=== PATIENT | male | born 1945 | race Caucasian/White ===

== ENCOUNTER → 2017-08-25 06:04 | Outpatient (CLI) | payer MEDICARE, OTHER, SELFPAY ==
[2017-08-25 10:16] LABS: AST(SGOT) 26 U/L (15-37); Alanine Aminotransfer ALT/SGPT 26 U/L (16-61); Albumin, Serum 3.9 g/dL (3.2-5.0); Alkaline Phosphatase 35 U/L (45-117); Bilirubin, Direct 0.13 mg/dL (0.00-0.30); Cholesterol 150 mg/dL (200); Globulin 3.4 g/dL (2.2-4.2); High Density Lipoprotein 36 mg/dL; Protein, Total 7.3 g/dL (6.4-8.2); Triglycerides 129 mg/dL; Very Low Density Lipoprotein 26 mg/dL (5-40)
--- NOTE | 2017-08-25 10:19 | STRESSREP ---
Stress Test Report Pharmacologic myocardial perfusion stress test. 71-year-old man with a history of known coronary artery disease status post carotid bypass surgery. Stress protocol: Resting EKG demonstrates normal sinus rhythm with rate of 60 bpm normal intervals are noted. Resting blood pressure is 124/74 mmHg. 0.4 mg of regadenoson was infused per usual protocol. Continuous EKG monitoring was performed. The patient maintained sinus rhythm throughout the recording the maximum heart rate was 83 bpm which was 54% of the maximum predicted heart rate the maximum workload attained was 1 metabolic equivalent. At rest there were no ST or T-wave changes noted suggest ischemia at peak infusion no ST or T-wave changes were noted suggest ischemia. Myocardial perfusion protocol. 14.8 mCi of technetium 99m sestamibi was injected at rest. 0.4 mg of regadenoson was infused per usual protocol. At peak infusion 44.9 mCi of technetium 99m sestamibi was injected. Stress images were obtained stress and rest images were reconstructed and compared in the short axis vertical long and horizontal long axis. Gated images were also obtained. Perfusion SPECT analysis: Review of the stress images demonstrate an upper normal cardiac silhouette size. The septum appears to be well perfused the anterior wall and lateral huynh are well perfused. There is a medium-sized defect noted in the basal to mid inferior wall. The distal inferior wall and inferoapical huynh are well perfused. This is present on the stress and the resting images to a similar extent. 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 There appears to be mild improvement in the inferolateral segment suggesting mild inferolateral alec-infarct ischemia. Gated SPECT analysis: The gated ejection fraction is noted to be 65%. 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 Preserved ejection fraction.
== END ==
PROVIDERS: Family Provider Family Medicine; PCP Family Medicine; Visit Provider Physician Assistant Medical
DX: E78.00 Pure hypercholesterolemia, unspecified (principal); I25.10 Atherosclerotic heart disease of native coronary artery without angina pectoris; I10 Essential (primary) hypertension; R07.9 Chest pain, unspecified
CPT/HCPCS: 36415; 78452; 80061; 80076; 93017; A9500; A4216; J2785

== ENCOUNTER → 2017-08-26 11:45 | Outpatient (CLI) | payer MEDICARE, OTHER, SELFPAY ==
--- NOTE | 2017-08-26 11:50 | RAD_ITS ---
STUDY: X-RAY CHEST REASON FOR EXAM: Male, 71 years old. Preop for heart catheterization TECHNIQUE: Frontal and lateral views of the chest. COMPARISON: None. FINDINGS: The lungs are clear and expanded. There is no demonstrated pleural abnormality. Normal size heart. Normal mediastinum and iqra. Normal visualized pulmonary arteries. Normal visualized aortic arch and descending thoracic aorta. Normal visualized thoracic spine. Normal visualized ribs, clavicles, and shoulders. There is no demonstrated abnormality of the visualized soft tissue structures of the upper abdomen. RAD/Chest PA and Lateral IMPRESSION: No acute cardiopulmonary disease. Electronically Signed: Deon Machado DO at 22:42 EDT , Service support ,
== END ==
PROVIDERS: Family Provider Family Medicine; PCP Family Medicine; Visit Provider Internal Medicine Cardiovascular Disease
DX: I25.10 Atherosclerotic heart disease of native coronary artery without angina pectoris (principal); E78.5 Hyperlipidemia, unspecified; I10 Essential (primary) hypertension; R94.39 Abnormal result of other cardiovascular function study; I25.2 Old myocardial infarction; Z95.1 Presence of aortocoronary bypass graft
CPT/HCPCS: 71046

== ENCOUNTER → 2017-08-27 06:48 | Day surgery (SDC) | payer MEDICARE, OTHER, SELFPAY ==
[2017-08-26 11:47] VITALS: BMI 36.4
[2017-08-26 12:37] LABS: Absolute Lymphocyte Count 2.08 X10^3/ul (0.83-4.51); Absolute Neutrophil Count 4.6 X10^3/uL (2.0-7.7); Basophil# 0.03 X10^3/uL; Basophil% 0.4 % (0-1); Eosinophil# 0.16 X10^3/uL; Eosinophils% 2.1 % (0-5); Hemoglobin 15.4 g/dl (13.0-16.5); Lymphocyte # 2.08 X10^3/ul (4.0); Lymphocyte % 27.6 % (19-41); Mean Corp Hgb Conc 32.8 g/gl (32-36); Mean Corpuscular Hgb 30.2 pg (27.0-32.0); Mean Corpuscular Volume 92.2 fL (80-94); Mean Platelet Vol. 9.5 fl (6.2-12.0); Monocyte# 0.66 X10^3/uL; Monocyte% 8.8 % (0-10); Platelet Count 251 K/mm3 (150-450); RBC Distribution Width CV 13.9 % (11.6-14.6); RBC Distribution Width SD 45.7 fl (35.1-43.9); White Blood Count 7.5 K/mm3 (4.4-11.0)
[2017-08-26 12:41] LABS: POSITIVE COUNT NO; POSITIVE DIFFERENTIAL NO; POSITIVE MORPHOLOGY NO
[2017-08-26 12:56] LABS: Anion Gap 8 (5-15); BUN 20 mg/dL (7-18); BUN/Creat Ratio 17.4 RATIO (10-20); Calcium,Total 8.5 mg/dL (8.5-10.1); Chloride 106 mmol/L (98-107); Creatinine, Serum 1.15 mg/dL (0.70-1.30); EST Glomerular Filtration Rate 67 mL/min (>60); Est Glom Filt Rate - Afr Amer 81 mL/min (>60); Estimated Creatinine Clearance 66.54 ml/min; Glucose 108 mg/dL (74-106); International Normalized Ratio 1.1; Potassium 4.7 mmol/L (3.5-5.1); Prothrombin Time (Protime)PT. 13.8 SECONDS (11.7-14.9); Sodium Level 139 mmol/L (136-145)
--- NOTE | 2017-08-27 09:04 | CL.D_ITS ---
Patient Name: KEILY MARVIN Study Date: 08/27/2017 Performing: Adalberto Marc MD Ht: 72.04 inches 183 cm : 1945 Wt: 268.96 lbs 122 kg Age: 71 Gender: male BSA: 2.42 PROCEDURE(S) PERFORMED BU61-GRO/COR/CABG DC11-AO ROOT ANGIO WITH HEART CATH CLINICAL PROFILE AND INDICATIONS INDICATIONS: 71-year-old man with a history of abnormal stress test. Stress/Imaging Standard Exercise Stress Test: Yes Result: Positive Low Risk CAD Presentations: No Sxs, no angina. CONCLUSIONS Occluded saphenous vein graft to the circumflex artery, occluded radial graft to the right coronary a rtery. Patent left internal mammary artery to the left anterior descending artery with collaterals e xtending to the distal right coronary artery, left to left collaterals from the circumflex artery and left to right collaterals from the circumflex artery. Patent sequential saphenous vein graft to the diagonal vessel RECOMMENDATIONS Medical therapy DESCRIPTION OF PROCEDURE The patient arrived to the procedure lab. The risks and benefits of the procedure as well as a full d escription of our services here and current unavailability of surgical backup were fully explained to the patient and/or their significant other prior to the catheterization. The Timeout was completed, verifying the correct patient and procedure. The patient's procedural site was prepped and draped in the usual fashion. Local anesthetic was given subcutaneously to right groin region with Lidocaine 2%. Using a modified Seldinger technique, arterial access was obtained via the right femoral artery, a 5 Fr sheath was inserted. Left Coronary Artery selective angiography was performed in multiple views u sing a 5 Fr. JL 5 catheter. Right Coronary Artery selective angiography was then performed in multipl e views using a 5 Fr. 3DRC (Hany) catheter. Saphenous Vein graft to the unknown artery (occluded graft) selective angiography was performed in single view using a 5 Fr. 3DRC (Hany) catheter. Sap henous Vein graft to the DIAGs selective angiography was performed in multiple views using a 5 Fr. 3D RC (Hany) catheter. Left internal mammary artery graft to the LAD selective angiography was perfo rmed in multiple views using a 5 Fr. IM catheter. Saphenous Vein graft to the unknown artery (occlude d graft) selective angiography was performed in single view using a 5 Fr. AR MOD catheter. Ascending (root) aorta selective angiography was then performed in single view. Ascending (root) aorta selectiv e angiography was then performed in single view.The arterial sheath was pulled and manual compression applied until hemostasis is achieved. CORONARY ANGIOGRAPHY DOMINANCE: Right Dominant LEFT MAIN: Angiographically normal LEFT ANTERIOR DECENDING ARTERY: is occluded MID LAD: is occluded DIAGONAL 1: Proximal - Moderate luminal irregularities up to 50% CIRCUMFLEX ARTERY: MID CIRC: is occluded RIGHT CORONARY ARTERY: PROX RCA: is occluded GRAFTS: BATISTA graft to the Mid LAD is patent Saphenous Vein graft to the 1st Diagonal is patent Sequential graft to the diagonal is patent Radial graft to the RCA is totally occluded Sequential graft to the om is occluded COLLATERAL FLOW: Collateral flow from CIRC to RPL 1 Collateral flow from Left to Right AORTIC ROOT: Angiographically normal COMPLICATIONS No Complications PROCEDURE MEDICATIONS Versed 1 mg IV Oxygen: 2 L/min via nasal cannula SUMMARY OF HEMODYNAMIC DATA Time AIR REST ECG 07:51:59 AO 119/63 (85) SA 08:11:18 Signed By Adalberto Marc MD On 08/27/2017 09:03:15 Adalberto Marc MD
== END ==
PROVIDERS: Family Provider Family Medicine; PCP Family Medicine; Visit Provider Internal Medicine Cardiovascular Disease
DX: I25.810 Atherosclerosis of coronary artery bypass graft(s) without angina pectoris (principal); I25.82 Chronic total occlusion of coronary artery; E11.9 Type 2 diabetes mellitus without complications; I10 Essential (primary) hypertension; E78.5 Hyperlipidemia, unspecified; R94.39 Abnormal result of other cardiovascular function study; Z79.84 Long term (current) use of oral hypoglycemic drugs; Z79.82 Long term (current) use of aspirin; Z79.02 Long term (current) use of antithrombotics/antiplatelets; Z79.899 Other long term (current) drug therapy; I25.2 Old myocardial infarction; Z95.1 Presence of aortocoronary bypass graft; Z87.891 Personal history of nicotine dependence; R93.1 Abnormal findings on diagnostic imaging of heart and coronary circulation
CPT/HCPCS: 36415; 80048; 85025; 85610; 85730; 93455; 93567; 99152; 99153; J3010; J7040; Q9967; C1769

== ENCOUNTER 2017-11-17 14:07 | Inpatient (IN) | payer MEDICARE, OTHER, SELFPAY ==
[2017-11-17 14:08] VITALS: BP 126/79; PULSE 83; RESP 18; TEMP 37.7; O2SAT 95; BMI 32.2
--- NOTE | 2017-11-17 15:12 | CT_ITS ---
STUDY: CT PELVIS WITH CONTRAST REASON FOR EXAM: Male, 72 years old. Right groin firmness RADIATION DOSAGE (If Supplied By Facility): CTDIvol = ( 23.33 ) mGy, DLP = ( 1002.30 ) mGycm TECHNIQUE: Transaxial imaging of the pelvis was performed without oral contrast. 100ML ml of Isovue 300 contrast was administered intravenously. Individualized dose optimization techniques were used for this CT. COMPARISON: None. FINDINGS: Normal urinary bladder. Normal visualized small intestine. There are diverticular changes of the colon without evidence for acute diverticulitis.. There is no pelvic fluid. There is no pelvic lymphadenopathy or mass lesion. Normal visualized pelvic arteries. There are small bilateral fat-containing inguinal hernias. Lateral to the right inguinal canal there is diffuse stranding in the subcutaneous fat extending anteriorly into the inferior pubic fat and extending along the dorsal surface of the proximal penile shaft. Small umbilical hernia containing fat. Lumbar spine demonstrates spondylosis. CT/Pelvis WITH IV Contrast IMPRESSION: Diffuse subcutaneous edema or cellulitis lateral to the right lateral canal penile shaft. No focal abscess Electronically Signed: Bernardo Gordon MD at 17:00 EDT , Service support ,
--- NOTE | 2017-11-17 15:15 | ED.DCSUM_ITS ---
- ER Visit Summary Date of Service: 11/17/17 Chief Complaint: [Right groin pain and swelling] History of Present Illness: The patient is a 72 M [who presents the emergency department with right groin pain and swelling. It has been going on for the last 3 days. He has had low-grade fevers. He has been nauseated. Is been slightly constipated. It hurts to move. He went to urgent care and they referred him here. He has not had an appetite today. He has a history of CABG coronary artery disease [place] diabetes hypertension.] Physical Examination: [] Temperature 100?F WN WD NAD PERRL EOMI MMM NECK supple and nontender, no masses RRR no murmur rub or gallop, no peripheral edema, symmetric radial pulses CTAB no respiratory distress ABDOMEN is soft and nontender, normal bowel sounds, no distension, no rebound or guarding SKIN 2 cm x 4 cm area of firm induration there is no palpable fluctuance, he has a cellulitis that extends across the mons lower abdomen and right groin Alert and Oriented x3, CN II-XII in tact, no motor or sensory deficits, gait normal No lymphadenopathy Test Results: [] Emergency Department Course and Treatment: [Patient was given pain medication and clindamycin. CT was obtained. CT showed no evidence of abscess or hernia. I spoke with the hospitalist who requested phone urology consultation with Dr. Sibley. I did speak with Dr. Kingsley. Patient remained stable and will be admitted.] Treatment Plan: [] Disposition: [Admit] Impression: [Right groin cellulitis] This note was generated with [employer] dictation software. It may contain incorrect words, spelling, and punctuation that were not noted in review of the chart prior to signing ED Disposition - Plan for ED Patient: Disposition: Acute Care Hospital [facility] Chief Complaint: Edema
[2017-11-17] MEDS: Morphine 4 MG/ML Syringe IV (15:33)
[2017-11-17] MEDS: Clindamycin 900 MG/50 ML BAG 75 MG IV (15:33)
[2017-11-17] MEDS: Ondansetron 4 MG/2 ML Vial IV (15:33)
[2017-11-17 15:40] LABS: Absolute Lymphocyte Count 1.32 X10^3/ul (0.83-4.51); Absolute Neutrophil Count 12.6 X10^3/uL (2.0-7.7); Basophil# 0.02 X10^3/uL; Basophil% 0.1 % (0-1); Eosinophil# 0.03 X10^3/uL; Eosinophils% 0.2 % (0-5); Hematocrit 43.9 % (40-54); Hemoglobin 14.5 g/dl (13.0-16.5); Lymphocyte # 1.32 X10^3/ul (4.0); Lymphocyte % 8.6 % (19-41); Mean Corpuscular Hgb 29.7 pg (27.0-32.0); Mean Corpuscular Volume 89.8 fL (80-94); Mean Platelet Vol. 9.5 fl (6.2-12.0); Monocyte# 1.38 X10^3/uL; Neutrophil # 12.59 X10^3/uL (2.7-7.7); Platelet Count 183 K/mm3 (150-450); Red Blood Count 4.89 M/mm3 (4.6-6.2); White Blood Count 15.4 K/mm3 (4.4-11.0)
[2017-11-17 15:44] LABS: POSITIVE COUNT NO; POSITIVE DIFFERENTIAL NO; POSITIVE MORPHOLOGY NO
[2017-11-17 15:51] LABS: Anion Gap 7 (5-15); BUN 18 mg/dL (7-18); BUN/Creat Ratio 14.3 RATIO (10-20); Calcium,Total 8.8 mg/dL (8.5-10.1); Chloride 104 mmol/L (98-107); Creatinine, Serum 1.26 mg/dL (0.70-1.30); EST Glomerular Filtration Rate 60 mL/min (>60); Est Glom Filt Rate - Afr Amer 73 mL/min (>60); Glucose 126 mg/dL (74-106); Potassium 3.7 mmol/L (3.5-5.1); Sodium Level 135 mmol/L (136-145)
[2017-11-17 15:52] LABS: International Normalized Ratio 1.2; Prothrombin Time (Protime)PT. 15.2 SECONDS (11.7-14.9)
[2017-11-17 18:17] VITALS: BP 135/68; PULSE 69; RESP 16; O2SAT 95
[2017-11-17 18:22] VITALS: BMI 32.2
--- NOTE | 2017-11-17 18:30 | PCM.HP.STD ---
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 García (7) History of left heart catheterization Status: Chronic Comment: 09/10/2002 [facility] per Dr. Moore> CABG X5 (8) Hyperlipidemia Status: Chronic Qualifiers: (9) Hypertension Status: Chronic Qualifiers: (10) History of myocardial infarction of inferoposterior wall Status: Chronic (11) Atherosclerotic heart disease of [place] coronary artery without angina pectoris Status: Chronic Qualifiers: History of Present Illness Date of Admission: 11/17/17 Chief Complaint: Fever with right groin swelling for 3 days The patient is a 72 year old M with history of coronary artery disease status post CABG in August 2002, diabetes mellitus type 2 with good glycemic control came to ER with fever and right groin swelling since Friday. Patient noticed this spontaneously erythematous, hardness over right groin region the subcutaneous fat. No change in urinary stream. Denies purulent discharge per urethra, other lower urinary tract symptoms. Patient has chronic constipation for about 1 year moves bowel in 2-3 days. Has nausea but denies vomiting. Patient noticed to have fever 102 in the urgent care and was sent here. Did not had antibiotic care. In ED, temperature was 100 Fahrenheit, with no tachycardia, tachypnea or hypoxia. CT pelvis was done and reported as diffuse subcutaneous edema or cellulitis lateral to right inguinal canal is diffuse stranding in subcutaneous fat extending anteriorly into inferior pubic fat and extending along the dorsal surface of proximal penile shaft. ED physician discussed with Dr. Kingsley and an absence of abscess does not need any surgical maneuver/procedure at this point of time. [] Past Medical History Past Medical History (Chronic Problems): Chronic Problems (Last Updated 08/25/17 @ 17:50 by Katy England) Old myocardial infarction (Chronic) Overweight (Chronic) Impacted cerumen of both ears (Chronic) S/P CABG x 5 (Chronic) BATISTA to LAD, SVG to DX-DX sequential and OM arteries; and right radial artery graft to the RCA 09/13/[address] García History of left heart catheterization (Chronic) 09/10/[address] [facility] [address] Moore> CABG X5 Hyperlipidemia (Chronic) Hypertension (Chronic) History of myocardial infarction of inferoposterior wall (Chronic) Atherosclerotic heart disease of [place] coronary artery without angina pectoris (Chronic) Medical History: Medical History (Last Updated 08/25/17 @ 17:50 by Katy England) Abnormal cardiovascular stress test (Acute) R94.39 Old myocardial infarction (Chronic) I25.2 Hyperlipidemia (Chronic) E78.5 Hypertension (Chronic) I10 History of myocardial infarction of inferoposterior wall (Chronic) I25.2 Atherosclerotic heart disease of [place] coronary artery without angina pectoris (Chronic) I25.10 Diabetes E11.9 Allergies ALLIE Inhibitors Adverse Reaction (Intermediate, Verified 11/17/17 14:09) Cough Home Medications: Ambulatory Orders Medication Instructions Recorded canagliflozin 100 mg tablet 100 mg PO DAILY 90 Days #90 07/14/17 fenofibrate micronized 134 mg 1 tab PO DAILY 90 Days #90 07/14/17 capsule metformin ER 500 mg 1 tab PO DAILY 30 Days #120 07/14/17 tablet,extended release 24 hr metoprolol tartrate 50 mg tablet 25 mg PO BID 90 Days #90 07/14/17 simvastatin 20 mg tablet 1 tab PO DAILY 90 Days #90 07/14/17 vitamin B12 500 mcg-folic acid 400 1 tab PO QDAY 07/14/17 mcg tablet amoxicillin 500 mg tablet See Label Instructions PO .COMPLEX 07/23/17 PRN aspirin 81 mg tablet,delayed 81 mg PO QDAY tab 07/23/17 release coenzyme Q10 100 mg capsule 100 mg PO QDAY 07/23/17 cyanocobalamin (vit B-12) 1,000 1,000 mcg PO QDAY 07/23/17 mcg tablet amlodipine 2.5 mg tablet 2.5 mg PO QDAY #90 tab 07/29/17 losartan 100 mg tablet 100 mg PO QDAY #90 tab 07/29/17 nitroglycerin 0.4 mg sublingual 0.4 mg SUBLINGUAL Q5M PRN #25 tab 07/30/17 tablet Surgical History: Surgical History (Last Updated 07/29/17 @ 10:49 by Justine Angulo) S/P CABG x 5 (Chronic) Z95.1 BATISTA to LAD, SVG to DX-DX sequential and OM arteries; and right radial artery graft to the RCA 09/13/[address] García History of left heart catheterization (Chronic) Z98.890 09/10/2002 [facility] per Dr. Moore> CABG X5 Smoking Status: Former smoker Tobacco Use: Cigarettes - *Family History Paternal Family History: Family History (Last Updated 07/29/17 @ 10:47 by Justine Angulo) Father Myocardial infarction COPD (chronic obstructive pulmonary disease) Brother CAD (coronary artery disease) Myocardial infarction History Items: No pertinent history Review of Systems Constitutional: Reports: Chills, Fever. Denies: Weight Change HEENT: Denies: Head Aches, Sinus Congestion, Sinus Drainage Cardiovascular: Denies: Chest Pain, Palpitations Respiratory: Denies: Cough, Shortness of breath at rest, Sputum production Gastrointestinal: Reports: Abdominal Pain, Nausea. Denies: Vomiting Genitourinary: Denies: Dysuria Musculoskeletal: Denies: Joint Pain, Joint Tenderness Skin: Reports: Rash. Denies: Wounds Neurological: Denies: Numbness, Tingling, Focal weakness Psychiatric: Denies: Anxiety, Depression, Homicidal Ideations, Suicidal Ideations Hematologic/ Lymphatic: Denies: Easy Bruising, Easy Bleeding VTE Information - Inpt Only VTE Present on Admission: No VTE Mechan Device Prophylaxis: SCD's VTE Pharm Prophylaxis ordered?: Yes Patient Problems: Active and Suspected Problems (Last Updated 08/25/17 @ 17:50 by Kayt England) Right-sided pubic soft tissue cellulitis (Acute) - Physical Exam General: Alert, Oriented x3, Cooperative HEENT: Atraumatic, PERRLA, EOMI, Normocephalic Neck: Supple, No JVD, Negative Carotid Bruits Lungs: Clear to auscultation, Normal air movement, No rhonchi, No wheeze Cardiovascular: Regular rate, Regular Rhythm, Normal S1, Normal S2, No murmurs Abdomen: Bowel Sounds Present, Soft, Tender - Mild tenderness of subcutaneous fat along right inguinal region. No scrotal tenderness/penile tenderness. No discharge per urethra., No hernias noted - No impulse on coughing at deep ring. Small umbilical small fat hernia, - Extremities: No edema, Capillary Refill Less than 3 Seconds Skin: Rash Present - Erythematous rash present over right pelvic and inguinal region along with induration and hardness. Musculoskeletal: No Tenderness to Palpation of Joints or Extremities Neurological: Cranial nerves II-XII grossly intact Psych/Mental Status: Normal Affect, Appropriate Vital Signs Temp Pulse Resp BP Pulse Ox 100 F H 69 16 135/68 H 95 11/17/17 14:08 11/17/17 18:17 11/17/17 18:17 11/17/17 18:17 11/17/17 18:17 Oxygen Delivery Method Room Air Weight: 258 lb Body Mass Index (BMI) 32.2 Laboratory Tests Past 24 Hrs 11/17/17 11/17/17 11/17/17 15:00 15:00 15:00 WBC 15.4 H RBC 4.89 Hgb 14.5 Hct 43.9 MCV 89.8 MCH 29.7 MCHC 33.0 RDW 14.0 RDW Differential 46.0 H Plt Count 183 MPV 9.5 Immature Gran % (Auto) 0.100 Neut % (Auto) 82.0 H Lymph % (Auto) 8.6 L [place] % (Auto) 9.0 Eos % (Auto) 0.2 Baso % (Auto) 0.1 Absolute Neuts (auto) 12.6 H Absolute Lymphs (auto) 1.32 Total Counted Not Reportable PT 15.2 H INR 1.2 Sodium 135 L Potassium 3.7 Chloride 104 Carbon Dioxide 24.0 Anion Gap 7 BUN 18 Creatinine 1.26 Estim Creat Clear Calc 65.20 Est GFR (MDRD) Af Amer 73 Est GFR (MDRD) Non-Af 60 BUN/Creatinine Ratio 14.3 Glucose 126 H Calcium 8.8 Assessment/Plan All Active Problems (Last Updated 08/25/17 @ 17:50 by Katy England) Right-sided pubic soft tissue cellulitis (Acute) Abnormal cardiovascular stress test (Acute) The patient is a 72 year old M with history of coronary artery disease status post CABG in August 2002, diabetes mellitus type 2 with good glycemic control came to ER with fever and right groin swelling since Friday. Patient noticed this spontaneously erythematous, hardness over right groin region the subcutaneous fat. No change in urinary stream. Denies purulent discharge per urethra, other lower urinary tract symptoms. Patient has chronic constipation for about 1 year moves bowel in 2-3 days. Has nausea but denies vomiting. Patient noticed to have fever 102 in the urgent care and was sent here. Did not had antibiotic care. In ED, temperature was 100 Fahrenheit, with no tachycardia, tachypnea or hypoxia. CT pelvis was done and reported as diffuse subcutaneous edema or cellulitis lateral to right inguinal canal is diffuse stranding in subcutaneous fat extending anteriorly into inferior pubic fat and extending along the dorsal surface of proximal penile shaft. ED physician discussed with Dr. Kingsley and an absence of abscess does not need any surgical maneuver/procedure at this point of time. Initial blood work shows leukocytosis with left shift. INR and kidney function normal. 1. Right sided inguinal region and pelvic subcutaneous fat plane cellulitis: Patient is being admitted on the MedSurg floor. Started on IV Zosyn. Blood cultures ?2 ordered in ER. Lactic acid ordered. If if patient develops localized abscess during hospital course or condition further worsens, can consult Dr. Kingsley 2. Diabetes mellitus type 2 with good glycemic control: Patient said his blood sugar is between 90-110 mg/dl at home. Last A1c 6.2 about 3 months ago. Although our record shows 6.8 in August 2016. Hold metformin and canagliflozin as canagliflozin causes glucosuria and risk for aggravating infection along penile urethra. 3. Coronary artery disease status post four-vessel CABG in 2002, last cardiac cath in August [address] tran: On medical management. Resume home cardiac medications. 4 other comorbidities include hypertension, dyslipidemia: Home medication reconciliation done. This note was generated with [employer] dictation software. Every effort was made to ensure accuracy, however computerized cuff turner mistakes may persist. Laboratory Results 11/17/17 15:00: WBC 15.4 H, RBC 4.89, Hgb 14.5, Hct 43.9, MCV 89.8, MCH 29.7, MCHC 33.0, RDW 14.0, RDW Differential 46.0 H, Plt Count 183, MPV 9.5, Immature Gran % (Auto) 0.100, Neut % (Auto) 82.0 H, Lymph % (Auto) 8.6 L, [place] % (Auto) 9.0, Eos % (Auto) 0.2, Baso % (Auto) 0.1, Absolute Neuts (auto) 12.6 H, Absolute Lymphs (auto) 1.32, Total Counted Not Reportable 11/17/17 15:00: PT 15.2 H, INR 1.2 11/17/17 15:00: Sodium 135 L, Potassium 3.7, Chloride 104, Carbon Dioxide 24.0, Anion Gap 7, BUN 18, Creatinine 1.26, Estim Creat Clear Calc 65.20, Est GFR (MDRD) Af Amer 73, Est GFR (MDRD) Non-Af 60, BUN/Creatinine Ratio 14.3, Glucose 126 H, Calcium 8.8 Clinical Impression(s) from Imaging Studies Pelvis CT 11/17/17 15:12 IMPRESSION: Diffuse subcutaneous edema or cellulitis lateral to the right lateral canal penile shaft. No focal abscess Electronically Signed: Bernardo Gordon MD at 17:00 EDT , Service support , [] Code Visit Inpatient E&M: 88251 Init Hosp L3
--- NOTE | 2017-11-17 18:40 | HP.PCM_ITS ---
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 García (7) History of left heart catheterization Status: Chronic Comment: 09/10/2002 [facility] per Dr. Moore> CABG X5 (8) Hyperlipidemia Status: Chronic Qualifiers: (9) Hypertension Status: Chronic Qualifiers: (10) History of myocardial infarction of inferoposterior wall Status: Chronic (11) Atherosclerotic heart disease of [place] coronary artery without angina pectoris Status: Chronic Qualifiers: History of Present Illness Date of Admission: 11/17/17 Chief Complaint: Fever with right groin swelling for 3 days The patient is a 72 year old M with history of coronary artery disease status post CABG in August 2002, diabetes mellitus type 2 with good glycemic control came to ER with fever and right groin swelling since Friday. Patient noticed this spontaneously erythematous, hardness over right groin region the subcutaneous fat. No change in urinary stream. Denies purulent discharge per urethra, other lower urinary tract symptoms. Patient has chronic constipation for about 1 year moves bowel in 2-3 days. Has nausea but denies vomiting. Patient noticed to have fever 102 in the urgent care and was sent here. Did not had antibiotic care. In ED, temperature was 100 Fahrenheit, with no tachycardia, tachypnea or hypoxia. CT pelvis was done and reported as diffuse subcutaneous edema or cellulitis lateral to right inguinal canal is diffuse stranding in subcutaneous fat extending anteriorly into inferior pubic fat and extending along the dorsal surface of proximal penile shaft. ED physician discussed with Dr. Kingsley and an absence of abscess does not need any surgical maneuver/procedure at this point of time. [] Past Medical History Past Medical History (Chronic Problems): Chronic Problems (Last Updated 08/25/17 @ 17:50 by Katy England) Old myocardial infarction (Chronic) Overweight (Chronic) Impacted cerumen of both ears (Chronic) S/P CABG x 5 (Chronic) BATISTA to LAD, SVG to DX-DX sequential and OM arteries; and right radial artery graft to the RCA 09/13/[address] García History of left heart catheterization (Chronic) 09/10/2002 [facility] per Dr. Moore> CABG X5 Hyperlipidemia (Chronic) Hypertension (Chronic) History of myocardial infarction of inferoposterior wall (Chronic) Atherosclerotic heart disease of [place] coronary artery without angina pectoris (Chronic) Medical History: Medical History (Last Updated 08/25/17 @ 17:50 by Katy England) Abnormal cardiovascular stress test (Acute) R94.39 Old myocardial infarction (Chronic) I25.2 Hyperlipidemia (Chronic) E78.5 Hypertension (Chronic) I10 History of myocardial infarction of inferoposterior wall (Chronic) I25.2 Atherosclerotic heart disease of [place] coronary artery without angina pectoris (Chronic) I25.10 Diabetes E11.9 Allergies ALLIE Inhibitors Adverse Reaction (Intermediate, Verified 11/17/17 14:09) Cough Home Medications: Ambulatory Orders Medication Instructions Recorded canagliflozin 100 mg tablet 100 mg PO DAILY 90 Days #90 07/14/17 fenofibrate micronized 134 mg 1 tab PO DAILY 90 Days #90 07/14/17 capsule metformin ER 500 mg 1 tab PO DAILY 30 Days #120 07/14/17 tablet,extended release 24 hr metoprolol tartrate 50 mg tablet 25 mg PO BID 90 Days #90 07/14/17 simvastatin 20 mg tablet 1 tab PO DAILY 90 Days #90 07/14/17 vitamin B12 500 mcg-folic acid 400 1 tab PO QDAY 07/14/17 mcg tablet amoxicillin 500 mg tablet See Label Instructions PO .COMPLEX 07/23/17 PRN aspirin 81 mg tablet,delayed 81 mg PO QDAY tab 07/23/17 release coenzyme Q10 100 mg capsule 100 mg PO QDAY 07/23/17 cyanocobalamin (vit B-12) 1,000 1,000 mcg PO QDAY 07/23/17 mcg tablet amlodipine 2.5 mg tablet 2.5 mg PO QDAY #90 tab 07/29/17 losartan 100 mg tablet 100 mg PO QDAY #90 tab 07/29/17 nitroglycerin 0.4 mg sublingual 0.4 mg SUBLINGUAL Q5M PRN #25 tab 07/30/17 tablet Surgical History: Surgical History (Last Updated 07/29/17 @ 10:49 by Justine Angulo) S/P CABG x 5 (Chronic) Z95.1 BATISTA to LAD, SVG to DX-DX sequential and OM arteries; and right radial artery graft to the RCA 09/13/[address] García History of left heart catheterization (Chronic) Z98.890 09/10/2002 [facility] per Dr. Moore> CABG X5 Smoking Status: Former smoker Tobacco Use: Cigarettes - *Family History Paternal Family History: Family History (Last Updated 07/29/17 @ 10:47 by Justine Angulo) Father Myocardial infarction COPD (chronic obstructive pulmonary disease) Brother CAD (coronary artery disease) Myocardial infarction History Items: No pertinent history Review of Systems Constitutional: Reports: Chills, Fever. Denies: Weight Change HEENT: Denies: Head Aches, Sinus Congestion, Sinus Drainage Cardiovascular: Denies: Chest Pain, Palpitations Respiratory: Denies: Cough, Shortness of breath at rest, Sputum production Gastrointestinal: Reports: Abdominal Pain, Nausea. Denies: Vomiting Genitourinary: Denies: Dysuria Musculoskeletal: Denies: Joint Pain, Joint Tenderness Skin: Reports: Rash. Denies: Wounds Neurological: Denies: Numbness, Tingling, Focal weakness Psychiatric: Denies: Anxiety, Depression, Homicidal Ideations, Suicidal Ideations Hematologic/ Lymphatic: Denies: Easy Bruising, Easy Bleeding VTE Information - Inpt Only VTE Present on Admission: No VTE Mechan Device Prophylaxis: SCD's VTE Pharm Prophylaxis ordered?: Yes Patient Problems: Active and Suspected Problems (Last Updated 08/25/17 @ 17:50 by Katy England) Right-sided pubic soft tissue cellulitis (Acute) - Physical Exam General: Alert, Oriented x3, Cooperative HEENT: Atraumatic, PERRLA, EOMI, Normocephalic Neck: Supple, No JVD, Negative Carotid Bruits Lungs: Clear to auscultation, Normal air movement, No rhonchi, No wheeze Cardiovascular: Regular rate, Regular Rhythm, Normal S1, Normal S2, No murmurs Abdomen: Bowel Sounds Present, Soft, Tender - Mild tenderness of subcutaneous fat along right inguinal region. No scrotal tenderness/penile tenderness. No discharge per urethra., No hernias noted - No impulse on coughing at deep ring. Small umbilical small fat hernia, - Extremities: No edema, Capillary Refill Less than 3 Seconds Skin: Rash Present - Erythematous rash present over right pelvic and inguinal region along with induration and hardness. Musculoskeletal: No Tenderness to Palpation of Joints or Extremities Neurological: Cranial nerves II-XII grossly intact Psych/Mental Status: Normal Affect, Appropriate Vital Signs Temp Pulse Resp BP Pulse Ox 100 F H 69 16 135/68 H 95 11/17/17 14:08 11/17/17 18:17 11/17/17 18:17 11/17/17 18:17 11/17/17 18:17 Oxygen Delivery Method Room Air Weight: 258 lb Body Mass Index (BMI) 32.2 Laboratory Tests Past 24 Hrs 11/17/17 11/17/17 11/17/17 15:00 15:00 15:00 WBC 15.4 H RBC 4.89 Hgb 14.5 Hct 43.9 MCV 89.8 MCH 29.7 MCHC 33.0 RDW 14.0 RDW Differential 46.0 H Plt Count 183 MPV 9.5 Immature Gran % (Auto) 0.100 Neut % (Auto) 82.0 H Lymph % (Auto) 8.6 L [place] % (Auto) 9.0 Eos % (Auto) 0.2 Baso % (Auto) 0.1 Absolute Neuts (auto) 12.6 H Absolute Lymphs (auto) 1.32 Total Counted Not Reportable PT 15.2 H INR 1.2 Sodium 135 L Potassium 3.7 Chloride 104 Carbon Dioxide 24.0 Anion Gap 7 BUN 18 Creatinine 1.26 Estim Creat Clear Calc 65.20 Est GFR (MDRD) Af Amer 73 Est GFR (MDRD) Non-Af 60 BUN/Creatinine Ratio 14.3 Glucose 126 H Calcium 8.8 Assessment/Plan All Active Problems (Last Updated 08/25/17 @ 17:50 by Katy England) Right-sided pubic soft tissue cellulitis (Acute) Abnormal cardiovascular stress test (Acute) The patient is a 72 year old M with history of coronary artery disease status post CABG in August 2002, diabetes mellitus type 2 with good glycemic control came to ER with fever and right groin swelling since Friday. Patient noticed this spontaneously erythematous, hardness over right groin region the subcutaneous fat. No change in urinary stream. Denies purulent discharge per urethra, other lower urinary tract symptoms. Patient has chronic constipation for about 1 year moves bowel in 2-3 days. Has nausea but denies vomiting. Patient noticed to have fever 102 in the urgent care and was sent here. Did not had antibiotic care. In ED, temperature was 100 Fahrenheit, with no tachycardia, tachypnea or hypoxia. CT pelvis was done and reported as diffuse subcutaneous edema or cellulitis lateral to right inguinal canal is diffuse stranding in subcutaneous fat extending anteriorly into inferior pubic fat and extending along the dorsal surface of proximal penile shaft. ED physician discussed with Dr. Kingsley and an absence of abscess does not need any surgical maneuver/procedure at this point of time. Initial blood work shows leukocytosis with left shift. INR and kidney function normal. 1. Right sided inguinal region and pelvic subcutaneous fat plane cellulitis: Patient is being admitted on the MedSurg floor. Started on IV Zosyn. Blood cultures ?2 ordered in ER. Lactic acid ordered. If if patient develops localized abscess during hospital course or condition further worsens, can consult Dr. Kingsley 2. Diabetes mellitus type 2 with good glycemic control: Patient said his blood sugar is between 90-110 mg/dl at home. Last A1c 6.2 about 3 months ago. Although our record shows 6.8 in August 2016. Hold metformin and canagliflozin as canagliflozin causes glucosuria and risk for aggravating infection along penile urethra. 3. Coronary artery disease status post four-vessel CABG in 2002, last cardiac cath in August [address] tran: On medical management. Resume home cardiac medications. 4 other comorbidities include hypertension, dyslipidemia: Home medication reconciliation done. This note was generated with [employer] dictation software. Every effort was made to ensure accuracy, however computerized controls engineer mistakes may persist. Laboratory Results 11/17/17 15:00: WBC 15.4 H, RBC 4.89, Hgb 14.5, Hct 43.9, MCV 89.8, MCH 29.7, MCHC 33.0, RDW 14.0, RDW Differential 46.0 H, Plt Count 183, MPV 9.5, Immature Gran % (Auto) 0.100, Neut % (Auto) 82.0 H, Lymph % (Auto) 8.6 L, Randall % (Auto) 9.0, Eos % (Auto) 0.2, Baso % (Auto) 0.1, Absolute Neuts (auto) 12.6 H, Absolute Lymphs (auto) 1.32, Total Counted Not Reportable 11/17/17 15:00: PT 15.2 H, INR 1.2 11/17/17 15:00: Sodium 135 L, Potassium 3.7, Chloride 104, Carbon Dioxide 24.0, Anion Gap 7, BUN 18, Creatinine 1.26, Estim Creat Clear Calc 65.20, Est GFR ( MDRD) Af Amer 73, Est GFR (MDRD) Non-Af 60, BUN/Creatinine Ratio 14.3, Glucose 126 H, Calcium 8.8 Clinical Impression(s) from Imaging Studies Pelvis CT 11/17/17 15:12 IMPRESSION: Diffuse subcutaneous edema or cellulitis lateral to the right lateral canal penile shaft. No focal abscess Electronically Signed: Bernardo Gordon MD at 17:00 EDT , Service support , [] Code Visit Inpatient E&M: 82409 Init Hosp L3
[2017-11-17 18:41] VITALS: BP 103/41
[2017-11-17 19:08] VITALS: BP 132/60; PULSE 67; RESP 14; TEMP 37.2; O2SAT 97
[2017-11-17 19:09] VITALS: BMI 32.5
[2017-11-17 19:19] LABS: Erythrocyte Sedimentation Rate 32 mm/hr (0-20)
[2017-11-17 19:21] LABS: Bedside Glucose 128 mg/dL (70-110)
[2017-11-17] MEDS: Enoxaparin 40 MG/0.4 ML Syringe SC (19:58)
[2017-11-17] MEDS: 0.9% Normal Saline 1,000 ML 100 ML IV (19:58)
[2017-11-17] MEDS: Piperacil/Tazobactam 3.375 GM/50 ML ML IV (19:58)
[2017-11-17] MEDS: 0.9% NaCl Peripheral Flush Adult/Peds IV (19:58)
[2017-11-17 20:00] LABS: Hemoglobin A1c 6.4 % (4.2-6.3)
[2017-11-17 21:39] VITALS: PULSE 70
[2017-11-17] MEDS: Atorvastatin Calcium 10 MG Tablet PO (21:39)
[2017-11-17] MEDS: Insulin Lispro 100 UNIT/ML INSULN.PEN SQ (21:39)
[2017-11-17] MEDS: Metoprolol Tartrate 25 MG Tablet PO (21:39)
[2017-11-17 22:15] LABS: Bedside Glucose 158 mg/dL (70-110)
[2017-11-18] VITALS (15 sets, daily range): BP systolic 101–133; BP diastolic 45–72; PULSE 64–81; RESP 16–18; TEMP 36.6–37.6; O2SAT 88–98; BMI 32.5; BMI 32.2
[2017-11-18 06:40] LABS: Absolute Lymphocyte Count 1.31 X10^3/ul (0.83-4.51); Absolute Neutrophil Count 10.4 X10^3/uL (2.0-7.7); Basophil# 0.02 X10^3/uL; Basophil% 0.2 % (0-1); Eosinophil# 0.15 X10^3/uL; Eosinophils% 1.1 % (0-5); Hematocrit 40.1 % (40-54); Hemoglobin 13.2 g/dl (13.0-16.5); Lymphocyte # 1.31 X10^3/ul (4.0); Mean Corp Hgb Conc 32.9 g/gl (32-36); Mean Corpuscular Hgb 30.2 pg (27.0-32.0); Mean Corpuscular Volume 91.8 fL (80-94); Mean Platelet Vol. 9.7 fl (6.2-12.0); Monocyte# 1.21 X10^3/uL; Monocyte% 9.2 % (0-10); Neutrophil # 10.43 X10^3/uL (2.7-7.7); Neutrophil % 79.3 % (47-70); Platelet Count 175 K/mm3 (150-450); RBC Distribution Width CV 14.1 % (11.6-14.6); RBC Distribution Width SD 46.6 fl (35.1-43.9); Red Blood Count 4.37 M/mm3 (4.6-6.2); White Blood Count 13.2 K/mm3 (4.4-11.0)
[2017-11-18 06:43] LABS: POSITIVE COUNT NO; POSITIVE DIFFERENTIAL NO; POSITIVE MORPHOLOGY NO
[2017-11-18] MEDS: Piperacil/Tazobactam 3.375 GM/50 ML ML IV ×3 (06:51→23:02)
[2017-11-18 06:55] LABS: Anion Gap 9 (5-15); BUN 18 mg/dL (7-18); BUN/Creat Ratio 16.4 RATIO (10-20); Calcium,Total 8.1 mg/dL (8.5-10.1); Chloride 105 mmol/L (98-107); EST Glomerular Filtration Rate 70 mL/min (>60); Est Glom Filt Rate - Afr Amer 85 mL/min (>60); Estimated Creatinine Clearance 74.68 ml/min; Glucose 102 mg/dL (74-106); Sodium Level 138 mmol/L (136-145)
--- NOTE | 2017-11-18 06:56 | PCM.PROGNOTE ---
Patient Problems: Active and Suspected Problems (Last Updated 08/25/17 @ 17:50 by Katy England) Right-sided pubic soft tissue cellulitis (Acute) Subjective: The patient is a 72-year-old male with a past medical history of coronary artery disease, CABG ?5 vessels in August 2002, diabetes mellitus type 2, obesity and hypertension who presented to the emergency department at [facility] on 11/17/2017 complaining of fever/chills and right groin swelling that started on 11/14/17. Prior to coming to the ER he was seen in an [facility] with a temp of 102 and he was sent to the ED. white blood cell count was 15.4 with 82% neutrophils. Hemoglobin and platelets were within normal limits. Sodium was mildly decreased at 135. Random blood sugar was increased at 126 and a hemoglobin A1c was obtained and was elevated at 6.4. Lactic acid was 1.0. A CT scan of the pelvis was obtained and showed diffuse subcutaneous edema or cellulitis lateral to the right lateral canal penile shaft. There was no focal abscess. Cultures were sent. He was admitted to the hospital with a diagnosis of cellulitis of the right groin and started on intravenous Zosyn. The ER physician discussed the case with Dr. Kingsley who did not feel there was any need for surgical intervention at this time. Pt tells me that he had a small red lump on the proximal right thigh a few weeks ago. T-max the past 24 hours was 100?F in the emergency room. Current temp is 99.6. Vital signs are within normal limits. All lab was personally reviewed. The white blood cell count today is 13.2 with 79.3% neutrophils. Creatinine has decreased to 1.1 from 1.26 at admission. Appetite has been decreased recently and he is complaining of nausea today. He has not had emesis. He has pain in the right groin with any movement. He denies pain in the right calf and has no abdominal pain. He denies dysuria or any penile discharge. - Physical Exam General: Alert, Oriented x3, Cooperative, Well developed, Well nourished HEENT: Atraumatic, PERRLA, Normocephalic Oral: No Gingival or Mucosal Lesions/ Ulcerations, Dry Mucosa Neck: Supple, No JVD, No Nodes, No Nuchal Rigidity, Trachea Midline, Carotid Bruits, Bilateral - The bruits decrease as the neck is ascended and they are possibly secondary to radiation of an aortic murmur. Lungs: Clear to auscultation Cardiovascular: Regular rate, Regular Rhythm, Normal S1, Normal S2, Murmur - He has a 1/6 to 2/6 systolic murmur at the second right intercostal space with radiation to the left ventricular outflow tract. Heart sounds over the apex are diminished., No rub noted, No Gallop Abdomen: Bowel Sounds Present, Soft, Non Tender, Non-Distended, Obese Extremities: No clubbing, No cyanosis, Capillary Refill Less than 3 Seconds, No Calf Tenderness, Peripheral Pulses Normal Skin: - - There is edema and erythema over the right groin area extending into the scrotum and the foreskin on the right lateral side. There is a hard area of localized swelling in the right groin. There is no evidence of intertrigo. There is no erythema extending into the thigh. There are no open areas. Musculoskeletal: No Muscle Wasting Neurological: Cranial nerves II-XII grossly intact, Neuro grossly intact Psych/Mental Status: Normal Affect, Appropriate Vital Signs Temp Pulse Resp BP Pulse Ox 98.7 F 65 16 133/72 H 98 11/18/17 01:00 11/18/17 01:00 11/18/17 01:00 11/18/17 01:00 11/18/17 01:00 Oxygen Delivery Method Room Air Weight: 260 lb 9.382 oz Body Mass Index (BMI) 32.5 Intake and Output for Last 24 Hours 11/16/17 11/17/17 11/18/17 23:59 23:59 23:59 Intake Total 898 / 898 Balance 898 / 898 Laboratory Tests Past 24 Hrs 11/17/17 11/18/17 11/18/17 20:50 05:50 05:50 WBC 13.2 H RBC 4.37 L Hgb 13.2 Hct 40.1 MCV 91.8 MCH 30.2 MCHC 32.9 RDW 14.1 RDW Differential 46.6 H Plt Count 175 MPV 9.7 Immature Gran % (Auto) 0.200 Neut % (Auto) 79.3 H Lymph % (Auto) 10.0 L [place] % (Auto) 9.2 Eos % (Auto) 1.1 Baso % (Auto) 0.2 Absolute Neuts (auto) 10.4 H Absolute Lymphs (auto) 1.31 Total Counted Not Reportable Sodium 138 Potassium 4.0 Chloride 105 Carbon Dioxide 24.0 Anion Gap 9 BUN 18 Creatinine 1.10 Estim Creat Clear Calc 74.68 Est GFR (MDRD) Af Amer 85 Est GFR (MDRD) Non-Af 70 BUN/Creatinine Ratio 16.4 Glucose 102 Lactic Acid 1.0 Calcium 8.1 L POC Glucose 11/17/17 11/17/17 21:35 19:07 POC Glucose 158 H 128 H Medical Necessity - Tobacco Use Smoking Status: Former smoker Tobacco Use: Cigarettes Assessment/Plan All Active Problems (Last Updated 08/25/17 @ 17:50 by Katy England) Right-sided pubic soft tissue cellulitis (Acute) Abnormal cardiovascular stress test (Acute) Impressions 1. Cellulitis/suspected abscess right groin in a diabetic patient 2. Diabetes mellitus type 5-[id number] 3. Coronary artery disease with history of CABG ?5 vessels in August 2002 4. Hypertension 5. Obesity 6. Hyponatremia-resolved continue the Zon Consult Dr. Garcia for possible developing abscess in the R groin Good blood sugar control recheck lab in the AM Continue Enoxaparin for DVT prophylaxis Continue sliding scale insulin White blood cell count has improved today and he has a low-grade fever-we will need to add vancomycin if things start to escalate. He denies any history of MRSA in the past. He does tell me a few months ago he had incision and drainage of an abscess on his back.
[2017-11-18] MEDS: 0.9% Normal Saline 1,000 ML 100 ML IV ×3 (07:08→18:02)
[2017-11-18 07:16] LABS: Bedside Glucose 113 mg/dL (70-110)
[2017-11-18 08:22] LABS: Erythrocyte Sedimentation Rate 35 mm/hr (0-20)
[2017-11-18] MEDS: Aspirin E.C. 81 MG Tablet PO (08:33)
[2017-11-18] MEDS: Losartan Potassium 100 MG Tablet PO (09:38)
[2017-11-18] MEDS: Fenofibrate 145 MG Tablet PO (09:38)
[2017-11-18] MEDS: Polyethylene Glycol 3350 17 GM PACKET PO (09:38)
[2017-11-18] MEDS: Metoprolol Tartrate 25 MG Tablet PO ×2 (09:38→23:02)
[2017-11-18] MEDS: Cyanocobalamin 500 MCG Tablet 1000 MCG PO (09:38)
[2017-11-18] MEDS: amLODIPine 2.5 MG Tablet PO (09:38)
[2017-11-18] MEDS: Enoxaparin 40 MG/0.4 ML Syringe SC (09:38)
--- NOTE | 2017-11-18 11:02 | CON.PCM_ITS ---
Reason for Consult Date of Consultation: 11/18/17 Reason for Consultation: Diabetic abscess right inguinal area and pubic area. REFERRING PHYSICIAN: Dr. Frank. SALES UTILITY REPRESENTATIVE: Dr. Garcia. History of Present Illness: The patient is a 72 year old M was admitted yesterday with increasing pain and redness and swelling in the right inguinal and pubic area. He states it started about 3 days ago. He denies any trauma. He did have some fever. He denies any drainage. Upon admission his WBC was 15. His temp was 100. He is currently on Zosyn. A CT scan was done which showed diffuse subcutaneous edema or cellulitis lateral to the right lateral canal penile shaft. No focal abscess. Since admission, his symptomatology has worsened. I was asked to evaluate this patient for surgical options for treatment. Past Medical History Past Medical History (Chronic Problems): Chronic Problems (Last Updated 11/21/17 @ 15:12 by Wilmar Frank DO) DM type 2 (diabetes mellitus, type 2) (Chronic) Overweight (Chronic) Impacted cerumen of both ears (Chronic) S/P CABG x 5 (Chronic) BATISTA to LAD, SVG to DX-DX sequential and OM arteries; and right radial artery graft to the RCA 09/13/[address] García History of left heart catheterization (Chronic) 09/10/2002 [facility] per Dr. 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) Medical History: Medical History (Last Updated 11/21/17 @ 15:12 by Wilmar Frank DO) Hyperlipidemia (Chronic) E78.5 Hypertension (Chronic) I10 History of myocardial infarction of inferoposterior wall (Chronic) I25.2 Atherosclerotic heart disease of [place] coronary artery without angina pectoris (Chronic) I25.10 Diabetes E11.9 Abnormal cardiovascular stress test (Inactive) R94.39 Allergies ALLIE Inhibitors Adverse Reaction (Intermediate, Verified 11/17/17 14:09) Cough Current Medications Acetaminophen (Tylenol) 650 mg PO Q6H PRN PRN PRN Reason: Mild Pain (scale 0-3)/T>100.7 Al Hydroxide/Mg Hydroxide (Mylanta Ii) 30 ml PO Q6H PRN PRN PRN Reason: Gastric Burning Amlodipine Besylate (Norvasc) 2.5 mg PO DAILY [facility] Last Admin: 11/18/17 09:38 Dose: 2.5 mg Aspirin (Ecotrin) 81 mg PO DAILY@0800 [facility] Last Admin: 11/18/17 08:33 Dose: 81 mg Atorvastatin Calcium (Lipitor) 10 mg PO QHS [facility] Last Admin: 11/17/17 21:39 Dose: 10 mg Bisacodyl (Dulcolax) 10 mg RECTAL DAILY PRN PRN PRN Reason: Constipation Cyanocobalamin (Vitamin B12) 1,000 mcg PO DAILY [facility] Last Admin: 11/18/17 09:38 Dose: 1,000 mcg Dextrose (D50w Syringe) 0 gm IV X1 PRN; Protocol PRN Reason: Hypoglycemia Docusate Sodium (Colace) 200 mg PO BID PRN PRN PRN Reason: constipation Enoxaparin Sodium (Lovenox) 40 mg SC DAILY [facility] Last Admin: 11/18/17 09:38 Dose: 40 mg Fenofibrate (Tricor) 145 mg PO DAILY [facility] Last Admin: 11/18/17 09:38 Dose: 145 mg Glucagon () 1 mg IM .X1 PRN PRN Reason: Hypoglycemia Sodium Chloride () 1,000 mls @ 100 mls/hr IV .Q10H [facility] Last Admin: 11/18/17 07:08 Dose: 100 mls/hr Piperacillin Sod/Tazobactam Sod (Zosyn) 3.375 gm in 50 mls @ 12.5 mls/hr IV Q8 [facility] Last Admin: 11/18/17 06:51 Dose: 12.5 mls/hr Sodium Chloride () 250 mls @ 15 mls/hr IV .[id number] PRN PRN Reason: SALINE FLUSH Insulin Human Lispro (Humalog Kwikpen (Bkc)) 0 unit SQ ACHS [facility] PRN Reason: Protocol Last Admin: 11/18/17 06:56 Dose: Not Given Losartan Potassium (Cozaar) 100 mg PO DAILY [facility] Last Admin: 11/18/17 09:38 Dose: 100 mg Metoprolol Tartrate (Lopressor (Beta Maria T)) 25 mg PO BID [facility] Last Admin: 11/18/17 09:38 Dose: 25 mg Morphine Sulfate () 1 - 2 mg IV Q4H PRN PRN PRN Reason: SEVERE PAIN (6-10/10) Nitroglycerin (Nitrostat) 0.4 mg SUBLINGUAL Q5M PRN PRN Reason: chest pain Ondansetron HCl (Zofran) 4 mg IV Q4H PRN PRN PRN Reason: Nausea Oxycodone HCl (Oxyir) 5 mg PO Q4H PRN PRN PRN Reason: Moderate Pain (pain scale 4-5) Polyethylene Glycol (Miralax) 17 gm PO DAILY [facility] Last Admin: 11/18/17 09:38 Dose: 17 gm Sodium Chloride () 5 - 30 ml IV UD PRN PRN Reason: SALINE FLUSH Last Admin: 11/17/17 19:58 Dose: 10 ml Zolpidem Tartrate (Ambien (Generic)) 5 mg PO QHS PRN PRN PRN Reason: INSOMNIA Home Medications: Ambulatory Orders Medication Instructions Recorded canagliflozin 100 mg tablet 100 mg PO DAILY 90 Days #90 07/14/17 fenofibrate micronized 134 mg 134 mg PO QHS 90 Days #90 07/14/17 capsule metformin ER 500 mg 500 mg PO BID 30 Days #120 07/14/17 tablet,extended release 24 hr metoprolol tartrate 50 mg tablet 25 mg PO BID 90 Days #90 07/14/17 simvastatin 20 mg tablet 20 mg PO QHS 90 Days #90 07/14/17 vitamin B12 500 mcg-folic acid 400 1 tab PO QDAY 07/14/17 mcg tablet aspirin 81 mg tablet,delayed 81 mg PO QDAY tab 07/23/17 release coenzyme Q10 100 mg capsule 100 mg PO QDAY 07/23/17 cyanocobalamin (vit B-12) 1,000 1,000 mcg PO QDAY 07/23/17 mcg tablet amlodipine 2.5 mg tablet 2.5 mg PO QDAY #90 tab 07/29/17 losartan 100 mg tablet 100 mg PO QDAY #90 tab 07/29/17 nitroglycerin 0.4 mg sublingual 0.4 mg SUBLINGUAL Q5M PRN #25 tab 07/30/17 tablet Acetaminophen [Tylenol Tablet] 650 mg PO Q6H PRN PRN tablet 11/21/17 Amox/Clavulanate Tablet [Augmentin 875 mg PO BID #20 tab 11/21/17 Tablet] Diazepam [Valium] 5 mg PO 4X/DAY PRN PRN #30 tab 11/21/17 Docusate Sodium [Colace] 100 mg PO BID #60 cap 11/21/17 Doxycycline 100 mg PO BID #20 cap 11/21/17 Lactobacillus Acidophilus 1 tab PO TID #30 tab 11/21/17 [Acidophilus] Nutritional Supplement [Carloz - 1 packet PO BIDCM #60 packet 11/21/17 [place]ANGE FLAVOR] Nystatin Powder [Mycostatin Powder] 1 applic TOPICAL BID #2 bottle 11/21/17 Oxycodone HCl/Acetaminophen 1 - 2 tab PO 4X/DAY PRN PRN 7 Days 11/21/17 [Percocet 5/325] #50 tab proMETHazine tablet [Phenergan 25 mg PO 4X/DAY PRN PRN #30 tab 11/21/17 tablet] Surgical History: Surgical History (Last Updated 07/29/17 @ 10:49 by Justine Angulo) S/P CABG x 5 (Chronic) Z95.1 BATISTA to LAD, SVG to DX-DX sequential and OM arteries; and right radial artery graft to the RCA 09/13/[address] García History of left heart catheterization (Chronic) Z98.890 09/10/2002 [facility] per Dr. Moore> CABG X5 Smoking Status: Former smoker Tobacco Use: Cigarettes - *Family History Paternal Family History: Family History (Last Updated 07/29/17 @ 10:47 by Justine Angulo) Father Myocardial infarction COPD (chronic obstructive pulmonary disease) Brother CAD (coronary artery disease) Myocardial infarction History Items: No pertinent history Review of Systems Comment: General - Denies fever, fatigue, and weight loss. Eyes - Denies cataracts and glaucoma. ENT - Denies nasal congestion and sore throat. Endocrine - Denies excessive thirst and urination. Skin - Denies suspicious lesions and skin cancer. Musculoskeletal - Denies joint pain, joint stiffness, weakness of muscles and joints, back pain, and arthritis. Neuro - Denies headaches. Cardiovascular - Denies chest pain, fatigue, and shortness of breath with exertion. Psych - Denies anxiety and depression. Respiratory - Denies chronic cough and shortness of breath. Gastrointestinal - Denies nausea , vomiting, diarrhea, and constipation. Hematologic - Denies abnormal bruising and bleeding. Genitourinary - Denies hematuria and urinary frequency. - Physical Exam General - Alert and Oriented HEENT - PERRL. EOMI. Throat is clear. Neck - Supple and nontender. No cervical adenopathy. Lungs - Clear to auscultation. Heart - Regular rate and rhythm. Abdomen - Soft and nondistended. In the right inguinal area with extension into the pubic area is a large area of redness and induration and tenderness. Measures about 15 cm. Some fluctuance. No purulent drainage. Genitalia - Scrotum is nontender. Extremities - FROM. No axillary adenopathy. Radial pulses are palpable. Right and left medial thighs are nontender. Neuro - CN II-XII grossly intact. Psych - Normal mood and affect. Vital Signs Temp Pulse Resp BP Pulse Ox 98.8 F 80 18 106/45 L 98 11/18/17 09:31 11/18/17 09:38 11/18/17 09:31 11/18/17 09:31 11/18/17 09:31 Oxygen Delivery Method Room Air Weight: 260 lb 9.382 oz Body Mass Index (BMI) 32.5 Intake and Output for Last 24 Hours 11/16/17 11/17/17 11/18/17 23:59 23:59 23:59 Intake Total 1813 / 1813 Balance 1813 / 1813 Laboratory Tests Past 24 Hrs 11/17/17 11/18/17 11/18/17 20:50 05:50 05:50 WBC 13.2 H RBC 4.37 L Hgb 13.2 Hct 40.1 MCV 91.8 MCH 30.2 MCHC 32.9 RDW 14.1 RDW Differential 46.6 H Plt Count 175 MPV 9.7 Immature Gran % (Auto) 0.200 Neut % (Auto) 79.3 H Lymph % (Auto) 10.0 L Bucks % (Auto) 9.2 Eos % (Auto) 1.1 Baso % (Auto) 0.2 Absolute Neuts (auto) 10.4 H Absolute Lymphs (auto) 1.31 Total Counted Not Reportable ESR Sodium 138 Potassium 4.0 Chloride 105 Carbon Dioxide 24.0 Anion Gap 9 BUN 18 Creatinine 1.10 Estim Creat Clear Calc 74.68 Est GFR (MDRD) Af Amer 85 Est GFR (MDRD) Non-Af 70 BUN/Creatinine Ratio 16.4 Glucose 102 Lactic Acid 1.0 Calcium 8.1 L C-React Prot Ext Range 11/18/17 11/18/17 05:50 05:50 WBC RBC Hgb Hct MCV MCH MCHC RDW RDW Differential Plt Count MPV Immature Gran % (Auto) Neut % (Auto) Lymph % (Auto) Bucks % (Auto) Eos % (Auto) Baso % (Auto) Absolute Neuts (auto) Absolute Lymphs (auto) Total Counted ESR 35 H Sodium Potassium Chloride Carbon Dioxide Anion Gap BUN Creatinine Estim Creat Clear Calc Est GFR (MDRD) Af Amer Est GFR (MDRD) Non-Af BUN/Creatinine Ratio Glucose Lactic Acid Calcium C-React Prot Ext Range 152.00 H POC Glucose 11/18/17 11/17/17 11/17/17 06:55 21:35 19:07 POC Glucose 113 H 158 H 128 H Diagnostic Data Pelvis CT 11/17/17 15:12 IMPRESSION: Diffuse subcutaneous edema or cellulitis lateral to the right lateral canal penile shaft. No focal abscess Electronically Signed: Bernardo Gordon MD at 17:00 EDT , Service support , Assessment/Plan All Active Problems (Last Updated 11/21/17 @ 15:12 by Wilmar Frank DO) Open wound of pubic region with complication (Acute) Non-healing right groin open wound (Acute) Open wound anterior abdominal wall (Acute) Necrotizing soft tissue infection (Acute) Abscess of pubic region (Acute) Abscess of right groin (Acute) Intertrigo (Acute) Hyponatremia (Acute) Abscess or cellulitis of groin (Acute) Right-sided pubic soft tissue cellulitis (Acute) 1. Diabetic abscess right inguinal area and pubic area. 2. Diabetes mellitus. VAC applied today. Will be changed three times per week at 150 mmHg continuous suction. Wound is stable without further evidence of infection. Area of redness on the left pubic area is soft. No progression from the OR. Will observe. If it were to worsen, would need further operative debridement. Patient is aware of that possibility with necrotizing infections. Culture showed MRSA. Vancomycin is added to the Zosyn. Prealbumin low at 9.8. Encourage nutritional supplementation with protein to help the healing process. Code Visit Inpatient E&M: 03746 Init Hosp L3 - -57 Modifier ICD-10 - L02.214, L02.219, M79.89, E11.9
--- NOTE | 2017-11-18 11:10 | NURSING ---
BLOOD GLUCOSE 168, SLIDING SCALE INSULIN NOT GIVEN PER ANESTHESIA.
[2017-11-18 11:11] LABS: Bedside Glucose 168 mg/dL (70-110)
--- NOTE | 2017-11-18 11:45 | SOF_PTH ---
PATIENT: KEILY MARVIN LOC: MS3 U#:[id number] AGE/SX: 72/M ROOM: [facility] – [place] RE11/17/[address]: Dr. Amanda Frank DO : 1945 BED: 1 DIS: 11/21/2017 SPEC #: [id number] RECD: 11/19/17 09:17 STATUS: OLY JORGE #: [id number] SHARRI: 11/18/17 11:[address]: Pepe Garcia DEPT: SURGICAL PATHOLOGY RECD BY: Andrade Boyce ENTERED: 11/19/17 12:13 SP TYPE: SOFT TISS OTHR DR: DO Dr. Fantasma Byrd MD Dr. Lisa Malys, DO Dr. Prakash Chand, MD Tissues: Soft tissues, NOS Procedures: Special Stain Group I Surgery Specimen Level III AFB Stain (control) GMS Stain (control) HEADER OPERATION: Incision and drainage abscess groin/pubic PRE-OP DIAGNOSIS: Right groin/pubic area abscess TISSUE SUBMITTED: Right groin/pubic area soft tissue MICROSCOPIC DIAGNOSIS Right groin/pubic area soft tissue: Pieces of skin with underlying tissue with acute inflammation and abscess formation. Special stains for acid fast bacilli and fungi are negative for organisms; matched controls are appropriate. ELKE:shane 11/20/17 MICROSCOPIC DESCRIPTION Slides are reviewed. GROSS DESCRIPTION Received in fixative is one container labeled with the patient's name and designated right groin/pubic area soft tissue. The specimen consists of a piece of skin with underlying tissue measuring 12.5 x 8 cm and up to 5 cm in thickness. Also received are additional pieces of skin with soft tissue measuring in aggregate 12 x 11 x 3 cm. Sections reveal focal area filled with fibrinopurulent material. No mass lesion is identified. Unloading Checker sections are submitted in three cassettes. / ELKE:shane 11/19/17 TC:2 CPT: 92965, 05815 x2
--- NOTE | 2017-11-18 12:15 | CASEMGMT ---
PEDRO VENCES Face to Face with patient for initial transition planning/care coordination assessment. PEDRO VENCES introduced self and role at [facility]. Patient lying in bed, alert and oriented. Patient willing to participate in assessment and is able to answer all questions appropriately. Care providers, pharmacy, and demographics verified. See link attached. Patient wishes to discharge home with possible HHC for possible wound vac. Patient agreeable to [facility]. Patient states he has no further needs or concerns at this time. PEDRO VENCES made referral to [facility] with [facility] able to accept that patient. CM to follow for discharge planning needs that may arise. Disposition Plan: Patient to discharge home with family support, possible HHC, and follow-up plans in place.
--- NOTE | 2017-11-18 16:14 | CHAPLAIN ---
patient was not in the room when visit was attempted
--- NOTE | 2017-11-18 17:30 | OP.PN_ITS ---
Immediate Post-Op Note Date of Procedure: 11/18/17 Primary Surgeon/Physician: Pepe Garcia manager customer service: None Pre-Operative Diagnosis: 1. Diabetic abscess right inguinal area and pubic area. 2. Diabetes mellitus. Post-Operative Diagnosis: 1. 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 2. Diabetes mellitus. Surgery/Procedure Performed:: Surgical preparation right inguinal and pubic area and lower anterior abdominal wall area with incision and drainage and excisional debridement skin, subcutaneous tissue and fascia for necrotizing diabetic abscess (190 cm2). Description of Surgical Findings:: The patient is a 72 year old M was admitted yesterday with increasing pain and redness and swelling in the right inguinal and pubic area. He states it started about 3 days ago. He denies any trauma. He did have some fever. He denies any drainage. Upon admission his WBC was 15. His temp was 100. He is currently on Zosyn. A CT scan was done which showed diffuse subcutaneous edema or cellulitis lateral to the right lateral canal penile shaft. No focal abscess. Since admission, his symptomatology has worsened. I was asked to evaluate this patient for surgical options for treatment. It was felt that urgent operative intervention was necessary to be done today because a necrotizing process is suspected. Today the patient underwent surgical preparation right inguinal and pubic area and lower anterior abdominal wall area with incision and drainage and excisional debridement skin, subcutaneous tissue and fascia for necrotizing diabetic abscess (190 cm2). Size of defect right inguinal area and pubic area and lower anterior abdominal wall area - 19 x 10 x 3 cm. Estimated Blood Loss: 150 ml. Specimen's removed: 1. 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 2. MRSA Wound DNA by PCR. Drains: None. Type of Anesthesia:: General - Admit VTE Documentation VTE Present on Admission: No VTE Mechan Device Prophylaxis: SCD's VTE Pharm Prophylaxis ordered?: Yes
[2017-11-18 18:08] LABS: Bedside Glucose 104 mg/dL (70-110)
[2017-11-18] MEDS: oxyCODONE 5 MG Tablet PO (18:49)
--- NOTE | 2017-11-18 20:12 | PCM.OPRPT ---
Report of Operation Date of Procedure: 11/18/17 Pre-Operative Diagnosis: 1. Diabetic abscess right inguinal area and pubic area. 2. Diabetes mellitus. Post-Operative Diagnosis: 1. 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 2. Diabetes mellitus. Surgery/Procedure Performed:: Surgical preparation right inguinal and pubic area and lower anterior abdominal wall area with incision and drainage and excisional debridement skin, subcutaneous tissue and fascia for necrotizing diabetic abscess (190 cm2). Description of Surgical Findings:: The patient is a 72 year old M was admitted yesterday with increasing pain and redness and swelling in the right inguinal and pubic area. He states it started about 3 days ago. He denies any trauma. He did have some fever. He denies any drainage. Upon admission his WBC was 15. His temp was 100. He is currently on Zosyn. A CT scan was done which showed diffuse subcutaneous edema or cellulitis lateral to the right lateral canal penile shaft. No focal abscess. Since admission, his symptomatology has worsened. I was asked to evaluate this patient for surgical options for treatment. It was felt that urgent operative intervention was necessary to be done today because a necrotizing process is suspected. Patient was informed of the risks and complications of the procedure including alternatives to surgery. These were discussed with the patient personally. Patient voices understanding and wishes to proceed. Size of defect right inguinal area and pubic area - 19 x 10 x 3 cm. director of physician practices: None Type of Anesthesia:: General Specimen's removed: 1. 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 2. MRSA Wound DNA by PCR. Drains: None. Estimated Blood Loss (mL): 150 ml. Description of Procedure: Patient was taken to OR in supine position and was placed under general anesthesia. His inguinal and pubic area was prepped and draped in the usual fashion. SCD's were placed for DVT prophylaxis. Perioperative antibiotics were given intravenously. Using a scalpel, an incision was made around the area of redness and induration. A lot of pus was seen in the subcutaneous tissue. Fat necrosis was present. The pus extended down to the spermatic cord and vessels and to the femoral vein. Some fascia was exposed and was inflamed and viable. An aggressive excisional debridement was performed down through the necrotizing subcutaneous tissue and some of the inflamed viable was debrided as well. The underlying muscle looked viable. No necrotic muscle was seen. Some of the excisional debridement extended from the right inguinal area to the pubic area and lower anterior abdominal wall area. Some of the tissue was sent to Microbiology for culture. A positive culture may necessitate antibiotic modification. Rest of the tissue was sent to Pathology for analysis to rule out carcinoma. MRSA Wound DNA by PCR was obtained as well. The pus was thick in areas and is suspicious for MRSA. The extensive wound was irrigated with saline. Hemostasis was obtained with electrocautery. The size of the right inguinal area and pubic area and some lower anterior abdominal wall area was 19 x 10 x 3cm. The wound was dressed with Mepitel nonadherent dressing followed by Kerlix gauze with Betadine. This was followed by a dry Kerlix gauze and ABD pads for a compression dressing. In the left pubic area adjacent to this large defect was some more redness. The underlying skin and soft tissue was soft and necrotic tissue or pus was seen in this area. However with this necrotizing diabetic abscess, the patient is at some risk that the infection may continue to spread. Will observe this area of redness. If it becomes worse such as increasing pain and redness and swelling and evidence of fat necrosis, then further aggressive operative debridement will be performed. Patient tolerated the procedure well and was sent to PACU in satisfactory condition. He will be sent back upstairs for postop care. The VAC will be applied tomorrow. Anticipate increased metabolic demands from the infection. Encourage nutritional supplementation with protein to help the healing process. After discharge, followup at the [facility]. If there is a plateau in the healing process, can proceed to delayed closure with skin grafting. Grafts/Implants Used: None. - Complications None. - Admit VTE Documentation VTE Present on Admission: No VTE Mechan Device Prophylaxis: SCD's VTE Pharm Prophylaxis ordered?: Yes Code Visit Surgery Charges CPT - 44510 ICD-10 - L02.214, L02.219, M79.89, E11.9, S31.109A, S31.103A, S31.000A
[2017-11-18 21:26] LABS: M R Staph aureus DNA By PCR POSITIVE (Negative); Probe Check PASS; Staph aureus DNA By PCR POSITIVE (Negative)
[2017-11-18] MEDS: Atorvastatin Calcium 10 MG Tablet PO (23:02)
[2017-11-18] MEDS: Insulin Lispro 100 UNIT/ML INSULN.PEN SQ (23:03)
[2017-11-18 23:11] LABS: Bedside Glucose 191 mg/dL (70-110)
[2017-11-18] MEDS: 0.9% NaCl IVPB Med Flush (250 mL) 15 ML IV (23:13)
[2017-11-19] VITALS (7 sets, daily range): BP systolic 108–130; BP diastolic 51–63; PULSE 66–73; RESP 16–18; TEMP 37.1–37.3; O2SAT 94–95
[2017-11-19] MEDS: oxyCODONE 5 MG Tablet PO ×4 (01:57→16:30)
[2017-11-19] MEDS: 0.9% Normal Saline 1,000 ML 100 ML IV (03:46)
--- NOTE | 2017-11-19 04:04 | PCM.RX.CS ---
Consult Pharmacy has been consulted to manage selected antiobiotic: Vancomycin Type of Consult: New start Suspected Infection: Skin/Soft tissue Prior Doses of Antibiotics Received/Current Regimen: Medications Vancomycin HCl 1,250 mg/ (Sodium Chloride) 275 mls @ 183.333 mls/hr IV Q12H [facility] Vancomycin HCl 1,750 mg/ (Dextrose) 535 mls @ 250 mls/hr IV loading dose Stop: 11/19/17 04:08 Last Admin: 11/19/17 03:46 Dose: 250 mls/hr Labs: Sodium 138 mmol/L (136-145) 11/18/17 05:50 Potassium 4.0 mmol/L (3.5-5.1) 11/18/17 05:50 Chloride 105 mmol/L (98-107) 11/18/17 05:50 Carbon Dioxide 24.0 mmol/L (21.0-32.0) 11/18/17 05:50 Anion Gap 9 (5-15) 11/18/17 05:50 BUN 18 mg/dL (7-18) 11/18/17 05:50 Creatinine 1.10 mg/dL (0.70-1.30) 11/18/17 05:50 Est GFR (MDRD) Af Amer 85 mL/min (>60) 11/18/17 05:50 Est GFR (MDRD) Non-Af 70 mL/min (>60) 11/18/17 05:50 BUN/Creatinine Ratio 16.4 RATIO (10-20) 11/18/17 05:50 Glucose 102 mg/dL (74-106) 11/18/17 05:50 Weight used for dosin.2 kg Estimated Creatinine Clearance: 74 Goal Trough: 10-15 mcg/mL Pharmacy Plan for Drug Dosing: Pharmacy Service will continue to monitor and adjust dosing as required. Follow-Up Labs: Trough Vancomycin Labs to be done on [date and time ordered]: 11/20/17 @1530
[2017-11-19 06:22] LABS: Absolute Lymphocyte Count 1.49 X10^3/ul (0.83-4.51); Absolute Neutrophil Count 7.9 X10^3/uL (2.0-7.7); Basophil# 0.02 X10^3/uL; Basophil% 0.2 % (0-1); Eosinophils% 2.8 % (0-5); Hematocrit 35.7 % (40-54); Hemoglobin 11.6 g/dl (13.0-16.5); Lymphocyte # 1.49 X10^3/ul (4.0); Lymphocyte % 13.8 % (19-41); Mean Corp Hgb Conc 32.5 g/gl (32-36); Mean Corpuscular Hgb 30.3 pg (27.0-32.0); Mean Corpuscular Volume 93.2 fL (80-94); Mean Platelet Vol. 9.9 fl (6.2-12.0); Monocyte% 10.2 % (0-10); Neutrophil # 7.87 X10^3/uL (2.7-7.7); Neutrophil % 72.8 % (47-70); Platelet Count 173 K/mm3 (150-450); RBC Distribution Width CV 14.2 % (11.6-14.6); RBC Distribution Width SD 47.1 fl (35.1-43.9); Red Blood Count 3.83 M/mm3 (4.6-6.2); White Blood Count 10.8 K/mm3 (4.4-11.0)
[2017-11-19 06:25] LABS: POSITIVE COUNT NO; POSITIVE DIFFERENTIAL NO; POSITIVE MORPHOLOGY NO
[2017-11-19] MEDS: Piperacil/Tazobactam 3.375 GM/50 ML ML IV ×3 (06:32→22:05)
[2017-11-19] MEDS: Insulin Lispro 100 UNIT/ML INSULN.PEN SQ ×2 (06:32→22:03)
[2017-11-19 06:50] LABS: Bedside Glucose 167 mg/dL (70-110)
[2017-11-19 07:33] LABS: ALB/GLOB Ratio 0.8 RATIO (0.9-2.4); AST(SGOT) 16 U/L (15-37); Alanine Aminotransfer ALT/SGPT 16 U/L (16-61); Albumin, Serum 2.5 g/dL (3.2-5.0); Alkaline Phosphatase 30 U/L (45-117); Anion Gap 9 (5-15); BUN 18 mg/dL (7-18); BUN/Creat Ratio 15.8 RATIO (10-20); Calcium,Total 7.6 mg/dL (8.5-10.1); Chloride 106 mmol/L (98-107); Creatinine, Serum 1.14 mg/dL (0.70-1.30); EST Glomerular Filtration Rate 68 mL/min (>60); Est Glom Filt Rate - Afr Amer 82 mL/min (>60); Estimated Creatinine Clearance 72.06 ml/min; Globulin 3.2 g/dL (2.2-4.2); Glucose 180 mg/dL (74-106); Phosphorus 2.9 mg/dL (2.5-4.9); Potassium 3.8 mmol/L (3.5-5.1); Prealbumin 9.8 mg/dL (20.0-40.0); Protein, Total 5.7 g/dL (6.4-8.2); Sodium Level 140 mmol/L (136-145)
--- NOTE | 2017-11-19 09:09 | PCM.PROGNOTE ---
Patient Problems: Active and Suspected Problems (Last Updated 08/25/17 @ 17:50 by Katy England) Right-sided pubic soft tissue cellulitis (Acute) Subjective: Operative day #1 Day #3 vancomycin and Zosyn Afebrile today. Vital signs are stable. Tachycardia. He is 94-95% saturated on 2 L nasal cannula. All lab was personally reviewed. The white blood cell count is down to 10.8 today from 15.4 at admission. Hemoglobin is 11.6 and platelets are within normal limits. Electrolytes are within normal limits and the BUN is 18 with a creatinine of 1.14. Blood sugars are all less than 200. PCR is positive for MRSA. Wound culture done at the time of surgery is pending. He states his pain is adequately controlled. He denies chest pain, shortness of breath, abdominal pain, diarrhea, sores in his mouth. - Physical Exam General: Alert, Oriented x3, Cooperative, No apparent distress Oral: Moist Mucosa, No Gingival or Mucosal Lesions/ Ulcerations Lungs: Clear to auscultation Cardiovascular: Regular rate, Regular Rhythm, Normal S1, Normal S2, Murmur - No change in murmur at the aortic listening post with radiation to left ventricular outflow tract, No rub noted, No Gallop Abdomen: Bowel Sounds Present, Soft, Non Tender, Non-Distended, - - No erythema of the lower quadrants of the abdomen and no pain with palpation. There is a large wound in the right groin with no purulent discharge noted and no odor. There is periwound erythema. The erythema now extends into the left groin but it is nontender. This may be secondary to tape. There is no lymphadenopathy in the left groin. There is thickening of the skin of the scrotum on the right side but he is nontender to palpation and the testicle is not tender. Glans penis appears normal. Extremities: No clubbing, No cyanosis, No edema, No Calf Tenderness Skin: - - Today he has intertrigo in the groin Neurological: Cranial nerves II-XII grossly intact, Neuro grossly intact Psych/Mental Status: Normal Affect, Appropriate Vital Signs Temp Pulse Resp BP Pulse Ox 98.8 F 66 18 108/61 94 11/19/17 03:49 11/19/17 03:49 11/19/17 03:49 11/19/17 03:49 11/19/17 03:49 Oxygen Flow Rate (L/min) 2 Oxygen Delivery Method Nasal Cannula Weight: 260 lb 9.382 oz Body Mass Index (BMI) 32.5 Intake and Output for Last 24 Hours 11/17/17 11/18/17 11/19/17 23:59 23:59 23:59 Intake Total 6263 / 6263 1659 / 1659 Output Total 250 / 250 Balance 6013 / 6013 1659 / 1659 Laboratory Tests Past 24 Hrs 11/18/17 11/19/17 11/19/17 Unknown 05:30 05:30 WBC 10.8 RBC 3.83 L Hgb 11.6 L Hct 35.7 L MCV 93.2 MCH 30.3 MCHC 32.5 RDW 14.2 RDW Differential 47.1 H Plt Count 173 MPV 9.9 Immature Gran % (Auto) 0.200 Neut % (Auto) 72.8 H Lymph % (Auto) 13.8 L [place] % (Auto) 10.2 H Eos % (Auto) 2.8 Baso % (Auto) 0.2 Absolute Neuts (auto) 7.9 H Absolute Lymphs (auto) 1.49 Total Counted Not Reportable Sodium 140 Potassium 3.8 Chloride 106 Carbon Dioxide 25.0 Anion Gap 9 BUN 18 Creatinine 1.14 Estim Creat Clear Calc 72.06 Est GFR (MDRD) Af Amer 82 Est GFR (MDRD) Non-Af 68 BUN/Creatinine Ratio 15.8 Glucose 180 H Calcium 7.6 L Phosphorus 2.9 Magnesium 2.0 Total Bilirubin 0.30 AST 16 ALT 16 Alkaline Phosphatase 30 L Total Protein 5.7 L Albumin 2.5 L Globulin 3.2 Albumin/Globulin Ratio 0.8 L Prealbumin 9.8 L S.aureus Protein A PCR POSITIVE H MRSA (PCR) POSITIVE H POC Glucose 11/19/17 11/18/17 11/18/17 06:29 22:56 18:00 POC Glucose 167 H 191 H 104 11/18/17 11:03 POC Glucose 168 H Medical Necessity - Tobacco Use Smoking Status: Former smoker Tobacco Use: Cigarettes Assessment/Plan All Active Problems (Last Updated 08/25/17 @ 17:50 by Katy England) Right-sided pubic soft tissue cellulitis (Acute) Abnormal cardiovascular stress test (Acute) Impressions 1. Cellulitis/abscess-MRSA 2. Diabetes mellitus type [id number] 3. Coronary artery disease with history of CABG ?5 vessels in August 2002 4. Hypertension 5. Obesity 6. Hyponatremia-resolved 7. intertrigo of the groin continue the Zosyn and Vancomycin Good blood sugar control Continue Enoxaparin for DVT prophylaxis Continue sliding scale insulin Start nystatin powder twice daily and Diflucan for 3 days. Wound VAC applied today-we will reexamine on Friday. Monitor the left groin closely. There is erythema there today and if it increases in size or develops induration or pain will likely need to go back to surgery. start Chlorhexidine and Bactroban Code Visit Inpatient E&M: 57751 Subs Hosp L2
[2017-11-19] MEDS: Enoxaparin 40 MG/0.4 ML Syringe SC (09:35)
[2017-11-19] MEDS: Fenofibrate 145 MG Tablet PO (09:36)
[2017-11-19] MEDS: Metoprolol Tartrate 25 MG Tablet PO ×2 (09:36→22:03)
[2017-11-19] MEDS: Cyanocobalamin 500 MCG Tablet 1000 MCG PO (09:36)
[2017-11-19] MEDS: Polyethylene Glycol 3350 17 GM PACKET PO (09:37)
[2017-11-19] MEDS: Aspirin E.C. 81 MG Tablet PO (09:37)
--- NOTE | 2017-11-19 10:18 | NURSING ---
Patient's b/p 114/55 with HR 71. Cozaar and norvasc held at this time- scheduled as daily. Metoprolol given. Will reassess b/p later in shift and give b/p meds if needed.
--- NOTE | 2017-11-19 10:18 | NURSING ---
wound photo: right pubic region
--- NOTE | 2017-11-19 11:19 | NURSING ---
IVF rate changed at this time to 60cc/hr- previous order was 100cc. fluid left in bag and rate changed. will scan new bag when empty.
[2017-11-19] MEDS: Fluconazole 100 MG Tablet 200 MG PO (11:26)
[2017-11-19] MEDS: Nystatin Powder 15gm Bottle 1 APPLIC TOPICAL ×2 (11:27→22:04)
[2017-11-19] MEDS: Losartan Potassium 100 MG Tablet PO (11:27)
[2017-11-19] MEDS: amLODIPine 2.5 MG Tablet PO (11:27)
[2017-11-19 11:40] LABS: Bedside Glucose 139 mg/dL (70-110)
[2017-11-19] MEDS: 0.9% Normal Saline 1,000 ML 60 ML IV (14:51)
--- NOTE | 2017-11-19 16:00 | CHAPLAIN ---
Type of Pastoral Visit _x__ Initial Visit ___ Follow-up Visit ___ On-call Visit ___ General Patient Visit ___ Spiritual Assessment ___ Family Conference ___ Bereavement ___ Rapid Response ___ Code Blue ___ Other (describe below) Pastoral Care Referral From _x__ Patient ___ Family ___ Nurse ___ Physician ___ Soaking Pit Operator ___ Front Desk Administrator ___ Other (describe below) Sacrament/Intervention _x__ Active listening ___ Anointing ___ Uatsdin ___ Bereavement ___ Communion _x__ Peri exploration ___ _x__ Life review _x__ Prayer ___ Reconciliation ___ Sacrament of Sick _x__ Supportive presence ___ Wedding ___ Other (describe below) Pastoral Comments during visit patient requested a Bible and one was delivered to him by this [employer] former
[2017-11-19 16:41] LABS: Bedside Glucose 131 mg/dL (70-110)
--- NOTE | 2017-11-19 19:23 | PCM.PN.SRG ---
Patient Problems: Active and Suspected Problems (Last Updated 08/25/17 @ 17:50 by Katy England) Right-sided pubic soft tissue cellulitis (Acute) Subjective: Postop #1 Patient is resting comfortably. VAC applied today. - Physical Exam General: Alert, Oriented x3 HEENT: PERRLA, EOMI Neck: Supple Lungs: Clear to auscultation Cardiovascular: Regular rate, Regular Rhythm Abdomen: Soft, Non-Distended Extremities: No clubbing, No cyanosis, Edema - mild edema in lower extremities. Skin: Ulcer/ Wound - right inguinal and pubic wound is stable. No bleeding seen. No further evidence of infection. Area of redness on the left pubic area is soft. No induration noted. Will observe. Was there at the time of the operative debridement. Neurological: Cranial nerves II-XII grossly intact Psych/Mental Status: Normal Affect, Appropriate Vital Signs Temp Pulse Resp BP Pulse Ox 98.7 F 69 18 126/58 H 94 11/19/17 14:39 11/19/17 14:39 11/19/17 14:39 11/19/17 14:39 11/19/17 14:39 Oxygen Flow Rate (L/min) 2 Oxygen Delivery Method Room Air Weight: 261 lb 2.201 oz Body Mass Index (BMI) 32.5 Intake and Output for Last 24 Hours 11/17/17 11/18/17 11/19/17 23:59 23:59 23:59 Intake Total 6263 / 6263 4055 / 4055 Output Total 250 / 250 Balance 6013 / 6013 4055 / 4055 Microbiology Past 72 Hours 11/18/17 Unknown Gram Stain - Final Biopsy - Other Wound Culture - Preliminary Staphylococcus aureus Laboratory Tests Past 24 Hrs 11/18/17 11/19/17 11/19/17 Unknown 05:30 05:30 WBC 10.8 RBC 3.83 L Hgb 11.6 L Hct 35.7 L MCV 93.2 MCH 30.3 MCHC 32.5 RDW 14.2 RDW Differential 47.1 H Plt Count 173 MPV 9.9 Immature Gran % (Auto) 0.200 Neut % (Auto) 72.8 H Lymph % (Auto) 13.8 L [place] % (Auto) 10.2 H Eos % (Auto) 2.8 Baso % (Auto) 0.2 Absolute Neuts (auto) 7.9 H Absolute Lymphs (auto) 1.49 Total Counted Not Reportable Sodium 140 Potassium 3.8 Chloride 106 Carbon Dioxide 25.0 Anion Gap 9 BUN 18 Creatinine 1.14 Estim Creat Clear Calc 72.06 Est GFR (MDRD) Af Amer 82 Est GFR (MDRD) Non-Af 68 BUN/Creatinine Ratio 15.8 Glucose 180 H Calcium 7.6 L Phosphorus 2.9 Magnesium 2.0 Total Bilirubin 0.30 AST 16 ALT 16 Alkaline Phosphatase 30 L Total Protein 5.7 L Albumin 2.5 L Globulin 3.2 Albumin/Globulin Ratio 0.8 L Prealbumin 9.8 L S.aureus Protein A PCR POSITIVE H MRSA (PCR) POSITIVE H POC Glucose 11/19/17 11/19/17 11/19/17 16:29 11:23 06:29 POC Glucose 131 H 139 H 167 H 11/18/17 22:56 POC Glucose 191 H Medical Necessity - Tobacco Use Smoking Status: Former smoker Tobacco Use: Cigarettes Assessment/Plan All Active Problems (Last Updated 08/25/17 @ 17:50 by Katy England) Right-sided pubic soft tissue cellulitis (Acute) Abnormal cardiovascular stress test (Acute) 1. Diabetic abscess right inguinal area and pubic area. 2. Diabetes mellitus. 3. MRSA. 4. 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 VAC applied today. Will be changed three times per week at 150 mmHg continuous suction. Wound is stable without further evidence of infection. Area of redness on the left pubic area is soft. No progression from the OR. Will observe. If it were to worsen, would need further operative debridement. Patient is aware of that possibility with necrotizing infections. Culture showed MRSA. Vancomycin is added to the Zosyn. Prealbumin low at 9.8. Encourage nutritional supplementation with protein to help the healing process.
[2017-11-19 21:21] LABS: Bedside Glucose 166 mg/dL (70-110)
[2017-11-19] MEDS: Atorvastatin Calcium 10 MG Tablet PO (22:03)
[2017-11-20] VITALS (7 sets, daily range): BP systolic 118–144; BP diastolic 59–74; PULSE 72–76; RESP 16–18; TEMP 36.9–37.3; O2SAT 91–97
[2017-11-20] MEDS: oxyCODONE 5 MG Tablet PO ×2 (03:06→21:28)
[2017-11-20] MEDS: Piperacil/Tazobactam 3.375 GM/50 ML ML IV ×3 (05:44→21:27)
[2017-11-20 06:00] LABS: Absolute Lymphocyte Count 1.49 X10^3/ul (0.83-4.51); Absolute Neutrophil Count 4.5 X10^3/uL (2.0-7.7); Basophil# 0.02 X10^3/uL; Basophil% 0.3 % (0-1); Eosinophil# 0.26 X10^3/uL; Eosinophils% 3.7 % (0-5); Hematocrit 37.1 % (40-54); Hemoglobin 12.1 g/dl (13.0-16.5); Lymphocyte # 1.49 X10^3/ul (4.0); Lymphocyte % 21.1 % (19-41); Mean Corp Hgb Conc 32.6 g/gl (32-36); Mean Corpuscular Hgb 30.3 pg (27.0-32.0); Mean Corpuscular Volume 92.8 fL (80-94); Mean Platelet Vol. 9.4 fl (6.2-12.0); Monocyte# 0.78 X10^3/uL; Neutrophil # 4.51 X10^3/uL (2.7-7.7); Neutrophil % 63.8 % (47-70); Platelet Count 208 K/mm3 (150-450); RBC Distribution Width CV 13.8 % (11.6-14.6); RBC Distribution Width SD 46.1 fl (35.1-43.9); White Blood Count 7.1 K/mm3 (4.4-11.0)
[2017-11-20 06:06] LABS: POSITIVE COUNT NO; POSITIVE DIFFERENTIAL NO; POSITIVE MORPHOLOGY NO
[2017-11-20 06:13] LABS: Anion Gap 8 (5-15); BUN 12 mg/dL (7-18); BUN/Creat Ratio 11.9 RATIO (10-20); Calcium,Total 8.1 mg/dL (8.5-10.1); Chloride 107 mmol/L (98-107); Creatinine, Serum 1.01 mg/dL (0.70-1.30); EST Glomerular Filtration Rate 78 mL/min (>60); Est Glom Filt Rate - Afr Amer 94 mL/min (>60); Estimated Creatinine Clearance 81.34 ml/min; Glucose 124 mg/dL (74-106); Potassium 4.1 mmol/L (3.5-5.1); Sodium Level 142 mmol/L (136-145)
[2017-11-20 06:56] LABS: Bedside Glucose 137 mg/dL (70-110)
[2017-11-20] MEDS: 0.9% Normal Saline 1,000 ML 60 ML IV (10:08)
[2017-11-20] MEDS: Enoxaparin 40 MG/0.4 ML Syringe SC (10:09)
[2017-11-20] MEDS: Losartan Potassium 100 MG Tablet PO (10:09)
[2017-11-20] MEDS: Aspirin E.C. 81 MG Tablet PO (10:09)
[2017-11-20] MEDS: Fluconazole 100 MG Tablet 200 MG PO (10:09)
[2017-11-20] MEDS: Polyethylene Glycol 3350 17 GM PACKET PO (10:09)
[2017-11-20] MEDS: Cyanocobalamin 500 MCG Tablet 1000 MCG PO (10:09)
[2017-11-20] MEDS: Fenofibrate 145 MG Tablet PO (10:09)
[2017-11-20] MEDS: amLODIPine 2.5 MG Tablet PO (10:09)
[2017-11-20] MEDS: Nystatin Powder 15gm Bottle 1 APPLIC TOPICAL ×2 (10:09→21:28)
[2017-11-20] MEDS: Metoprolol Tartrate 25 MG Tablet PO ×2 (10:09→21:28)
--- NOTE | 2017-11-20 10:37 | CON.PCM_ITS ---
Problem List (1) Right-sided pubic soft tissue cellulitis Status: Acute Reason for Consult: mrsa Consulted by: Dr. Frank History of Present Illness: The patient is a 72 year old M with DM who presented 11/17 with several days of progressive pubic itching, pain, swelling. Pain became severe, no drainage, associated with fever. Had abscess on his back in the past few months, drained at urgent care. Came to ED, cxs sent, taken to OR by Dr. Garcia. On vanc/zosyn/ fluc, feeling better. Wound vac in place. Full ROS performed and neg except as noted above. - Medical History Past Medical History (Chronic Problems): Chronic Problems (Last Updated 08/25/17 @ 17:50 by Katy England) Old myocardial infarction (Chronic) Overweight (Chronic) Impacted cerumen of both ears (Chronic) S/P CABG x 5 (Chronic) BATISTA to LAD, SVG to DX-DX sequential and OM arteries; and right radial artery graft to the RCA 09/13/[address] García History of left heart catheterization (Chronic) 09/10/2002 [facility] per Dr. Moore> CABG X5 Hyperlipidemia (Chronic) Hypertension (Chronic) History of myocardial infarction of inferoposterior wall (Chronic) Atherosclerotic heart disease of [place] coronary artery without angina pectoris (Chronic) Allergies/Adverse Reactions: Allergies ALLIE Inhibitors Adverse Reaction (Intermediate, Verified 11/17/17 14:09) Cough Home Medications: Ambulatory Orders Medication Instructions Recorded canagliflozin 100 mg tablet 100 mg PO DAILY 90 Days #90 07/14/17 fenofibrate micronized 134 mg 134 mg PO QHS 90 Days #90 07/14/17 capsule metformin ER 500 mg 500 mg PO BID 30 Days #120 07/14/17 tablet,extended release 24 hr metoprolol tartrate 50 mg tablet 25 mg PO BID 90 Days #90 07/14/17 simvastatin 20 mg tablet 20 mg PO QHS 90 Days #90 07/14/17 vitamin B12 500 mcg-folic acid 400 1 tab PO QDAY 07/14/17 mcg tablet aspirin 81 mg tablet,delayed 81 mg PO QDAY tab 07/23/17 release coenzyme Q10 100 mg capsule 100 mg PO QDAY 07/23/17 cyanocobalamin (vit B-12) 1,000 1,000 mcg PO QDAY 07/23/17 mcg tablet amlodipine 2.5 mg tablet 2.5 mg PO QDAY #90 tab 07/29/17 losartan 100 mg tablet 100 mg PO QDAY #90 tab 07/29/17 nitroglycerin 0.4 mg sublingual 0.4 mg SUBLINGUAL Q5M PRN #25 tab 07/30/17 tablet - Social History SMOKING STATUS:: Never smoker Vital Signs Temp Pulse Resp BP Pulse Ox 98.8 F 73 18 121/59 H 93 11/20/17 10:08 11/20/17 10:09 11/20/17 10:08 11/20/17 10:08 11/20/17 10:08 Oxygen Flow Rate (L/min) 2 Oxygen Delivery Method Room Air Weight: 118.45 kg Body Mass Index (BMI) 32.5 Microbiology Past 72 Hours 11/18/17 Unknown Gram Stain - Final Biopsy - Other Wound Culture - Preliminary Staphylococcus aureus Laboratory Tests Past 24 Hrs 11/20/17 11/20/17 05:30 05:30 WBC 7.1 RBC 4.00 L Hgb 12.1 L Hct 37.1 L MCV 92.8 MCH 30.3 MCHC 32.6 RDW 13.8 RDW Differential 46.1 H Plt Count 208 MPV 9.4 Immature Gran % (Auto) 0.100 Neut % (Auto) 63.8 Lymph % (Auto) 21.1 [place] % (Auto) 11.0 H Eos % (Auto) 3.7 Baso % (Auto) 0.3 Absolute Neuts (auto) 4.5 Absolute Lymphs (auto) 1.49 Total Counted Not Reportable Sodium 142 Potassium 4.1 Chloride 107 Carbon Dioxide 27.0 Anion Gap 8 BUN 12 Creatinine 1.01 Estim Creat Clear Calc 81.34 Est GFR (MDRD) Af Amer 94 Est GFR (MDRD) Non-Af 78 BUN/Creatinine Ratio 11.9 Glucose 124 H Calcium 8.1 L - Other Studies Radiology: [] reviewed Other Studies: [] Route of nutrition/ use of supplements: [] Nutritional Intake: [] IV Site: [] [place] Catheter: [] - Physical Exam General: Alert, Oriented x3, Cooperative, No apparent distress HEENT: Atraumatic, PERRLA, EOMI Neck: Supple, No Nodes Lungs: Clear to auscultation, Normal air movement Cardiovascular: Regular rate, Regular Rhythm, No murmurs Abdomen: Bowel Sounds Present, Soft, Non Tender, Non-Distended Extremities: Edema Skin: Ulcer/ Wound - pubic wound vac in place, reviewed photo IV Site: Peripheral, without redness Musculoskeletal: No Tenderness to Palpation of Joints or Extremities Neurological: Cranial nerves II-XII grossly intact - Assessment/Plan Antibiotics: [] Assessment/Plan: [] Active and Suspected Problems (Last Updated 08/25/17 @ 17:50 by Katy England) Right-sided pubic soft tissue cellulitis (Acute) 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 Cxs with MRSA so far. Cont abx. Will follow, thank you.
[2017-11-20] MEDS: Insulin Lispro 100 UNIT/ML INSULN.PEN SQ (11:01)
[2017-11-20 11:10] LABS: Bedside Glucose 183 mg/dL (70-110)
--- NOTE | 2017-11-20 13:32 | PCM.PROGNOTE ---
Patient Problems: Active and Suspected Problems (Last Updated 08/25/17 @ 17:50 by Katy England) Right-sided pubic soft tissue cellulitis (Acute) Subjective: Postoperative day #2 Day #4 vancomycin and Zosyn All events of the past 24 hours of been reviewed. Tmax 99.2 Vital signs are stable All lab was personally reviewed white blood cell count is 7.1 with 64% neutrophils today. Hemoglobin is 12.1 and stable and platelets are normal. Electrolytes are within normal limits and the BUN is 12 with a creatinine of 1.01. Blood sugars are well controlled and he has had no hypoglycemia. He was seen by Dr. Joseph and I did review his consult today. Preliminary on the wound culture is staph aureus-sensitivities pending but PCR was positive for MRSA. Blood cultures have no growth Pain is adequately controlled. He denies any pain in the scrotum today No diarrhea, no nausea/vomiting Objective: PHYSICAL EXAM: GENERAL: alert, oriented X 3, Cooperative, NAD ORAL: moist mucosa, no mucosal lesions NECK: No JVD, supple, trachea midline LUNGS: CTA, symmetric chest expansion HEART: RRR, Normal S1 and S2, no rub, no gallop ABDOMEN: soft, NT, ND, BS present, no guarding with palpation. There is no erythema of the lower abdominal wall. The erythema of the left groin is mor pale today and there is no induration. the intertrigo is improved EXTREMITIES: no edema, no cyanosis, no calf tenderness SKIN: The intertrigo is improved no rash NEUROLOGIC: no focal neurologic deficits PSYCH: appropriate, normal affect, pleasant - Physical Exam Vital Signs Temp Pulse Resp BP Pulse Ox 98.8 F 73 18 121/59 H 93 11/20/17 10:08 11/20/17 10:09 11/20/17 10:08 11/20/17 10:08 11/20/17 10:08 Oxygen Flow Rate (L/min) 2 Oxygen Delivery Method Room Air Weight: 261 lb 2.201 oz Body Mass Index (BMI) 32.5 Intake and Output for Last 24 Hours 11/18/17 11/19/17 11/20/17 23:59 23:59 23:59 Intake Total 6263 / 6263 4055 / 4055 3211.3 / 3211.3 Output Total 250 / 250 Balance 6013 / 6013 4055 / 4055 3211.3 / 3211.3 Microbiology Past 72 Hours 11/18/17 Unknown Gram Stain - Final Biopsy - Other Wound Culture - Preliminary Staphylococcus aureus Laboratory Tests Past 24 Hrs 11/20/17 11/20/17 05:30 05:30 WBC 7.1 RBC 4.00 L Hgb 12.1 L Hct 37.1 L MCV 92.8 MCH 30.3 MCHC 32.6 RDW 13.8 RDW Differential 46.1 H Plt Count 208 MPV 9.4 Immature Gran % (Auto) 0.100 Neut % (Auto) 63.8 Lymph % (Auto) 21.1 [place] % (Auto) 11.0 H Eos % (Auto) 3.7 Baso % (Auto) 0.3 Absolute Neuts (auto) 4.5 Absolute Lymphs (auto) 1.49 Total Counted Not Reportable Sodium 142 Potassium 4.1 Chloride 107 Carbon Dioxide 27.0 Anion Gap 8 BUN 12 Creatinine 1.01 Estim Creat Clear Calc 81.34 Est GFR (MDRD) Af Amer 94 Est GFR (MDRD) Non-Af 78 BUN/Creatinine Ratio 11.9 Glucose 124 H Calcium 8.1 L POC Glucose 11/20/17 11/20/17 11/19/17 10:59 06:50 21:05 POC Glucose 183 H 137 H 166 H 11/19/17 16:29 POC Glucose 131 H Medical Necessity - Tobacco Use Smoking Status: Former smoker Tobacco Use: Cigarettes Assessment/Plan All Active Problems (Last Updated 08/25/17 @ 17:50 by Katy England) Right-sided pubic soft tissue cellulitis (Acute) Abnormal cardiovascular stress test (Acute) Impressions 1. Cellulitis/abscess R groin -MRSA. 2. Diabetes mellitus type [id number] 3. Coronary artery disease with history of CABG ?5 vessels in August 2002 4. Hypertension 5. Obesity 6. Hyponatremia-resolved 7. intertrigo of the groin continue the Zosyn and Vancomycin Good blood sugar control Continue Enoxaparin for DVT prophylaxis Continue sliding scale insulin continue nystatin powder twice daily and Diflucan for a total of 3 days. Will re-examine in the AM when the vac is changed. Code Visit Inpatient E&M: 07162 Subs Hosp L2
[2017-11-20 16:15] LABS: Vancomycin, Trough Level 9.5 ug/mL (5.0-15.0)
[2017-11-20 16:15] LABS: Bedside Glucose 145 mg/dL (70-110)
--- NOTE | 2017-11-20 17:01 | PCM.RX.CS ---
Consult Pharmacy has been consulted to manage selected antiobiotic: Vancomycin Type of Consult: Follow-up Suspected Infection: Skin/Soft tissue Prior Doses of Antibiotics Received/Current Regimen: VANCOMYCIN 1250MG IV Q12HRS: 11/20 @0416 Labs: Sodium 142 mmol/L (136-145) 11/20/17 05:30 Potassium 4.1 mmol/L (3.5-5.1) 11/20/17 05:30 Chloride 107 mmol/L (98-107) 11/20/17 05:30 Carbon Dioxide 27.0 mmol/L (21.0-32.0) 11/20/17 05:30 Anion Gap 8 (5-15) 11/20/17 05:30 BUN 12 mg/dL (7-18) 11/20/17 05:30 Creatinine 1.01 mg/dL (0.70-1.30) 11/20/17 05:30 Est GFR (MDRD) Af Amer 94 mL/min (>60) 11/20/17 05:30 Est GFR (MDRD) Non-Af 78 mL/min (>60) 11/20/17 05:30 BUN/Creatinine Ratio 11.9 RATIO (10-20) 11/20/17 05:30 Glucose 124 mg/dL (74-106) H 11/20/17 05:30 Vancomycin Trough 9.5 ug/mL (5.0-15.0) 11/20/17 15:15 Microbiology: Microbiology 11/18/17 Unknown Biopsy - Other Gram Stain - Final 11/18/17 Unknown Biopsy - Other Wound Culture - Preliminary Staphylococcus aureus Goal Trough: 10-15 mcg/mL Pharmacy Plan for Drug Dosing: Pharmacy Service will continue to monitor and adjust dosing as required. The patient had a trough drawn which resulted in a value of 9.5 (11hrs from last dose given). Given that the goal is 10-15, and per physician progress notes the patient is improving, will continue current regimen. Will redraw the trough in a few days. If the patient is still subtherapeutic at that time, would consider increasing the dose then. PLAN/RECOMMENDATIONS 1. Continue vancomycin 1250mg IV Q12hrs 2. Trough scheduled 11/22 @1530 to evaluate dosing
[2017-11-20] MEDS: Atorvastatin Calcium 10 MG Tablet PO (21:28)
[2017-11-20 22:31] LABS: Bedside Glucose 122 mg/dL (70-110)
[2017-11-21] MEDS: 0.9% Normal Saline 1,000 ML 60 ML IV (03:53)
[2017-11-21 04:00] VITALS: BP 136/83; PULSE 68; RESP 18; TEMP 36.9; O2SAT 97
[2017-11-21] MEDS: Piperacil/Tazobactam 3.375 GM/50 ML ML IV (06:28)
[2017-11-21] MEDS: oxyCODONE 5 MG Tablet PO ×2 (06:28→11:42)
[2017-11-21 06:50] LABS: Bedside Glucose 121 mg/dL (70-110)
[2017-11-21 08:15] VITALS: O2SAT 95
[2017-11-21] MEDS: Aspirin E.C. 81 MG Tablet PO (08:40)
[2017-11-21 08:42] VITALS: BP 134/73; PULSE 71; RESP 16; TEMP 37.1; O2SAT 93
[2017-11-21 10:50] VITALS: BP 134/73; PULSE 71
[2017-11-21] MEDS: Metoprolol Tartrate 25 MG Tablet PO (10:50)
[2017-11-21] MEDS: Fenofibrate 145 MG Tablet PO (10:50)
[2017-11-21] MEDS: Cyanocobalamin 500 MCG Tablet 1000 MCG PO (10:50)
[2017-11-21] MEDS: Losartan Potassium 100 MG Tablet PO (10:51)
[2017-11-21] MEDS: Enoxaparin 40 MG/0.4 ML Syringe SC (10:51)
[2017-11-21] MEDS: Fluconazole 100 MG Tablet 200 MG PO (10:51)
[2017-11-21] MEDS: amLODIPine 2.5 MG Tablet PO (10:51)
[2017-11-21] MEDS: Nystatin Powder 15gm Bottle 1 APPLIC TOPICAL (10:52)
--- NOTE | 2017-11-21 11:32 | PCM.PROGNOTE ---
Patient Problems: Active and Suspected Problems (Last Updated 08/25/17 @ 17:50 by Katy England) Right-sided pubic soft tissue cellulitis (Acute) Subjective: Postop day #3 Day #5 vancomycin and Zosyn Afebrile. Vital signs stable. 93-97% saturated on room air. Blood sugars are very well controlled no hypoglycemia. Currently on SSI but at home is on Metformin and Invokana Final On the wound culture is MRSA today. His only complaint is itchy eyes....uses Clear Eye at home Denies SOB, wheezing, rash - Physical Exam General: Alert, Oriented x3, Cooperative, No apparent distress Oral: Moist Mucosa, No Gingival or Mucosal Lesions/ Ulcerations Neck: No Nodes Lungs: Clear to auscultation Cardiovascular: Regular rate, Regular Rhythm, Normal S1, Normal S2, No Gallop Abdomen: Bowel Sounds Present, Soft, Non Tender, Non-Distended, - - no erythema of the abdominal wall Extremities: No edema Skin: - - his eyes are dry with some cobblestoning.....no purulent DC. His face is red and he just finished the Vanco....red man? Neurological: Cranial nerves II-XII grossly intact, Neuro grossly intact Psych/Mental Status: Normal Affect, Appropriate Vital Signs Temp Pulse Resp BP Pulse Ox 98.8 F 71 16 134/73 H 93 11/21/17 08:42 11/21/17 10:50 11/21/17 08:42 11/21/17 10:50 11/21/17 08:42 Oxygen Flow Rate (L/min) 2 Oxygen Delivery Method Room Air Weight: 261 lb 2.201 oz Body Mass Index (BMI) 32.5 Intake and Output for Last 24 Hours 11/19/17 11/20/17 11/21/17 23:59 23:59 23:59 Intake Total 4055 / 4055 5264.3 / 5264.3 1783 / 1783 Output Total 250 / 250 400 / 400 Balance 4055 / 4055 5014.3 / 5014.3 1383 / 1383 Microbiology Past 72 Hours 11/18/17 Unknown Gram Stain - Final Biopsy - Other Wound Culture - Final Meth. resistant Staph. aureus Anaerobic Culture - Preliminary Checking for anaerobes, further studies to follow. Laboratory Tests Past 24 Hrs 11/20/17 15:15 Vancomycin Trough 9.5 POC Glucose 11/21/17 11/20/17 11/20/17 06:44 21:27 16:08 POC Glucose 121 H 122 H 145 H Medical Necessity - Tobacco Use Smoking Status: Former smoker Tobacco Use: Cigarettes Assessment/Plan All Active Problems (Last Updated 08/25/17 @ 17:50 by Katy England) Right-sided pubic soft tissue cellulitis (Acute) Abnormal cardiovascular stress test (Acute) Impressions 1. Cellulitis/abscess R groin -MRSA. 2. Diabetes mellitus type [id number] 3. Coronary artery disease with history of CABG ?5 vessels in August 2002 4. Hypertension 5. Obesity 6. Hyponatremia-resolved 7. intertrigo of the groin Restart Metformin and continue the SSI Will discuss with Dr. Joseph if he is going home on IV vanco or on orals? If Vanco will need a PICC. Recheck CBC with differential, BMP, ESR and CRP in the a.m. Code Visit Inpatient E&M: 62148 Subs Hosp L2
--- NOTE | 2017-11-21 12:26 | PN.SURG_ITS ---
Patient Problems: Active and Suspected Problems (Last Updated 08/25/17 @ 17:50 by Katy England) Right-sided pubic soft tissue cellulitis (Acute) Subjective: Postop #3 Patient resting comfortably. VAC in place. - Physical Exam General: Alert, Oriented x3 HEENT: PERRLA, EOMI Neck: Supple Lungs: Clear to auscultation, Normal air movement Cardiovascular: Regular rate, Regular Rhythm Abdomen: Soft, Non-Distended Extremities: No clubbing, No cyanosis, Edema - mild edema in lower extremities. Skin: Ulcer/ Wound - right inguinal and pubic wound is stable. No bleeding seen. No further evidence of infection. Area of redness on the left pubic area has resolved. No induration noted. Lymphatic: - - no inguinal adenopathy. Neurological: Cranial nerves II-XII grossly intact Psych/Mental Status: Normal Affect, Appropriate Vital Signs Temp Pulse Resp BP Pulse Ox 98.8 F 71 16 134/73 H 93 11/21/17 08:42 11/21/17 10:50 11/21/17 08:42 11/21/17 10:50 11/21/17 08:42 Oxygen Flow Rate (L/min) 2 Oxygen Delivery Method Room Air Weight: 261 lb 2.201 oz Body Mass Index (BMI) 32.5 Intake and Output for Last 24 Hours 11/19/17 11/20/17 11/21/17 23:59 23:59 23:59 Intake Total 4055 / 4055 5264.3 / 5264.3 1783 / 1783 Output Total 250 / 250 400 / 400 Balance 4055 / 4055 5014.3 / 5014.3 1383 / 1383 Microbiology Past 72 Hours 11/18/17 Unknown Gram Stain - Final Biopsy - Other Wound Culture - Final Meth. resistant Staph. aureus Anaerobic Culture - Preliminary Checking for anaerobes, further studies to follow. Laboratory Tests Past 24 Hrs 11/20/17 11/21/17 15:15 05:30 C-React Prot Ext Range Pending Vancomycin Trough 9.5 POC Glucose 11/21/17 11/20/17 11/20/17 06:44 21:27 16:08 POC Glucose 121 H 122 H 145 H Medical Necessity - Tobacco Use Smoking Status: Former smoker Tobacco Use: Cigarettes Assessment/Plan All Active Problems (Last Updated 03/26/18 @ 17:50 by Katy England) Right-sided pubic soft tissue cellulitis (Acute) Abnormal cardiovascular stress test (Acute) 1. Diabetic abscess right inguinal area and pubic area. 2. Diabetes mellitus. 3. MRSA. 4. 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 VAC in place. Will be changed three times per week at 150 mmHg continuous suction. Wound is stable without further evidence of infection. Area of redness on the left pubic area has resolved. Culture showed MRSA. Can be discharged on po antibiotics. Prealbumin low at 9.8. Encourage nutritional supplementation with protein to help the healing process. OK for discharge from my standpoint. Wrote scripts for Percocet for pain (50 tabs) and for Valium for spasm (30 tabs) . Wrote scripts for Phenergan for nausea (30 tabs) and a refill and for Colace for constipation (60 tabs). [facility]up [facility] on 12/08/17 at 800am.
[2017-11-21] MEDS: Insulin Lispro 100 UNIT/ML INSULN.PEN SQ (12:37)
[2017-11-21 13:05] LABS: Bedside Glucose 181 mg/dL (70-110)
--- NOTE | 2017-11-21 13:51 | NURSING ---
wound photo: right pubic area
--- NOTE | 2017-11-21 14:08 | PCM.PN.ID ---
Patient Problems: Active and Suspected Problems (Last Updated 08/25/17 @ 17:50 by Katy England) Right-sided pubic soft tissue cellulitis (Acute) Subjective: Feeling good, no fever, no n/v/d. - Physical Exam General: Alert, Cooperative Lungs: Clear to auscultation, Normal air movement Cardiovascular: Regular rate, Regular Rhythm Abdomen: Soft, Non Tender, Non-Distended Skin: Incision - wound vac in place Vital Signs Temp Pulse Resp BP Pulse Ox 98.8 F 71 16 134/73 H 93 11/21/17 08:42 11/21/17 10:50 11/21/17 08:42 11/21/17 10:50 11/21/17 08:42 Oxygen Flow Rate (L/min) 2 Oxygen Delivery Method Room Air Weight: 118.45 kg Body Mass Index (BMI) 32.5 Intake and Output for Last 24 Hours 11/19/17 11/20/17 11/21/17 23:59 23:59 23:59 Intake Total 4055 / 4055 5264.3 / 5264.3 2762 / 2762 Output Total 250 / 250 900 / 900 Balance 4055 / 4055 5014.3 / 5014.3 1862 / 1862 Microbiology Past 72 Hours 11/18/17 Unknown Gram Stain - Final Biopsy - Other Wound Culture - Final Meth. resistant Staph. aureus Anaerobic Culture - Preliminary Checking for anaerobes, further studies to follow. Laboratory Tests Past 24 Hrs 11/20/17 11/21/17 15:15 05:30 C-React Prot Ext Range 68.40 H Vancomycin Trough 9.5 POC Glucose 11/21/17 11/21/17 11/20/17 11:05 06:44 21:27 POC Glucose 181 H 121 H 122 H 11/20/17 16:08 POC Glucose 145 H Medical Necessity - Tobacco Use Smoking Status: Former smoker Tobacco Use: Cigarettes Route of nutrition/ use of supplements: [] Nutritional Intake: [] IV Site: [] [place] Catheter: [] - Assessment/Plan Antibiotics: [] Assessment/Plan: [] Active and Suspected Problems (Last Updated 08/25/17 @ 17:50 by Katy England) Right-sided pubic soft tissue cellulitis (Acute) 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 Cxs with MRSA so far. Cont abx. Ok for d/c home on 10 days of doxy and augmentin. Will follow, d/w Dr. Frank.
[2017-11-21 14:57] VITALS: BP 130/74; PULSE 58; RESP 18; TEMP 37; O2SAT 95
--- NOTE | 2017-11-21 15:07 | PCM.DC ---
- Discharge Diagnoses Current Active Problems: Current Active and Chronic Problems (Last Updated 08/25/17 @ 17:50 by Katy England) Right-sided pubic soft tissue cellulitis (Acute) You will use the following diet at home:: Other - Resume previous diet Your food should be the consistency of: Regular, Mechanical soft (ground) Your liquids should be the consistency of: Regular/Thin Discharge Activity: May not drive while taking narcotic pain medications. Call your doctor if you observe: Fever of 101 or Higher, Inability to urinate, Inability to have a bowel movement, - - Call your PCP if severe diarrhea, painful sores in the mouth, painful swallowing, rash or itching. Increasing redness around the wound, increased sweling or pain in the scrotum, burning with urination. Additional Instructions: Home Health Care has been set up to change the wound vac 3 times a week......M,W,F. Take ALL of the antibiotics as prescribed. Follow up with Dr. Garcia in the wound care center on 12/08/2017 at 8 AM. Pending Tests on Discharge: none Allergies/Adverse Reactions: Allergies ALLIE Inhibitors Adverse Reaction (Intermediate, Verified 11/17/17 14:09) Cough Medications to take at Discharge canagliflozin 100 mg tablet 100 mg PO DAILY 90 Days #90 07/14/17 fenofibrate micronized 134 mg capsule 134 mg PO QHS 90 Days #90 07/14/17 metformin ER 500 mg tablet,extended release 24 hr 500 mg PO BID 30 Days #120 07/14/17 metoprolol tartrate 50 mg tablet 25 mg PO BID 90 Days #90 07/14/17 simvastatin 20 mg tablet 20 mg PO QHS 90 Days #90 07/14/17 vitamin B12 500 mcg-folic acid 400 mcg tablet 1 tab PO QDAY 07/14/17 aspirin 81 mg tablet,delayed release 81 mg PO QDAY tab 07/23/17 coenzyme Q10 100 mg capsule 100 mg PO QDAY 07/23/17 cyanocobalamin (vit B-12) 1,000 mcg tablet 1,000 mcg PO QDAY 07/23/17 amlodipine 2.5 mg tablet 2.5 mg PO QDAY #90 tab 07/29/17 losartan 100 mg tablet 100 mg PO QDAY #90 tab 07/29/17 nitroglycerin 0.4 mg sublingual tablet 0.4 mg SUBLINGUAL Q5M PRN #25 tab 07/30/17 Acetaminophen [Tylenol Tablet] 650 mg PO Q6H PRN PRN tablet 11/21/17 Amox/Clavulanate Tablet [Augmentin Tablet] 875 mg PO BID #20 tab 11/21/17 Diazepam [Valium] 5 mg PO 4X/DAY PRN PRN #30 tab 11/21/17 Docusate Sodium [Colace] 100 mg PO BID #60 cap 11/21/17 Doxycycline 100 mg PO BID #20 cap 11/21/17 Lactobacillus Acidophilus [Acidophilus] 1 tab PO TID #30 tab 11/21/17 Nutritional Supplement [Carloz - ORANGE FLAVOR] 1 packet PO BIDCM #60 packet 11/21/17 Nystatin Powder [Mycostatin Powder] 1 applic TOPICAL BID #2 bottle 11/21/17 Oxycodone HCl/Acetaminophen [Percocet 5/325] 1 - 2 tab PO 4X/DAY PRN PRN 7 Days #50 tab 11/21/17 proMETHazine tablet [Phenergan tablet] 25 mg PO 4X/DAY PRN PRN #30 tab 11/21/17 The following prescriptions were given: Diazepam [Valium] 5 mg PO 4X/DAY PRN PRN #30 tab PRN Reason: Spasms Oxycodone HCl/Acetaminophen [Percocet 5/325] 1 - 2 tab PO 4X/DAY PRN PRN 7 Days #50 tab PRN Reason: Pain proMETHazine tablet [Phenergan tablet] 25 mg PO 4X/DAY PRN PRN #30 tab PRN Reason: Nausea Amox/Clavulanate Tablet [Augmentin Tablet] 875 mg PO BID #20 tab Docusate Sodium [Colace] 100 mg PO BID #60 cap Doxycycline 100 mg PO BID #20 cap Nutritional Supplement [Carloz - ORANGE FLAVOR] 1 packet PO BIDCM #60 packet Nystatin Powder [Mycostatin Powder] 1 applic TOPICAL BID #2 bottle Lactobacillus Acidophilus [Acidophilus] 1 tab PO TID #30 tab Primary Care Physician: Patricia Curry DO [Primary Care Provider] - Please follow up with your Primary Care Physician in: 7-10 days Please Follow Up With: Pepe Garcia MD When: wound care center on 12/08/17
[2017-11-21] MEDS: Doxycycline 100 MG CAPSULE PO (15:09)
--- NOTE | 2017-11-21 15:19 | PCM.DC.SUM ---
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 García History of left heart catheterization (Chronic) 09/10/2002 [facility] per Dr. 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 No focal abscess Electronically Signed: Bernardo Gordon MD at 17:00 EDT , Service support , Microbiology 11/18/17 Unknown Biopsy - Other Gram Stain - Final 11/18/17 Unknown Biopsy - Other Wound Culture - Final Meth. resistant Staph. aureus 11/18/17 Unknown Biopsy - Other Anaerobic Culture - Preliminary Checking for anaerobes, further studies to follow. 11/17/17 15:35 Blood Culture (Wb) - No Site/Description Given Blood Culture - Preliminary No growth in 48 hours. 11/17/17 15:00 Blood Culture (Wb) - Left Forearm Blood Culture - Preliminary No growth in 48 hours. Laboratory Results - last 24 hr 11/20/17 11/20/17 11/20/17 15:15 16:08 21:27 C-React Prot Ext Range Vancomycin Trough 9.5 POC Glucose 145 H 122 H 11/21/17 11/21/1711/21/18 05:30 06:44 11:05 C-React Prot Ext Range 68.40 H Vancomycin Trough POC Glucose 121 H 181 H Consultations 11/19/17 06:51 Consult: Onc/Wound/process planner Routine Comment: Reason for Consult:: wound vac placement Dr. Spencer Joseph-infectious disease Dr. Pepe Garcia-plastic surgery Operations: - - Surgical preparation right inguinal and pubic area and lower anterior abdominal wall area with incision and drainage and excisional debridement skin, subcutaneous tissue and fascia for necrotizing diabetic abscess (190 cm2). Procedures: None Summary of Care Provided: The patient is a 72-year-old male with a past medical history of coronary artery disease, CABG ?5 vessels in August 2002, diabetes mellitus type 2, obesity and hypertension who presented to the emergency department at [facility] on 11/17/2017 complaining of fever/chills and right groin swelling that started on 11/14/17. Prior to coming to the ER he was seen in an [facility] with a temp of 102 and he was sent to the ED. White blood cell count was 15.4 with 82% neutrophils. Hemoglobin and platelets were within normal limits. Sodium was mildly decreased at 135. Random blood sugar was increased at 126 and a hemoglobin A1c was obtained and was excellent at 6.4. Lactic acid was 1.0. A CT scan of the pelvis was obtained and showed diffuse subcutaneous edema or cellulitis lateral to the right lateral canal penile shaft. There was no focal abscess. Cultures were sent. He was admitted to the hospital with a diagnosis of cellulitis of the right groin and started on intravenous Zosyn. The ER physician discussed the case with Dr. Kingsley who did not feel there was any need for surgical intervention at this time. The following morning the edema and erythema over the right groin had extended into the scrotum and the foreskin on the right lateral side. There was a very well-circumscribed area of hard induration in the right groin. Dr. Pepe Garcia was consulted for possible I&D. He was taken to surgery on 11/18/[address] Garcia and extensive debridement of skin, subcutaneous tissue and fascia for necrotizing diabetic abscess was performed. PCR on drainage obtained at the time of surgery was positive for MRSA and vancomycin was started. A wound VAC was placed on 11/19/2017. Dr. Spencer Joseph was consulted to manage antibiotics. Patient remained on vancomycin and Zosyn until the final culture obtained at surgery was reported. Final culture was positive for MRSA. On 11/21 he was afebrile. Pain was adequately controlled. On that day he did complain of itchy eyes and had some redness in the periorbital area. There was cobblestoning of the palpebral conjunctiva with no purulent discharge. Dr. Joseph felt he could be discharged home on Augmentin and doxycycline for 10 additional days of treatment. Home health was set up for management of the wound VAC. He was given prescriptions for diazepam to be used 4 times daily as needed muscle spasms. He was also given a prescription for Percocet and Phenergan by Dr. Garcia. He will take lactobacillus 1 tab 3 times daily while he is on antibiotics and he will use Carloz 1 packet twice daily to promote wound healing. He will follow-up with Dr. Patricia Caldera's in 7-[address] Pepe Garcia at the wound care center on 12/08/2017. Discharge Activity: May not drive while taking narcotic pain medications. Call your doctor if you observe: Fever of 101 or Higher, Inability to urinate, Inability to have a bowel movement, - - Call your PCP if severe diarrhea, painful sores in the mouth, painful swallowing, rash or itching. Increasing redness around the wound, increased sweling or pain in the scrotum, burning with urination. Home Medications: Medications to take at Discharge canagliflozin 100 mg tablet 100 mg PO DAILY 90 Days #90 07/14/17 fenofibrate micronized 134 mg capsule 134 mg PO QHS 90 Days #90 07/14/17 metformin ER 500 mg tablet,extended release 24 hr 500 mg PO BID 30 Days #120 07/14/17 metoprolol tartrate 50 mg tablet 25 mg PO BID 90 Days #90 07/14/17 simvastatin 20 mg tablet 20 mg PO QHS 90 Days #90 07/14/17 vitamin B12 500 mcg-folic acid 400 mcg tablet 1 tab PO QDAY 07/14/17 aspirin 81 mg tablet,delayed release 81 mg PO QDAY tab 07/23/17 coenzyme Q10 100 mg capsule 100 mg PO QDAY 07/23/17 cyanocobalamin (vit B-12) 1,000 mcg tablet 1,000 mcg PO QDAY 07/23/17 amlodipine 2.5 mg tablet 2.5 mg PO QDAY #90 tab 07/29/17 losartan 100 mg tablet 100 mg PO QDAY #90 tab 07/29/17 nitroglycerin 0.4 mg sublingual tablet 0.4 mg SUBLINGUAL Q5M PRN #25 tab 07/30/17 Acetaminophen [Tylenol Tablet] 650 mg PO Q6H PRN PRN tablet 11/21/17 Amox/Clavulanate Tablet [Augmentin Tablet] 875 mg PO BID #20 tab 11/21/17 Diazepam [Valium] 5 mg PO 4X/DAY PRN PRN #30 tab 11/21/17 Docusate Sodium [Colace] 100 mg PO BID #60 cap 11/21/17 Doxycycline 100 mg PO BID #20 cap 11/21/17 Lactobacillus Acidophilus [Acidophilus] 1 tab PO TID #30 tab 11/21/17 Nutritional Supplement [Carloz - ORANGE FLAVOR] 1 packet PO BIDCM #60 packet 11/21/17 Nystatin Powder [Mycostatin Powder] 1 applic TOPICAL BID #2 bottle 11/21/17 Oxycodone HCl/Acetaminophen [Percocet 5/325] 1 - 2 tab PO 4X/DAY PRN PRN 7 Days #50 tab 11/21/17 proMETHazine tablet [Phenergan tablet] 25 mg PO 4X/DAY PRN PRN #30 tab 11/21/17 Following Prescrptions Were Given to Patient: Diazepam [Valium] 5 mg PO 4X/DAY PRN PRN #30 tab PRN Reason: Spasms Oxycodone HCl/Acetaminophen [Percocet 5/325] 1 - 2 tab PO 4X/DAY PRN PRN 7 Days #50 tab PRN Reason: Pain proMETHazine tablet [Phenergan tablet] 25 mg PO 4X/DAY PRN PRN #30 tab PRN Reason: Nausea Amox/Clavulanate Tablet [Augmentin Tablet] 875 mg PO BID #20 tab Docusate Sodium [Colace] 100 mg PO BID #60 cap Doxycycline 100 mg PO BID #20 cap Nutritional Supplement [Carloz - ORANGE FLAVOR] 1 packet PO BIDCM #60 packet Nystatin Powder [Mycostatin Powder] 1 applic TOPICAL BID #2 bottle Lactobacillus Acidophilus [Acidophilus] 1 tab PO TID #30 tab Primary Care Physician: Patricia Curry DO [Primary Care Provider] - Please follow up with your Primary Care Physician in: 7-10 days Please Follow Up With: Pepe Garcia MD When: wound care center on 12/08/17 Disposition: Home Minutes spent on discharge:: 35 Patient Condition:: Good Medical Necessity - Tobacco Use Smoking Status: Former smoker Tobacco Use: Cigarettes Meaningful Use Info Meaningful Use Diagnoses (Choose all that apply): None applicable Code Visit Inpatient E&M: 32029 Disch Hosp
--- NOTE | 2017-11-21 15:25 | DS.PCM_ITS ---
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 García History of left heart catheterization (Chronic) 09/10/2002 [facility] per Dr. 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 No focal abscess Electronically Signed: Bernardo Gordon MD at 17:00 EDT , Service support , Microbiology 11/18/17 Unknown Biopsy - Other Gram Stain - Final 11/18/17 Unknown Biopsy - Other Wound Culture - Final Meth. resistant Staph. aureus 11/18/17 Unknown Biopsy - Other Anaerobic Culture - Preliminary Checking for anaerobes, further studies to follow. 11/17/17 15:35 Blood Culture (Wb) - No Site/Description Given Blood Culture - Preliminary No growth in 48 hours. 11/17/17 15:00 Blood Culture (Wb) - Left Forearm Blood Culture - Preliminary No growth in 48 hours. Laboratory Results - last 24 hr 11/20/17 11/20/17 11/20/17 15:15 16:08 21:27 C-React Prot Ext Range Vancomycin Trough 9.5 POC Glucose 145 H 122 H 11/21/17 11/21/1711/21/18 05:30 06:44 11:05 C-React Prot Ext Range 68.40 H Vancomycin Trough POC Glucose 121 H 181 H Consultations 11/19/17 06:51 Consult: Onc/Wound/psychiatric nurse Routine Comment: Reason for Consult:: wound vac placement Dr. Spencer Joseph-infectious disease Dr. Pepe Garcia-plastic surgery Operations: - - Surgical preparation right inguinal and pubic area and lower anterior abdominal wall area with incision and drainage and excisional debridement skin, subcutaneous tissue and fascia for necrotizing diabetic abscess (190 cm2). Procedures: None Summary of Care Provided: The patient is a 72-year-old male with a past medical history of coronary artery disease, CABG ?5 vessels in August 2002, diabetes mellitus type 2, obesity and hypertension who presented to the emergency department at [facility] on 11/17/2017 complaining of fever/chills and right groin swelling that started on 11/14/17. Prior to coming to the ER he was seen in an [facility] with a temp of 102 and he was sent to the ED. White blood cell count was 15.4 with 82% neutrophils. Hemoglobin and platelets were within normal limits. Sodium was mildly decreased at 135. Random blood sugar was increased at 126 and a hemoglobin A1c was obtained and was excellent at 6.4. Lactic acid was 1.0. A CT scan of the pelvis was obtained and showed diffuse subcutaneous edema or cellulitis lateral to the right lateral canal penile shaft. There was no focal abscess. Cultures were sent. He was admitted to the hospital with a diagnosis of cellulitis of the right groin and started on intravenous Zosyn. The ER physician discussed the case with Dr. Kingsley who did not feel there was any need for surgical intervention at this time. The following morning the edema and erythema over the right groin had extended into the scrotum and the foreskin on the right lateral side. There was a very well-circumscribed area of hard induration in the right groin. Dr. Pepe Garcia was consulted for possible I&D. He was taken to surgery on [address] Garcia and extensive debridement of skin, subcutaneous tissue and fascia for necrotizing diabetic abscess was performed. PCR on drainage obtained at the time of surgery was positive for MRSA and vancomycin was started. A wound VAC was placed on 11/19/2017. Dr. Spencer Joseph was consulted to manage antibiotics. Patient remained on vancomycin and Zosyn until the final culture obtained at surgery was reported. Final culture was positive for MRSA. On 11/21 he was afebrile. Pain was adequately controlled. On that day he did complain of itchy eyes and had some redness in the periorbital area. There was cobblestoning of the palpebral conjunctiva with no purulent discharge. Dr. Joseph felt he could be discharged home on Augmentin and doxycycline for 10 additional days of treatment. Home health was set up for management of the wound VAC. He was given prescriptions for diazepam to be used 4 times daily as needed muscle spasms. He was also given a prescription for Percocet and Phenergan by Dr. Garcia. He will take lactobacillus 1 tab 3 times daily while he is on antibiotics and he will use Carloz 1 packet twice daily to promote wound healing. He will follow-up with Dr. Patricia Caldera's in 7-[address] Pepe Garcia at the wound care center on 12/08/2017. Discharge Activity: May not drive while taking narcotic pain medications. Call your doctor if you observe: Fever of 101 or Higher, Inability to urinate, Inability to have a bowel movement, - - Call your PCP if severe diarrhea, painful sores in the mouth, painful swallowing, rash or itching. Increasing redness around the wound, increased sweling or pain in the scrotum, burning with urination. Home Medications: Medications to take at Discharge canagliflozin 100 mg tablet 100 mg PO DAILY 90 Days #90 07/14/17 fenofibrate micronized 134 mg capsule 134 mg PO QHS 90 Days #90 07/14/17 metformin ER 500 mg tablet,extended release 24 hr 500 mg PO BID 30 Days #120 05/19 metoprolol tartrate 50 mg tablet 25 mg PO BID 90 Days #90 07/14/17 simvastatin 20 mg tablet 20 mg PO QHS 90 Days #90 07/14/17 vitamin B12 500 mcg-folic acid 400 mcg tablet 1 tab PO QDAY 07/14/17 aspirin 81 mg tablet,delayed release 81 mg PO QDAY tab 07/23/17 coenzyme Q10 100 mg capsule 100 mg PO QDAY 07/23/17 cyanocobalamin (vit B-12) 1,000 mcg tablet 1,000 mcg PO QDAY 07/23/17 amlodipine 2.5 mg tablet 2.5 mg PO QDAY #90 tab 07/29/17 losartan 100 mg tablet 100 mg PO QDAY #90 tab 07/29/17 nitroglycerin 0.4 mg sublingual tablet 0.4 mg SUBLINGUAL Q5M PRN #25 tab Acetaminophen [Tylenol Tablet] 650 mg PO Q6H PRN PRN tablet 11/21/17 Amox/Clavulanate Tablet [Augmentin Tablet] 875 mg PO BID #20 tab 11/21/17 Diazepam [Valium] 5 mg PO 4X/DAY PRN PRN #30 tab 11/21/17 Docusate Sodium [Colace] 100 mg PO BID #60 cap 11/21/17 Doxycycline 100 mg PO BID #20 cap 11/21/17 Lactobacillus Acidophilus [Acidophilus] 1 tab PO TID #30 tab 11/21/17 Nutritional Supplement [Carloz - ORANGE FLAVOR] 1 packet PO BIDCM #60 packet Nystatin Powder [Mycostatin Powder] 1 applic TOPICAL BID #2 bottle 11/21/17 Oxycodone HCl/Acetaminophen [Percocet 5/325] 1 - 2 tab PO 4X/DAY PRN PRN 7 Days #50 tab 11/21/17 proMETHazine tablet [Phenergan tablet] 25 mg PO 4X/DAY PRN PRN #30 tab 11/21/17 Following Prescrptions Were Given to Patient: Diazepam [Valium] 5 mg PO 4X/DAY PRN PRN #30 tab PRN Reason: Spasms Oxycodone HCl/Acetaminophen [Percocet 5/325] 1 - 2 tab PO 4X/DAY PRN PRN 7 Days #50 tab PRN Reason: Pain proMETHazine tablet [Phenergan tablet] 25 mg PO 4X/DAY PRN PRN #30 tab PRN Reason: Nausea Amox/Clavulanate Tablet [Augmentin Tablet] 875 mg PO BID #20 tab Docusate Sodium [Colace] 100 mg PO BID #60 cap Doxycycline 100 mg PO BID #20 cap Nutritional Supplement [Carloz - ORANGE FLAVOR] 1 packet PO BIDCM #60 packet Nystatin Powder [Mycostatin Powder] 1 applic TOPICAL BID #2 bottle Lactobacillus Acidophilus [Acidophilus] 1 tab PO TID #30 tab Primary Care Physician: Patricia Curry DO [Primary Care Provider] - Please follow up with your Primary Care Physician in: 7-10 days Please Follow Up With: Pepe Garcia MD When: wound care center on 12/08/17 Disposition: Home Minutes spent on discharge:: 35 Patient Condition:: Good Medical Necessity - Tobacco Use Smoking Status: Former smoker Tobacco Use: Cigarettes Meaningful Use Info Meaningful Use Diagnoses (Choose all that apply): None applicable Code Visit Inpatient E&M: 94664 Disch Hosp
[2017-11-21 16:25] LABS: Bedside Glucose 162 mg/dL (70-110)
--- NOTE | 2017-11-25 15:32 | CASEMGMT ---
PEDRO VENCES Discharge Follow-up Phone Call: NORMAN: Nithin Strata: 4 Call Date: 11/25/17 Discharge Date: 11/21/17 Time of Call: 1530 Duration: 1 min Admitting Diagnosis: Right Groin/Pelvis soft tissue cellulitis RN RU attempted to complete follow-up phone call after recent hospitalization. PEDRO VENCES left voice message with return contact information. Patient was setup with [facility] at discharge.
== END 2017-11-21 16:35 | disposition home health service (06) | DRG 571 ==
LOC: ED 15:18 → MS3 18:38
PROVIDERS: Surgery; Admitting Provider Internal Medicine; Emergency Provider Emergency Medicine; Family Provider Family Medicine; PCP Family Medicine; Visit Provider Internal Medicine
PROC: 0JBC0ZZ Excision of Pelvic Region Subcutaneous Tissue and Fascia, Open Approach (ICD-10-PCS; principal; 2017-11-18 11:35)
DX: L02.214 Cutaneous abscess of groin (principal); E87.1 Hypo-osmolality and hyponatremia; Z95.1 Presence of aortocoronary bypass graft; I25.10 Atherosclerotic heart disease of native coronary artery without angina pectoris; I10 Essential (primary) hypertension; E11.9 Type 2 diabetes mellitus without complications; Z87.891 Personal history of nicotine dependence; E78.5 Hyperlipidemia, unspecified; Z79.899 Other long term (current) drug therapy; I25.2 Old myocardial infarction; L30.4 Erythema intertrigo; E66.3 Overweight; Z68.32 Body mass index [BMI] 32.0-32.9, adult; L03.314 Cellulitis of groin; B95.62 Methicillin resistant Staphylococcus aureus infection as the cause of diseases classified elsewhere; Z79.84 Long term (current) use of oral hypoglycemic drugs
CPT/HCPCS: 36415; 72193; 80048; 80053; 80202; 82962; 83036; 83605; 83735; 84100; 84134; 85025; 85610; 85652; 86140; 87040; 87070; 87075; 87077; 87102; 87186; 87205; 87206; 87640; 88304; 88305; 88312; 99284; J7030; J7040; J7050; Q9967; A4216; J2405

== ENCOUNTER 2017-12-22 08:00 | Outpatient (RCR) | payer MEDICARE, OTHER, SELFPAY ==
[2017-12-08 08:53] VITALS: BP 130/79; PULSE 64; RESP 16; TEMP 35.9; BMI 31.8
--- NOTE | 2017-12-08 23:53 | PCM.WC.PN ---
Type of Wound Date of Service: 12/08/17 Chief Complaint: Open surgical diabetic wound right inguinal and pubic and abdominal wall area. History of Wound: Surgery 11/18/17 - Surgical preparation right inguinal and pubic area and lower anterior abdominal wall area with incision and drainage and excisional debridement skin, subcutaneous tissue and fascia for necrotizing diabetic abscess (190 cm2). Wound care - VAC. Operative culture - MRSA. He was discharged home on Doxycycline and has finished them. Encourage nutritional supplementation with protein to help the healing process. Today he denies fever. His appetite is good. Progress of Wound: Improved. - Physical Exam Vital Signs Temp Pulse Resp BP 96.6 F L 64 16 130/79 H 12/08/17 08:53 12/08/17 08:53 12/08/17 08:53 12/08/17 08:53 Wound Measurements and Assessment - Nurse 1 - General Ulcer Measurement Start: 12/08/17 08:53 Freq: Status: Active Protocol: Activity Type Activity Date Activity User E-Sign Co-Sign Detail Recorded Client Recorded Date Recorded By Document 12/08/17 08:53 [id number] 12/08/17 09:09 12/08/17 08:53 Wound Center Nurse 1 [Ulcer Assessment] #1 RIGHT GROIN WOUND -Combined with other wound No -Current Size (cm) - Length 5.2 -Current Size (cm) - Width 16.0 -Current Size (cm) - Depth 2.0 -Total Square Cm 83.20 -Date of Last Picture (Recall this 12/08/17 field) -Photo Taken Yes -Epithelialization Large 67-100% -Tunneling No -Undermining/Tunneling No -Circular Undermining No -Wound Margin Distinct, Outline Attached -Granulation Amt Large (67-100%) -Granulation Quality Red -Slough/Fibrin No -Necrosis Amt None Present (0 %) -Structure Exposed None/Limited to Skin Breakdown -Texture ([place]ana-wound Skin Appearance) No Abnormality Assessed -Moisture ([place]-wound Skin Appearance No Abnormality ) Assessed -Color ([place]-wound Skin Appearance) No Abnormality Assessed -Temperature ([place]-wound Skin No Abnormality Appearance) (Pt Warm) -Tenderness on Palpation ([place]-wound Yes Skin Appearance) -Ulcer Cleansing Wound Cleanser -Foul Odor after Cleansing No -Anesthetic Used 5% Lidocaine Gel [Edema Assessment] -Lower Limb Edema Present NA - Nurse 2 - General Ulcer CM Notes Start: 12/08/17 08:53 Freq: Status: Active Protocol: Activity Type Activity Date Activity User E-Sign Co-Sign Detail Recorded Client Recorded Date Recorded By Document 12/08/17 09:34 STEVE [id number] 12/08/17 09:35 STEVE 12/08/17 09:34 Wound Center Nurse 2 [Procedure/Treatment] #1 RIGHT GROIN WOUND -Time 09:34 -Correct Patient Yes -Correct Side, Site, Position Yes -Correct Procedure Yes -Procedure Performed Yes -Type of Procedure Debridement -Clinical Debridement Subcutaneous -Post Debridement Size (cm) - Length 5.3 -Post Debridement Size (cm) - Width 16.0 -Post Debridement Size (cm) - Depth 2.0 -Total Square Cm 84.80 -Wound/Ulcer Outcome Not Healed -Ulcer Cleansing Rinsed/ Irrigated with Saline -Foul Odor after Cleansing No -Bioengineered Tissue No -Bleeding Controlled with Pressure -Treatment Response Procedure Tolerated Well [See Physician Procedure note for Specifics] Pain Scale: 0-10 Numeric [Pain] -Is Patient Pain Free? Yes Debridement Note Post-Debridement Measurements/Treatment - Nurse 2 - General Ulcer CM Notes Start: 12/08/17 08:53 Freq: Status: Active Protocol: Activity Type Activity Date Activity User E-Sign Co-Sign Detail Recorded Client Recorded Date Recorded By Document 12/08/17 09:34 STEVE [id number] 12/08/17 09:35 STEVE 12/08/17 09:34 Wound Center Nurse 2 #1 RIGHT GROIN WOUND -Time 09:34 -Correct Patient Yes -Correct Side, Site, Position Yes -Correct Procedure Yes -Procedure Performed Yes -Type of Procedure Debridement -Clinical Debridement Subcutaneous -Post Debridement Size (cm) - Length 5.3 -Post Debridement Size (cm) - Width 16.0 -Post Debridement Size (cm) - Depth 2.0 -Total Square Cm 84.80 -Wound/Ulcer Outcome Not Healed -Ulcer Cleansing Rinsed/ Irrigated with Saline -Foul Odor after Cleansing No -Bioengineered Tissue No -Bleeding Controlled with Pressure -Treatment Response Procedure Tolerated Well Pain Scale: 0-10 Numeric Is Patient Pain Free? Yes Wound debrided: #1 Right inguinal and pubic and lower abdominal wall area. Laterality: Right Wound Grade/Stage: 3. Type of Debridement: Excisional debridement Anesthesia Used: 4% Lidocaine Solution Depth: Down to and including healthy tissue, in the subcutaneous layer Percentage of wound debrided: 100 Instrument Used: 7mm curette Tissue Removed: subcutaneous tissue. Severity: Fat Layer Exposed Amount of bleeding with debridement: Mild Bleeding Controlled with: Pressure Patient tolerated procedure well Assessment/Plan Assessment: 1. 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 2. Diabetes mellitus. 3. MRSA. 4. s/p surgical preparation right inguinal and pubic area and lower anterior abdominal wall area with incision and drainage and excisional debridement skin, subcutaneous tissue and fascia for necrotizing diabetic abscess (190 cm2). 5. Open surgical diabetic wound right inguinal and pubic and abdominal wall area. Plan: Continue the VAC. He has finished the Doxycycline for the MRSA. Encourage nutritional supplementation with protein to help the healing process. Followup 2 weeks.
[2017-12-22 08:25] VITALS: BP 146/73; PULSE 70; RESP 16; TEMP 35.3; BMI 31.8
--- NOTE | 2017-12-22 17:07 | PCM.WC.PN ---
Type of Wound Date of Service: 12/22/17 Chief Complaint: Open surgical diabetic wound right inguinal and pubic and abdominal wall area. History of Wound: Surgery 11/18/17 - Surgical preparation right inguinal and pubic area and lower anterior abdominal wall area with incision and drainage and excisional debridement skin, subcutaneous tissue and fascia for necrotizing diabetic abscess (190 cm2). Wound care - VAC. Operative culture - MRSA. He was discharged home on Doxycycline and has finished them. Encourage nutritional supplementation with protein to help the healing process. Today he denies fever. His appetite is good. Progress of Wound: Improved. - Physical Exam Vital Signs Temp Pulse Resp BP 95.5 F L 70 16 146/73 H 12/22/17 08:25 12/22/17 08:25 12/22/17 08:25 12/22/17 08:25 Wound Measurements and Assessment WC - Nurse 1 - General Ulcer Measurement Start: 12/08/17 08:53 Freq: Status: Active Protocol: Activity Type Activity Date Activity User E-Sign Co-Sign Detail Recorded Client Recorded Date Recorded By Document 12/22/17 08:25 [id number] 12/22/17 08:26 12/22/17 08:25 Wound Center Nurse 1 [Ulcer Assessment] #1 RIGHT GROIN WOUND -Combined with other wound No -Current Size (cm) - Length 4.0 -Current Size (cm) - Width 14.5 -Current Size (cm) - Depth 0.5 -Total Square Cm 58.00 -Photo Taken No -Epithelialization Small 1-33% -Tunneling No -Undermining/Tunneling No -Circular Undermining No -Exudate Amt Medium (34-66%) -Exudate Type Serosanguineous -Wound Margin Flat & Intact -Granulation Amt Large (67-100%) -Granulation Quality Red -Slough/Fibrin Yes -Necrosis Amt Small (1-33%) -Necrotic Tissue Type Adherent Slough -Structure Exposed N/A -Texture ([place]-wound Skin Appearance) Assessed -Moisture ([place]-wound Skin Appearance Assessed ) Dry/Scaly -Color ([place]-wound Skin Appearance) Assessed -Temperature ([place]-wound Skin No Abnormality Appearance) (Pt Warm) -Tenderness on Palpation ([place]-wound No Skin Appearance) -Ulcer Cleansing Wound Cleanser -Foul Odor after Cleansing No -Anesthetic Used 5% Lidocaine Gel [Edema Assessment] -Lower Limb Edema Present NA - Nurse 2 - General Ulcer CM Notes Start: 12/08/17 08:53 Freq: Status: Active Protocol: Activity Type Activity Date Activity User E-Sign Co-Sign Detail Recorded Client Recorded Date Recorded By Document 12/22/17 08:55 [id number] 12/22/17 08:57 12/22/17 08:55 Wound Center Nurse 2 [Procedure/Treatment] #1 RIGHT GROIN WOUND -Time 08:56 -Correct Patient Yes -Correct Side, Site, Position Yes -Correct Procedure Yes -Procedure Performed Yes -Type of Procedure Debridement -Clinical Debridement Subcutaneous -Post Debridement Size (cm) - Length 4.1 -Post Debridement Size (cm) - Width 14.5 -Post Debridement Size (cm) - Depth 0.5 -Total Square Cm 59.45 -Wound/Ulcer Outcome Not Healed -Ulcer Cleansing Rinsed/ Irrigated with Saline -Foul Odor after Cleansing No -Bioengineered Tissue No -Bleeding Controlled with Pressure -Treatment Response Procedure Tolerated Well [See Physician Procedure note for Specifics] Pain Scale: 0-10 Numeric [Pain] -Is Patient Pain Free? Yes Debridement Note Post-Debridement Measurements/Treatment - Nurse 2 - General Ulcer CM Notes Start: 12/08/17 08:53 Freq: Status: Active Protocol: Activity Type Activity Date Activity User E-Sign Co-Sign Detail Recorded Client Recorded Date Recorded By Document 12/08/17 09:34 [id number] 12/08/17 09:35 Document 12/22/17 08:55 [id number] 12/22/17 08:57 12/08/17 12/22/17 09:34 08:55 Wound Center Nurse 2 #1 RIGHT GROIN WOUND -Time 09:34 08:56 -Correct Patient Yes Yes -Correct Side, Site, Position Yes Yes -Correct Procedure Yes Yes -Procedure Performed Yes Yes -Type of Procedure Debridement Debridement -Clinical Debridement Subcutaneous Subcutaneous -Post Debridement Size (cm) - Length 5.3 4.1 -Post Debridement Size (cm) - Width 16.0 14.5 -Post Debridement Size (cm) - Depth 2.0 0.5 -Total Square Cm 84.80 59.45 -Wound/Ulcer Outcome Not Healed Not Healed -Ulcer Cleansing Rinsed/ Rinsed/ Irrigated with Irrigated with Saline Saline -Foul Odor after Cleansing No No -Bioengineered Tissue No No -Bleeding Controlled with Pressure Pressure -Treatment Response Procedure Procedure Tolerated Well Tolerated Well Pain Scale: 0-10 Numeric Is Patient Pain Free? Yes Yes Wound debrided: #1 Right inguinal and pubic and abdominal wall area. Laterality: Right Wound Grade/Stage: 3. Type of Debridement: Excisional debridement Anesthesia Used: 4% Lidocaine Solution Depth: Down to and including healthy tissue, in the subcutaneous layer Percentage of wound debrided: 100 Instrument Used: 7mm curette Tissue Removed: subcutaneous tissue. Severity: Fat Layer Exposed Amount of bleeding with debridement: Mild Bleeding Controlled with: Pressure Patient tolerated procedure well Assessment/Plan Assessment: 1. 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 2. Diabetes mellitus. 3. MRSA. 4. s/p surgical preparation right inguinal and pubic area and lower anterior abdominal wall area with incision and drainage and excisional debridement skin, subcutaneous tissue and fascia for necrotizing diabetic abscess (190 cm2). 5. Open surgical diabetic wound right inguinal and pubic and abdominal wall area. Plan: Stop the VAC. Begin Silver dressing changes daily. He has finished the Doxycycline for the MRSA. Encourage nutritional supplementation with protein to help the healing process. Followup 4 weeks. 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
--- NOTE | 2017-12-23 17:07 | PN.PCM_ITS ---
Type of Wound Date of Service: 12/22/17 Chief Complaint: Open surgical diabetic wound right inguinal and pubic and abdominal wall area. History of Wound: Surgery 11/18/17 - Surgical preparation right inguinal and pubic area and lower anterior abdominal wall area with incision and drainage and excisional debridement skin, subcutaneous tissue and fascia for necrotizing diabetic abscess (190 cm2). Wound care - VAC. Operative culture - MRSA. He was discharged home on Doxycycline and has finished them. Encourage nutritional supplementation with protein to help the healing process. Today he denies fever. His appetite is good. Progress of Wound: Improved. - Physical Exam Vital Signs Temp Pulse Resp BP 95.5 F L 70 16 146/73 H 12/22/17 08:25 12/22/17 08:25 12/22/17 08:25 12/22/17 08:25 Wound Measurements and Assessment WC - Nurse 1 - General Ulcer Measurement Start: 12/08/17 08:53 Freq: Status: Active Protocol: Activity Type Activity Date Activity User E-Sign Co-Sign Detail Recorded Client Recorded Date Recorded By Document 12/22/17 08:25 [id number] 12/22/17 08:26 12/22/17 08:25 Wound Center Nurse 1 [Ulcer Assessment] #1 RIGHT GROIN WOUND -Combined with other wound No -Current Size (cm) - Length 4.0 -Current Size (cm) - Width 14.5 -Current Size (cm) - Depth 0.5 -Total Square Cm 58.00 -Photo Taken No -Epithelialization Small 1-33% -Tunneling No -Undermining/Tunneling No -Circular Undermining No -Exudate Amt Medium (34-66%) -Exudate Type Serosanguineous -Wound Margin Flat & Intact -Granulation Amt Large (67-100%) -Granulation Quality Red -Slough/Fibrin Yes -Necrosis Amt Small (1-33%) -Necrotic Tissue Type Adherent Slough -Structure Exposed N/A -Texture ([place]ana-wound Skin Appearance) Assessed -Moisture ([place]-wound Skin Appearance Assessed ) Dry/Scaly -Color ([place]-wound Skin Appearance) Assessed -Temperature ([place]-wound Skin No Abnormality Appearance) (Pt Warm) -Tenderness on Palpation ([place]-wound No Skin Appearance) -Ulcer Cleansing Wound Cleanser -Foul Odor after Cleansing No -Anesthetic Used 5% Lidocaine Gel [Edema Assessment] -Lower Limb Edema Present NA - Nurse 2 - General Ulcer CM Notes Start: 12/08/17 08:53 Freq: Status: Active Protocol: Activity Type Activity Date Activity User E-Sign Co-Sign Detail Recorded Client Recorded Date Recorded By Document 12/22/17 08:55 [id number] 12/22/17 08:57 12/22/17 08:55 Wound Center Nurse 2 [Procedure/Treatment] #1 RIGHT GROIN WOUND -Time 08:56 -Correct Patient Yes -Correct Side, Site, Position Yes -Correct Procedure Yes -Procedure Performed Yes -Type of Procedure Debridement -Clinical Debridement Subcutaneous -Post Debridement Size (cm) - Length 4.1 -Post Debridement Size (cm) - Width 14.5 -Post Debridement Size (cm) - Depth 0.5 -Total Square Cm 59.45 -Wound/Ulcer Outcome Not Healed -Ulcer Cleansing Rinsed/ Irrigated with Saline -Foul Odor after Cleansing No -Bioengineered Tissue No -Bleeding Controlled with Pressure -Treatment Response Procedure Tolerated Well [See Physician Procedure note for Specifics] Pain Scale: 0-10 Numeric [Pain] -Is Patient Pain Free? Yes Debridement Note Post-Debridement Measurements/Treatment - Nurse 2 - General Ulcer CM Notes Start: 12/08/17 08:53 Freq: Status: Active Protocol: Activity Type Activity Date Activity User E-Sign Co-Sign Detail Recorded Client Recorded Date Recorded By Document 12/08/17 09:34 [id number] 12/08/17 09:35 Document 12/22/17 08:55 [id number] 12/22/17 08:57 12/08/17 12/22/17 09:34 08:55 Wound Center Nurse 2 #1 RIGHT GROIN WOUND -Time 09:34 08:56 -Correct Patient Yes Yes -Correct Side, Site, Position Yes Yes -Correct Procedure Yes Yes -Procedure Performed Yes Yes -Type of Procedure Debridement Debridement -Clinical Debridement Subcutaneous Subcutaneous -Post Debridement Size (cm) - Length 5.3 4.1 -Post Debridement Size (cm) - Width 16.0 14.5 -Post Debridement Size (cm) - Depth 2.0 0.5 -Total Square Cm 84.80 59.45 -Wound/Ulcer Outcome Not Healed Not Healed -Ulcer Cleansing Rinsed/ Rinsed/ Irrigated with Irrigated with Saline Saline -Foul Odor after Cleansing No No -Bioengineered Tissue No No -Bleeding Controlled with Pressure Pressure -Treatment Response Procedure Procedure Tolerated Well Tolerated Well Pain Scale: 0-10 Numeric Is Patient Pain Free? Yes Yes Wound debrided: #1 Right inguinal and pubic and abdominal wall area. Laterality: Right Wound Grade/Stage: 3. Type of Debridement: Excisional debridement Anesthesia Used: 4% Lidocaine Solution Depth: Down to and including healthy tissue, in the subcutaneous layer Percentage of wound debrided: 100 Instrument Used: 7mm curette Tissue Removed: subcutaneous tissue. Severity: Fat Layer Exposed Amount of bleeding with debridement: Mild Bleeding Controlled with: Pressure Patient tolerated procedure well Assessment/Plan Assessment: 1. 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 2. Diabetes mellitus. 3. MRSA. 4. s/p surgical preparation right inguinal and pubic area and lower anterior abdominal wall area with incision and drainage and excisional debridement skin, subcutaneous tissue and fascia for necrotizing diabetic abscess (190 cm2). 5. Open surgical diabetic wound right inguinal and pubic and abdominal wall area. Plan: Stop the VAC. Begin Silver dressing changes daily. He has finished the Doxycycline for the MRSA. Encourage nutritional supplementation with protein to help the healing process. Followup 4 weeks. 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
== END 2017-12-30 23:59 ==
LOC: WC 08:00
PROVIDERS: Family Provider Family Medicine; PCP Family Medicine; Visit Provider Surgery
DX: E11.622 Type 2 diabetes mellitus with other skin ulcer (principal); Z86.14 Personal history of Methicillin resistant Staphylococcus aureus infection; T81.4XXA Infection following a procedure, initial encounter; L02.211 Cutaneous abscess of abdominal wall
CPT/HCPCS: 11042; 11045; 97606; 99213; G0463

== ENCOUNTER → 2017-12-24 08:06 | Outpatient (CLI) | payer MEDICARE, OTHER, SELFPAY ==
[2017-12-24 12:10] LABS: Absolute Lymphocyte Count 1.82 X10^3/ul (0.83-4.51); Absolute Neutrophil Count 3.3 X10^3/uL (2.0-7.7); Basophil# 0.03 X10^3/uL; Basophil% 0.5 % (0-1); Eosinophil# 0.18 X10^3/uL; Eosinophils% 3.1 % (0-5); Hemoglobin 15.3 g/dl (13.0-16.5); Lymphocyte # 1.82 X10^3/ul (4.0); Lymphocyte % 30.9 % (19-41); Mean Corp Hgb Conc 31.9 g/gl (32-36); Mean Corpuscular Hgb 29.1 pg (27.0-32.0); Mean Corpuscular Volume 91.3 fL (80-94); Mean Platelet Vol. 9.7 fl (6.2-12.0); Monocyte# 0.59 X10^3/uL; Neutrophil # 3.27 X10^3/uL (2.7-7.7); Neutrophil % 55.5 % (47-70); Platelet Count 230 K/mm3 (150-450); RBC Distribution Width CV 14.3 % (11.6-14.6); RBC Distribution Width SD 47.6 fl (35.1-43.9); Red Blood Count 5.26 M/mm3 (4.6-6.2); White Blood Count 5.9 K/mm3 (4.4-11.0)
[2017-12-24 12:11] LABS: POSITIVE COUNT NO; POSITIVE DIFFERENTIAL NO; POSITIVE MORPHOLOGY NO
[2017-12-24 12:34] LABS: ALB/GLOB Ratio 1.1 RATIO (0.9-2.4); AST(SGOT) 24 U/L (15-37); Alanine Aminotransfer ALT/SGPT 29 U/L (16-61); Alkaline Phosphatase 37 U/L (45-117); Anion Gap 9 (5-15); BUN 20 mg/dL (7-18); BUN/Creat Ratio 17.4 RATIO (10-20); Calcium,Total 9.2 mg/dL (8.5-10.1); Chloride 106 mmol/L (98-107); Creatinine, Serum 1.15 mg/dL (0.70-1.30); EST Glomerular Filtration Rate 67 mL/min (>60); Est Glom Filt Rate - Afr Amer 81 mL/min (>60); Globulin 3.8 g/dL (2.2-4.2); Glucose 126 mg/dL (74-106); PSA,Total - Annual Screen 0.38 ng/mL (0.00-4.00); Potassium 4.1 mmol/L (3.5-5.1); Protein, Total 7.8 g/dL (6.4-8.2); Sodium Level 140 mmol/L (136-145)
[2017-12-24 13:02] LABS: Microalbumin:Creatinine Ratio 90.9 mg/g CRE (<30 mg/g CRE)
== END ==
PROVIDERS: Family Provider Family Medicine; PCP Family Medicine; Visit Provider Family Medicine
DX: E11.9 Type 2 diabetes mellitus without complications (principal); I25.10 Atherosclerotic heart disease of native coronary artery without angina pectoris; E78.5 Hyperlipidemia, unspecified
CPT/HCPCS: 36415; 80053; 82043; 82570; 84153; 85025; G0103

== ENCOUNTER 2018-01-19 08:14 | Outpatient (RCR) | payer MEDICARE, OTHER, SELFPAY ==
[2017-12-31 00:13] VITALS: BP 146/73; PULSE 70; RESP 16; TEMP 35.3
[2018-01-19 15:56] VITALS: BP 148/69; PULSE 70; RESP 18; TEMP 36.6
--- NOTE | 2018-01-19 22:27 | PCM.WC.PN ---
Type of Wound Date of Service: 01/19/18 Chief Complaint: Nonhealing diabetic ulcer right inguinal and pubic and abdominal wall area. History of Wound: Surgery 11/18/17 - Surgical preparation right inguinal and pubic area and lower anterior abdominal wall area with incision and drainage and excisional debridement skin, subcutaneous tissue and fascia for necrotizing diabetic abscess (190 cm2). Wound care - Silver dressing. Operative culture - MRSA. He was discharged home on Doxycycline and has finished them. Encourage nutritional supplementation with protein to help the healing process. Today he denies fever. His appetite is good. Progress of Wound: Improved. - Physical Exam Vital Signs Temp Pulse Resp BP 97.8 F 70 18 148/69 H 01/19/18 15:56 01/19/18 15:56 01/19/18 15:56 01/19/18 15:56 Wound Measurements and Assessment WC - Nurse 1 - General Ulcer Measurement Start: 01/19/18 15:56 Freq: Status: Active Protocol: Activity Type Activity Date Activity User E-Sign Co-Sign Detail Recorded Client Recorded Date Recorded By Document 01/19/18 15:56 [id number] 01/19/18 16:10 [email or web address] 01/19/18 15:56 Wound Center Nurse 1 [Ulcer Assessment] #1 RIGHT GROIN WOUND -Current Size (cm) - Length 2.0 -Current Size (cm) - Width 11.6 -Current Size (cm) - Depth 0.3 -Total Square Cm 23.20 -Date of Last Picture (Recall this 01/19/18 field) -Photo Taken Yes -Epithelialization None Present -Tunneling No -Undermining/Tunneling No -Circular Undermining No -Classification - Thickness Full Thickness without Exposed Support Structure -Exudate Amt Small (1-33%) -Exudate Type Serosanguineous -Wound Margin Distinct, Outline Attached -Granulation Amt Large (67-100%) -Granulation Quality Red -Slough/Fibrin Yes -Necrosis Amt None Present (0 %) -Necrotic Tissue Type Adherent Slough -Structure Exposed Fat Layer Exposed -Texture ([place]-wound Skin Appearance) No Abnormality -Moisture ([place]-wound Skin Appearance No Abnormality ) -Color ([place]-wound Skin Appearance) No Abnormality -Temperature ([place]-wound Skin No Abnormality Appearance) (Pt Warm) -Tenderness on Palpation ([place]-wound No Skin Appearance) -Ulcer Cleansing Rinsed/ Irrigated with Saline -Foul Odor after Cleansing No -Anesthetic Used 4% Lidocaine Solution - Nurse 2 - General Ulcer CM Notes Start: 01/19/18 15:56 Freq: Status: Active Protocol: Activity Type Activity Date Activity User E-Sign Co-Sign Detail Recorded Client Recorded Date Recorded By Document 01/19/18 16:15 [email or web address] [id number] 01/19/18 16:17 01/19/18 16:15 Wound Center Nurse 2 [Procedure/Treatment] -Time 16:17 -Correct Patient Yes -Correct Side, Site, Position Yes -Correct Procedure Yes -Procedure Performed Yes -Type of Procedure Debridement -Clinical Debridement Subcutaneous -Post Debridement Size (cm) - Length 2 -Post Debridement Size (cm) - Width 11.7 -Post Debridement Size (cm) - Depth 0.3 -Total Square Cm 23.4 -Wound/Ulcer Outcome Not Healed -Ulcer Cleansing Rinsed/ Irrigated with Saline -Foul Odor after Cleansing No -Bioengineered Tissue No -Bleeding Controlled with Pressure -Treatment Response Procedure Tolerated Well [See Physician Procedure note for Specifics] Pain Scale: 0-10 Numeric [Pain] -Is Patient Pain Free? Yes Debridement Note Post-Debridement Measurements/Treatment - Nurse 2 - General Ulcer CM Notes Start: 01/19/18 15:56 Freq: Status: Active Protocol: Activity Type Activity Date Activity User E-Sign Co-Sign Detail Recorded Client Recorded Date Recorded By Document 01/19/18 16:15 [email or web address] [id number] 01/19/18 16:17 01/19/18 16:15 Wound Center Nurse 2 #1 RIGHT GROIN WOUND -Time 16:17 -Correct Patient Yes -Correct Side, Site, Position Yes -Correct Procedure Yes -Procedure Performed Yes -Type of Procedure Debridement -Clinical Debridement Subcutaneous -Post Debridement Size (cm) - Length 2 -Post Debridement Size (cm) - Width 11.7 -Post Debridement Size (cm) - Depth 0.3 -Total Square Cm 23.4 -Wound/Ulcer Outcome Not Healed -Ulcer Cleansing Rinsed/ Irrigated with Saline -Foul Odor after Cleansing No -Bioengineered Tissue No -Bleeding Controlled with Pressure -Treatment Response Procedure Tolerated Well Pain Scale: 0-10 Numeric Is Patient Pain Free? Yes Wound debrided: #1 Right inguinal and pubic and abdominal wall area. Laterality: Right Wound Grade/Stage: 3. Type of Debridement: Excisional debridement Anesthesia Used: 4% Lidocaine Solution Depth: Down to and including healthy tissue, in the subcutaneous layer Percentage of wound debrided: 100 Instrument Used: 7mm curette Tissue Removed: subcutaneous tissue. Severity: Fat Layer Exposed Amount of bleeding with debridement: Mild Bleeding Controlled with: Pressure Patient tolerated procedure well Assessment/Plan Assessment: 1. 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 2. Diabetes mellitus. 3. MRSA. 4. s/p surgical preparation right inguinal and pubic area and lower anterior abdominal wall area with incision and drainage and excisional debridement skin, subcutaneous tissue and fascia for necrotizing diabetic abscess (190 cm2). 5. Nonhealing diabetic ulcer right inguinal and pubic and abdominal wall area. Plan: Continue Silver dressing changes daily. He has finished the Doxycycline for the MRSA. Encourage nutritional supplementation with protein to help the healing process. Followup 4 weeks. 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
== END 2018-01-30 23:59 ==
LOC: WC 08:14
PROVIDERS: Family Provider Family Medicine; PCP Family Medicine; Visit Provider Surgery
DX: E11.622 Type 2 diabetes mellitus with other skin ulcer (principal); Z86.14 Personal history of Methicillin resistant Staphylococcus aureus infection; L98.492 Non-pressure chronic ulcer of skin of other sites with fat layer exposed
CPT/HCPCS: 11042; 11045

== ENCOUNTER 2018-02-16 07:57 | Outpatient (RCR) | payer MEDICARE, OTHER, SELFPAY ==
[2018-01-31 00:25] VITALS: BP 148/69; PULSE 70; RESP 18; TEMP 36.6
[2018-02-16 08:56] VITALS: BP 120/54; PULSE 63; RESP 18; TEMP 36.4
--- NOTE | 2018-02-16 22:53 | PN.PCM_ITS ---
Type of Wound Date of Service: 02/16/18 Chief Complaint: Nonhealing diabetic ulcer right inguinal and pubic and abdominal wall area. History of Wound: Surgery 11/18/17 - Surgical preparation right inguinal and pubic area and lower anterior abdominal wall area with incision and drainage and excisional debridement skin, subcutaneous tissue and fascia for necrotizing diabetic abscess (190 cm2). Wound care - Silver dressing. Operative culture - MRSA. He was discharged home on Doxycycline and has finished them. Encourage nutritional supplementation with protein to help the healing process. Today he denies fever. His appetite is good. Progress of Wound: Improved. - Physical Exam Vital Signs Temp Pulse Resp BP 97.5 F L 63 18 120/54 L 02/16/18 08:56 02/16/18 08:56 02/16/18 08:56 02/16/18 08:56 Wound Measurements and Assessment - Nurse 1 - General Ulcer Measurement Start: 02/16/18 08:56 Freq: Status: Active Protocol: Activity Type Activity Date Activity User E-Sign Co-Sign Detail Recorded Client Recorded Date Recorded By Document 02/16/18 08:56 DL [id number] 02/16/18 09:03 DL 02/16/18 08:56 Wound Center Nurse 1 [Ulcer Assessment] #1 RIGHT GROIN WOUND -Current Size (cm) - Length 0.4 -Current Size (cm) - Width 1.4 -Current Size (cm) - Depth 0.1 -Total Square Cm 0.56 -Photo Taken No -Exudate Amt None Present (0 %) -Wound Margin Distinct, Outline Attached -Granulation Amt Large (67-100%) -Granulation Quality [place] -Necrosis Amt None Present (0 %) -Structure Exposed N/A -Texture ([facility]ana-wound Skin Appearance) Scarring -Moisture ([facility]-wound Skin Appearance No Abnormality ) -Color ([facility]-wound Skin Appearance) Rubor -Temperature ([facility]-wound Skin No Abnormality Appearance) (Pt Warm) -Ulcer Cleansing Rinsed/ Irrigated with Saline -Foul Odor after Cleansing No -Anesthetic Used 4% Lidocaine Solution - Nurse 2 - General Ulcer CM Notes Start: 02/16/18 08:56 Freq: Status: Active Protocol: Activity Type Activity Date Activity User E-Sign Co-Sign Detail Recorded Client Recorded Date Recorded By Document 02/16/18 09:14 [email or web address] [id number] 02/16/18 09:15 02/16/18 09:14 Wound Center Nurse 2 [Procedure/Treatment] -Time 09:14 -Correct Patient Yes -Correct Side, Site, Position Yes -Correct Procedure Yes -Procedure Performed Yes -Type of Procedure Debridement -Clinical Debridement Subcutaneous -Post Debridement Size (cm) - Length 0.5 -Post Debridement Size (cm) - Width 1.4 -Post Debridement Size (cm) - Depth 0.1 -Total Square Cm 0.70 -Wound/Ulcer Outcome Not Healed -Ulcer Cleansing Rinsed/ Irrigated with Saline -Foul Odor after Cleansing No -Bioengineered Tissue No -Bleeding Controlled with Pressure -Treatment Response Procedure Tolerated Well [See Physician Procedure note for Specifics] Pain Scale: 0-10 Numeric [Pain] -Is Patient Pain Free? Yes Debridement Note Post-Debridement Measurements/Treatment WC - Nurse 2 - General Ulcer CM Notes Start: 02/16/18 08:56 Freq: Status: Active Protocol: Activity Type Activity Date Activity User E-Sign Co-Sign Detail Recorded Client Recorded Date Recorded By Document 02/16/18 09:14 [id number] 02/16/18 09:15 02/16/18 09:14 Wound Center Nurse 2 #1 RIGHT GROIN WOUND -Time 09:14 -Correct Patient Yes -Correct Side, Site, Position Yes -Correct Procedure Yes -Procedure Performed Yes -Type of Procedure Debridement -Clinical Debridement Subcutaneous -Post Debridement Size (cm) - Length 0.5 -Post Debridement Size (cm) - Width 1.4 -Post Debridement Size (cm) - Depth 0.1 -Total Square Cm 0.70 -Wound/Ulcer Outcome Not Healed -Ulcer Cleansing Rinsed/ Irrigated with Saline -Foul Odor after Cleansing No -Bioengineered Tissue No -Bleeding Controlled with Pressure -Treatment Response Procedure Tolerated Well Pain Scale: 0-10 Numeric Is Patient Pain Free? Yes Wound debrided: #1 Right inguinal and pubic and abdominal wall area. Laterality: Right Wound Grade/Stage: 3. Type of Debridement: Excisional debridement Anesthesia Used: 4% Lidocaine Solution Depth: Down to and including healthy tissue, in the subcutaneous layer Percentage of wound debrided: 100 Instrument Used: 5mm curette Tissue Removed: subcutaneous tissue. Severity: Fat Layer Exposed Amount of bleeding with debridement: Mild Bleeding Controlled with: Pressure Patient tolerated procedure well Assessment/Plan Assessment: 1. 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 2. Diabetes mellitus. 3. MRSA. 4. s/p surgical preparation right inguinal and pubic area and lower anterior abdominal wall area with incision and drainage and excisional debridement skin, subcutaneous tissue and fascia for necrotizing diabetic abscess (190 cm2). 5. Nonhealing diabetic ulcer right inguinal and pubic and abdominal wall area. Plan: Continue Silver dressing changes daily. He has finished the Doxycycline for the MRSA. Encourage nutritional supplementation with protein to help the healing process. Followup 2 weeks to see [place] Nurse Practitioner. Followup 4 weeks to see me. 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
== END 2018-03-01 23:59 ==
LOC: WC 07:57
PROVIDERS: Family Provider Family Medicine; PCP Family Medicine; Visit Provider Surgery
DX: E11.622 Type 2 diabetes mellitus with other skin ulcer (principal); Z86.14 Personal history of Methicillin resistant Staphylococcus aureus infection; L98.492 Non-pressure chronic ulcer of skin of other sites with fat layer exposed
CPT/HCPCS: 11042

== ENCOUNTER 2018-03-30 09:15 | Outpatient (RCR) | payer MEDICARE, OTHER, SELFPAY ==
[2018-03-02 00:25] VITALS: BP 120/54; PULSE 63; RESP 18; TEMP 36.4
[2018-03-02 08:08] VITALS: BP 128/75; PULSE 63; RESP 18; TEMP 36.3
--- NOTE | 2018-03-02 09:24 | PCM.WC.PN ---
(1) Open wound of pubic region with complication Status: Acute Current Visit: Yes Code(s): S31.000A - Unspecified open wound of lower back and pelvis without penetration into retroperitoneum, initial encounter Comment: open surgical necrotizing diabetic abscess wound lower anterior abdominal wall and right inguinal area and pubic area (2) Non-healing right groin open wound Status: Acute Current Visit: Yes Code(s): S31.103A - Unspecified open wound of abdominal wall, right lower quadrant without penetration into peritoneal cavity, initial encounter Comment: open surgical necrotizing diabetic abscess wound lower anterior abdominal wall and right inguinal area and pubic area (3) Abscess of pubic region Status: Acute Current Visit: No Code(s): L02.219 - Cutaneous abscess of trunk, unspecified Comment: diabetic abscess right inguinal area and pubic area (4) Abscess of right groin Status: Acute Current Visit: No Code(s): L02.214 - Cutaneous abscess of groin Comment: diabetic abscess right inguinal area and pubic area Type of Wound Date of Service: 03/02/18 Chief Complaint: Nonhealing diabetic ulcer right inguinal and pubic and abdominal wall area. History of Wound: Surgery 11/18/17 - Surgical preparation right inguinal and pubic area and lower anterior abdominal wall area with incision and drainage and excisional debridement skin, subcutaneous tissue and fascia for necrotizing diabetic abscess (190 cm2). Wound care - Silver dressing. Operative culture - MRSA. He was discharged home on Doxycycline and has finished them. Encourage nutritional supplementation with protein to help the healing process. Today he denies fever. His appetite is good. Progress of Wound: Improving. - Physical Exam Vital Signs Temp Pulse Resp BP 97.3 F L 63 18 128/75 H 03/02/18 08:08 03/02/18 08:08 03/02/18 08:08 03/02/18 08:08 General: Alert, Oriented x3 HEENT: PERRLA, EOMI Oral: Moist Mucosa Cardiovascular: Regular rate Skin: Ulcer/ Wound - Right groin Wound Measurements and Assessment WC - Nurse 1 - General Ulcer Measurement Start: 03/02/18 08:07 Freq: Status: Active Protocol: Activity Type Activity Date Activity User E-Sign Co-Sign Detail Recorded Client Recorded Date Recorded By Document 03/02/18 08:08 STEVE [id number] 03/02/18 08:12 STEVE 03/02/18 08:08 Wound Center Nurse 1 [Ulcer Assessment] #1 RIGHT GROIN WOUND -Combined with other wound No -Current Size (cm) - Length 0.4 -Current Size (cm) - Width 0.9 -Current Size (cm) - Depth 0.2 -Total Square Cm 0.36 -Photo Taken Yes -Epithelialization Large 67-100% -Tunneling No -Undermining/Tunneling No -Circular Undermining No -Exudate Amt Small (1-33%) -Exudate Type Serosanguineous -Wound Margin Flat & Intact -Granulation Amt Large (67-100%) -Granulation Quality Red -Slough/Fibrin Yes -Necrosis Amt Small (1-33%) -Necrotic Tissue Type Adherent Slough -Structure Exposed N/A -Texture (Savana-wound Skin Appearance) Assessed Scarring -Moisture (Savana-wound Skin Appearance Assessed ) Dry/Scaly -Color (Savana-wound Skin Appearance) Assessed -Temperature ([place]-wound Skin No Abnormality Appearance) (Pt Warm) -Tenderness on Palpation ([place]ana-wound No Skin Appearance) -Ulcer Cleansing Rinsed/ Irrigated with Saline -Foul Odor after Cleansing No -Anesthetic Used 4% Lidocaine Solution [Edema Assessment] -Lower Limb Edema Present NA - Nurse 2 - General Ulcer CM Notes Start: 03/02/18 08:07 Freq: Status: Active Protocol: Activity Type Activity Date Activity User E-Sign Co-Sign Detail Recorded Client Recorded Date Recorded By Document 03/02/18 08:23 [id number] 03/02/18 08:24 03/02/18 08:23 Wound Center Nurse 2 [Procedure/Treatment] #1 RIGHT GROIN WOUND -Time 08:23 -Correct Patient Yes -Correct Side, Site, Position Yes -Correct Procedure Yes -Procedure Performed Yes -Type of Procedure Debridement -Clinical Debridement Subcutaneous -Post Debridement Size (cm) - Length 0.4 -Post Debridement Size (cm) - Width 1.4 -Post Debridement Size (cm) - Depth 0.2 -Total Square Cm 0.56 -Wound/Ulcer Outcome Not Healed -Ulcer Cleansing Rinsed/ Irrigated with Saline -Foul Odor after Cleansing No -Bioengineered Tissue No -Bleeding Controlled with Pressure -Treatment Response Procedure Tolerated Well [See Physician Procedure note for Specifics] Pain Scale: 0-10 Numeric [Pain] -Is Patient Pain Free? Yes Musculoskeletal: No Tenderness to Palpation of Joints or Extremities Neurological: Neuro grossly intact Psych/Mental Status: Normal Affect, Appropriate, Alert and oriented to time, place, person, mood and affect Debridement Note Post-Debridement Measurements/Treatment WC - Nurse 2 - General Ulcer CM Notes Start: 03/02/18 08:07 Freq: Status: Active Protocol: Activity Type Activity Date Activity User E-Sign Co-Sign Detail Recorded Client Recorded Date Recorded By Document 03/02/18 08:23 [id number] 03/02/18 08:24 03/02/18 08:23 Wound Center Nurse 2 #1 RIGHT GROIN WOUND -Time 08:23 -Correct Patient Yes -Correct Side, Site, Position Yes -Correct Procedure Yes -Procedure Performed Yes -Type of Procedure Debridement -Clinical Debridement Subcutaneous -Post Debridement Size (cm) - Length 0.4 -Post Debridement Size (cm) - Width 1.4 -Post Debridement Size (cm) - Depth 0.2 -Total Square Cm 0.56 -Wound/Ulcer Outcome Not Healed -Ulcer Cleansing Rinsed/ Irrigated with Saline -Foul Odor after Cleansing No -Bioengineered Tissue No -Bleeding Controlled with Pressure -Treatment Response Procedure Tolerated Well Pain Scale: 0-10 Numeric Is Patient Pain Free? Yes Wound debrided: Right groin Laterality: Right Type of Debridement: Excisional debridement Anesthesia Used: 4% Lidocaine Solution Depth: in the subcutaneous layer Percentage of wound debrided: 100 Instrument Used: 3mm curette Tissue Removed: Subcutaneous tissue and slough. Severity: Fat Layer Exposed Amount of bleeding with debridement: Mild Bleeding Controlled with: Pressure Patient tolerated procedure well Assessment/Plan Active Problems (Last Reviewed 02/26/18 @ 10:06 by Carrie Lucio) Open wound of pubic region with complication (Acute) open surgical necrotizing diabetic abscess wound lower anterior abdominal wall and right inguinal area and pubic area Non-healing right groin open wound (Acute) open surgical necrotizing diabetic abscess wound lower anterior abdominal wall and right inguinal area and pubic area Assessment: 1. 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 2. Diabetes mellitus. 3. MRSA. 4. s/p surgical preparation right inguinal and pubic area and lower anterior abdominal wall area with incision and drainage and excisional debridement skin, subcutaneous tissue and fascia for necrotizing diabetic abscess (190 cm2). 5. Nonhealing diabetic ulcer right inguinal and pubic and abdominal wall area. Plan: Will stop silver dressing due to patient is having a difficult time keeping the silver dressing on since the wound has diminished in size. Will start collagen hydrogel once daily. He has finished the Doxycycline for the MRSA. Encourage nutritional supplementation with protein to help the healing process. Encouraged to keep the right groin dry, and to massage the healed scarred area when he showers to help soften the scarring. Followup 1 week to evaluate how the collagen hydrogeldressing is doing. 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 Code Visit [id number]: [id number] [place] subq tissue 20 sq cm/<
--- NOTE | 2018-03-02 09:28 | PN.PCM_ITS ---
(1) Open wound of pubic region with complication Status: Acute Current Visit: Yes Code(s): S31.000A - Unspecified open wound of lower back and pelvis without penetration into retroperitoneum, initial encounter Comment: open surgical necrotizing diabetic abscess wound lower anterior abdominal wall and right inguinal area and pubic area (2) Non-healing right groin open wound Status: Acute Current Visit: Yes Code(s): S31.103A - Unspecified open wound of abdominal wall, right lower quadrant without penetration into peritoneal cavity, initial encounter Comment: open surgical necrotizing diabetic abscess wound lower anterior abdominal wall and right inguinal area and pubic area (3) Abscess of pubic region Status: Acute Current Visit: No Code(s): L02.219 - Cutaneous abscess of trunk, unspecified Comment: diabetic abscess right inguinal area and pubic area (4) Abscess of right groin Status: Acute Current Visit: No Code(s): L02.214 - Cutaneous abscess of groin Comment: diabetic abscess right inguinal area and pubic area Type of Wound Date of Service: 03/02/18 Chief Complaint: Nonhealing diabetic ulcer right inguinal and pubic and abdominal wall area. History of Wound: Surgery 11/18/17 - Surgical preparation right inguinal and pubic area and lower anterior abdominal wall area with incision and drainage and excisional debridement skin, subcutaneous tissue and fascia for necrotizing diabetic abscess (190 cm2). Wound care - Silver dressing. Operative culture - MRSA. He was discharged home on Doxycycline and has finished them. Encourage nutritional supplementation with protein to help the healing process. Today he denies fever. His appetite is good. Progress of Wound: Improving. - Physical Exam Vital Signs Temp Pulse Resp BP 97.3 F L 63 18 128/75 H 03/02/18 08:08 03/02/18 08:08 03/02/18 08:08 03/02/18 08:08 General: Alert, Oriented x3 HEENT: PERRLA, EOMI Oral: Moist Mucosa Cardiovascular: Regular rate Skin: Ulcer/ Wound - Right groin Wound Measurements and Assessment WC - Nurse 1 - General Ulcer Measurement Start: 03/02/18 08:07 Freq: Status: Active Protocol: Activity Type Activity Date Activity User E-Sign Co-Sign Detail Recorded Client Recorded Date Recorded By Document 03/02/18 08:08 STEVE [id number] 03/02/18 08:12 STEVE 03/02/18 08:08 Wound Center Nurse 1 [Ulcer Assessment] #1 RIGHT GROIN WOUND -Combined with other wound No -Current Size (cm) - Length 0.4 -Current Size (cm) - Width 0.9 -Current Size (cm) - Depth 0.2 -Total Square Cm 0.36 -Photo Taken Yes -Epithelialization Large 67-100% -Tunneling No -Undermining/Tunneling No -Circular Undermining No -Exudate Amt Small (1-33%) -Exudate Type Serosanguineous -Wound Margin Flat & Intact -Granulation Amt Large (67-100%) -Granulation Quality Red -Slough/Fibrin Yes -Necrosis Amt Small (1-33%) -Necrotic Tissue Type Adherent Slough -Structure Exposed N/A -Texture (Savana-wound Skin Appearance) Assessed Scarring -Moisture ([facility]ana-wound Skin Appearance Assessed ) Dry/Scaly -Color (Savana-wound Skin Appearance) Assessed -Temperature ([facility]ana-wound Skin No Abnormality Appearance) (Pt Warm) -Tenderness on Palpation (Savana-wound No Skin Appearance) -Ulcer Cleansing Rinsed/ Irrigated with Saline -Foul Odor after Cleansing No -Anesthetic Used 4% Lidocaine Solution [Edema Assessment] -Lower Limb Edema Present NA - Nurse 2 - General Ulcer CM Notes Start: 03/02/18 08:07 Freq: Status: Active Protocol: Activity Type Activity Date Activity User E-Sign Co-Sign Detail Recorded Client Recorded Date Recorded By Document 03/02/18 08:23 [id number] 03/02/18 08:24 03/02/18 08:23 Wound Center Nurse 2 [Procedure/Treatment] #1 RIGHT GROIN WOUND -Time 08:23 -Correct Patient Yes -Correct Side, Site, Position Yes -Correct Procedure Yes -Procedure Performed Yes -Type of Procedure Debridement -Clinical Debridement Subcutaneous -Post Debridement Size (cm) - Length 0.4 -Post Debridement Size (cm) - Width 1.4 -Post Debridement Size (cm) - Depth 0.2 -Total Square Cm 0.56 -Wound/Ulcer Outcome Not Healed -Ulcer Cleansing Rinsed/ Irrigated with Saline -Foul Odor after Cleansing No -Bioengineered Tissue No -Bleeding Controlled with Pressure -Treatment Response Procedure Tolerated Well [See Physician Procedure note for Specifics] Pain Scale: 0-10 Numeric [Pain] -Is Patient Pain Free? Yes Musculoskeletal: No Tenderness to Palpation of Joints or Extremities Neurological: Neuro grossly intact Psych/Mental Status: Normal Affect, Appropriate, Alert and oriented to time, place, person, mood and affect Debridement Note Post-Debridement Measurements/Treatment WC - Nurse 2 - General Ulcer CM Notes Start: 03/02/18 08:07 Freq: Status: Active Protocol: Activity Type Activity Date Activity User E-Sign Co-Sign Detail Recorded Client Recorded Date Recorded By Document 03/02/18 08:23 [id number] 03/02/18 08:24 03/02/18 08:23 Wound Center Nurse 2 #1 RIGHT GROIN WOUND -Time 08:23 -Correct Patient Yes -Correct Side, Site, Position Yes -Correct Procedure Yes -Procedure Performed Yes -Type of Procedure Debridement -Clinical Debridement Subcutaneous -Post Debridement Size (cm) - Length 0.4 -Post Debridement Size (cm) - Width 1.4 -Post Debridement Size (cm) - Depth 0.2 -Total Square Cm 0.56 -Wound/Ulcer Outcome Not Healed -Ulcer Cleansing Rinsed/ Irrigated with Saline -Foul Odor after Cleansing No -Bioengineered Tissue No -Bleeding Controlled with Pressure -Treatment Response Procedure Tolerated Well Pain Scale: 0-10 Numeric Is Patient Pain Free? Yes Wound debrided: Right groin Laterality: Right Type of Debridement: Excisional debridement Anesthesia Used: 4% Lidocaine Solution Depth: in the subcutaneous layer Percentage of wound debrided: 100 Instrument Used: 3mm curette Tissue Removed: Subcutaneous tissue and slough. Severity: Fat Layer Exposed Amount of bleeding with debridement: Mild Bleeding Controlled with: Pressure Patient tolerated procedure well Assessment/Plan Active Problems (Last Reviewed 02/26/18 @ 10:06 by Carrie Lucio) Open wound of pubic region with complication (Acute) open surgical necrotizing diabetic abscess wound lower anterior abdominal wall and right inguinal area and pubic area Non-healing right groin open wound (Acute) open surgical necrotizing diabetic abscess wound lower anterior abdominal wall and right inguinal area and pubic area Assessment: 1. 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 2. Diabetes mellitus. 3. MRSA. 4. s/p surgical preparation right inguinal and pubic area and lower anterior abdominal wall area with incision and drainage and excisional debridement skin, subcutaneous tissue and fascia for necrotizing diabetic abscess (190 cm2). 5. Nonhealing diabetic ulcer right inguinal and pubic and abdominal wall area. Plan: Will stop silver dressing due to patient is having a difficult time keeping the silver dressing on since the wound has diminished in size. Will start collagen hydrogel once daily. He has finished the Doxycycline for the MRSA. Encourage nutritional supplementation with protein to help the healing process. Encouraged to keep the right groin dry, and to massage the healed scarred area when he showers to help soften the scarring. Followup 1 week to evaluate how the collagen hydrogeldressing is doing. 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 Code Visit 111xxx-113xx: [id number] [place] subq tissue 20 sq cm/<
[2018-03-09 08:22] VITALS: BP 139/68; PULSE 62; RESP 16; TEMP 35.9
--- NOTE | 2018-03-09 22:20 | PCM.WC.PN ---
Type of Wound Date of Service: 03/09/18 Chief Complaint: Nonhealing diabetic ulcer right inguinal and pubic and abdominal wall area. History of Wound: Surgery 11/18/17 - Surgical preparation right inguinal and pubic area and lower anterior abdominal wall area with incision and drainage and excisional debridement skin, subcutaneous tissue and fascia for necrotizing diabetic abscess (190 cm2). Wound care - Collagen hydrogel. Operative culture - MRSA. He was discharged home on Doxycycline and has finished them. Encourage nutritional supplementation with protein to help the healing process. Today he denies fever. His appetite is good. He is back to work and doing ok. Progress of Wound: Improved. - Physical Exam Vital Signs Temp Pulse Resp BP 96.6 F L 62 16 139/68 H 03/09/18 08:22 03/09/18 08:22 03/09/18 08:22 03/09/18 08:22 Wound Measurements and Assessment WC - Nurse 1 - General Ulcer Measurement Start: 03/02/18 08:07 Freq: Status: Active Protocol: Activity Type Activity Date Activity User E-Sign Co-Sign Detail Recorded Client Recorded Date Recorded By Document 03/09/18 08:22 DV [id number] 03/09/18 08:26 DV 03/09/18 08:22 Wound Center Nurse 1 [Ulcer Assessment] #1 RIGHT GROIN WOUND -Combined with other wound No -Current Size (cm) - Length 0.3 -Current Size (cm) - Width 1.4 -Current Size (cm) - Depth 0.2 -Total Square Cm 0.42 -Photo Taken No -Epithelialization Small 1-33% -Tunneling No -Undermining/Tunneling No -Circular Undermining No -Exudate Amt Small (1-33%) -Exudate Type Serosanguineous -Wound Margin Distinct, Outline Attached -Granulation Amt Medium (34-66%) -Granulation Quality [place] -Slough/Fibrin Yes -Necrosis Amt Small (1-33%) -Necrotic Tissue Type Adherent Slough -Structure Exposed None/Limited to Skin Breakdown -Texture (Savana-wound Skin Appearance) No Abnormality Assessed Scarring -Moisture ([facility]ana-wound Skin Appearance No Abnormality ) Assessed Weeping -Color (Savana-wound Skin Appearance) No Abnormality Assessed -Temperature ([facility]-wound Skin No Abnormality Appearance) (Pt Warm) -Tenderness on Palpation (Savana-wound No Skin Appearance) -Ulcer Cleansing Rinsed/ Irrigated with Saline -Foul Odor after Cleansing No -Anesthetic Used 4% Lidocaine Solution [Edema Assessment] -Lower Limb Edema Present No - Nurse 2 - General Ulcer CM Notes Start: 03/02/18 08:07 Freq: Status: Active Protocol: Activity Type Activity Date Activity User E-Sign Co-Sign Detail Recorded Client Recorded Date Recorded By Document 03/09/18 08:32 [id number] 03/09/18 08:33 03/09/18 08:32 Wound Center Nurse 2 [Procedure/Treatment] #1 RIGHT GROIN WOUND -Time 08:33 -Correct Patient Yes -Correct Side, Site, Position Yes -Correct Procedure Yes -Procedure Performed Yes -Type of Procedure Debridement -Clinical Debridement Subcutaneous -Post Debridement Size (cm) - Length 1 -Post Debridement Size (cm) - Width 2.2 -Post Debridement Size (cm) - Depth 0.1 -Total Square Cm 2.2 -Wound/Ulcer Outcome Not Healed -Ulcer Cleansing Rinsed/ Irrigated with Saline -Foul Odor after Cleansing No -Bioengineered Tissue No -Bleeding Controlled with Pressure -Treatment Response Procedure Tolerated Well [See Physician Procedure note for Specifics] Pain Scale: 0-10 Numeric [Pain] -Is Patient Pain Free? Yes Debridement Note Post-Debridement Measurements/Treatment - Nurse 2 - General Ulcer CM Notes Start: 03/02/18 08:07 Freq: Status: Active Protocol: Activity Type Activity Date Activity User E-Sign Co-Sign Detail Recorded Client Recorded Date Recorded By Document 03/02/18 08:23 [email or web address] [id number] 03/02/18 08:24 Document 03/09/18 08:32 [id number] 03/09/18 08:33 03/02/18 03/09/18 08:23 08:32 Wound Center Nurse 2 #1 RIGHT GROIN WOUND -Time 08:23 08:33 -Correct Patient Yes Yes -Correct Side, Site, Position Yes Yes -Correct Procedure Yes Yes -Procedure Performed Yes Yes -Type of Procedure Debridement Debridement -Clinical Debridement Subcutaneous Subcutaneous -Post Debridement Size (cm) - Length 0.4 1 -Post Debridement Size (cm) - Width 1.4 2.2 -Post Debridement Size (cm) - Depth 0.2 0.1 -Total Square Cm 0.56 2.2 -Wound/Ulcer Outcome Not Healed Not Healed -Ulcer Cleansing Rinsed/ Rinsed/ Irrigated with Irrigated with Saline Saline -Foul Odor after Cleansing No No -Bioengineered Tissue No No -Bleeding Controlled with Pressure Pressure -Treatment Response Procedure Procedure Tolerated Well Tolerated Well Pain Scale: 0-10 Numeric Is Patient Pain Free? Yes Yes Wound debrided: #1 Right inguinal and pubic and abdominal wall area. Laterality: Right Wound Grade/Stage: 3. Type of Debridement: Excisional debridement Anesthesia Used: 4% Lidocaine Solution Depth: Down to and including healthy tissue, in the subcutaneous layer Percentage of wound debrided: 100 Instrument Used: 3mm curette Tissue Removed: subcutaneous tissue. Severity: Fat Layer Exposed Amount of bleeding with debridement: Mild Bleeding Controlled with: Pressure Patient tolerated procedure well Assessment/Plan Assessment: 1. 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 2. Diabetes mellitus. 3. MRSA. 4. s/p surgical preparation right inguinal and pubic area and lower anterior abdominal wall area with incision and drainage and excisional debridement skin, subcutaneous tissue and fascia for necrotizing diabetic abscess (190 cm2). 5. Nonhealing diabetic ulcer right inguinal and pubic and abdominal wall area. Plan: Continue Collagen hydrogel dressing changes daily. He has finished the Doxycycline for the MRSA. Encourage nutritional supplementation with protein to help the healing process. Followup 1 week to see Ysabel Nurse Practitioner. Followup 2 weeks to see me. 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
[2018-03-16 10:25] VITALS: BP 119/44; PULSE 64; RESP 16; TEMP 36.2
--- NOTE | 2018-03-16 13:39 | PCM.WC.PN ---
(1) Open wound of pubic region with complication Status: Acute Current Visit: Yes Code(s): S31.000A - Unspecified open wound of lower back and pelvis without penetration into retroperitoneum, initial encounter Comment: open surgical necrotizing diabetic abscess wound lower anterior abdominal wall and right inguinal area and pubic area (2) Non-healing right groin open wound Status: Acute Current Visit: Yes Code(s): S31.103A - Unspecified open wound of abdominal wall, right lower quadrant without penetration into peritoneal cavity, initial encounter Comment: open surgical necrotizing diabetic abscess wound lower anterior abdominal wall and right inguinal area and pubic area (3) Abscess of pubic region Status: Acute Current Visit: No Code(s): L02.219 - Cutaneous abscess of trunk, unspecified Comment: diabetic abscess right inguinal area and pubic area (4) Abscess of right groin Status: Acute Current Visit: No Code(s): L02.214 - Cutaneous abscess of groin Comment: diabetic abscess right inguinal area and pubic area Type of Wound Date of Service: 03/16/18 Chief Complaint: Nonhealing diabetic ulcer right inguinal and pubic and abdominal wall area. History of Wound: Surgery 11/18/17 - Surgical preparation right inguinal and pubic area and lower anterior abdominal wall area with incision and drainage and excisional debridement skin, subcutaneous tissue and fascia for necrotizing diabetic abscess (190 cm2). Wound care - Collagen hydrogel. Operative culture - MRSA. He was discharged home on Doxycycline and has finished them. Encourage nutritional supplementation with protein to help the healing process. Today he denies fever. His appetite is good. He is back to work and doing ok. Progress of Wound: Improved. - Physical Exam Vital Signs Temp Pulse Resp BP 97.1 F L 64 16 119/44 L 03/16/18 10:25 03/16/18 10:25 03/16/18 10:25 03/16/18 10:25 General: Alert, Oriented x3 HEENT: Atraumatic Extremities: No edema Skin: Ulcer/ Wound - Right groin ulcer Wound Measurements and Assessment WC - Nurse 1 - General Ulcer Measurement Start: 03/02/18 08:07 Freq: Status: Active Protocol: Activity Type Activity Date Activity User E-Sign Co-Sign Detail Recorded Client Recorded Date Recorded By Document 03/16/18 10:25 [facility] [id number] 03/16/18 10:36 BMF 03/16/18 10:25 Wound Center Nurse 1 [Ulcer Assessment] #1 RIGHT GROIN WOUND -Combined with other wound No -Current Size (cm) - Length 0.8 -Current Size (cm) - Width 2.7 -Current Size (cm) - Depth 0.2 -Total Square Cm 2.16 -Photo Taken No -Epithelialization Small 1-33% -Tunneling No -Undermining/Tunneling No -Circular Undermining No -Exudate Amt None Present (0 %) -Wound Margin Distinct, Outline Attached -Granulation Amt Large (67-100%) -Granulation Quality Red -Slough/Fibrin Yes -Necrosis Amt Small (1-33%) -Necrotic Tissue Type Adherent Slough -Texture (Savana-wound Skin Appearance) Scarring -Moisture (Savana-wound Skin Appearance Assessed ) -Color ([facility]-wound Skin Appearance) Assessed -Temperature ([facility]-wound Skin No Abnormality Appearance) (Pt Warm) -Tenderness on Palpation ([facility]-wound No Skin Appearance) -Ulcer Cleansing Rinsed/ Irrigated with Saline -Foul Odor after Cleansing No -Anesthetic Used 4% Lidocaine Solution WC - Nurse 2 - General Ulcer CM Notes Start: 03/02/18 08:07 Freq: Status: Active Protocol: Activity Type Activity Date Activity User E-Sign Co-Sign Detail Recorded Client Recorded Date Recorded By Document 03/16/18 10:50 [email or web address] [id number] 03/16/18 10:53 STEVE 03/16/18 10:50 Wound Center Nurse 2 [Procedure/Treatment] -Time 10:50 -Correct Patient Yes -Correct Side, Site, Position Yes -Correct Procedure Yes -Procedure Performed Yes -Type of Procedure Debridement -Clinical Debridement Subcutaneous -Post Debridement Size (cm) - Length 0.7 -Post Debridement Size (cm) - Width 2.5 -Post Debridement Size (cm) - Depth 0.2 -Total Square Cm 1.75 -Wound/Ulcer Outcome Not Healed -Ulcer Cleansing Rinsed/ Irrigated with Saline -Foul Odor after Cleansing No -Bioengineered Tissue No -Bleeding Controlled with Pressure -Treatment Response Procedure Tolerated Well [See Physician Procedure note for Specifics] Pain Scale: 0-10 Numeric [Pain] -Is Patient Pain Free? Yes Musculoskeletal: No Tenderness to Palpation of Joints or Extremities Neurological: Neuro grossly intact Psych/Mental Status: Normal Affect, Appropriate Debridement Note Post-Debridement Measurements/Treatment WC - Nurse 2 - General Ulcer CM Notes Start: 03/02/18 08:07 Freq: Status: Active Protocol: Activity Type Activity Date Activity User E-Sign Co-Sign Detail Recorded Client Recorded Date Recorded By Document 03/02/18 08:23 [id number] 03/02/18 08:24 JF Document 03/09/18 08:32 [id number] 03/09/18 08:33 Document 03/16/18 10:50 [id number] 03/16/18 10:53 03/02/18 03/09/18 03/16/18 08:23 08:32 10:50 Wound Center Nurse 2 #1 RIGHT GROIN WOUND -Time 08:23 08:33 10:50 -Correct Patient Yes Yes Yes -Correct Side, Site, Position Yes Yes Yes -Correct Procedure Yes Yes Yes -Procedure Performed Yes Yes Yes -Type of Procedure Debridement Debridement Debridement -Clinical Debridement Subcutaneous Subcutaneous Subcutaneous -Post Debridement Size (cm) - Length 0.4 1 0.7 -Post Debridement Size (cm) - Width 1.4 2.2 2.5 -Post Debridement Size (cm) - Depth 0.2 0.1 0.2 -Total Square Cm 0.56 2.2 1.75 -Wound/Ulcer Outcome Not Healed Not Healed Not Healed -Ulcer Cleansing Rinsed/ Rinsed/ Rinsed/ Irrigated with Irrigated with Irrigated with Saline Saline Saline -Foul Odor after Cleansing No No No -Bioengineered Tissue No No No -Bleeding Controlled with Pressure Pressure Pressure -Treatment Response Procedure Procedure Procedure Tolerated Well Tolerated Well Tolerated Well Pain Scale: 0-10 Numeric Is Patient Pain Free? Yes Yes Yes Wound debrided: Right groin Laterality: Right Type of Debridement: Excisional debridement Anesthesia Used: 4% Lidocaine Solution Depth: Down to and including healthy tissue, in the subcutaneous layer Percentage of wound debrided: 100 Instrument Used: 3mm curette Tissue Removed: Subcutaneous tissue and slough Severity: Limited To Skin Breakdown Amount of bleeding with debridement: Mild Bleeding Controlled with: Pressure Patient tolerated procedure well Assessment/Plan Active Problems (Last Reviewed 02/26/18 @ 10:06 by Carrie Lucio) Open wound of pubic region with complication (Acute) open surgical necrotizing diabetic abscess wound lower anterior abdominal wall and right inguinal area and pubic area Non-healing right groin open wound (Acute) open surgical necrotizing diabetic abscess wound lower anterior abdominal wall and right inguinal area and pubic area Assessment: 1. 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 2. Diabetes mellitus. 3. MRSA. 4. s/p surgical preparation right inguinal and pubic area and lower anterior abdominal wall area with incision and drainage and excisional debridement skin, subcutaneous tissue and fascia for necrotizing diabetic abscess (190 cm2). 5. Nonhealing diabetic ulcer right inguinal and pubic and abdominal wall area. Plan: Continue Collagen hydrogel dressing changes daily. He has finished the Doxycycline for the MRSA. Encourage nutritional supplementation with protein to help the healing process. Followup [address] Garcia. 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 Code Visit 111xxx-113xx: [id number] [place] subq tissue 20 sq cm/<
--- NOTE | 2018-03-17 09:43 | PN.PCM_ITS ---
(1) Open wound of pubic region with complication Status: Acute Current Visit: Yes Code(s): S31.000A - Unspecified open wound of lower back and pelvis without penetration into retroperitoneum, initial encounter Comment: open surgical necrotizing diabetic abscess wound lower anterior abdominal wall and right inguinal area and pubic area (2) Non-healing right groin open wound Status: Acute Current Visit: Yes Code(s): S31.103A - Unspecified open wound of abdominal wall, right lower quadrant without penetration into peritoneal cavity, initial encounter Comment: open surgical necrotizing diabetic abscess wound lower anterior abdominal wall and right inguinal area and pubic area (3) Abscess of pubic region Status: Acute Current Visit: No Code(s): L02.219 - Cutaneous abscess of trunk, unspecified Comment: diabetic abscess right inguinal area and pubic area (4) Abscess of right groin Status: Acute Current Visit: No Code(s): L02.214 - Cutaneous abscess of groin Comment: diabetic abscess right inguinal area and pubic area Type of Wound Date of Service: 03/16/18 Chief Complaint: Nonhealing diabetic ulcer right inguinal and pubic and abdominal wall area. History of Wound: Surgery 11/18/17 - Surgical preparation right inguinal and pubic area and lower anterior abdominal wall area with incision and drainage and excisional debridement skin, subcutaneous tissue and fascia for necrotizing diabetic abscess (190 cm2). Wound care - Collagen hydrogel. Operative culture - MRSA. He was discharged home on Doxycycline and has finished them. Encourage nutritional supplementation with protein to help the healing process. Today he denies fever. His appetite is good. He is back to work and doing ok. Progress of Wound: Improved. - Physical Exam Vital Signs Temp Pulse Resp BP 97.1 F L 64 16 119/44 L 03/16/18 10:25 03/16/18 10:25 03/16/18 10:25 03/16/18 10:25 General: Alert, Oriented x3 HEENT: Atraumatic Extremities: No edema Skin: Ulcer/ Wound - Right groin ulcer Wound Measurements and Assessment WC - Nurse 1 - General Ulcer Measurement Start: 03/02/18 08:07 Freq: Status: Active Protocol: Activity Type Activity Date Activity User E-Sign Co-Sign Detail Recorded Client Recorded Date Recorded By Document 03/16/18 10:25 [facility] [id number] 03/16/18 10:36 BMF 03/16/18 10:25 Wound Center Nurse 1 [Ulcer Assessment] #1 RIGHT GROIN WOUND -Combined with other wound No -Current Size (cm) - Length 0.8 -Current Size (cm) - Width 2.7 -Current Size (cm) - Depth 0.2 -Total Square Cm 2.16 -Photo Taken No -Epithelialization Small 1-33% -Tunneling No -Undermining/Tunneling No -Circular Undermining No -Exudate Amt None Present (0 %) -Wound Margin Distinct, Outline Attached -Granulation Amt Large (67-100%) -Granulation Quality Red -Slough/Fibrin Yes -Necrosis Amt Small (1-33%) -Necrotic Tissue Type Adherent Slough -Texture (Savana-wound Skin Appearance) Scarring -Moisture ([place]ana-wound Skin Appearance Assessed ) -Color ([place]ana-wound Skin Appearance) Assessed -Temperature ([place]ana-wound Skin No Abnormality Appearance) (Pt Warm) -Tenderness on Palpation (Savana-wound No Skin Appearance) -Ulcer Cleansing Rinsed/ Irrigated with Saline -Foul Odor after Cleansing No -Anesthetic Used 4% Lidocaine Solution WC - Nurse 2 - General Ulcer CM Notes Start: 03/02/18 08:07 Freq: Status: Active Protocol: Activity Type Activity Date Activity User E-Sign Co-Sign Detail Recorded Client Recorded Date Recorded By Document 03/16/18 10:50 [email or web address] [id number] 03/16/18 10:53 [email or web address] 03/16/18 10:50 Wound Center Nurse 2 [Procedure/Treatment] -Time 10:50 -Correct Patient Yes -Correct Side, Site, Position Yes -Correct Procedure Yes -Procedure Performed Yes -Type of Procedure Debridement -Clinical Debridement Subcutaneous -Post Debridement Size (cm) - Length 0.7 -Post Debridement Size (cm) - Width 2.5 -Post Debridement Size (cm) - Depth 0.2 -Total Square Cm 1.75 -Wound/Ulcer Outcome Not Healed -Ulcer Cleansing Rinsed/ Irrigated with Saline -Foul Odor after Cleansing No -Bioengineered Tissue No -Bleeding Controlled with Pressure -Treatment Response Procedure Tolerated Well [See Physician Procedure note for Specifics] Pain Scale: 0-10 Numeric [Pain] -Is Patient Pain Free? Yes Musculoskeletal: No Tenderness to Palpation of Joints or Extremities Neurological: Neuro grossly intact Psych/Mental Status: Normal Affect, Appropriate Debridement Note Post-Debridement Measurements/Treatment WC - Nurse 2 - General Ulcer CM Notes Start: 03/02/18 08:07 Freq: Status: Active Protocol: Activity Type Activity Date Activity User E-Sign Co-Sign Detail Recorded Client Recorded Date Recorded By Document 03/02/18 08:23 [id number] 03/02/18 08:24 JF Document 03/09/18 08:32 [id number] 03/09/18 08:33 Document 03/16/18 10:50 [id number] 03/16/18 10:53 03/02/18 03/09/18 03/16/18 08:23 08:32 10:50 Wound Center Nurse 2 #1 RIGHT GROIN WOUND -Time 08:23 08:33 10:50 -Correct Patient Yes Yes Yes -Correct Side, Site, Position Yes Yes Yes -Correct Procedure Yes Yes Yes -Procedure Performed Yes Yes Yes -Type of Procedure Debridement Debridement Debridement -Clinical Debridement Subcutaneous Subcutaneous Subcutaneous -Post Debridement Size (cm) - Length 0.4 1 0.7 -Post Debridement Size (cm) - Width 1.4 2.2 2.5 -Post Debridement Size (cm) - Depth 0.2 0.1 0.2 -Total Square Cm 0.56 2.2 1.75 -Wound/Ulcer Outcome Not Healed Not Healed Not Healed -Ulcer Cleansing Rinsed/ Rinsed/ Rinsed/ Irrigated with Irrigated with Irrigated with Saline Saline Saline -Foul Odor after Cleansing No No No -Bioengineered Tissue No No No -Bleeding Controlled with Pressure Pressure Pressure -Treatment Response Procedure Procedure Procedure Tolerated Well Tolerated Well Tolerated Well Pain Scale: 0-10 Numeric Is Patient Pain Free? Yes Yes Yes Wound debrided: Right groin Laterality: Right Type of Debridement: Excisional debridement Anesthesia Used: 4% Lidocaine Solution Depth: Down to and including healthy tissue, in the subcutaneous layer Percentage of wound debrided: 100 Instrument Used: 3mm curette Tissue Removed: Subcutaneous tissue and slough Severity: Limited To Skin Breakdown Amount of bleeding with debridement: Mild Bleeding Controlled with: Pressure Patient tolerated procedure well Assessment/Plan Active Problems (Last Reviewed 02/26/18 @ 10:06 by Carrie Lucio) Open wound of pubic region with complication (Acute) open surgical necrotizing diabetic abscess wound lower anterior abdominal wall and right inguinal area and pubic area Non-healing right groin open wound (Acute) open surgical necrotizing diabetic abscess wound lower anterior abdominal wall and right inguinal area and pubic area Assessment: 1. 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 2. Diabetes mellitus. 3. MRSA. 4. s/p surgical preparation right inguinal and pubic area and lower anterior abdominal wall area with incision and drainage and excisional debridement skin, subcutaneous tissue and fascia for necrotizing diabetic abscess (190 cm2). 5. Nonhealing diabetic ulcer right inguinal and pubic and abdominal wall area. Plan: Continue Collagen hydrogel dressing changes daily. He has finished the Doxycycline for the MRSA. Encourage nutritional supplementation with protein to help the healing process. Followup [address] Garcia. 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 Code Visit [id number]: [id number] [place] subq tissue 20 sq cm/<
[2018-03-23 08:59] VITALS: BP 138/67; PULSE 59; RESP 20; TEMP 35.6
--- NOTE | 2018-03-23 20:40 | PCM.WC.PN ---
Type of Wound Date of Service: 03/23/18 Chief Complaint: Nonhealing diabetic ulcer right inguinal and pubic and abdominal wall area. History of Wound: Surgery 11/18/17 - Surgical preparation right inguinal and pubic area and lower anterior abdominal wall area with incision and drainage and excisional debridement skin, subcutaneous tissue and fascia for necrotizing diabetic abscess (190 cm2). Wound care - Collagen hydrogel. Operative culture - MRSA. He was discharged home on Doxycycline and has finished them. Encourage nutritional supplementation with protein to help the healing process. Today he denies fever. His appetite is good. He is back to work and doing ok. Progress of Wound: Minimal improvement. - Physical Exam Vital Signs Temp Pulse Resp BP 96.1 F L 59 L 20 H 138/67 H 03/23/18 08:59 03/23/18 08:59 03/23/18 08:59 03/23/18 08:59 Wound Measurements and Assessment WC - Nurse 1 - General Ulcer Measurement Start: 03/02/18 08:07 Freq: Status: Active Protocol: Activity Type Activity Date Activity User E-Sign Co-Sign Detail Recorded Client Recorded Date Recorded By Document 03/23/18 08:59 [id number] 03/23/18 09:09 03/23/18 08:59 Wound Center Nurse 1 [Ulcer Assessment] #1 RIGHT GROIN WOUND -Combined with other wound No -Current Size (cm) - Length 5.0 -Current Size (cm) - Width 1.0 -Current Size (cm) - Depth 0.2 -Total Square Cm 5.00 -Date of Last Picture (Recall this 03/02/18 field) -Photo Taken No -Epithelialization Small 1-33% -Tunneling No -Undermining/Tunneling No -Circular Undermining No -Classification - Thickness Full Thickness without Exposed Support Structure -Exudate Amt Small (1-33%) -Exudate Type Serosanguineous -Wound Margin Distinct, Outline Attached -Granulation Amt Small (1-33%) -Granulation Quality Pale [place] -Slough/Fibrin Yes -Necrosis Amt None Present (0 %) -Necrotic Tissue Type Adherent Slough -Structure Exposed None/Limited to Skin Breakdown -Texture (Savana-wound Skin Appearance) No Abnormality -Moisture ([place]-wound Skin Appearance No Abnormality ) -Color (Savana-wound Skin Appearance) No Abnormality -Temperature ([place]-wound Skin No Abnormality Appearance) (Pt Warm) -Tenderness on Palpation (Savana-wound No Skin Appearance) -Anesthetic Used 4% Lidocaine Solution [Edema Assessment] -Lower Limb Edema Present NA - Nurse 2 - General Ulcer CM Notes Start: 03/02/18 08:07 Freq: Status: Active Protocol: Activity Type Activity Date Activity User E-Sign Co-Sign Detail Recorded Client Recorded Date Recorded By Document 03/23/18 09:47 [id number] 03/23/18 09:47 03/23/18 09:47 Wound Center Nurse 2 [Procedure/Treatment] #1 RIGHT GROIN WOUND -Time 09:47 -Correct Patient Yes -Correct Side, Site, Position Yes -Correct Procedure Yes -Procedure Performed Yes -Type of Procedure Debridement -Clinical Debridement Subcutaneous -Post Debridement Size (cm) - Length 1.1 -Post Debridement Size (cm) - Width 5 -Post Debridement Size (cm) - Depth 0.1 -Total Square Cm 5.5 -Wound/Ulcer Outcome Not Healed -Ulcer Cleansing Rinsed/ Irrigated with Saline -Foul Odor after Cleansing No -Bioengineered Tissue No -Bleeding Controlled with Pressure -Treatment Response Procedure Tolerated Well [See Physician Procedure note for Specifics] Pain Scale: 0-10 Numeric [Pain] -Is Patient Pain Free? Yes Debridement Note Post-Debridement Measurements/Treatment - Nurse 2 - General Ulcer CM Notes Start: 03/02/18 08:07 Freq: Status: Active Protocol: Activity Type Activity Date Activity User E-Sign Co-Sign Detail Recorded Client Recorded Date Recorded By Document 03/02/18 08:23 [id number] 03/02/18 08:24 Document 03/09/18 08:32 [id number] 03/09/18 08:33 Document 03/16/18 10:50 [id number] 03/16/18 10:53 Document 03/23/18 09:47 [id number] 03/23/18 09:47 03/02/18 03/09/18 03/16/18 08:23 08:32 10:50 Wound Center Nurse 2 #1 RIGHT GROIN WOUND -Time 08:23 08:33 10:50 -Correct Patient Yes Yes Yes -Correct Side, Site, Position Yes Yes Yes -Correct Procedure Yes Yes Yes -Procedure Performed Yes Yes Yes -Type of Procedure Debridement Debridement Debridement -Clinical Debridement Subcutaneous Subcutaneous Subcutaneous -Post Debridement Size (cm) - Length 0.4 1 0.7 -Post Debridement Size (cm) - Width 1.4 2.2 2.5 -Post Debridement Size (cm) - Depth 0.2 0.1 0.2 -Total Square Cm 0.56 2.2 1.75 -Wound/Ulcer Outcome Not Healed Not Healed Not Healed -Ulcer Cleansing Rinsed/ Rinsed/ Rinsed/ Irrigated with Irrigated with Irrigated with Saline Saline Saline -Foul Odor after Cleansing No No No -Bioengineered Tissue No No No -Bleeding Controlled with Pressure Pressure Pressure -Treatment Response Procedure Procedure Procedure Tolerated Well Tolerated Well Tolerated Well Pain Scale: 0-10 Numeric Is Patient Pain Free? Yes Yes Yes 03/23/18 09:47 Wound Center Nurse 2 #1 RIGHT GROIN WOUND -Time 09:47 -Correct Patient Yes -Correct Side, Site, Position Yes -Correct Procedure Yes -Procedure Performed Yes -Type of Procedure Debridement -Clinical Debridement Subcutaneous -Post Debridement Size (cm) - Length 1.1 -Post Debridement Size (cm) - Width 5 -Post Debridement Size (cm) - Depth 0.1 -Total Square Cm 5.5 -Wound/Ulcer Outcome Not Healed -Ulcer Cleansing Rinsed/ Irrigated with Saline -Foul Odor after Cleansing No -Bioengineered Tissue No -Bleeding Controlled with Pressure Silver Nitrate -Treatment Response Procedure Tolerated Well Pain Scale: 0-10 Numeric Is Patient Pain Free? Yes Wound debrided: #1 Right inguinal and pubic and abdominal wall area. Laterality: Right Wound Grade/Stage: 3. Type of Debridement: Excisional debridement Anesthesia Used: 4% Lidocaine Solution Depth: Down to and including healthy tissue, in the subcutaneous layer Percentage of wound debrided: 100 Instrument Used: 3mm curette Tissue Removed: subcutaneous tissue. Severity: Fat Layer Exposed Amount of bleeding with debridement: Mild Bleeding Controlled with: Pressure, Silver Nitrate Patient tolerated procedure well - A wound culture was obtained today. Assessment/Plan Assessment: 1. 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 2. Diabetes mellitus. 3. MRSA. 4. s/p surgical preparation right inguinal and pubic area and lower anterior abdominal wall area with incision and drainage and excisional debridement skin, subcutaneous tissue and fascia for necrotizing diabetic abscess (190 cm2). 5. Nonhealing diabetic ulcer right inguinal and pubic and abdominal wall area. Plan: Continue Collagen hydrogel dressing changes daily. He has finished the Doxycycline for the MRSA. Because of a slowing down of healing, a wound culture was obtained. A positive wound culture will necessitate antibiotic therapy. Also would change the Collagen hydrogel to Silver at that point. Encourage nutritional supplementation with protein to help the healing process. Followup 1 week. 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
--- NOTE | 2018-03-24 21:47 | PN.PCM_ITS ---
Type of Wound Date of Service: 03/23/18 Chief Complaint: Nonhealing diabetic ulcer right inguinal and pubic and abdominal wall area. History of Wound: Surgery 11/18/17 - Surgical preparation right inguinal and pubic area and lower anterior abdominal wall area with incision and drainage and excisional debridement skin, subcutaneous tissue and fascia for necrotizing diabetic abscess (190 cm2). Wound care - Collagen hydrogel. Operative culture - MRSA. He was discharged home on Doxycycline and has finished them. Encourage nutritional supplementation with protein to help the healing process. Today he denies fever. His appetite is good. He is back to work and doing ok. Progress of Wound: Minimal improvement. - Physical Exam Vital Signs Temp Pulse Resp BP 96.1 F L 59 L 20 H 138/67 H 03/23/18 08:59 03/23/18 08:59 03/23/18 08:59 03/23/18 08:59 Wound Measurements and Assessment WC - Nurse 1 - General Ulcer Measurement Start: 03/02/18 08:07 Freq: Status: Active Protocol: Activity Type Activity Date Activity User E-Sign Co-Sign Detail Recorded Client Recorded Date Recorded By Document 03/23/18 08:59 [id number] 03/23/18 09:09 03/23/18 08:59 Wound Center Nurse 1 [Ulcer Assessment] #1 RIGHT GROIN WOUND -Combined with other wound No -Current Size (cm) - Length 5.0 -Current Size (cm) - Width 1.0 -Current Size (cm) - Depth 0.2 -Total Square Cm 5.00 -Date of Last Picture (Recall this 03/02/18 field) -Photo Taken No -Epithelialization Small 1-33% -Tunneling No -Undermining/Tunneling No -Circular Undermining No -Classification - Thickness Full Thickness without Exposed Support Structure -Exudate Amt Small (1-33%) -Exudate Type Serosanguineous -Wound Margin Distinct, Outline Attached -Granulation Amt Small (1-33%) -Granulation Quality Pale [place] -Slough/Fibrin Yes -Necrosis Amt None Present (0 %) -Necrotic Tissue Type Adherent Slough -Structure Exposed None/Limited to Skin Breakdown -Texture ([place]ana-wound Skin Appearance) No Abnormality -Moisture (Savana-wound Skin Appearance No Abnormality ) -Color (Savana-wound Skin Appearance) No Abnormality -Temperature (Savana-wound Skin No Abnormality Appearance) (Pt Warm) -Tenderness on Palpation (Savana-wound No Skin Appearance) -Anesthetic Used 4% Lidocaine Solution [Edema Assessment] -Lower Limb Edema Present NA - Nurse 2 - General Ulcer CM Notes Start: 03/02/18 08:07 Freq: Status: Active Protocol: Activity Type Activity Date Activity User E-Sign Co-Sign Detail Recorded Client Recorded Date Recorded By Document 03/23/18 09:47 [id number] 03/23/18 09:47 03/23/18 09:47 Wound Center Nurse 2 [Procedure/Treatment] #1 RIGHT GROIN WOUND -Time 09:47 -Correct Patient Yes -Correct Side, Site, Position Yes -Correct Procedure Yes -Procedure Performed Yes -Type of Procedure Debridement -Clinical Debridement Subcutaneous -Post Debridement Size (cm) - Length 1.1 -Post Debridement Size (cm) - Width 5 -Post Debridement Size (cm) - Depth 0.1 -Total Square Cm 5.5 -Wound/Ulcer Outcome Not Healed -Ulcer Cleansing Rinsed/ Irrigated with Saline -Foul Odor after Cleansing No -Bioengineered Tissue No -Bleeding Controlled with Pressure -Treatment Response Procedure Tolerated Well [See Physician Procedure note for Specifics] Pain Scale: 0-10 Numeric [Pain] -Is Patient Pain Free? Yes Debridement Note Post-Debridement Measurements/Treatment - Nurse 2 - General Ulcer CM Notes Start: 03/02/18 08:07 Freq: Status: Active Protocol: Activity Type Activity Date Activity User E-Sign Co-Sign Detail Recorded Client Recorded Date Recorded By Document 03/02/18 08:23 [id number] 03/02/18 08:24 Document 03/09/18 08:32 [id number] 03/09/18 08:33 Document 03/16/18 10:50 [id number] 03/16/18 10:53 Document 03/23/18 09:47 [id number] 03/23/18 09:47 03/02/18 03/09/18 03/16/18 08:23 08:32 10:50 Wound Center Nurse 2 #1 RIGHT GROIN WOUND -Time 08:23 08:33 10:50 -Correct Patient Yes Yes Yes -Correct Side, Site, Position Yes Yes Yes -Correct Procedure Yes Yes Yes -Procedure Performed Yes Yes Yes -Type of Procedure Debridement Debridement Debridement -Clinical Debridement Subcutaneous Subcutaneous Subcutaneous -Post Debridement Size (cm) - Length 0.4 1 0.7 -Post Debridement Size (cm) - Width 1.4 2.2 2.5 -Post Debridement Size (cm) - Depth 0.2 0.1 0.2 -Total Square Cm 0.56 2.2 1.75 -Wound/Ulcer Outcome Not Healed Not Healed Not Healed -Ulcer Cleansing Rinsed/ Rinsed/ Rinsed/ Irrigated with Irrigated with Irrigated with Saline Saline Saline -Foul Odor after Cleansing No No No -Bioengineered Tissue No No No -Bleeding Controlled with Pressure Pressure Pressure -Treatment Response Procedure Procedure Procedure Tolerated Well Tolerated Well Tolerated Well Pain Scale: 0-10 Numeric Is Patient Pain Free? Yes Yes Yes 03/23/18 09:47 Wound Center Nurse 2 #1 RIGHT GROIN WOUND -Time 09:47 -Correct Patient Yes -Correct Side, Site, Position Yes -Correct Procedure Yes -Procedure Performed Yes -Type of Procedure Debridement -Clinical Debridement Subcutaneous -Post Debridement Size (cm) - Length 1.1 -Post Debridement Size (cm) - Width 5 -Post Debridement Size (cm) - Depth 0.1 -Total Square Cm 5.5 -Wound/Ulcer Outcome Not Healed -Ulcer Cleansing Rinsed/ Irrigated with Saline -Foul Odor after Cleansing No -Bioengineered Tissue No -Bleeding Controlled with Pressure Silver Nitrate -Treatment Response Procedure Tolerated Well Pain Scale: 0-10 Numeric Is Patient Pain Free? Yes Wound debrided: #1 Right inguinal and pubic and abdominal wall area. Laterality: Right Wound Grade/Stage: 3. Type of Debridement: Excisional debridement Anesthesia Used: 4% Lidocaine Solution Depth: Down to and including healthy tissue, in the subcutaneous layer Percentage of wound debrided: 100 Instrument Used: 3mm curette Tissue Removed: subcutaneous tissue. Severity: Fat Layer Exposed Amount of bleeding with debridement: Mild Bleeding Controlled with: Pressure, Silver Nitrate Patient tolerated procedure well - A wound culture was obtained today. Assessment/Plan Assessment: 1. 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 2. Diabetes mellitus. 3. MRSA. 4. s/p surgical preparation right inguinal and pubic area and lower anterior abdominal wall area with incision and drainage and excisional debridement skin, subcutaneous tissue and fascia for necrotizing diabetic abscess (190 cm2). 5. Nonhealing diabetic ulcer right inguinal and pubic and abdominal wall area. Plan: Continue Collagen hydrogel dressing changes daily. He has finished the Doxycycline for the MRSA. Because of a slowing down of healing, a wound culture was obtained. A positive wound culture will necessitate antibiotic therapy. Also would change the Collagen hydrogel to Silver at that point. Encourage nutritional supplementation with protein to help the healing process. Followup 1 week. 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
--- NOTE | 2018-03-27 16:57 | WC ---
Addendum entered by Kulwinder Donis 03/27/18 17:50: Patient contacted regarding antibiotic Rx. Instructed to call pharmacy prior picking up. Rx to be faxed just in case. Original Note: Culture results reviewed. Antibiotic orders from [facility]: LEVAQUIN 500 mgm p.o. Take 1 daily for 14 days. Two (2) Refills. Rx called into [facility] [place] . Voice mail message left.
[2018-03-30 09:33] VITALS: BP 130/74; PULSE 64; RESP 20; TEMP 36.6
--- NOTE | 2018-03-30 22:27 | PCM.WC.PN ---
Type of Wound Date of Service: 03/30/18 Chief Complaint: Nonhealing diabetic ulcer right inguinal and pubic and abdominal wall area. History of Wound: Surgery 11/18/17 - Surgical preparation right inguinal and pubic area and lower anterior abdominal wall area with incision and drainage and excisional debridement skin, subcutaneous tissue and fascia for necrotizing diabetic abscess (190 cm2). Wound care - Collagen hydrogel. Operative culture - MRSA. He was discharged home on Doxycycline and has finished them. Encourage nutritional supplementation with protein to help the healing process. Today he denies fever. His appetite is good. He is back to work and doing ok. At his visit on 03/23/18, a wound culture was obtained because of lack of improvement. It showed Proteus. He was started on Levaquin. Progress of Wound: Minimal improvement. - Physical Exam Vital Signs Temp Pulse Resp BP 97.9 F 64 20 H 130/74 H 03/30/18 09:33 03/30/18 09:33 03/30/18 09:33 03/30/18 09:33 Wound Measurements and Assessment WC - Nurse 1 - General Ulcer Measurement Start: 03/02/18 08:07 Freq: Status: Active Protocol: Activity Type Activity Date Activity User E-Sign Co-Sign Detail Recorded Client Recorded Date Recorded By Document 03/30/18 09:33 DL [id number] 03/30/18 09:40 DL 03/30/18 09:33 Wound Center Nurse 1 [Ulcer Assessment] #1 RIGHT GROIN WOUND -Current Size (cm) - Length 1.4 -Current Size (cm) - Width 6.2 -Current Size (cm) - Depth 0.3 -Total Square Cm 8.68 -Photo Taken No -Exudate Amt Small (1-33%) -Exudate Type Serosanguineous -Wound Margin Distinct, Outline Attached -Granulation Amt Large (67-100%) -Granulation Quality [place] -Necrosis Amt Small (1-33%) -Necrotic Tissue Type Adherent Slough -Structure Exposed N/A -Texture ([place]-wound Skin Appearance) Scarring -Moisture ([place]-wound Skin Appearance No Abnormality ) -Color ([place]-wound Skin Appearance) No Abnormality -Temperature ([place]-wound Skin No Abnormality Appearance) (Pt Warm) -Tenderness on Palpation ([place]-wound No Skin Appearance) -Ulcer Cleansing Rinsed/ Irrigated with Saline -Foul Odor after Cleansing No -Anesthetic Used 5% Lidocaine Gel - Nurse 2 - General Ulcer CM Notes Start: 03/02/18 08:07 Freq: Status: Active Protocol: Activity Type Activity Date Activity User E-Sign Co-Sign Detail Recorded Client Recorded Date Recorded By Document 03/30/18 10:04 [id number] 03/30/18 10:05 03/30/18 10:04 Wound Center Nurse 2 [Procedure/Treatment] -Time 10:04 -Correct Patient Yes -Correct Side, Site, Position Yes -Correct Procedure Yes -Procedure Performed Yes -Type of Procedure Debridement -Clinical Debridement Subcutaneous -Post Debridement Size (cm) - Length 1.5 -Post Debridement Size (cm) - Width 6.2 -Post Debridement Size (cm) - Depth 0.3 -Total Square Cm 9.30 -Wound/Ulcer Outcome Not Healed -Ulcer Cleansing Rinsed/ Irrigated with Saline -Foul Odor after Cleansing No -Bioengineered Tissue No -Bleeding Controlled with Pressure -Treatment Response Procedure Tolerated Well [See Physician Procedure note for Specifics] Pain Scale: 0-10 Numeric [Pain] -Is Patient Pain Free? Yes Debridement Note Post-Debridement Measurements/Treatment - Nurse 2 - General Ulcer CM Notes Start: 03/02/18 08:07 Freq: Status: Active Protocol: Activity Type Activity Date Activity User E-Sign Co-Sign Detail Recorded Client Recorded Date Recorded By Document 03/02/18 08:23 [id number] 03/02/18 08:24 Document 03/09/18 08:32 [id number] 03/09/18 08:33 Document 03/16/18 10:50 [id number] 03/16/18 10:53 Document 03/23/18 09:47 [id number] 03/23/18 09:47 Document 03/30/18 10:04 [id number] 03/30/18 10:05 03/02/18 03/09/18 03/16/18 08:23 08:32 10:50 Wound Center Nurse 2 #1 RIGHT GROIN WOUND -Time 08:23 08:33 10:50 -Correct Patient Yes Yes Yes -Correct Side, Site, Position Yes Yes Yes -Correct Procedure Yes Yes Yes -Procedure Performed Yes Yes Yes -Type of Procedure Debridement Debridement Debridement -Clinical Debridement Subcutaneous Subcutaneous Subcutaneous -Post Debridement Size (cm) - Length 0.4 1 0.7 -Post Debridement Size (cm) - Width 1.4 2.2 2.5 -Post Debridement Size (cm) - Depth 0.2 0.1 0.2 -Total Square Cm 0.56 2.2 1.75 -Wound/Ulcer Outcome Not Healed Not Healed Not Healed -Ulcer Cleansing Rinsed/ Rinsed/ Rinsed/ Irrigated with Irrigated with Irrigated with Saline Saline Saline -Foul Odor after Cleansing No No No -Bioengineered Tissue No No No -Bleeding Controlled with Pressure Pressure Pressure -Treatment Response Procedure Procedure Procedure Tolerated Well Tolerated Well Tolerated Well Pain Scale: 0-10 Numeric Is Patient Pain Free? Yes Yes Yes 03/23/18 03/30/18 09:47 10:04 Wound Center Nurse 2 #1 RIGHT GROIN WOUND -Time 09:47 10:04 -Correct Patient Yes Yes -Correct Side, Site, Position Yes Yes -Correct Procedure Yes Yes -Procedure Performed Yes Yes -Type of Procedure Debridement Debridement -Clinical Debridement Subcutaneous Subcutaneous -Post Debridement Size (cm) - Length 1.1 1.5 -Post Debridement Size (cm) - Width 5 6.2 -Post Debridement Size (cm) - Depth 0.1 0.3 -Total Square Cm 5.5 9.30 -Wound/Ulcer Outcome Not Healed Not Healed -Ulcer Cleansing Rinsed/ Rinsed/ Irrigated with Irrigated with Saline Saline -Foul Odor after Cleansing No No -Bioengineered Tissue No No -Bleeding Controlled with Pressure Pressure -Treatment Response Procedure Procedure Tolerated Well Tolerated Well Pain Scale: 0-10 Numeric Is Patient Pain Free? Yes Yes Wound debrided: #1 Right inguinal and pubic and abdominal wall area. Laterality: Right Wound Grade/Stage: 3. Type of Debridement: Excisional debridement Anesthesia Used: 4% Lidocaine Solution Depth: Down to and including healthy tissue, in the subcutaneous layer Percentage of wound debrided: 100 Instrument Used: 3mm curette Tissue Removed: subcutaneous tissue. Severity: Fat Layer Exposed Amount of bleeding with debridement: Mild Bleeding Controlled with: Pressure Patient tolerated procedure well Assessment/Plan Assessment: 1. 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 2. Diabetes mellitus. 3. MRSA. 4. s/p surgical preparation right inguinal and pubic area and lower anterior abdominal wall area with incision and drainage and excisional debridement skin, subcutaneous tissue and fascia for necrotizing diabetic abscess (190 cm2). 5. Nonhealing diabetic ulcer right inguinal and pubic and abdominal wall area. Plan: Wound culture from 03/23/18 showed Proteus. He is on Levaquin. Will stop the Collagen hydrogel and change to Silver dressing changes daily. He had finished the Doxycycline for the MRSA from the operative culture in October,. Encourage nutritional supplementation with protein to help the healing process. Followup 1 week to see [place] Nurse Practitioner. 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
== END 2018-04-01 23:59 ==
LOC: WC 09:15
PROVIDERS: Family Provider Family Medicine; PCP Family Medicine; Visit Provider Surgery
DX: E11.622 Type 2 diabetes mellitus with other skin ulcer (principal); L98.492 Non-pressure chronic ulcer of skin of other sites with fat layer exposed; Z86.14 Personal history of Methicillin resistant Staphylococcus aureus infection; L02.214 Cutaneous abscess of groin
CPT/HCPCS: 11042; 87070; 87075; 87077; 87186; 87205

== ENCOUNTER 2018-04-27 08:15 | Outpatient (RCR) | payer MEDICARE, OTHER, SELFPAY ==
[2018-04-02 00:33] VITALS: BP 130/74; PULSE 64; RESP 20; TEMP 36.6
[2018-04-06 11:00] VITALS: BP 136/72; PULSE 65; RESP 16; TEMP 36.4
--- NOTE | 2018-04-06 12:29 | PCM.WC.PN ---
(1) Open wound of pubic region with complication Status: Chronic Current Visit: Yes Code(s): S31.000A - Unspecified open wound of lower back and pelvis without penetration into retroperitoneum, initial encounter Comment: open surgical necrotizing diabetic abscess wound lower anterior abdominal wall and right inguinal area and pubic area (2) Non-healing right groin open wound Status: Chronic Current Visit: Yes Code(s): S31.103A - Unspecified open wound of abdominal wall, right lower quadrant without penetration into peritoneal cavity, initial encounter Comment: open surgical necrotizing diabetic abscess wound lower anterior abdominal wall and right inguinal area and pubic area (3) DM type 2 (diabetes mellitus, type 2) Status: Chronic Current Visit: Yes Code(s): E11.9 - Type 2 diabetes mellitus without complications Type of Wound Date of Service: 04/06/18 Chief Complaint: Nonhealing diabetic ulcer right inguinal and pubic and abdominal wall area. History of Wound: Surgery 11/18/17 - Surgical preparation right inguinal and pubic area and lower anterior abdominal wall area with incision and drainage and excisional debridement skin, subcutaneous tissue and fascia for necrotizing diabetic abscess (190 cm2). Wound care - Collagen hydrogel. Operative culture - MRSA. He was discharged home on Doxycycline and has finished them. Encourage nutritional supplementation with protein to help the healing process. Today he denies fever. His appetite is good. He is back to work and doing ok. Progress of Wound: Improvement. - Physical Exam Vital Signs Temp Pulse Resp BP 97.6 F L 65 16 136/72 H 04/06/18 11:00 04/06/18 11:00 04/06/18 11:00 04/06/18 11:00 General: Alert, Oriented x3, Cooperative HEENT: Atraumatic Lungs: Normal air movement Cardiovascular: Regular rate Extremities: No edema, Capillary Refill Less than 3 Seconds Skin: Ulcer/ Wound - Right groin wound Wound Measurements and Assessment WC - Nurse 1 - General Ulcer Measurement Start: 04/06/18 11:00 Freq: Status: Active Protocol: Activity Type Activity Date Activity User E-Sign Co-Sign Detail Recorded Client Recorded Date Recorded By Document 04/06/18 11:00 [id number] 04/06/18 11:02 04/06/18 11:00 Wound Center Nurse 1 [Ulcer Assessment] #1 RIGHT GROIN WOUND -Combined with other wound No -Current Size (cm) - Length 0.5 -Current Size (cm) - Width 1.5 -Current Size (cm) - Depth 0.1 -Total Square Cm 0.75 -Photo Taken No -Epithelialization Medium 34-66% -Tunneling No -Undermining/Tunneling No -Circular Undermining No -Exudate Amt Small (1-33%) -Exudate Type Serosanguineous -Wound Margin Distinct, Outline Attached -Granulation Amt Medium (34-66%) -Granulation Quality Red -Slough/Fibrin Yes -Necrosis Amt Small (1-33%) -Necrotic Tissue Type Adherent Slough -Texture ([place]-wound Skin Appearance) Assessed Scarring -Moisture ([place]-wound Skin Appearance No Abnormality ) Assessed -Color ([place]-wound Skin Appearance) No Abnormality Assessed -Temperature ([place]-wound Skin No Abnormality Appearance) (Pt Warm) -Tenderness on Palpation ([place]-wound No Skin Appearance) -Ulcer Cleansing Rinsed/ Irrigated with Saline -Foul Odor after Cleansing No -Anesthetic Used 4% Lidocaine Solution WC - Nurse 2 - General Ulcer CM Notes Start: 04/06/18 11:00 Freq: Status: Active Protocol: Activity Type Activity Date Activity User E-Sign Co-Sign Detail Recorded Client Recorded Date Recorded By Document 04/06/18 11:11 [email or web address] [id number] 04/06/18 11:12 STEVE 04/06/18 11:11 Wound Center Nurse 2 [Procedure/Treatment] -Time 11:12 -Correct Patient Yes -Correct Side, Site, Position Yes -Correct Procedure Yes -Procedure Performed Yes -Type of Procedure Debridement -Clinical Debridement Subcutaneous -Post Debridement Size (cm) - Length 1.0 -Post Debridement Size (cm) - Width 5.3 -Post Debridement Size (cm) - Depth 0.2 -Total Square Cm 5.30 -Wound/Ulcer Outcome Not Healed -Ulcer Cleansing Rinsed/ Irrigated with Saline -Foul Odor after Cleansing No -Bioengineered Tissue No -Bleeding Controlled with Pressure -Treatment Response Procedure Tolerated Well [See Physician Procedure note for Specifics] Pain Scale: 0-10 Numeric [Pain] -Is Patient Pain Free? Yes Musculoskeletal: No Tenderness to Palpation of Joints or Extremities Neurological: Neuro grossly intact Psych/Mental Status: Normal Affect, Appropriate Debridement Note Post-Debridement Measurements/Treatment WC - Nurse 2 - General Ulcer CM Notes Start: 04/06/18 11:00 Freq: Status: Active Protocol: Activity Type Activity Date Activity User E-Sign Co-Sign Detail Recorded Client Recorded Date Recorded By Document 04/06/18 11:11 [email or web address] [id number] 04/06/18 11:12 STEVE 04/06/18 11:11 Wound Center Nurse 2 #1 RIGHT GROIN WOUND -Time 11:12 -Correct Patient Yes -Correct Side, Site, Position Yes -Correct Procedure Yes -Procedure Performed Yes -Type of Procedure Debridement -Clinical Debridement Subcutaneous -Post Debridement Size (cm) - Length 1.0 -Post Debridement Size (cm) - Width 5.3 -Post Debridement Size (cm) - Depth 0.2 -Total Square Cm 5.30 -Wound/Ulcer Outcome Not Healed -Ulcer Cleansing Rinsed/ Irrigated with Saline -Foul Odor after Cleansing No -Bioengineered Tissue No -Bleeding Controlled with Pressure -Treatment Response Procedure Tolerated Well Pain Scale: 0-10 Numeric Is Patient Pain Free? Yes Wound debrided: Right groin Laterality: Right Type of Debridement: Excisional debridement Anesthesia Used: 4% Lidocaine Solution Depth: Down to and including healthy tissue, in the subcutaneous layer Percentage of wound debrided: 100 Instrument Used: 3mm curette Tissue Removed: Subcutaneous tissue and slough Severity: Fat Layer Exposed Amount of bleeding with debridement: Mild Bleeding Controlled with: Pressure Patient tolerated procedure well Assessment/Plan Active Problems (Last Reviewed 02/26/18 @ 10:06 by Carrie Lucio) Open wound of pubic region with complication (Chronic) open surgical necrotizing diabetic abscess wound lower anterior abdominal wall and right inguinal area and pubic area Non-healing right groin open wound (Chronic) open surgical necrotizing diabetic abscess wound lower anterior abdominal wall and right inguinal area and pubic area DM type 2 (diabetes mellitus, type 2) (Chronic) Assessment: 1. 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 2. Diabetes mellitus. 3. MRSA. 4. s/p surgical preparation right inguinal and pubic area and lower anterior abdominal wall area with incision and drainage and excisional debridement skin, subcutaneous tissue and fascia for necrotizing diabetic abscess (190 cm2). 5. Nonhealing diabetic ulcer right inguinal and pubic and abdominal wall area. Plan: He has finished the Doxycycline for the MRSA. He is now on Levaquin for a wound culture on 03/23/18 that was positive for Proteus sp. and Corynebacterium striatum. Continue daily Aquacel-AG dressing. Encourage nutritional supplementation with protein to help the healing process. Followup 1 week. Code Visit 111xxx-113xx: [id number] [place] subq tissue 20 sq cm/<
[2018-04-14 15:49] VITALS: BP 149/69; PULSE 65; RESP 16; TEMP 36.5
--- NOTE | 2018-04-14 17:00 | PCM.WC.PN ---
(1) Open wound of pubic region with complication Status: Chronic Current Visit: Yes Code(s): S31.000A - Unspecified open wound of lower back and pelvis without penetration into retroperitoneum, initial encounter Comment: open surgical necrotizing diabetic abscess wound lower anterior abdominal wall and right inguinal area and pubic area (2) Non-healing right groin open wound Status: Chronic Current Visit: Yes Code(s): S31.103A - Unspecified open wound of abdominal wall, right lower quadrant without penetration into peritoneal cavity, initial encounter Comment: open surgical necrotizing diabetic abscess wound lower anterior abdominal wall and right inguinal area and pubic area (3) DM type 2 (diabetes mellitus, type 2) Status: Chronic Current Visit: Yes Code(s): E11.9 - Type 2 diabetes mellitus without complications (4) Impetigo Status: Acute Current Visit: Yes Code(s): L01.00 - Impetigo, unspecified Type of Wound Date of Service: 04/14/18 Chief Complaint: Nonhealing diabetic ulcer right inguinal and pubic and abdominal wall area. History of Wound: Surgery 11/18/17 - Surgical preparation right inguinal and pubic area and lower anterior abdominal wall area with incision and drainage and excisional debridement skin, subcutaneous tissue and fascia for necrotizing diabetic abscess (190 cm2). Wound care - Collagen hydrogel. Operative culture - MRSA. He was discharged home on Doxycycline and has finished them. Encourage nutritional supplementation with protein to help the healing process. Today he denies fever. His appetite is good. He is back to work and doing ok. Progress of Wound: No improvement in wound this week. - Physical Exam Vital Signs Temp Pulse Resp BP 97.7 F L 65 16 149/69 H 04/14/18 15:49 04/14/18 15:49 04/14/18 15:49 04/14/18 15:49 General: Alert, Oriented x3, Cooperative HEENT: Atraumatic, - - Nose has several areas that are non tender but bleeding and mildly crust. Extremities: No clubbing, No edema Skin: Ulcer/ Wound - Right groin site with increase opened area. Nasal dorsum with mild bleeding and crustiness Wound Measurements and Assessment WC - Nurse 1 - General Ulcer Measurement Start: 04/06/18 11:00 Freq: Status: Active Protocol: Activity Type Activity Date Activity User E-Sign Co-Sign Detail Recorded Client Recorded Date Recorded By Document 04/14/18 15:49 [id number] 04/14/18 16:13 [email or web address] 04/14/18 15:49 Wound Center Nurse 1 [Ulcer Assessment] #2 NOSE ULCER -Combined with other wound No -Current Size (cm) - Length 1.3 -Current Size (cm) - Width 1.5 -Current Size (cm) - Depth 0.1 -Total Square Cm 1.95 -Date of Last Picture (Recall this 04/14/18 field) -Photo Taken Yes -Epithelialization None Present -Tunneling No -Undermining/Tunneling No -Circular Undermining No -Classification - Thickness Partial Thickness -Exudate Amt Medium (34-66%) -Exudate Type Serosanguineous -Wound Margin Distinct, Outline Attached -Granulation Amt None Present (0 %) -Granulation Quality N/A -Slough/Fibrin No -Necrosis Amt None Present (0 %) -Structure Exposed N/A -Texture ([place]-wound Skin Appearance) No Abnormality -Moisture ([place]-wound Skin Appearance No Abnormality ) -Color ([place]-wound Skin Appearance) No Abnormality -Temperature ([place]-wound Skin No Abnormality Appearance) (Pt Warm) -Tenderness on Palpation ([place]-wound Yes Skin Appearance) -Ulcer Cleansing Rinsed/ Irrigated with Saline -Foul Odor after Cleansing No -Anesthetic Used 4% Lidocaine Solution #1 RIGHT GROIN WOUND -Combined with other wound No -Current Size (cm) - Length 1.0 -Current Size (cm) - Width 5.0 -Current Size (cm) - Depth 0.1 -Total Square Cm 5.00 -Date of Last Picture (Recall this 04/14/18 field) -Photo Taken Yes -Epithelialization Small 1-33% -Tunneling No -Undermining/Tunneling No -Circular Undermining No -Classification - Thickness Full Thickness without Exposed Support Structure -Exudate Amt Small (1-33%) -Exudate Type Serosanguineous -Wound Margin Distinct, Outline Attached -Granulation Amt Small (1-33%) -Granulation Quality Red -Slough/Fibrin Yes -Necrosis Amt None Present (0 %) -Necrotic Tissue Type Adherent Slough -Structure Exposed N/A -Texture ([place]-wound Skin Appearance) No Abnormality -Moisture ([place]-wound Skin Appearance No Abnormality ) -Color ([place]-wound Skin Appearance) No Abnormality -Temperature ([place]-wound Skin No Abnormality Appearance) (Pt Warm) -Tenderness on Palpation ([place]-wound No Skin Appearance) -Ulcer Cleansing Rinsed/ Irrigated with Saline -Foul Odor after Cleansing No WC - Nurse 2 - General Ulcer CM Notes Start: 04/06/18 11:00 Freq: Status: Active Protocol: Activity Type Activity Date Activity User E-Sign Co-Sign Detail Recorded Client Recorded Date Recorded By Document 04/14/18 16:17 [id number] 04/14/18 16:22 04/14/18 16:17 Wound Center Nurse 2 [Procedure/Treatment] #2 NOSE ULCER -Correct Patient No -Correct Side, Site, Position No -Correct Procedure No -Procedure Performed No #1 RIGHT GROIN WOUND -Time 16:18 -Correct Patient Yes -Correct Side, Site, Position Yes -Correct Procedure Yes -Procedure Performed Yes -Type of Procedure Debridement -Clinical Debridement Subcutaneous -Post Debridement Size (cm) - Length 1.0 -Post Debridement Size (cm) - Width 6.5 -Post Debridement Size (cm) - Depth 0.2 -Total Square Cm 6.50 -Wound/Ulcer Outcome Not Healed -Ulcer Cleansing Rinsed/ Irrigated with Saline -Foul Odor after Cleansing No -Bioengineered Tissue No -Bleeding Controlled with Pressure -Treatment Response Procedure Tolerated Well [See Physician Procedure note for Specifics] Pain Scale: 0-10 Numeric [Pain] -Is Patient Pain Free? Yes Musculoskeletal: No Tenderness to Palpation of Joints or Extremities, No Muscle Wasting Neurological: Neuro grossly intact Psych/Mental Status: Normal Affect, Appropriate Debridement Note Post-Debridement Measurements/Treatment - Nurse 2 - General Ulcer CM Notes Start: 04/06/18 11:00 Freq: Status: Active Protocol: Activity Type Activity Date Activity User E-Sign Co-Sign Detail Recorded Client Recorded Date Recorded By Document 04/06/18 11:11 [id number] 04/06/18 11:12 Document 04/14/18 16:17 [id number] 04/14/18 16:22 04/06/18 04/14/18 11:11 16:17 Wound Center Nurse 2 #2 NOSE ULCER -Correct Patient No -Correct Side, Site, Position No -Correct Procedure No -Procedure Performed No #1 RIGHT GROIN WOUND -Time 11:12 16:18 -Correct Patient Yes Yes -Correct Side, Site, Position Yes Yes -Correct Procedure Yes Yes -Procedure Performed Yes Yes -Type of Procedure Debridement Debridement -Clinical Debridement Subcutaneous Subcutaneous -Post Debridement Size (cm) - Length 1.0 1.0 -Post Debridement Size (cm) - Width 5.3 6.5 -Post Debridement Size (cm) - Depth 0.2 0.2 -Total Square Cm 5.30 6.50 -Wound/Ulcer Outcome Not Healed Not Healed -Ulcer Cleansing Rinsed/ Rinsed/ Irrigated with Irrigated with Saline Saline -Foul Odor after Cleansing No No -Bioengineered Tissue No No -Bleeding Controlled with Pressure Pressure -Treatment Response Procedure Procedure Tolerated Well Tolerated Well Pain Scale: 0-10 Numeric Is Patient Pain Free? Yes Yes Wound debrided: Right groin Laterality: Right Type of Debridement: Excisional debridement Anesthesia Used: 4% Lidocaine Solution Depth: Down to and including healthy tissue, in the subcutaneous layer Percentage of wound debrided: 100 Instrument Used: 3mm curette Tissue Removed: Subcutaneous tissue and slough Severity: Limited To Skin Breakdown Amount of bleeding with debridement: Mild Bleeding Controlled with: Pressure Patient tolerated procedure well Assessment/Plan Active Problems (Last Reviewed 02/26/18 @ 10:06 by Carrie Lucio) Impetigo (Acute) Open wound of pubic region with complication (Chronic) open surgical necrotizing diabetic abscess wound lower anterior abdominal wall and right inguinal area and pubic area Non-healing right groin open wound (Chronic) open surgical necrotizing diabetic abscess wound lower anterior abdominal wall and right inguinal area and pubic area DM type 2 (diabetes mellitus, type 2) (Chronic) Assessment: 1. 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 2. Diabetes mellitus. 3. MRSA. 4. s/p surgical preparation right inguinal and pubic area and lower anterior abdominal wall area with incision and drainage and excisional debridement skin, subcutaneous tissue and fascia for necrotizing diabetic abscess (190 cm2). 5. Nonhealing diabetic ulcer right inguinal and pubic and abdominal wall area. Plan: He has finished the Doxycycline for the MRSA. He is now on Levaquin for a wound culture on 03/23/18 that was positive for Proteus sp. and Corynebacterium striatum. Continue daily Aquacel-AG dressing. Encouraged to keep the right groin dry. There is a new opened area where it looks to be moist. Patient also concerned about his nose where he keeps having areas that open up bleed and then heal but then a new spot forms. There is mild honey colored crusts. Will start on Mupirocin ointment to that area. IF it does not improve, then will refer to Dr. Garcia for further evaluation. Encourage nutritional supplementation with protein to help the healing process. Followup 1 week. Code Visit 111xxx-113xx: [id number] [place] subq tissue 20 sq cm/<
[2018-04-20 09:52] VITALS: BP 144/74; PULSE 65; RESP 20; TEMP 36.3
--- NOTE | 2018-04-20 15:58 | PCM.WC.PN ---
(1) Open wound of pubic region with complication Status: Chronic Current Visit: Yes Code(s): S31.000A - Unspecified open wound of lower back and pelvis without penetration into retroperitoneum, initial encounter Comment: open surgical necrotizing diabetic abscess wound lower anterior abdominal wall and right inguinal area and pubic area (2) Non-healing right groin open wound Status: Chronic Current Visit: Yes Code(s): S31.103A - Unspecified open wound of abdominal wall, right lower quadrant without penetration into peritoneal cavity, initial encounter Comment: open surgical necrotizing diabetic abscess wound lower anterior abdominal wall and right inguinal area and pubic area (3) DM type 2 (diabetes mellitus, type 2) Status: Chronic Current Visit: Yes Code(s): E11.9 - Type 2 diabetes mellitus without complications (4) Impetigo Status: Acute Current Visit: Yes Code(s): L01.00 - Impetigo, unspecified Type of Wound Date of Service: 04/20/18 Chief Complaint: Nonhealing diabetic ulcer right inguinal and pubic and abdominal wall area. History of Wound: Surgery 11/18/17 - Surgical preparation right inguinal and pubic area and lower anterior abdominal wall area with incision and drainage and excisional debridement skin, subcutaneous tissue and fascia for necrotizing diabetic abscess (190 cm2). Wound care - Collagen hydrogel. Operative culture - MRSA. He was discharged home on Doxycycline and has finished them. Encourage nutritional supplementation with protein to help the healing process. Today he denies fever. His appetite is good. He is back to work and doing ok. Progress of Wound: Improving. - Physical Exam Vital Signs Temp Pulse Resp BP 97.3 F L 65 20 H 144/74 H 04/20/18 09:52 04/20/18 09:52 04/20/18 09:52 04/20/18 09:52 General: Alert, Oriented x3, Cooperative HEENT: Atraumatic Oral: Moist Mucosa Cardiovascular: Regular rate Extremities: No edema, Capillary Refill Less than 3 Seconds Skin: Ulcer/ Wound - Right groin wound., - - Nose continues to have small opened area where impetigo is located. It looks much better compared to last week. Wound Measurements and Assessment WC - Nurse 1 - General Ulcer Measurement Start: 04/06/18 11:00 Freq: Status: Active Protocol: Activity Type Activity Date Activity User E-Sign Co-Sign Detail Recorded Client Recorded Date Recorded By Document 04/20/18 09:52 DL [id number] 04/20/18 09:57 DL 04/20/18 09:52 Wound Center Nurse 1 [Ulcer Assessment] #1 RIGHT GROIN WOUND -Combined with other wound No -Current Size (cm) - Length 1 -Current Size (cm) - Width 7.7 -Current Size (cm) - Depth 0.1 -Total Square Cm 7.7 -Photo Taken No -Tunneling No -Undermining/Tunneling No -Circular Undermining No -Classification - Thickness Full Thickness without Exposed Support Structure -Exudate Amt Small (1-33%) -Exudate Type Serosanguineous -Wound Margin Distinct, Outline Attached -Granulation Amt Large (67-100%) -Granulation Quality [place] Red -Slough/Fibrin Yes -Necrosis Amt Small (1-33%) -Necrotic Tissue Type Adherent Slough -Structure Exposed N/A -Texture ([place]-wound Skin Appearance) Assessed -Moisture ([place]-wound Skin Appearance Assessed ) -Color ([place]-wound Skin Appearance) Assessed -Temperature ([place]-wound Skin No Abnormality Appearance) (Pt Warm) -Tenderness on Palpation ([place]-wound No Skin Appearance) -Ulcer Cleansing Rinsed/ Irrigated with Saline -Foul Odor after Cleansing No -Anesthetic Used 4% Lidocaine Solution WC - Nurse 2 - General Ulcer CM Notes Start: 04/06/18 11:00 Freq: Status: Active Protocol: Activity Type Activity Date Activity User E-Sign Co-Sign Detail Recorded Client Recorded Date Recorded By Document 04/20/18 10:24 [id number] 04/20/18 10:25 04/20/18 10:24 Wound Center Nurse 2 [Procedure/Treatment] -Time 10:24 -Correct Patient Yes -Correct Side, Site, Position Yes -Correct Procedure Yes -Procedure Performed Yes -Type of Procedure Debridement -Clinical Debridement Subcutaneous -Post Debridement Size (cm) - Length 8 -Post Debridement Size (cm) - Width 1.5 -Post Debridement Size (cm) - Depth 0.1 -Total Square Cm 12.0 -Wound/Ulcer Outcome Not Healed -Ulcer Cleansing Rinsed/ Irrigated with Saline -Foul Odor after Cleansing No -Bioengineered Tissue No -Bleeding Controlled with Pressure -Treatment Response Procedure Tolerated Well [See Physician Procedure note for Specifics] Pain Scale: 0-10 Numeric [Pain] -Is Patient Pain Free? Yes Musculoskeletal: No Tenderness to Palpation of Joints or Extremities, No Muscle Wasting Neurological: Neuro grossly intact Psych/Mental Status: Normal Affect, Appropriate Debridement Note Post-Debridement Measurements/Treatment WC - Nurse 2 - General Ulcer CM Notes Start: 04/06/18 11:00 Freq: Status: Active Protocol: Activity Type Activity Date Activity User E-Sign Co-Sign Detail Recorded Client Recorded Date Recorded By Document 04/06/18 11:11 [id number] 04/06/18 11:12 Document 04/14/18 16:17 [id number] 04/14/18 16:22 Document 04/20/18 10:24 [id number] 04/20/18 10:25 04/06/18 04/14/18 04/20/18 11:11 16:17 10:24 Wound Center Nurse 2 #2 NOSE ULCER -Correct Patient No -Correct Side, Site, Position No -Correct Procedure No -Procedure Performed No #1 RIGHT GROIN WOUND -Time 11:12 16:18 10:24 -Correct Patient Yes Yes Yes -Correct Side, Site, Position Yes Yes Yes -Correct Procedure Yes Yes Yes -Procedure Performed Yes Yes Yes -Type of Procedure Debridement Debridement Debridement -Clinical Debridement Subcutaneous Subcutaneous Subcutaneous -Post Debridement Size (cm) - Length 1.0 1.0 8 -Post Debridement Size (cm) - Width 5.3 6.5 1.5 -Post Debridement Size (cm) - Depth 0.2 0.2 0.1 -Total Square Cm 5.30 6.50 12.0 -Wound/Ulcer Outcome Not Healed Not Healed Not Healed -Ulcer Cleansing Rinsed/ Rinsed/ Rinsed/ Irrigated with Irrigated with Irrigated with Saline Saline Saline -Foul Odor after Cleansing No No No -Bioengineered Tissue No No No -Bleeding Controlled with Pressure Pressure Pressure -Treatment Response Procedure Procedure Procedure Tolerated Well Tolerated Well Tolerated Well Pain Scale: 0-10 Numeric Is Patient Pain Free? Yes Yes Yes Wound debrided: Right groin Laterality: Right Type of Debridement: Excisional debridement Anesthesia Used: 4% Lidocaine Solution Depth: Down to and including healthy tissue, in the subcutaneous layer Percentage of wound debrided: 100 Instrument Used: 3mm curette Tissue Removed: Subcutaneous tissue and slough Severity: Limited To Skin Breakdown Amount of bleeding with debridement: Mild Bleeding Controlled with: Pressure Patient tolerated procedure well Assessment/Plan Active Problems (Last Reviewed 02/26/18 @ 10:06 by Carrie Lucio) Impetigo (Acute) Open wound of pubic region with complication (Chronic) open surgical necrotizing diabetic abscess wound lower anterior abdominal wall and right inguinal area and pubic area Non-healing right groin open wound (Chronic) open surgical necrotizing diabetic abscess wound lower anterior abdominal wall and right inguinal area and pubic area DM type 2 (diabetes mellitus, type 2) (Chronic) Assessment: 1. 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 2. Diabetes mellitus. 3. MRSA. 4. s/p surgical preparation right inguinal and pubic area and lower anterior abdominal wall area with incision and drainage and excisional debridement skin, subcutaneous tissue and fascia for necrotizing diabetic abscess (190 cm2). 5. Nonhealing diabetic ulcer right inguinal and pubic and abdominal wall area. Plan: He has finished the Doxycycline for the MRSA. He is now on Levaquin for a wound culture on 03/23/18 that was positive for Proteus sp. and Corynebacterium striatum. Will change dressing to Fibracol Plus daily becuase he is having issue with the Aquacel-AG dressing sticking. Concerned if this is causing trauma to the area. Encouraged to keep the right groin dry. Patient's nose where he has impetigo looks much better. He used the mupirocin ointment for 5 days as prescribed. Instructed to keep using until all the crustiness has resolved. IF it does not improve, then will refer to Dr. Garcia for further evaluation. Encourage nutritional supplementation with protein to help the healing process. Followup 1 week. Code Visit [id number]: [id number] [place] subq tissue 20 sq cm/<
--- NOTE | 2018-04-21 11:05 | PN.PCM_ITS ---
(1) Open wound of pubic region with complication Status: Chronic Current Visit: Yes Code(s): S31.000A - Unspecified open wound of lower back and pelvis without penetration into retroperitoneum, initial encounter Comment: open surgical necrotizing diabetic abscess wound lower anterior abdominal wall and right inguinal area and pubic area (2) Non-healing right groin open wound Status: Chronic Current Visit: Yes Code(s): S31.103A - Unspecified open wound of abdominal wall, right lower quadrant without penetration into peritoneal cavity, initial encounter Comment: open surgical necrotizing diabetic abscess wound lower anterior abdominal wall and right inguinal area and pubic area (3) DM type 2 (diabetes mellitus, type 2) Status: Chronic Current Visit: Yes Code(s): E11.9 - Type 2 diabetes mellitus without complications (4) Impetigo Status: Acute Current Visit: Yes Code(s): L01.00 - Impetigo, unspecified Type of Wound Date of Service: 04/20/18 Chief Complaint: Nonhealing diabetic ulcer right inguinal and pubic and abdominal wall area. History of Wound: Surgery 11/18/17 - Surgical preparation right inguinal and pubic area and lower anterior abdominal wall area with incision and drainage and excisional debridement skin, subcutaneous tissue and fascia for necrotizing diabetic abscess (190 cm2). Wound care - Collagen hydrogel. Operative culture - MRSA. He was discharged home on Doxycycline and has finished them. Encourage nutritional supplementation with protein to help the healing process. Today he denies fever. His appetite is good. He is back to work and doing ok. Progress of Wound: Improving. - Physical Exam Vital Signs Temp Pulse Resp BP 97.3 F L 65 20 H 144/74 H 04/20/18 09:52 04/20/18 09:52 04/20/18 09:52 04/20/18 09:52 General: Alert, Oriented x3, Cooperative HEENT: Atraumatic Oral: Moist Mucosa Cardiovascular: Regular rate Extremities: No edema, Capillary Refill Less than 3 Seconds Skin: Ulcer/ Wound - Right groin wound., - - Nose continues to have small opened area where impetigo is located. It looks much better compared to last week. Wound Measurements and Assessment WC - Nurse 1 - General Ulcer Measurement Start: 04/06/18 11:00 Freq: Status: Active Protocol: Activity Type Activity Date Activity User E-Sign Co-Sign Detail Recorded Client Recorded Date Recorded By Document 04/20/18 09:52 DL [id number] 04/20/18 09:57 DL 04/20/18 09:52 Wound Center Nurse 1 [Ulcer Assessment] #1 RIGHT GROIN WOUND -Combined with other wound No -Current Size (cm) - Length 1 -Current Size (cm) - Width 7.7 -Current Size (cm) - Depth 0.1 -Total Square Cm 7.7 -Photo Taken No -Tunneling No -Undermining/Tunneling No -Circular Undermining No -Classification - Thickness Full Thickness without Exposed Support Structure -Exudate Amt Small (1-33%) -Exudate Type Serosanguineous -Wound Margin Distinct, Outline Attached -Granulation Amt Large (67-100%) -Granulation Quality [place] Red -Slough/Fibrin Yes -Necrosis Amt Small (1-33%) -Necrotic Tissue Type Adherent Slough -Structure Exposed N/A -Texture ([place]-wound Skin Appearance) Assessed -Moisture ([facility]-wound Skin Appearance Assessed ) -Color ([place]-wound Skin Appearance) Assessed -Temperature ([place]-wound Skin No Abnormality Appearance) (Pt Warm) -Tenderness on Palpation ([place]-wound No Skin Appearance) -Ulcer Cleansing Rinsed/ Irrigated with Saline -Foul Odor after Cleansing No -Anesthetic Used 4% Lidocaine Solution WC - Nurse 2 - General Ulcer CM Notes Start: 04/06/18 11:00 Freq: Status: Active Protocol: Activity Type Activity Date Activity User E-Sign Co-Sign Detail Recorded Client Recorded Date Recorded By Document 04/20/18 10:24 [id number] 04/20/18 10:25 04/20/18 10:24 Wound Center Nurse 2 [Procedure/Treatment] -Time 10:24 -Correct Patient Yes -Correct Side, Site, Position Yes -Correct Procedure Yes -Procedure Performed Yes -Type of Procedure Debridement -Clinical Debridement Subcutaneous -Post Debridement Size (cm) - Length 8 -Post Debridement Size (cm) - Width 1.5 -Post Debridement Size (cm) - Depth 0.1 -Total Square Cm 12.0 -Wound/Ulcer Outcome Not Healed -Ulcer Cleansing Rinsed/ Irrigated with Saline -Foul Odor after Cleansing No -Bioengineered Tissue No -Bleeding Controlled with Pressure -Treatment Response Procedure Tolerated Well [See Physician Procedure note for Specifics] Pain Scale: 0-10 Numeric [Pain] -Is Patient Pain Free? Yes Musculoskeletal: No Tenderness to Palpation of Joints or Extremities, No Muscle Wasting Neurological: Neuro grossly intact Psych/Mental Status: Normal Affect, Appropriate Debridement Note Post-Debridement Measurements/Treatment WC - Nurse 2 - General Ulcer CM Notes Start: 04/06/18 11:00 Freq: Status: Active Protocol: Activity Type Activity Date Activity User E-Sign Co-Sign Detail Recorded Client Recorded Date Recorded By Document 04/06/18 11:11 [id number] 04/06/18 11:12 Document 04/14/18 16:17 [id number] 04/14/18 16:22 Document 04/20/18 10:24 [id number] 04/20/18 10:25 04/06/18 04/14/18 04/20/18 11:11 16:17 10:24 Wound Center Nurse 2 #2 NOSE ULCER -Correct Patient No -Correct Side, Site, Position No -Correct Procedure No -Procedure Performed No #1 RIGHT GROIN WOUND -Time 11:12 16:18 10:24 -Correct Patient Yes Yes Yes -Correct Side, Site, Position Yes Yes Yes -Correct Procedure Yes Yes Yes -Procedure Performed Yes Yes Yes -Type of Procedure Debridement Debridement Debridement -Clinical Debridement Subcutaneous Subcutaneous Subcutaneous -Post Debridement Size (cm) - Length 1.0 1.0 8 -Post Debridement Size (cm) - Width 5.3 6.5 1.5 -Post Debridement Size (cm) - Depth 0.2 0.2 0.1 -Total Square Cm 5.30 6.50 12.0 -Wound/Ulcer Outcome Not Healed Not Healed Not Healed -Ulcer Cleansing Rinsed/ Rinsed/ Rinsed/ Irrigated with Irrigated with Irrigated with Saline Saline Saline -Foul Odor after Cleansing No No No -Bioengineered Tissue No No No -Bleeding Controlled with Pressure Pressure Pressure -Treatment Response Procedure Procedure Procedure Tolerated Well Tolerated Well Tolerated Well Pain Scale: 0-10 Numeric Is Patient Pain Free? Yes Yes Yes Wound debrided: Right groin Laterality: Right Type of Debridement: Excisional debridement Anesthesia Used: 4% Lidocaine Solution Depth: Down to and including healthy tissue, in the subcutaneous layer Percentage of wound debrided: 100 Instrument Used: 3mm curette Tissue Removed: Subcutaneous tissue and slough Severity: Limited To Skin Breakdown Amount of bleeding with debridement: Mild Bleeding Controlled with: Pressure Patient tolerated procedure well Assessment/Plan Active Problems (Last Reviewed 02/26/18 @ 10:06 by Carrie Lucio) Impetigo (Acute) Open wound of pubic region with complication (Chronic) open surgical necrotizing diabetic abscess wound lower anterior abdominal wall and right inguinal area and pubic area Non-healing right groin open wound (Chronic) open surgical necrotizing diabetic abscess wound lower anterior abdominal wall and right inguinal area and pubic area DM type 2 (diabetes mellitus, type 2) (Chronic) Assessment: 1. 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 2. Diabetes mellitus. 3. MRSA. 4. s/p surgical preparation right inguinal and pubic area and lower anterior abdominal wall area with incision and drainage and excisional debridement skin, subcutaneous tissue and fascia for necrotizing diabetic abscess (190 cm2). 5. Nonhealing diabetic ulcer right inguinal and pubic and abdominal wall area. Plan: He has finished the Doxycycline for the MRSA. He is now on Levaquin for a wound culture on 03/23/18 that was positive for Proteus sp. and Corynebacterium striatum. Will change dressing to Fibracol Plus daily becuase he is having issue with the Aquacel-AG dressing sticking. Concerned if this is causing trauma to the area. Encouraged to keep the right groin dry. Patient's nose where he has impetigo looks much better. He used the mupirocin ointment for 5 days as prescribed. Instructed to keep using until all the crustiness has resolved. IF it does not improve, then will refer to Dr. Garcia for further evaluation. Encourage nutritional supplementation with protein to help the healing process. Followup 1 week. Code Visit 111xxx-113xx: [id number] [place] subq tissue 20 sq cm/<
[2018-04-27 08:22] VITALS: BP 139/74; PULSE 64; RESP 18; TEMP 35.9
--- NOTE | 2018-04-27 22:20 | PCM.WC.PN ---
Type of Wound Date of Service: 04/27/18 Chief Complaint: Nonhealing diabetic ulcer right inguinal and pubic and abdominal wall area. History of Wound: Surgery 11/18/17 - Surgical preparation right inguinal and pubic area and lower anterior abdominal wall area with incision and drainage and excisional debridement skin, subcutaneous tissue and fascia for necrotizing diabetic abscess (190 cm2). Wound care - Fibracol. Operative culture - MRSA. He was discharged home on Doxycycline and has finished them. Encourage nutritional supplementation with protein to help the healing process. Today he denies fever. His appetite is good. He is back to work and doing ok. At his visit on 03/23/18, a wound culture was obtained because of lack of improvement. It showed Proteus. He was started on Levaquin. Progress of Wound: Improving. - Physical Exam Vital Signs Temp Pulse Resp BP 96.6 F L 64 18 139/74 H 04/27/18 08:22 04/27/18 08:22 04/27/18 08:22 04/27/18 08:22 Wound Measurements and Assessment WC - Nurse 1 - General Ulcer Measurement Start: 04/06/18 11:00 Freq: Status: Active Protocol: Activity Type Activity Date Activity User E-Sign Co-Sign Detail Recorded Client Recorded Date Recorded By Document 04/27/18 08:22 [id number] 04/27/18 08:24 04/27/18 08:22 Wound Center Nurse 1 [Ulcer Assessment] #1 RIGHT GROIN WOUND -Combined with other wound No -Current Size (cm) - Length 1.1 -Current Size (cm) - Width 3.0 -Current Size (cm) - Depth 0.1 -Total Square Cm 3.30 -Photo Taken No -Epithelialization Small 1-33% -Tunneling No -Undermining/Tunneling No -Circular Undermining No -Classification - Thickness Full Thickness without Exposed Support Structure -Exudate Amt Small (1-33%) -Exudate Type Serosanguineous -Wound Margin Distinct, Outline Attached -Granulation Amt Large (67-100%) -Granulation Quality [place] -Slough/Fibrin Yes -Necrosis Amt Small (1-33%) -Necrotic Tissue Type Adherent Slough -Structure Exposed Fascia Fat Layer Exposed -Texture ([place]-wound Skin Appearance) Assessed Scarring -Moisture ([place]-wound Skin Appearance No Abnormality ) Assessed -Color ([place]-wound Skin Appearance) No Abnormality Assessed -Temperature ([place]-wound Skin No Abnormality Appearance) (Pt Warm) -Tenderness on Palpation ([place]-wound No Skin Appearance) -Ulcer Cleansing Rinsed/ Irrigated with Saline -Foul Odor after Cleansing No -Anesthetic Used 5% Lidocaine Gel [Edema Assessment] -Lower Limb Edema Present No WC - Nurse 2 - General Ulcer CM Notes Start: 04/06/18 11:00 Freq: Status: Active Protocol: Activity Type Activity Date Activity User E-Sign Co-Sign Detail Recorded Client Recorded Date Recorded By Document 04/27/18 08:40 [id number] 04/27/18 08:41 04/27/18 08:40 Wound Center Nurse 2 [Procedure/Treatment] #1 RIGHT GROIN WOUND -Time 08:40 -Correct Patient Yes -Correct Side, Site, Position Yes -Correct Procedure Yes -Procedure Performed Yes -Type of Procedure Debridement -Clinical Debridement Subcutaneous -Post Debridement Size (cm) - Length 1.2 -Post Debridement Size (cm) - Width 3 -Post Debridement Size (cm) - Depth 0.1 -Total Square Cm 3.6 -Wound/Ulcer Outcome Not Healed -Ulcer Cleansing Rinsed/ Irrigated with Saline -Foul Odor after Cleansing No -Bioengineered Tissue No -Bleeding Controlled with Pressure -Treatment Response Procedure Tolerated Well [See Physician Procedure note for Specifics] Pain Scale: 0-10 Numeric [Pain] -Is Patient Pain Free? Yes Debridement Note Post-Debridement Measurements/Treatment WC - Nurse 2 - General Ulcer CM Notes Start: 04/06/18 11:00 Freq: Status: Active Protocol: Activity Type Activity Date Activity User E-Sign Co-Sign Detail Recorded Client Recorded Date Recorded By Document 04/06/18 11:11 [id number] 04/06/18 11:12 Document 04/14/18 16:17 [id number] 04/14/18 16:22 Document 04/20/18 10:24 [id number] 04/20/18 10:25 Document 04/27/18 08:40 [id number] 04/27/18 08:41 04/06/18 04/14/18 04/20/18 11:11 16:17 10:24 Wound Center Nurse 2 #2 NOSE ULCER -Correct Patient No -Correct Side, Site, Position No -Correct Procedure No -Procedure Performed No #1 RIGHT GROIN WOUND -Time 11:12 16:18 10:24 -Correct Patient Yes Yes Yes -Correct Side, Site, Position Yes Yes Yes -Correct Procedure Yes Yes Yes -Procedure Performed Yes Yes Yes -Type of Procedure Debridement Debridement Debridement -Clinical Debridement Subcutaneous Subcutaneous Subcutaneous -Post Debridement Size (cm) - Length 1.0 1.0 8 -Post Debridement Size (cm) - Width 5.3 6.5 1.5 -Post Debridement Size (cm) - Depth 0.2 0.2 0.1 -Total Square Cm 5.30 6.50 12.0 -Wound/Ulcer Outcome Not Healed Not Healed Not Healed -Ulcer Cleansing Rinsed/ Rinsed/ Rinsed/ Irrigated with Irrigated with Irrigated with Saline Saline Saline -Foul Odor after Cleansing No No No -Bioengineered Tissue No No No -Bleeding Controlled with Pressure Pressure Pressure -Treatment Response Procedure Procedure Procedure Tolerated Well Tolerated Well Tolerated Well Pain Scale: 0-10 Numeric Is Patient Pain Free? Yes Yes Yes 04/27/18 08:40 Wound Center Nurse 2 #2 NOSE ULCER -Correct Patient -Correct Side, Site, Position -Correct Procedure -Procedure Performed #1 RIGHT GROIN WOUND -Time 08:40 -Correct Patient Yes -Correct Side, Site, Position Yes -Correct Procedure Yes -Procedure Performed Yes -Type of Procedure Debridement -Clinical Debridement Subcutaneous -Post Debridement Size (cm) - Length 1.2 -Post Debridement Size (cm) - Width 3 -Post Debridement Size (cm) - Depth 0.1 -Total Square Cm 3.6 -Wound/Ulcer Outcome Not Healed -Ulcer Cleansing Rinsed/ Irrigated with Saline -Foul Odor after Cleansing No -Bioengineered Tissue No -Bleeding Controlled with Pressure -Treatment Response Procedure Tolerated Well Pain Scale: 0-10 Numeric Is Patient Pain Free? Yes Wound debrided: #1 Right inguinal and pubic and abdominal wall area. Laterality: Right Wound Grade/Stage: 3. Type of Debridement: Excisional debridement Anesthesia Used: 4% Lidocaine Solution Depth: Down to and including healthy tissue, in the subcutaneous layer Percentage of wound debrided: 100 Instrument Used: 3mm curette Tissue Removed: subcutaneous tissue. Severity: Fat Layer Exposed Amount of bleeding with debridement: Mild Bleeding Controlled with: Pressure Patient tolerated procedure well Assessment/Plan Assessment: 1. 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 2. Diabetes mellitus. 3. MRSA. 4. s/p surgical preparation right inguinal and pubic area and lower anterior abdominal wall area with incision and drainage and excisional debridement skin, subcutaneous tissue and fascia for necrotizing diabetic abscess (190 cm2). 5. Nonhealing diabetic ulcer right inguinal and pubic and abdominal wall area. Plan: Continue Fibracol dressing changes daily. Continue Levaquin for the Proteus culture from 03/23/18. Encourage nutritional supplementation with protein to help the healing process. Followup 1 week to see [place] Nurse Practitioner. 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
== END 2018-05-01 23:59 ==
LOC: WC 08:15
PROVIDERS: Family Provider Family Medicine; PCP Family Medicine; Visit Provider Surgery
DX: E11.622 Type 2 diabetes mellitus with other skin ulcer (principal); L98.492 Non-pressure chronic ulcer of skin of other sites with fat layer exposed; Z86.14 Personal history of Methicillin resistant Staphylococcus aureus infection; L02.214 Cutaneous abscess of groin; L01.00 Impetigo, unspecified
CPT/HCPCS: 11042

== ENCOUNTER 2018-06-01 08:00 | Outpatient (RCR) | payer MEDICARE, OTHER, SELFPAY ==
[2018-05-02 00:34] VITALS: BP 139/74; PULSE 64; RESP 18; TEMP 35.9
[2018-05-04 08:20] VITALS: BP 143/71; PULSE 61; RESP 16; TEMP 36.1
--- NOTE | 2018-05-04 09:23 | PCM.WC.PN ---
(1) Open wound of pubic region with complication Status: Chronic Current Visit: Yes Code(s): S31.000A - Unspecified open wound of lower back and pelvis without penetration into retroperitoneum, initial encounter Comment: open surgical necrotizing diabetic abscess wound lower anterior abdominal wall and right inguinal area and pubic area (2) Non-healing right groin open wound Status: Chronic Current Visit: Yes Code(s): S31.103A - Unspecified open wound of abdominal wall, right lower quadrant without penetration into peritoneal cavity, initial encounter Comment: open surgical necrotizing diabetic abscess wound lower anterior abdominal wall and right inguinal area and pubic area (3) Impetigo Status: Acute Current Visit: Yes Code(s): L01.00 - Impetigo, unspecified Type of Wound Date of Service: 05/04/18 Chief Complaint: Nonhealing diabetic ulcer right inguinal and pubic and abdominal wall area. History of Wound: Surgery 11/18/17 - Surgical preparation right inguinal and pubic area and lower anterior abdominal wall area with incision and drainage and excisional debridement skin, subcutaneous tissue and fascia for necrotizing diabetic abscess (190 cm2). Operative culture - MRSA. He was discharged home on Doxycycline and has finished them. 03/23/18 wound culture grew Proteus sp. and Corynebacterium striatum. He completed Levaquin x 28 days. Wound care is with Aquacel silver daily. Encourage nutritional supplementation with protein to help the healing process. Today he denies fever. His appetite is good. He is back to work and doing ok. Progress of Wound: No improvement this week. Area appears more erythematous. - Physical Exam Vital Signs Temp Pulse Resp BP 96.9 F L 61 16 143/71 H 05/04/18 08:20 05/04/18 08:20 05/04/18 08:20 05/04/18 08:20 General: Alert, Oriented x3, Cooperative HEENT: Atraumatic Oral: Moist Mucosa Lungs: Normal air movement Cardiovascular: Regular rate Extremities: No edema, Capillary Refill Less than 3 Seconds Skin: Ulcer/ Wound - Right groin wound with increased erythema. His nose has multiple areas of opened areas that have honey colored crust. Wound Measurements and Assessment WC - Nurse 1 - General Ulcer Measurement Start: 05/04/18 08:18 Freq: Status: Active Protocol: Activity Type Activity Date Activity User E-Sign Co-Sign Detail Recorded Client Recorded Date Recorded By Document 05/04/18 08:20 [id number] 05/04/18 08:23 DV 05/04/18 08:20 Wound Center Nurse 1 [Ulcer Assessment] #1 RIGHT GROIN WOUND -Combined with other wound No -Current Size (cm) - Length 2.1 -Current Size (cm) - Width 8.2 -Current Size (cm) - Depth 0.1 -Total Square Cm 17.22 -Photo Taken No -Epithelialization None Present -Tunneling No -Undermining/Tunneling No -Circular Undermining No -Classification - Thickness Full Thickness without Exposed Support Structure -Exudate Amt Medium (34-66%) -Exudate Type Serosanguineous -Wound Margin Flat & Intact -Granulation Amt Large (67-100%) -Granulation Quality [place] -Slough/Fibrin Yes -Necrosis Amt Medium (34-66%) -Necrotic Tissue Type Adherent Slough -Structure Exposed None/Limited to Skin Breakdown -Texture (Savana-wound Skin Appearance) Assessed Scarring -Moisture (Savana-wound Skin Appearance Assessed ) Weeping -Color (Savana-wound Skin Appearance) Assessed Erythema -Temperature ([place]ana-wound Skin No Abnormality Appearance) (Pt Warm) -Ulcer Cleansing Rinsed/ Irrigated with Saline -Foul Odor after Cleansing No -Anesthetic Used 4% Lidocaine Solution WC - Nurse 2 - General Ulcer CM Notes Start: 05/04/18 08:18 Freq: Status: Active Protocol: Activity Type Activity Date Activity User E-Sign Co-Sign Detail Recorded Client Recorded Date Recorded By Document 05/04/18 08:34 [email or web address] [id number] 05/04/18 08:44 05/04/18 08:34 Wound Center Nurse 2 [Procedure/Treatment] -Time 08:34 -Correct Patient Yes -Correct Side, Site, Position Yes -Correct Procedure Yes -Procedure Performed Yes -Type of Procedure Debridement -Clinical Debridement Subcutaneous -Post Debridement Size (cm) - Length 1.5 -Post Debridement Size (cm) - Width 9.7 -Post Debridement Size (cm) - Depth 0.2 -Total Square Cm 14.55 -Wound/Ulcer Outcome Not Healed -Ulcer Cleansing Rinsed/ Irrigated with Saline -Foul Odor after Cleansing No -Bioengineered Tissue No -Bleeding Controlled with Pressure -Offloading No [See Physician Procedure note for Specifics] Pain Scale: 0-10 Numeric [Pain] -Is Patient Pain Free? Yes Musculoskeletal: No Muscle Wasting Neurological: Neuro grossly intact Psych/Mental Status: Normal Affect - He is feeling frustrated with his right groin wound looking worse., Appropriate Debridement Note Post-Debridement Measurements/Treatment WC - Nurse 2 - General Ulcer CM Notes Start: 05/04/18 08:18 Freq: Status: Active Protocol: Activity Type Activity Date Activity User E-Sign Co-Sign Detail Recorded Client Recorded Date Recorded By Document 05/04/18 08:34 [id number] 05/04/18 08:44 05/04/18 08:34 Wound Center Nurse 2 #1 RIGHT GROIN WOUND -Time 08:34 -Correct Patient Yes -Correct Side, Site, Position Yes -Correct Procedure Yes -Procedure Performed Yes -Type of Procedure Debridement -Clinical Debridement Subcutaneous -Post Debridement Size (cm) - Length 1.5 -Post Debridement Size (cm) - Width 9.7 -Post Debridement Size (cm) - Depth 0.2 -Total Square Cm 14.55 -Wound/Ulcer Outcome Not Healed -Ulcer Cleansing Rinsed/ Irrigated with Saline -Foul Odor after Cleansing No -Bioengineered Tissue No -Bleeding Controlled with Pressure -Offloading No Pain Scale: 0-10 Numeric Is Patient Pain Free? Yes Wound debrided: Right groin Laterality: Right Type of Debridement: Excisional debridement Depth: Down to and including healthy tissue, in the subcutaneous layer Percentage of wound debrided: 100 Instrument Used: 3mm curette Tissue Removed: Subcutaneous tissue and slough Amount of bleeding with debridement: Mild Bleeding Controlled with: Pressure Patient tolerated procedure well Assessment/Plan Active Problems (Last Reviewed 02/26/18 @ 10:06 by Carrie Lucio) Impetigo (Acute) Open wound of pubic region with complication (Chronic) open surgical necrotizing diabetic abscess wound lower anterior abdominal wall and right inguinal area and pubic area Non-healing right groin open wound (Chronic) open surgical necrotizing diabetic abscess wound lower anterior abdominal wall and right inguinal area and pubic area Assessment: 1. 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 2. Diabetes mellitus. 3. MRSA. 4. s/p surgical preparation right inguinal and pubic area and lower anterior abdominal wall area with incision and drainage and excisional debridement skin, subcutaneous tissue and fascia for necrotizing diabetic abscess (190 cm2). 5. Nonhealing diabetic ulcer right inguinal and pubic and abdominal wall area. Plan: He has finished the Doxycycline for the MRSA. He finished Levaquin last week for a wound culture on 03/23/18 that was positive for Proteus sp. and Corynebacterium striatum. Will change dressing back to [facility]-. Instructed to change dressing after being in the shower to prevent any sticking and to wash with soap and water. Sent of wound culture today. They have been trying to keep area dry. They blow dry area after showering. 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 Instructed to start using mupirocin ointment TID to his nose and to continue to use until we see him next week. He should follow up with his family doctor if this does not improve his nose. Encourage nutritional supplementation with protein to help the healing process. Followup [address] Garcia. Code Visit 111xxx-113xx: [id number] [place] subq tissue 20 sq cm/<
--- NOTE | 2018-05-04 09:27 | PN.PCM_ITS ---
(1) Open wound of pubic region with complication Status: Chronic Current Visit: Yes Code(s): S31.000A - Unspecified open wound of lower back and pelvis without penetration into retroperitoneum, initial encounter Comment: open surgical necrotizing diabetic abscess wound lower anterior abdominal wall and right inguinal area and pubic area (2) Non-healing right groin open wound Status: Chronic Current Visit: Yes Code(s): S31.103A - Unspecified open wound of abdominal wall, right lower quadrant without penetration into peritoneal cavity, initial encounter Comment: open surgical necrotizing diabetic abscess wound lower anterior abdominal wall and right inguinal area and pubic area (3) Impetigo Status: Acute Current Visit: Yes Code(s): L01.00 - Impetigo, unspecified Type of Wound Date of Service: 05/04/18 Chief Complaint: Nonhealing diabetic ulcer right inguinal and pubic and abdominal wall area. History of Wound: Surgery 11/18/17 - Surgical preparation right inguinal and pubic area and lower anterior abdominal wall area with incision and drainage and excisional debridement skin, subcutaneous tissue and fascia for necrotizing diabetic abscess (190 cm2). Operative culture - MRSA. He was discharged home on Doxycycline and has finished them. 03/23/18 wound culture grew Proteus sp. and Corynebacterium striatum. He completed Levaquin x 28 days. Wound care is with Aquacel silver daily. Encourage nutritional supplementation with protein to help the healing process. Today he denies fever. His appetite is good. He is back to work and doing ok. Progress of Wound: No improvement this week. Area appears more erythematous. - Physical Exam Vital Signs Temp Pulse Resp BP 96.9 F L 61 16 143/71 H 05/04/18 08:20 05/04/18 08:20 05/04/18 08:20 05/04/18 08:20 General: Alert, Oriented x3, Cooperative HEENT: Atraumatic Oral: Moist Mucosa Lungs: Normal air movement Cardiovascular: Regular rate Extremities: No edema, Capillary Refill Less than 3 Seconds Skin: Ulcer/ Wound - Right groin wound with increased erythema. His nose has multiple areas of opened areas that have honey colored crust. Wound Measurements and Assessment WC - Nurse 1 - General Ulcer Measurement Start: 05/04/18 08:18 Freq: Status: Active Protocol: Activity Type Activity Date Activity User E-Sign Co-Sign Detail Recorded Client Recorded Date Recorded By Document 05/04/18 08:20 [id number] 05/04/18 08:23 DV 05/04/18 08:20 Wound Center Nurse 1 [Ulcer Assessment] #1 RIGHT GROIN WOUND -Combined with other wound No -Current Size (cm) - Length 2.1 -Current Size (cm) - Width 8.2 -Current Size (cm) - Depth 0.1 -Total Square Cm 17.22 -Photo Taken No -Epithelialization None Present -Tunneling No -Undermining/Tunneling No -Circular Undermining No -Classification - Thickness Full Thickness without Exposed Support Structure -Exudate Amt Medium (34-66%) -Exudate Type Serosanguineous -Wound Margin Flat & Intact -Granulation Amt Large (67-100%) -Granulation Quality [place] -Slough/Fibrin Yes -Necrosis Amt Medium (34-66%) -Necrotic Tissue Type Adherent Slough -Structure Exposed None/Limited to Skin Breakdown -Texture (Savana-wound Skin Appearance) Assessed Scarring -Moisture (Savana-wound Skin Appearance Assessed ) Weeping -Color (Savana-wound Skin Appearance) Assessed Erythema -Temperature (Savana-wound Skin No Abnormality Appearance) (Pt Warm) -Ulcer Cleansing Rinsed/ Irrigated with Saline -Foul Odor after Cleansing No -Anesthetic Used 4% Lidocaine Solution WC - Nurse 2 - General Ulcer CM Notes Start: 05/04/18 08:18 Freq: Status: Active Protocol: Activity Type Activity Date Activity User E-Sign Co-Sign Detail Recorded Client Recorded Date Recorded By Document 05/04/18 08:34 [email or web address] [id number] 05/04/18 08:44 05/04/18 08:34 Wound Center Nurse 2 [Procedure/Treatment] -Time 08:34 -Correct Patient Yes -Correct Side, Site, Position Yes -Correct Procedure Yes -Procedure Performed Yes -Type of Procedure Debridement -Clinical Debridement Subcutaneous -Post Debridement Size (cm) - Length 1.5 -Post Debridement Size (cm) - Width 9.7 -Post Debridement Size (cm) - Depth 0.2 -Total Square Cm 14.55 -Wound/Ulcer Outcome Not Healed -Ulcer Cleansing Rinsed/ Irrigated with Saline -Foul Odor after Cleansing No -Bioengineered Tissue No -Bleeding Controlled with Pressure -Offloading No [See Physician Procedure note for Specifics] Pain Scale: 0-10 Numeric [Pain] -Is Patient Pain Free? Yes Musculoskeletal: No Muscle Wasting Neurological: Neuro grossly intact Psych/Mental Status: Normal Affect - He is feeling frustrated with his right groin wound looking worse., Appropriate Debridement Note Post-Debridement Measurements/Treatment WC - Nurse 2 - General Ulcer CM Notes Start: 05/04/18 08:18 Freq: Status: Active Protocol: Activity Type Activity Date Activity User E-Sign Co-Sign Detail Recorded Client Recorded Date Recorded By Document 05/04/18 08:34 [id number] 05/04/18 08:44 05/04/18 08:34 Wound Center Nurse 2 #1 RIGHT GROIN WOUND -Time 08:34 -Correct Patient Yes -Correct Side, Site, Position Yes -Correct Procedure Yes -Procedure Performed Yes -Type of Procedure Debridement -Clinical Debridement Subcutaneous -Post Debridement Size (cm) - Length 1.5 -Post Debridement Size (cm) - Width 9.7 -Post Debridement Size (cm) - Depth 0.2 -Total Square Cm 14.55 -Wound/Ulcer Outcome Not Healed -Ulcer Cleansing Rinsed/ Irrigated with Saline -Foul Odor after Cleansing No -Bioengineered Tissue No -Bleeding Controlled with Pressure -Offloading No Pain Scale: 0-10 Numeric Is Patient Pain Free? Yes Wound debrided: Right groin Laterality: Right Type of Debridement: Excisional debridement Depth: Down to and including healthy tissue, in the subcutaneous layer Percentage of wound debrided: 100 Instrument Used: 3mm curette Tissue Removed: Subcutaneous tissue and slough Amount of bleeding with debridement: Mild Bleeding Controlled with: Pressure Patient tolerated procedure well Assessment/Plan Active Problems (Last Reviewed 02/26/18 @ 10:06 by Carrie Lucio) Impetigo (Acute) Open wound of pubic region with complication (Chronic) open surgical necrotizing diabetic abscess wound lower anterior abdominal wall and right inguinal area and pubic area Non-healing right groin open wound (Chronic) open surgical necrotizing diabetic abscess wound lower anterior abdominal wall and right inguinal area and pubic area Assessment: 1. 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 2. Diabetes mellitus. 3. MRSA. 4. s/p surgical preparation right inguinal and pubic area and lower anterior abdominal wall area with incision and drainage and excisional debridement skin, subcutaneous tissue and fascia for necrotizing diabetic abscess (190 cm2). 5. Nonhealing diabetic ulcer right inguinal and pubic and abdominal wall area. Plan: He has finished the Doxycycline for the MRSA. He finished Levaquin last week for a wound culture on 03/23/18 that was positive for Proteus sp. and Corynebacterium striatum. Will change dressing back to [facility]-. Instructed to change dressing after being in the shower to prevent any sticking and to wash with soap and water. Sent of wound culture today. They have been trying to keep area dry. They blow dry area after showering. 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 Instructed to start using mupirocin ointment TID to his nose and to continue to use until we see him next week. He should follow up with his family doctor if this does not improve his nose. Encourage nutritional supplementation with protein to help the healing process. Followup [address] Garcia. Code Visit 111xxx-113xx: [id number] [place] subq tissue 20 sq cm/<
[2018-05-11 09:26] VITALS: BP 133/63; PULSE 64; RESP 16; TEMP 36.4
--- NOTE | 2018-05-11 23:38 | PN.PCM_ITS ---
Type of Wound Date of Service: 05/11/18 Chief Complaint: Nonhealing diabetic ulcer right inguinal and pubic and abdominal wall area. History of Wound: Surgery 11/18/17 - Surgical preparation right inguinal and pubic area and lower anterior abdominal wall area with incision and drainage and excisional debridement skin, subcutaneous tissue and fascia for necrotizing diabetic abscess (190 cm2). Wound care - Silver. Operative culture - MRSA. He was discharged home on Doxycycline and has finished them. He had a wound culture done on 03/23/18 and it showed Proteus. He was placed on Levaquin and finished them. Last week on 05/04/18, another wound culture was done due to lack of improvement and persistent moisture in the area. It showed MRSA. He was placed on Doxycycline. Encourage nutritional supplementation with protein to help the healing process. Today he denies fever. His appetite is good. He is back to work and doing ok. He has been placing Bactroban ointment to his nose with some improvement. Progress of Wound: Minimal improvement. - Physical Exam Vital Signs Temp Pulse Resp BP 97.5 F L 64 16 133/63 H 05/11/18 09:26 05/11/18 09:26 05/11/18 09:26 05/11/18 09:26 Wound Measurements and Assessment WC - Nurse 1 - General Ulcer Measurement Start: 05/04/18 08:18 Freq: Status: Active Protocol: Activity Type Activity Date Activity User E-Sign Co-Sign Detail Recorded Client Recorded Date Recorded By Document 05/11/18 09:26 JF [id number] 05/11/18 09:28 JF 05/11/18 09:26 Wound Center Nurse 1 [Ulcer Assessment] #1 RIGHT GROIN WOUND -Combined with other wound No -Current Size (cm) - Length 7.6 -Current Size (cm) - Width 0.6 -Current Size (cm) - Depth 0.1 -Total Square Cm 4.56 -Photo Taken No -Epithelialization Small 1-33% -Tunneling No -Undermining/Tunneling No -Circular Undermining No -Exudate Amt Small (1-33%) -Exudate Type Serosanguineous -Wound Margin Flat & Intact -Granulation Amt Large (67-100%) -Granulation Quality Red -Slough/Fibrin Yes -Necrosis Amt Small (1-33%) -Necrotic Tissue Type Adherent Slough -Structure Exposed N/A -Texture (Savana-wound Skin Appearance) Assessed Localized Edema -Moisture (Savana-wound Skin Appearance Assessed ) Dry/Scaly -Color (Savana-wound Skin Appearance) Assessed -Temperature ([place]ana-wound Skin No Abnormality Appearance) (Pt Warm) -Tenderness on Palpation (Savana-wound No Skin Appearance) -Ulcer Cleansing Wound Cleanser -Foul Odor after Cleansing No -Anesthetic Used 4% Lidocaine Solution [Edema Assessment] -Lower Limb Edema Present NA - Nurse 2 - General Ulcer CM Notes Start: 05/04/18 08:18 Freq: Status: Active Protocol: Activity Type Activity Date Activity User E-Sign Co-Sign Detail Recorded Client Recorded Date Recorded By Document 05/11/18 09:42 STEVE [id number] 05/11/18 09:44 05/11/18 09:42 Wound Center Nurse 2 [Procedure/Treatment] #1 RIGHT GROIN WOUND -Time 09:42 -Correct Patient Yes -Correct Side, Site, Position Yes -Correct Procedure Yes -Procedure Performed Yes -Type of Procedure Debridement -Clinical Debridement Subcutaneous -Post Debridement Size (cm) - Length 7.6 -Post Debridement Size (cm) - Width 0.6 -Post Debridement Size (cm) - Depth 0.1 -Total Square Cm 4.56 -Wound/Ulcer Outcome Not Healed -Ulcer Cleansing Rinsed/ Irrigated with Saline -Foul Odor after Cleansing No -Bioengineered Tissue No -Bleeding Controlled with Pressure -Offloading No -Treatment Response Procedure Tolerated Well [See Physician Procedure note for Specifics] Pain Scale: 0-10 Numeric [Pain] -Is Patient Pain Free? Yes Debridement Note Post-Debridement Measurements/Treatment - Nurse 2 - General Ulcer CM Notes Start: 05/04/18 08:18 Freq: Status: Active Protocol: Activity Type Activity Date Activity User E-Sign Co-Sign Detail Recorded Client Recorded Date Recorded By Document 05/04/18 08:34 [id number] 05/04/18 08:44 Document 05/11/18 09:42 STEVE [id number] 05/11/18 09:44 05/04/18 05/11/18 08:34 09:42 Wound Center Nurse 2 #1 RIGHT GROIN WOUND -Time 08:34 09:42 -Correct Patient Yes Yes -Correct Side, Site, Position Yes Yes -Correct Procedure Yes Yes -Procedure Performed Yes Yes -Type of Procedure Debridement Debridement -Clinical Debridement Subcutaneous Subcutaneous -Post Debridement Size (cm) - Length 1.5 7.6 -Post Debridement Size (cm) - Width 9.7 0.6 -Post Debridement Size (cm) - Depth 0.2 0.1 -Total Square Cm 14.55 4.56 -Wound/Ulcer Outcome Not Healed Not Healed -Ulcer Cleansing Rinsed/ Rinsed/ Irrigated with Irrigated with Saline Saline -Foul Odor after Cleansing No No -Bioengineered Tissue No No -Bleeding Controlled with Pressure Pressure -Offloading No No -Treatment Response Procedure Tolerated Well Pain Scale: 0-10 Numeric Is Patient Pain Free? Yes Yes Wound debrided: #1 Right inguinal and pubic and abdominal wall area. Laterality: Right Wound Grade/Stage: 3. Type of Debridement: Excisional debridement Anesthesia Used: 4% Lidocaine Solution Depth: Down to and including healthy tissue, in the subcutaneous layer Percentage of wound debrided: 100 Instrument Used: 3mm curette Tissue Removed: subcutaneous tissue. Severity: Fat Layer Exposed Amount of bleeding with debridement: Mild Bleeding Controlled with: Pressure Patient tolerated procedure well Assessment/Plan Assessment: 1. 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 2. Diabetes mellitus. 3. MRSA. 4. s/p surgical preparation right inguinal and pubic area and lower anterior abdominal wall area with incision and drainage and excisional debridement skin, subcutaneous tissue and fascia for necrotizing diabetic abscess (190 cm2). 5. Nonhealing diabetic ulcer right inguinal and pubic and abdominal wall area. Plan: Continue Silver dressing changes daily. Continue Doxycycilne for the MRSA culture from 05/04/18. Encourage nutritional supplementation with protein to help the healing process. Continue Bactroban ointment to nose. 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 There has been increased moisture in the area of the ulcer which is contributing to delay in healing. 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 Recommended to the patient, that we can proceed with operative debridement and secondary wound closure. Doubt that a skin graft would be necessary. Will schedule surgery as an outpatient later on this month. Patient was informed of the risks and complications of the procedure including alternatives to surgery. These were discussed with him personally. He voices understanding and wishes to proceed. Followup one week.
[2018-05-18 08:12] VITALS: BP 147/71; PULSE 60; RESP 20; TEMP 36.2
--- NOTE | 2018-05-18 19:08 | PCM.WC.PN ---
Type of Wound Date of Service: 05/18/18 Chief Complaint: Nonhealing diabetic ulcer right inguinal and pubic and abdominal wall area. History of Wound: Surgery 11/18/17 - Surgical preparation right inguinal and pubic area and lower anterior abdominal wall area with incision and drainage and excisional debridement skin, subcutaneous tissue and fascia for necrotizing diabetic abscess (190 cm2). Wound care - Silver. Operative culture - MRSA. He was discharged home on Doxycycline and has finished them. He had a wound culture done on 03/23/18 and it showed Proteus. He was placed on Levaquin and finished them. On 05/04/18, another wound culture was done due to lack of improvement and persistent moisture in the area. It showed MRSA. He was placed on Doxycycline. Encourage nutritional supplementation with protein to help the healing process. Today he denies fever. His appetite is good. He is back to work and doing ok. He has been placing Bactroban ointment to his nose with some improvement. He is scheduled for operative debridement and secondary wound closure this 05/22/18. Progress of Wound: Slightly improved. - Physical Exam Vital Signs Temp Pulse Resp BP 97.1 F L 60 20 H 147/71 H 05/18/18 08:12 05/18/18 08:12 05/18/18 08:12 05/18/18 08:12 Wound Measurements and Assessment WC - Nurse 1 - General Ulcer Measurement Start: 05/04/18 08:18 Freq: Status: Active Protocol: Activity Type Activity Date Activity User E-Sign Co-Sign Detail Recorded Client Recorded Date Recorded By Document 05/18/18 08:12 DL [id number] 05/18/18 08:18 DL 05/18/18 08:12 Wound Center Nurse 1 [Ulcer Assessment] #1 RIGHT GROIN WOUND -Current Size (cm) - Length 0.6 -Current Size (cm) - Width 7.6 -Current Size (cm) - Depth 0.1 -Total Square Cm 4.56 -Photo Taken No -Exudate Amt Small (1-33%) -Exudate Type Serosanguineous -Wound Margin Distinct, Outline Attached -Granulation Amt Large (67-100%) -Granulation Quality [place] Red -Necrosis Amt None Present (0 %) -Structure Exposed N/A -Texture ([place]-wound Skin Appearance) Scarring -Moisture ([place]-wound Skin Appearance No Abnormality ) -Color ([place]-wound Skin Appearance) No Abnormality -Temperature ([place]-wound Skin No Abnormality Appearance) (Pt Warm) -Tenderness on Palpation ([place]-wound No Skin Appearance) -Ulcer Cleansing Rinsed/ Irrigated with Saline -Foul Odor after Cleansing No -Anesthetic Used 4% Lidocaine Solution - Nurse 2 - General Ulcer CM Notes Start: 05/04/18 08:18 Freq: Status: Active Protocol: Activity Type Activity Date Activity User E-Sign Co-Sign Detail Recorded Client Recorded Date Recorded By Document 05/18/18 08:36 [id number] 05/18/18 08:37 05/18/18 08:36 Wound Center Nurse 2 [Procedure/Treatment] -Time 08:36 -Correct Patient Yes -Correct Side, Site, Position Yes -Correct Procedure Yes -Procedure Performed Yes -Type of Procedure Debridement -Clinical Debridement Subcutaneous -Post Debridement Size (cm) - Length 0.6 -Post Debridement Size (cm) - Width 7.7 -Post Debridement Size (cm) - Depth 0.1 -Total Square Cm 4.62 -Wound/Ulcer Outcome Not Healed -Ulcer Cleansing Rinsed/ Irrigated with Saline -Foul Odor after Cleansing No -Bioengineered Tissue No -Bleeding Controlled with Pressure -Offloading No -Treatment Response Procedure Tolerated Well [See Physician Procedure note for Specifics] Pain Scale: 0-10 Numeric [Pain] -Is Patient Pain Free? Yes Debridement Note Post-Debridement Measurements/Treatment - Nurse 2 - General Ulcer CM Notes Start: 05/04/18 08:18 Freq: Status: Active Protocol: Activity Type Activity Date Activity User E-Sign Co-Sign Detail Recorded Client Recorded Date Recorded By Document 05/04/18 08:34 [id number] 05/04/18 08:44 Document 05/11/18 09:42 [id number] 05/11/18 09:44 Document 05/18/18 08:36 [id number] 05/18/18 08:37 05/04/18 05/11/18 05/18/18 08:34 09:42 08:36 Wound Center Nurse 2 #1 RIGHT GROIN WOUND -Time 08:34 09:42 08:36 -Correct Patient Yes Yes Yes -Correct Side, Site, Position Yes Yes Yes -Correct Procedure Yes Yes Yes -Procedure Performed Yes Yes Yes -Type of Procedure Debridement Debridement Debridement -Clinical Debridement Subcutaneous Subcutaneous Subcutaneous -Post Debridement Size (cm) - Length 1.5 7.6 0.6 -Post Debridement Size (cm) - Width 9.7 0.6 7.7 -Post Debridement Size (cm) - Depth 0.2 0.1 0.1 -Total Square Cm 14.55 4.56 4.62 -Wound/Ulcer Outcome Not Healed Not Healed Not Healed -Ulcer Cleansing Rinsed/ Rinsed/ Rinsed/ Irrigated with Irrigated with Irrigated with Saline Saline Saline -Foul Odor after Cleansing No No No -Bioengineered Tissue No No No -Bleeding Controlled with Pressure Pressure Pressure -Offloading No No No -Treatment Response Procedure Procedure Tolerated Well Tolerated Well Pain Scale: 0-10 Numeric Is Patient Pain Free? Yes Yes Yes Wound debrided: #1 Right inguinal and pubic and abdominal wall area. Laterality: Right Wound Grade/Stage: 3. Type of Debridement: Excisional debridement Anesthesia Used: 4% Lidocaine Solution Depth: Down to and including healthy tissue, in the subcutaneous layer Percentage of wound debrided: 100 Instrument Used: 3mm curette Tissue Removed: subcutaneous tissue. Severity: Fat Layer Exposed Amount of bleeding with debridement: Mild Bleeding Controlled with: Pressure Patient tolerated procedure well Assessment/Plan Assessment: 1. 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 2. Diabetes mellitus. 3. MRSA. 4. s/p surgical preparation right inguinal and pubic area and lower anterior abdominal wall area with incision and drainage and excisional debridement skin, subcutaneous tissue and fascia for necrotizing diabetic abscess (190 cm2). 5. Nonhealing diabetic ulcer right inguinal and pubic and abdominal wall area. Plan: Continue Silver dressing changes daily. Continue Doxycycilne for the MRSA culture from 05/04/18. Encourage nutritional supplementation with protein to help the healing process. Continue Bactroban ointment to nose. 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 There has been increased moisture in the area of the ulcer which is contributing to delay in healing. 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 Recommended to the patient, that we can proceed with operative debridement and secondary wound closure. Doubt that a skin graft would be necessary. The surgery has been scheduled for this 05/22/18. However there has been a slight improvement over the last week and the patient is encouraged and wants to wait until after the holidays to see if comtinued improvement is seen now that he is on antibiotics. Next month he will decide on proceeding with operative debridement and secondary wound closure. Patient was informed of the risks and complications of the procedure including alternatives to surgery. These were discussed with him personally. He voices understanding and wishes to hold off on surgery this week and will reassess after the holidays. Followup 2 weeks with [facility] Nurse Practitioner.
[2018-06-01 08:14] VITALS: BP 146/81; PULSE 63; RESP 18; TEMP 36.4
--- NOTE | 2018-06-03 12:06 | PCM.WC.PN ---
(1) Open wound of pubic region with complication Status: Chronic Code(s): S31.000A - Unspecified open wound of lower back and pelvis without penetration into retroperitoneum, initial encounter Comment: open surgical necrotizing diabetic abscess wound lower anterior abdominal wall and right inguinal area and pubic area (2) Non-healing right groin open wound Status: Chronic Code(s): S31.103A - Unspecified open wound of abdominal wall, right lower quadrant without penetration into peritoneal cavity, initial encounter Comment: open surgical necrotizing diabetic abscess wound lower anterior abdominal wall and right inguinal area and pubic area (3) Impetigo Status: Acute Code(s): L01.00 - Impetigo, unspecified Type of Wound Date of Service: 06/01/18 Chief Complaint: Nonhealing diabetic ulcer right inguinal and pubic and abdominal wall area. History of Wound: Surgery 11/18/17 - Surgical preparation right inguinal and pubic area and lower anterior abdominal wall area with incision and drainage and excisional debridement skin, subcutaneous tissue and fascia for necrotizing diabetic abscess (190 cm2). Wound care - Silver. Operative culture - MRSA. He was discharged home on Doxycycline and has finished them. He had a wound culture done on 03/23/18 and it showed Proteus. He was placed on Levaquin and finished them. On 05/04/18, another wound culture was done due to lack of improvement and persistent moisture in the area. It showed MRSA. He was placed on Doxycycline. Encourage nutritional supplementation with protein to help the healing process. Today he denies fever. His appetite is good. He is back to work and doing ok. He has been placing Bactroban ointment to his nose with some improvement. He is scheduled for operative debridement and secondary wound closure this 05/22/18. Progress of Wound: Slightly improved. - Physical Exam Vital Signs Temp Pulse Resp BP 97.5 F L 63 18 146/81 H 06/01/18 08:14 06/01/18 08:14 06/01/18 08:14 06/01/18 08:14 General: Alert, Oriented x3, Cooperative HEENT: Atraumatic, PERRLA Oral: Moist Mucosa Lungs: Normal air movement Extremities: No edema, Capillary Refill Less than 3 Seconds, No Calf Tenderness Skin: Ulcer/ Wound - Right groin. Wound Measurements and Assessment WC - Nurse 1 - General Ulcer Measurement Start: 05/04/18 08:18 Freq: Status: Active Protocol: Activity Type Activity Date Activity User E-Sign Co-Sign Detail Recorded Client Recorded Date Recorded By Document 06/01/18 08:14 DL [id number] 06/01/18 08:21 DL 06/01/18 08:14 Wound Center Nurse 1 [Ulcer Assessment] #1 RIGHT GROIN WOUND -Current Size (cm) - Length 1 -Current Size (cm) - Width 10.5 -Current Size (cm) - Depth 0.1 -Total Square Cm 10.5 -Photo Taken No -Exudate Amt Small (1-33%) -Exudate Type Serosanguineous -Wound Margin Distinct, Outline Attached -Granulation Amt Large (67-100%) -Granulation Quality [place] Red -Necrosis Amt Small (1-33%) -Necrotic Tissue Type Adherent Slough -Structure Exposed N/A -Texture ([place]-wound Skin Appearance) Scarring -Moisture ([place]-wound Skin Appearance No Abnormality ) -Color ([place]-wound Skin Appearance) No Abnormality -Temperature ([place]-wound Skin No Abnormality Appearance) (Pt Warm) -Tenderness on Palpation ([place]-wound No Skin Appearance) -Ulcer Cleansing Wound Cleanser -Foul Odor after Cleansing No -Anesthetic Used 4% Lidocaine Solution WC - Nurse 2 - General Ulcer CM Notes Start: 05/04/18 08:18 Freq: Status: Active Protocol: Activity Type Activity Date Activity User E-Sign Co-Sign Detail Recorded Client Recorded Date Recorded By Document 06/01/18 08:32 [email or web address] [id number] 06/01/18 08:37 06/01/18 08:32 Wound Center Nurse 2 [Procedure/Treatment] -Time 08:33 -Correct Patient Yes -Correct Side, Site, Position Yes -Correct Procedure Yes -Procedure Performed Yes -Type of Procedure Debridement -Clinical Debridement Subcutaneous -Post Debridement Size (cm) - Length 1.5 -Post Debridement Size (cm) - Width 7.5 -Post Debridement Size (cm) - Depth 0.1 -Total Square Cm 11.25 -Wound/Ulcer Outcome Not Healed -Ulcer Cleansing Rinsed/ Irrigated with Saline -Foul Odor after Cleansing No -Bioengineered Tissue No -Bleeding Controlled with Pressure -Offloading No -Treatment Response Procedure Tolerated Well [See Physician Procedure note for Specifics] Pain Scale: 0-10 Numeric [Pain] -Is Patient Pain Free? Yes Musculoskeletal: No Tenderness to Palpation of Joints or Extremities Neurological: Neuro grossly intact Psych/Mental Status: Normal Affect, Appropriate Debridement Note Post-Debridement Measurements/Treatment WC - Nurse 2 - General Ulcer CM Notes Start: 05/04/18 08:18 Freq: Status: Active Protocol: Activity Type Activity Date Activity User E-Sign Co-Sign Detail Recorded Client Recorded Date Recorded By Document 05/04/18 08:34 [id number] 05/04/18 08:44 Document 05/11/18 09:42 [id number] 05/11/18 09:44 Document 05/18/18 08:36 [id number] 05/18/18 08:37 Document 06/01/18 08:32 [id number] 06/01/18 08:37 05/04/18 05/11/18 05/18/18 08:34 09:42 08:36 Wound Center Nurse 2 #1 RIGHT GROIN WOUND -Time 08:34 09:42 08:36 -Correct Patient Yes Yes Yes -Correct Side, Site, Position Yes Yes Yes -Correct Procedure Yes Yes Yes -Procedure Performed Yes Yes Yes -Type of Procedure Debridement Debridement Debridement -Clinical Debridement Subcutaneous Subcutaneous Subcutaneous -Post Debridement Size (cm) - Length 1.5 7.6 0.6 -Post Debridement Size (cm) - Width 9.7 0.6 7.7 -Post Debridement Size (cm) - Depth 0.2 0.1 0.1 -Total Square Cm 14.55 4.56 4.62 -Wound/Ulcer Outcome Not Healed Not Healed Not Healed -Ulcer Cleansing Rinsed/ Rinsed/ Rinsed/ Irrigated with Irrigated with Irrigated with Saline Saline Saline -Foul Odor after Cleansing No No No -Bioengineered Tissue No No No -Bleeding Controlled with Pressure Pressure Pressure -Offloading No No No -Treatment Response Procedure Procedure Tolerated Well Tolerated Well Pain Scale: 0-10 Numeric Is Patient Pain Free? Yes Yes Yes 06/01/18 08:32 Wound Center Nurse 2 #1 RIGHT GROIN WOUND -Time 08:33 -Correct Patient Yes -Correct Side, Site, Position Yes -Correct Procedure Yes -Procedure Performed Yes -Type of Procedure Debridement -Clinical Debridement Subcutaneous -Post Debridement Size (cm) - Length 1.5 -Post Debridement Size (cm) - Width 7.5 -Post Debridement Size (cm) - Depth 0.1 -Total Square Cm 11.25 -Wound/Ulcer Outcome Not Healed -Ulcer Cleansing Rinsed/ Irrigated with Saline -Foul Odor after Cleansing No -Bioengineered Tissue No -Bleeding Controlled with Pressure -Offloading No -Treatment Response Procedure Tolerated Well Pain Scale: 0-10 Numeric Is Patient Pain Free? Yes Wound debrided: right groin Laterality: Right Type of Debridement: Excisional debridement Anesthesia Used: 4% Lidocaine Solution Depth: Down to and including healthy tissue, in the subcutaneous layer Percentage of wound debrided: 100 Instrument Used: 3mm curette Tissue Removed: Subcutaneous tissue and slough Severity: Limited To Skin Breakdown Amount of bleeding with debridement: Mild Bleeding Controlled with: Pressure Patient tolerated procedure well Assessment/Plan Assessment: 1. 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 2. Diabetes mellitus. 3. MRSA. 4. s/p surgical preparation right inguinal and pubic area and lower anterior abdominal wall area with incision and drainage and excisional debridement skin, subcutaneous tissue and fascia for necrotizing diabetic abscess (190 cm2). 5. Nonhealing diabetic ulcer right inguinal and pubic and abdominal wall area. Plan: Continue Silver dressing changes daily. Continue Doxycycilne for the MRSA culture from 05/04/18. Encourage nutritional supplementation with protein to help the healing process. Continue Bactroban ointment to nose. 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 There has been increased moisture in the area of the ulcer which is contributing to delay in healing. 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 Recommended to the patient, that we can proceed with operative debridement and secondary wound closure. Doubt that a skin graft would be necessary. Patient is not interested in surgery at this time. After the first of of the year he will decide on proceeding with operative debridement and secondary wound closure. Patient was informed of the risks and complications of the procedure including alternatives to surgery. These were discussed with him personally. He voices understanding and wishes to hold off on surgery this week and will reassess after the holidays. Followup one week. Code Visit [id number]: [id number] [place] subq tissue 20 sq cm/<
--- NOTE | 2018-06-03 12:26 | PN.PCM_ITS ---
(1) Open wound of pubic region with complication Status: Chronic Code(s): S31.000A - Unspecified open wound of lower back and pelvis without penetration into retroperitoneum, initial encounter Comment: open surgical necrotizing diabetic abscess wound lower anterior abdominal wall and right inguinal area and pubic area (2) Non-healing right groin open wound Status: Chronic Code(s): S31.103A - Unspecified open wound of abdominal wall, right lower quadrant without penetration into peritoneal cavity, initial encounter Comment: open surgical necrotizing diabetic abscess wound lower anterior abdominal wall and right inguinal area and pubic area (3) Impetigo Status: Acute Code(s): L01.00 - Impetigo, unspecified Type of Wound Date of Service: 06/01/18 Chief Complaint: Nonhealing diabetic ulcer right inguinal and pubic and abdominal wall area. History of Wound: Surgery 11/18/17 - Surgical preparation right inguinal and pubic area and lower anterior abdominal wall area with incision and drainage and excisional debridement skin, subcutaneous tissue and fascia for necrotizing diabetic abscess (190 cm2). Wound care - Silver. Operative culture - MRSA. He was discharged home on Doxycycline and has finished them. He had a wound cu lture done on 03/23/18 and it showed Proteus. He was placed on Levaquin and finished them. On 05/04/18, another wound culture was done due to lack of improvement and persistent moisture in the area. It showed MRSA. He was placed on Doxycycline. Encourage nutritional supplementation with protein to help the healing process. Today he denies fever. His appetite is good. He is back to work and doing ok. He has been placing Bactroban ointment to his nose with some improvement. He is scheduled for operative debridement and secondary wound closure this 05/22/18. Progress of Wound: Slightly improved. - Physical Exam Vital Signs Temp Pulse Resp BP 97.5 F L 63 18 146/81 H 06/01/18 08:14 06/01/18 08:14 06/01/18 08:14 06/01/18 08:14 General: Alert, Oriented x3, Cooperative HEENT: Atraumatic, PERRLA Oral: Moist Mucosa Lungs: Normal air movement Extremities: No edema, Capillary Refill Less than 3 Seconds, No Calf Tenderness Skin: Ulcer/ Wound - Right groin. Wound Measurements and Assessment WC - Nurse 1 - General Ulcer Measurement Start: 05/04/18 08:18 Freq: Status: Active Protocol: Activity Type Activity Date Activity User E-Sign Co-Sign Detail Recorded Client Recorded Date Recorded By Document 06/01/18 08:14 DL [id number] 06/01/18 08:21 DL 06/01/18 08:14 Wound Center Nurse 1 [Ulcer Assessment] #1 RIGHT GROIN WOUND -Current Size (cm) - Length 1 -Current Size (cm) - Width 10.5 -Current Size (cm) - Depth 0.1 -Total Square Cm 10.5 -Photo Taken No -Exudate Amt Small (1-33%) -Exudate Type Serosanguineous -Wound Margin Distinct, Outline Attached -Granulation Amt Large (67-100%) -Granulation Quality [place] Red -Necrosis Amt Small (1-33%) -Necrotic Tissue Type Adherent Slough -Structure Exposed N/A -Texture ([place]-wound Skin Appearance) Scarring -Moisture ([place]-wound Skin Appearance No Abnormality ) -Color ([place]-wound Skin Appearance) No Abnormality -Temperature ([place]-wound Skin No Abnormality Appearance) (Pt Warm) -Tenderness on Palpation ([place]-wound No Skin Appearance) -Ulcer Cleansing Wound Cleanser -Foul Odor after Cleansing No -Anesthetic Used 4% Lidocaine Solution - Nurse 2 - General Ulcer CM Notes Start: 05/04/18 08:18 Freq: Status: Active Protocol: Activity Type Activity Date Activity User E-Sign Co-Sign Detail Recorded Client Recorded Date Recorded By Document 06/01/18 08:32 [email or web address] [id number] 06/01/18 08:37 06/01/18 08:32 Wound Center Nurse 2 [Procedure/Treatment] -Time 08:33 -Correct Patient Yes -Correct Side, Site, Position Yes -Correct Procedure Yes -Procedure Performed Yes -Type of Procedure Debridement -Clinical Debridement Subcutaneous -Post Debridement Size (cm) - Length 1.5 -Post Debridement Size (cm) - Width 7.5 -Post Debridement Size (cm) - Depth 0.1 -Total Square Cm 11.25 -Wound/Ulcer Outcome Not Healed -Ulcer Cleansing Rinsed/ Irrigated with Saline -Foul Odor after Cleansing No -Bioengineered Tissue No -Bleeding Controlled with Pressure -Offloading No -Treatment Response Procedure Tolerated Well [See Physician Procedure note for Specifics] Pain Scale: 0-10 Numeric [Pain] -Is Patient Pain Free? Yes Musculoskeletal: No Tenderness to Palpation of Joints or Extremities Neurological: Neuro grossly intact Psych/Mental Status: Normal Affect, Appropriate Debridement Note Post-Debridement Measurements/Treatment WC - Nurse 2 - General Ulcer CM Notes Start: 05/04/18 08:18 Freq: Status: Active Protocol: Activity Type Activity Date Activity User E-Sign Co-Sign Detail Recorded Client Recorded Date Recorded By Document 05/04/18 08:34 [id number] 05/04/18 08:44 Document 05/11/18 09:42 [id number] 05/11/18 09:44 Document 05/18/18 08:36 [id number] 05/18/18 08:37 Document 06/01/18 08:32 [id number] 06/01/18 08:37 05/04/18 05/11/18 05/18/18 08:34 09:42 08:36 Wound Center Nurse 2 #1 RIGHT GROIN WOUND -Time 08:34 09:42 08:36 -Correct Patient Yes Yes Yes -Correct Side, Site, Position Yes Yes Yes -Correct Procedure Yes Yes Yes -Procedure Performed Yes Yes Yes -Type of Procedure Debridement Debridement Debridement -Clinical Debridement Subcutaneous Subcutaneous Subcutaneous -Post Debridement Size (cm) - Length 1.5 7.6 0.6 -Post Debridement Size (cm) - Width 9.7 0.6 7.7 -Post Debridement Size (cm) - Depth 0.2 0.1 0.1 -Total Square Cm 14.55 4.56 4.62 -Wound/Ulcer Outcome Not Healed Not Healed Not Healed -Ulcer Cleansing Rinsed/ Rinsed/ Rinsed/ Irrigated with Irrigated with Irrigated with Saline Saline Saline -Foul Odor after Cleansing No No No -Bioengineered Tissue No No No -Bleeding Controlled with Pressure Pressure Pressure -Offloading No No No -Treatment Response Procedure Procedure Tolerated Well Tolerated Well Pain Scale: 0-10 Numeric Is Patient Pain Free? Yes Yes Yes 06/01/18 08:32 Wound Center Nurse 2 #1 RIGHT GROIN WOUND -Time 08:33 -Correct Patient Yes -Correct Side, Site, Position Yes -Correct Procedure Yes -Procedure Performed Yes -Type of Procedure Debridement -Clinical Debridement Subcutaneous -Post Debridement Size (cm) - Length 1.5 -Post Debridement Size (cm) - Width 7.5 -Post Debridement Size (cm) - Depth 0.1 -Total Square Cm 11.25 -Wound/Ulcer Outcome Not Healed -Ulcer Cleansing Rinsed/ Irrigated with Saline -Foul Odor after Cleansing No -Bioengineered Tissue No -Bleeding Controlled with Pressure -Offloading No -Treatment Response Procedure Tolerated Well Pain Scale: 0-10 Numeric Is Patient Pain Free? Yes Wound debrided: right groin Laterality: Right Type of Debridement: Excisional debridement Anesthesia Used: 4% Lidocaine Solution Depth: Down to and including healthy tissue, in the subcutaneous layer Percentage of wound debrided: 100 Instrument Used: 3mm curette Tissue Removed: Subcutaneous tissue and slough Severity: Limited To Skin Breakdown Amount of bleeding with debridement: Mild Bleeding Controlled with: Pressure Patient tolerated procedure well Assessment/Plan Assessment: 1. 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 2. Diabetes mellitus. 3. MRSA. 4. s/p surgical preparation right inguinal and pubic area and lower anterior abdominal wall area with incision and drainage and excisional debridement skin, subcutaneous tissue and fascia for necrotizing diabetic abscess (190 cm2). 5. Nonhealing diabetic ulcer right inguinal and pubic and abdominal wall area. Plan: Continue Silver dressing changes daily. Continue Doxycycilne for the MRSA culture from 05/04/18. Encourage nutritional supplementation with protein to help the healing process. Continue Bactroban ointment to nose. 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 There has been increased moisture in the area of the ulcer which is contributing to delay in healing. 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 Recommended to the patient, that we can proceed with operative debridement and secondary wound closure. Doubt that a skin graft would be necessary. Patient is not interested in surgery at this time. After the first of of the year he will decide on proceeding with operative debridement and secondary wound closure. Patient was informed of the risks and complications of the procedure including alternatives to surgery. These were discussed with him personally. He voices understanding and wishes to hold off on surgery this week and will reassess after the holidays. Followup one week. Code Visit 111xxx-113xx: [id number] [place] subq tissue 20 sq cm/<
== END 2018-06-01 23:59 ==
LOC: WC 08:00
PROVIDERS: Family Provider Family Medicine; PCP Family Medicine; Visit Provider Surgery
DX: E11.622 Type 2 diabetes mellitus with other skin ulcer (principal); Z86.14 Personal history of Methicillin resistant Staphylococcus aureus infection; L98.492 Non-pressure chronic ulcer of skin of other sites with fat layer exposed; L02.214 Cutaneous abscess of groin; L01.00 Impetigo, unspecified
CPT/HCPCS: 11042; 87070; 87075; 87077; 87186; 87205

== ENCOUNTER → 2018-06-18 13:05 | Outpatient (CLI) | payer MEDICARE, OTHER, SELFPAY ==
[2018-06-15 10:43] VITALS: BMI 34.2
--- OUTSIDE RECORDS SUMMARY | 2018-08-23 06:08 | XMS RPT_ITS ---
:1945 Author Organization OHIP Support Name Relationship Address Phone RALPH, ANA Unavailable . + [place] [address] POTTER, KEITH Unavailable [address] + [place] [address] R Unavailable Unavailable Unavailable RALPH, ANA Unavailable . + [place] [address] POTTER, KEITH Unavailable [address] + [place] [address] R Unavailable Unavailable Unavailable RALPH, ANA Unavailable . + [place] [address] POTTER, KEITH Unavailable [address] + [place] [address] R Unavailable Unavailable Unavailable RALPH, ANA Unavailable . + [place] [address] POTTER, KEITH Unavailable [address] + [place] [address] R Unavailable Unavailable Unavailable RALPH, ANA Unavailable . + [place] [address] POTTER, KEITH Unavailable [address] + [place] [address] R Unavailable Unavailable Unavailable RALPH, ANA Unavailable . + [place] [address] POTTER, KEITH Unavailable [address] + [place] [address] R Unavailable Unavailable Unavailable RALPH, ANA Unavailable . + [place] [address] POTTER, KEITH Unavailable [address] + [place] [address] R Unavailable Unavailable Unavailable RALPH, ANA Unavailable . + [place] [address] POTTER, KEITH Unavailable [address] + [place] [address] R Unavailable Unavailable Unavailable RALPH, ANA Unavailable Unavailable + [place] [address] POTTER, KEITH Unavailable [address] + [place] [address] R Unavailable Unavailable Unavailable RALPH, ANA Unavailable Unavailable + [place] [address] POTTER, KEITH Unavailable [address] + [place] [address] R Unavailable Unavailable Unavailable RALPH, ANA Unavailable //// + [place] [address] POTTER, KEITH Unavailable [address] + [place] [address] R Unavailable Unavailable Unavailable RALPH, ANA Unavailable //// + [place] [address] POTTER, KEITH Unavailable [address] + [place] [address] R Unavailable Unavailable Unavailable RALPH, ANA Unavailable . + [place] [address] POTTER, KEITH Unavailable [address] + [place] [address] R Unavailable Unavailable Unavailable RALPH, ANA Unavailable //// + [place] [address] POTTER, KEITH Unavailable [address] + [place] [address] R Unavailable Unavailable Unavailable RALPH, ANA Unavailable //// + [place] [address] POTTER, KEITH Unavailable [address] + [place] [address] R Unavailable Unavailable Unavailable RALPH, ANA Unavailable //// + [place] [address] POTTER, KEITH Unavailable [address] + [place] [address] R Unavailable Unavailable Unavailable RALPH, ANA Unavailable //// + [place] [address] POTTER, KEITH Unavailable [address] + [place] [address] R Unavailable Unavailable Unavailable RALPH, ANA Unavailable . + [place] [address] POTTER, KEITH Unavailable [address] + [place] [address] R Unavailable Unavailable Unavailable RALPH, ANA Unavailable //// + [place] [address] POTTER, KEITH Unavailable [address] + [place] [address] R Unavailable Unavailable Unavailable RALPH, ANA Unavailable //// + [place] [address] POTTER, KEITH Unavailable [address] + [place] [address] R Unavailable Unavailable Unavailable RALPH, ANA Unavailable //// + [place] [address] POTTER, KEITH Unavailable [address] + [place] [address] R Unavailable Unavailable Unavailable RALPH, ANA Unavailable //// + [place] [address] POTTER, KEITH Unavailable [address] + [place] [address] R Unavailable Unavailable Unavailable RALPH, ANA Unavailable //// + [place] [address] POTTER, KEITH Unavailable [address] + [place] [address] R Unavailable Unavailable Unavailable RALPH, ANA Unavailable //// + [place] [address] POTTER, KEITH Unavailable [address] + [place] [address] R Unavailable Unavailable Unavailable RALPH, ANA Unavailable . + [place] [address] POTTER, KEITH Unavailable [address] + [place] [address] R Unavailable Unavailable Unavailable RALPH, ANA Unavailable //// + [place] [address] POTTER, KEITH Unavailable [address] + [place] [address] R Unavailable Unavailable Unavailable RALPH, ANA Unavailable Unavailable + [place] POTTER, KEITH Unavailable [address] + [place] [address] R Unavailable Unavailable Unavailable RALPH, ANA Unavailable Unavailable + [place] POTTER, KEITH Unavailable [address] + [place] [address] R Unavailable Unavailable Unavailable RALPH, ANA Unavailable Unavailable + [place] POTTER, KEITH Unavailable [address] + [place] [address] R Unavailable Unavailable Unavailable RALPH, ANA Unavailable Unavailable + [place] POTTER, KEITH Unavailable [address] + [place] [address] R Unavailable Unavailable Unavailable RALPH, ANA Unavailable Unavailable + [place] POTTER, KEITH Unavailable [address] + [place] [address] R Unavailable Unavailable Unavailable RALPH, ANA Unavailable Unavailable + [place] POTTER, KEITH Unavailable [address] + [place] [address] R Unavailable Unavailable Unavailable RALPH, ANA Unavailable . [phone] [place] POTTER, KEITH Unavailable [address] [phone] [place] [address] R Unavailable Unavailable Unavailable RALPH, ANA Unavailable . + [place] POTTER, KEITH Unavailable [address] + [place] [address] R Unavailable Unavailable Unavailable RALPH, ANA Unavailable Unavailable + [place] POTTER, KEITH Unavailable [address] + [place] [address] R Unavailable Unavailable Unavailable RALPH, ANA Unavailable Unavailable + [place] POTTER, KEITH Unavailable [address] + [place] [address] R Unavailable Unavailable Unavailable RALPH, ANA Unavailable Unavailable + [place] POTTER, KEITH Unavailable [address] + [place] [address] R Unavailable Unavailable Unavailable RALPH, ANA Unavailable Unavailable + [place] POTTER, KEITH Unavailable [address] + [place] [address] R Unavailable Unavailable Unavailable RALPH, ANA Unavailable Unavailable + [place] POTTER, KEITH Unavailable [address] + [place] [address] R Unavailable Unavailable Unavailable RALPH, ANA Unavailable Unavailable + [place] POTTER, KEITH Unavailable [address] + [place] [address] R Unavailable Unavailable Unavailable RALPH, ANA Unavailable Unavailable + [place] POTTER, KEITH Unavailable [address] + [place] [address] R Unavailable Unavailable Unavailable RALPH, ANA Unavailable . [phone] [place] POTTER, KEITH Unavailable [address] [phone] [place] [address] R Unavailable Unavailable Unavailable RALPH, ANA Unavailable . [phone] [place] POTTER, KEITH Unavailable [address] [phone] [place] [address] R Unavailable Unavailable Unavailable RALPH, ANA Unavailable . [phone] [place] POTTER, KEITH Unavailable [address] [phone] [place] [address] R Unavailable Unavailable Unavailable RALPH, ANA Unavailable . [phone] [place] POTTER, KEITH Unavailable [address] [phone] [place] [address] R Unavailable Unavailable Unavailable RALPH, ANA Unavailable . [phone] [place] POTTER, KEITH Unavailable [address] [phone] [place] [address] R Unavailable Unavailable Unavailable RALPH, ANA Unavailable . [phone] [place] POTTER, KEITH Unavailable [address] [phone] [place] [address] R Unavailable Unavailable Unavailable RALPH, ANA Unavailable . [phone] [place] POTTER, KEITH Unavailable [address] [phone] [place] [address] R Unavailable Unavailable Unavailable RALPH, ANA Unavailable . [phone] [place] POTTER, KEITH Unavailable [address] [phone] [place] [address] R Unavailable Unavailable Unavailable RALPH, ANA Unavailable . [phone] [place] POTTER, KEITH Unavailable [address] [phone] [place] [address] R Unavailable Unavailable Unavailable Care Team Providers Name Role Phone Pepe Garcia Attending Unavailable Pepe Garcia Referring Unavailable [facility] [place] [facility] Unavailable Pepe Garcia Attending Unavailable [facility] [place] [facility] Unavailable Pepe Garcia Consulting Unavailable Pepe Garcia Attending Unavailable [facility] [place] [facility] Unavailable Pepe Garcia Consulting Unavailable Pepe Garcia Attending Unavailable Miedel, Leena Primary Care Unavailable AlexandraYsabel Attending Unavailable [facility], Leena Primary Care Unavailable Pepe Garcia Consulting Unavailable Pepe Garcia Referring Unavailable Alexandra, Ysabel E Attending Unavailable Miedel, Leena Primary Care Unavailable SlabPepe rodarte Consulting Unavailable Ion Howe Attending Unavailable Piper, Michelle Referring Unavailable Piper, Michelle Primary Care Unavailable Teresa Hughes Attending Unavailable Piper, Michelle Referring Unavailable Piper, Michelle Primary Care Unavailable Justine Angulo Attending Unavailable Tereas Hughes Attending Unavailable Malys, Patricia Primary Care Unavailable Teresa Hughes Referring Unavailable MoodispaCali grace Attending Unavailable Malys, Patricia Referring Unavailable Malys, Patricia Primary Care Unavailable MoodispaCali grace Attending Unavailable Miedel, Leena Referring Unavailable Alexandra, Ysabel E Attending Unavailable Miedel, Leena Primary Care Unavailable Pepe Garcia Consulting Unavailable Alexandra, Ysabel E Attending Unavailable Miedel, Leena Primary Care Unavailable Pepe Garcia Consulting Unavailable Tari, Adalberto Attending Unavailable Malys, Patricia Primary Care Unavailable Tari, Adalberto Attending Unavailable Malys, Patricia Primary Care Unavailable Tari, Adalberto Referring Unavailable Tari, [place] Attending Unavailable Teresa Hughes Referring Unavailable Tari, [place] Attending Unavailable Tari, Adalberto Referring Unavailable Malys, Patricia Primary Care Unavailable Scar, Trav Admitting Unavailable SanchoFantasma Consulting Unavailable Sementi, Alexa Attending Unavailable Pepe Garcia Consulting Unavailable Spencer Joseph Consulting Unavailable Scar, Trav Admitting Unavailable Scar, Trav Attending Unavailable Malys, Patricia Primary Care Unavailable Scar, Trav Consulting Unavailable Scar, Trav Admitting Unavailable Sementi, Alexa Attending Unavailable Malys, Patricia Primary Care Unavailable SanchoFantasma Consulting Unavailable Pepe Garcia Consulting Unavailable Sementi, Alexa Consulting Unavailable Scar, Trav Admitting Unavailable Sementi, Alexa Attending Unavailable Malys, Patricia Primary Care Unavailable SanchoFantasma Consulting Unavailable Pepe Garcia Consulting Unavailable Sementi, Alexa Consulting Unavailable Scar, Trav Admitting Unavailable Sementi, Alexa Attending Unavailable Malys, Patricia Primary Care Unavailable Sancho, Fantasma Diaz Consulting Unavailable Slaby, Pepe Consulting Unavailable Jake, Spencer Consulting Unavailable Sementi, Alexa Consulting Unavailable [facility], Trav Admitting Unavailable Sementi, Alexa Attending Unavailable Malys, Patricia Primary Care Unavailable Sancho, Fantasma Diaz Consulting Unavailable SlabyPepe Consulting Unavailable Jake, Spencer Consulting Unavailable Sementi, Alexa Consulting Unavailable [facility], Trav Admitting Unavailable Pepe Garcia Attending Unavailable Malys, Patricia Primary Care Unavailable Sancho, Elliott Consulting Unavailable Slaby, Pepe Consulting Unavailable Jake, Spencer Consulting Unavailable Sementi, Alexa Consulting Unavailable [facility], Trav Admitting Unavailable Radha, Pepe Attending Unavailable Malys, Patricia Primary Care Unavailable Sancho, Fantasma Diaz Consulting Unavailable Slaby, Pepe Consulting Unavailable Jake, Spencer Consulting Unavailable Sementi, Alexa Consulting Unavailable [facility], Trav Admitting Unavailable Radha, Pepe Attending Unavailable Malys, Patricia Primary Care Unavailable Sancho, Fantasma Diaz Consulting Unavailable Pepe Garcia Consulting Unavailable Jake, Spencer Consulting Unavailable Sementi, Alexa Consulting Unavailable Pepe Garcia Attending Unavailable [facility] Primary Care Unavailable Pepe Garcia Attending Unavailable BlancatiAlexa Referring Unavailable [facility] Attending Unavailable [facility] Primary Care Unavailable Pepe Garcia Attending Unavailable [facility] Primary Care Unavailable Pepe Garcia Attending Unavailable [facility] Primary Care Unavailable Pepe Garcia Attending Unavailable [facility] Primary Care Unavailable Pepe Garcia Consulting Unavailable Pepe Garcia Attending Unavailable [facility] Unavailable Pepe Garcia Consulting Unavailable Pepe Garcia Attending Unavailable [facility] Unavailable Pepe Garcia Consulting Unavailable Elijah Beatty Attending Unavailable [facility] Referring Unavailable Pepe Garcia Attending Unavailable [facility] Primary Care Unavailable Ysabel Morris Attending Unavailable [facility] Unavailable Pepe Garcia Consulting Unavailable Pepe Garcia Attending Unavailable [facility] Unavailable Pepe Garcia Consulting Unavailable Pepe Garcia Attending Unavailable [facility] Unavailable Pepe Garcia Consulting Unavailable Alexandra, Ysabel E Attending Unavailable [facility] Unavailable Slaby, Pepe Consulting Unavailable Slaby, Pepe Attending Unavailable [facility] Unavailable Slaby, Pepe Consulting Unavailable Slaby, Pepe Attending Unavailable [facility] Unavailable Slaby, Pepe Attending Unavailable [facility] Unavailable Slaby, Pepe Consulting Unavailable Alexandra, Ysabel E Attending Unavailable [facility] Unavailable Slaby, Pepe Consulting Unavailable Alexandra, Ysabel E Attending Unavailable [facility] [place] [facility] Unavailable Slaby, Pepe Consulting Unavailable Alexandra, Ysabel E Attending Unavailable [facility]ied, [place] [facility] Unavailable Slaby, Pepe Consulting Unavailable Slaby, Pepe Attending Unavailable [facility] Unavailable Slaby, Pepe Attending Unavailable [facility] Unavailable Slaby, Pepe Consulting Unavailable Alexandra, Ysabel E Attending Unavailable [facility] [place] [facility] Unavailable Slaby, Pepe Consulting Unavailable PROBLEMS PROBLEMS DATE TYPE CONDITION / CODE ATTENDING STATUS SOURCE Unknown E11.622 - Type 2 diabetes Pepe Garcia Active [place] 9 mellitus with other skin Community ulcer / E11.622(ICD-10) Hospital Repository Unknown H93.8X9 - Other specified Elijah Beatty Active [place] 8 disorders of ear, Community unspecified ear / Hospital H93.8X9(ICD-10) Repository Unknown H61.21 - Impacted Elijah Beatty Active [place] 8 cerumen, right ear / Community H61.21(ICD-10) Hospital Repository Unknown E11.9 - Type 2 diabetes [facility] Active [place] mellitus without Community complications / Hospital E11.9(ICD-10) Repository Unknown G89.18 - Other acute Sementi, Active [place] [facility] postprocedural pain / Alexa Community G89.18(ICD-10) Hospital Repository Unknown L03.314 - Cellulitis of Radha Pepe Active [place] 8 groin / L03.314(ICD-10) [facility] Hospital Repository Unknown L02.214 - Cutaneous Radha Pepe Active [place] 8 abscess of groin / Community L02.214(ICD-10) Hospital Repository Unknown M79.89 - Other specified Pepe Garcia Active [place] [facility] soft tissue disorders / Community M79.89(ICD-10) Hospital Repository Unknown B95.62 - Methicillin Pepe Garcia Active [place] [facility] resistant Staphylococcus Community aureus infection as the Hospital cause of diseases Repository classified elsewhere / B95.62(ICD-10) Unknown R94.39 - Abnormal result Tari, Adalberto Active [place] [facility] of other cardiovascular Community function study / Hospital R94.39(ICD-10) Repository Unknown I25.2 - Old myocardial Tari, [place] Active [place] 8 infarction / Community I25.2(ICD-10) Hospital Repository Unknown Z95.1 - Presence of Tari, Adalberto Active [place] 8 aortocoronary bypass Community graft / Z95.1(ICD-10) Hospital Repository Unknown E78.5 - Hyperlipidemia, Tari, [place] Active [place] [facility] unspecified / Community E78.5(ICD-10) Hospital Repository Unknown I25.10 - Atherosclerotic Tari, [place] Active [place] [facility] heart disease of [place] Community coronary artery without Hospital angina pectoris / Repository I25.10(ICD-10) Unknown E78.00 - Pure Hughes, Active [place] hypercholesterolemia, [facility] Community unspecified / Hospital E78.00(ICD-10) Repository Unknown E78.0 - Pure Hughes, Active [place] hypercholesterolemia / [facility] E78.0(ICD-10) Hospital Repository Unknown I10 - Essential (primary) Tari, [place] Active [place] [facility] hypertension / Community I10(ICD-10) Hospital Repository Unknown R07.9 - Chest pain, Tari, [place] Active [place] unspecified / Community R07.9(ICD-10) Hospital Repository PROCEDURES PROCEDURES No Procedure Records FoundRESULTS RESULTS CARDIOLOGY VISIT Observed: 06/15/2018 Status: F Source: [place] REPORT 11:52 AM [facility] REPOSITORY [facility] [address] [place] [address] OFFICE VISIT Date of Service: 06/15/18 MR#: [id number] Acct: [id number] Name: KEILY MARVIN Rep #: [id number] : 1945 Provider: Cali Fletcher MD Age/Sex: 72/M Location: [facility] Status: Signed HPI HPI Details: KEILY MARVIN, is a 72 M who presents to the office today for Outpatient cardiovascular follow up. Overall from a cardiac standpoint at the moment he states he feels good. He continues to remain active. 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 He states he has had no issues and doing so. He denies any symptoms of angina pectoris and he has had no episodes of obvious CHF or pulmonary edema. There has been no near syncope or syncope. As you recall he underwent noninvasive and invasive evaluation in July 2017. He had an exercise tolerance test performed. This was followed by a diagnostic cardiac catheterization. He continued medical management. He did not require any further revascularization therapy. Intake Vital Signs06/15/18 Height 6 ft 3 in 06/15/18 Weight: 274 lb 06/15/18 Body Mass Index (BMI) 34.2 06/15/18 Blood Pressure 124/68 H Intake Visit Reasons: 9 m fu Allergies ALLIE Inhibitors Adverse Reaction (Intermediate, Verified 06/15/18 10:43) Cough Medications fenofibrate micronized 134 mg capsule 134 mg PO QHS 90 Days #90 07/14/17 [History Confirmed 06/15/18] metoprolol tartrate 50 mg tablet 25 mg PO BID 90 Days #90 07/14/17 [History Confirmed 06/15/18] simvastatin 20 mg tablet 20 mg PO QHS 90 Days #90 07/14/17 [History Confirmed 06/15/18] aspirin 81 mg tablet,delayed release 81 mg PO QDAY tab 07/23/17 [History Confirmed 06/15/18] coenzyme Q10 100 mg capsule 100 mg PO QDAY 07/23/17 [History Confirmed 06/15/18] cyanocobalamin (vit B-12) 1,000 mcg tablet 1,000 mcg PO QDAY 07/23/17 [History Confirmed 06/15/18] amlodipine 2.5 mg tablet 2.5 mg PO QDAY #90 tab 07/29/17 [Rx Confirmed 06/15/18] losartan 100 mg tablet 100 mg PO QDAY #90 tab 07/29/17 [Rx Confirmed 06/15/18] Acetaminophen [Tylenol Tablet] 650 mg PO Q6H PRN PRN tab 11/21/17 [Rx Confirmed 06/15/18] Nystatin Powder [Mycostatin Powder] 1 applic TOPICAL BID #2 bottle 11/21/17 [Rx Confirmed 06/15/18] Minocycline [Minocin] 100 mg PO BID 05/15/18 [History Confirmed 06/15/18] metformin ER 500 mg tablet,extended release 24 hr 1,000 mg PO BID 30 Days #120 tab 06/15/18 [History Confirmed 06/15/18] PFSH Medical History Premature atrial contraction (Acute) Premature ventricular contraction (Acute) Essential hypertension (Chronic) Hyperlipidemia (Chronic) 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) Diabetes (Chronic) Abnormal cardiovascular stress test (Inactive) Hypertension (Inactive) Surgical History S/P CABG x 5 (Chronic) History of left heart catheterization (Chronic) Family History Father , age 73 Myocardial infarction COPD (chronic obstructive pulmonary disease) Brother CAD (coronary artery disease) Hx CABG Myocardial infarction mid 40's Social History Smoking Status: Former smoker alcohol intake: never ROS Const Const: Negative for fatigue, weakness, weight gain, weight loss, frequent falls or excessive sweating Eyes Eyes: Negative for change in vision, blurry vision or transient loss of vision ENT ENT: Negative for dizziness or balance problems Cardio Chest Pain: No Palpitations: No Edema: None Muscle aches with walking: None Resp Respiratory: Negative for SOB with activity or SOB at rest GI GI: Negative vomiting or vomiting blood/hematemesis : Negative for hematuria Musc Musc: Negative for balance problems, muscle aches/ myalgia, muscle weakness or joint pain Skin Skin: Negative non-healing lesions or rash Neuro Neuro: Negative for weakness, blurry vision, dizziness, lightheadedness, frequent falls or orthostatic symptoms Ravi Hematologic/Lymphatic: Negative for easy bleeding Endo Endo: Negative for fatigue or excessive sweating Psych Psych: Negative for anxiety or depression Allergy Allergy/Immunology: Negative for hives, Negative for rash Cardiology Exam Const Appearance: cooperative, no acute distress, well developed, healthy appearing, comfortable and well groomed Nutritional Appearance: overweight Orientation: alert, awake and oriented x3 Head Head: normocephalic, atraumatic and normal to inspection Ears: hearing grossly normal bilaterally Nose: external nose normal Face and Sinus: face symmetric Mouth: moist mucous membranes Eyes Conjunctivae: conjunctivae normal Pupils: PERRL EOM: EOM intact bilaterally Neck Neck: normal visual inspection, no JVD and full ROM Carotids: Negative bruit Neck Mass: Negative Neck mass Chest Chest inspection: normal inspection of the chest, symmetric chest movement and normal respiratory effort Auscultation: Bilateral: Clear to Auscultation Cardio Palpation: normal PMI Rate: regular rate Rhythm: regular rhythm Heart sounds: S1 normal and S2 normal; negative rub, gallop or murmur GI GI: normal to inspection, soft and bowel sounds present; negative tender Neuro General: alert, awake, oriented x3, moves all extremities, no focal sensory deficit and no focal motor deficits Skin Skin: no rashes or lesions noted Extremities Pulses: Normal: Right Posterior Tibial Pulse, Left Posterior Tibial Pulse, Right Radial Pulse, Left Radial Pulse Lower Extremity Edema: None: Bilateral Psych Psychological: normal affect Assessment AND Plan 1. Atherosclerosis of [place] coronary artery of [place] heart without angina pectoris I25.10 Plan At the present time he appears to be doing well. He will continue risk factor modification and medical management. 2. 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 García Plan He has undergone evaluation with diagnostic cardiac catheterization. His SVG sequential graft to the OM system and his radial artery graft was occluded. His BATISTA to the LAD and SVG sequential to the diagonal system was patent. He had left to right collateral flow. He is continuing medical therapy. 3. Hyperlipidemia, unspecified hyperlipidemia type E78.5 Plan He states he will be having his lipids checked in the near future or his PCP. A copy would be appreciated for continuity of care. 4. Essential hypertension I10 Plan His blood pressure appears to be well controlled. He will continue medical management. Plan Detail Additional Comments Of note, he did stay: Following his cardiac catheterization, he was subsequently noted, spending time in [place], to have a infection in his right inguinal area. He had to go through medical therapy and surgical debridement. He states that it is healed at this time. This would have to be taken in consideration if he would ever need a future repeat diagnostic cardiac catheterization. Otherwise she will continue medical management and have future outpatient cardiovascular follow up. Thank you for allowing me to participate in the care of your patient. Please don't hesitate to call if any issues arise. This note was generated using a voice recognition system and there may be incorrect words, spelling or punctuation that were not noted when reviewing the office note prior to saving. 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 71-year-old man with a history of known coronary artery disease status post carotid bypass surgery. Stress protocol: Resting EKG demonstrates normal sinus rhythm with rate of 60 bpm normal intervals are noted. Resting blood pressure is 124/74 mmHg. 0.4 mg of regadenoson was infused per usual protocol. Continuous EKG monitoring was performed. The patient maintained sinus rhythm throughout the recording the maximum heart rate was 83 bpm which was 54% of the maximum predicted heart rate the maximum workload attained was 1 metabolic equivalent. At rest there were no ST or T-wave changes noted suggest ischemia at peak infusion no ST or T- wave changes were noted suggest ischemia. Myocardial perfusion protocol. 14.8 mCi of technetium 99m sestamibi was injected at rest. 0.4 mg of regadenoson was infused per usual protocol. At peak infusion 44.9 mCi of technetium 99m sestamibi was injected. Stress images were obtained stress and rest images were reconstructed and compared in the short axis vertical long and horizontal long axis. Gated images were also obtained. Perfusion SPECT analysis: Review of the stress images demonstrate an upper normal cardiac silhouette size. The septum appears to be well perfused the anterior wall and lateral huynh are well perfused. There is a medium-sized defect noted in the basal to mid inferior wall. The distal inferior wall and inferoapical huynh are well perfused. This is present on the stress and the resting images to a similar extent. 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 There appears to be mild improvement in the inferolateral segment suggesting mild inferolateral alec-infarct ischemia. Gated SPECT analysis: The gated ejection fraction is noted to be 65%. 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 Preserved ejection fraction. Cardiac catheterization: 08/27/2017 CONCLUSIONS Occluded saphenous vein graft to the circumflex artery, occluded radial graft to the right coronary artery. Patent left internal mammary artery to the left anterior descending artery with collaterals extending to the distal right coronary artery, left to left collaterals from the circumflex artery and left to right collaterals from the circumflex artery. Patent sequential saphenous vein graft to the diagonal vessel RECOMMENDATIONS Medical therapy CORONARY ANGIOGRAPHY DOMINANCE: Right Dominant LEFT MAIN: Angiographically normal LEFT ANTERIOR DECENDING ARTERY: is occluded MID LAD: is occluded DIAGONAL 1: Proximal - Moderate luminal irregularities up to 50% CIRCUMFLEX ARTERY: MID CIRC: is occluded RIGHT CORONARY ARTERY: PROX RCA: is occluded GRAFTS: BATISTA graft to the Mid LAD is patent Saphenous Vein graft to the 1st Diagonal is patent Sequential graft to the diagonal is patent Radial graft to the RCA is totally occluded Sequential graft to the om is occluded COLLATERAL FLOW: Collateral flow from CIRC to RPL 1 Collateral flow from Left to Right AORTIC ROOT: Angiographically normal Labs LDL Cholesterol 88 mg/dL (0-130) 08/25/17 HDL Cholesterol 36 mg/dL (40-) L 08/25/17 Triglycerides 129 mg/dL (-199) 08/25/17 VLDL Cholesterol 26 mg/dL (5-40) 08/25/17 Diagnostics Stress Test Nuclear Medicine 08/25/17 Stress Test 08/25/17 Cardiac Catheterization 08/27/17 Chest X-Ray 08/26/17 06/15/18 1152 <Electronically signed by Cali Fletcher MD> Date Cali Fletcher MD Cosigner Signature: Date (if applicable) CC: Leena Reynaga MD Observed: 05/04/2018 Status: F Source: [place] CULTURE, DEEP WOUND 8:30 AM [facility] REPOSITORY RT.GROIN ULCER Gram Stain Gram Stain 2+ Red Blood Cells No organisms seen Wound Culture #2 Gram positive chris suggestive of a diptheroid. There are no CLSI standards for interpretation of this Drug/Organism combination. RESULTS CALLED TO WOUND CENTER NURSE LINE 05/07/18 0651 Ayala Ratliff. Copy of report sent to Infection Control Printer [id number] 05/07/18 0653 JACE. ORGANISM 1: Meth. resistant Staph. aureus Amount Growth Rare ORGANISM 2: Gram positive chris Amount Growth Rare Meth. resistant Staph. aureus: REACTION Benzylpenicillin NF >=0.5 R Cefoxitin *NF + Clindamycin $$ <=0.25 S Inducable Clindamycin [place] - Erythromycin $ >=8 R Gentamicin $ <=0.5 S Levofloxacin $ 0.25 S Linezolid $$$$ 2 S Oxacillin NF >=4 R Tigecycline $$$$ <=0.12 S Rifampin $$ <=0.5 S Tetracycline NF <=1 S Trimethoprim/Sulfametho $ <=10 S Vancomycin $ <=0.5 S (NF) indicates non-formulary drug at [facility]. Approval by Infectious Disease Specialist required before non-formulary drugs may be ordered and/or dispensed. * CLSI guidelines does not recommend testing of cephalosporins. This interpretation is deduced from Beta-lactam/penicillin results. Cult, Anaerobic No anaerobic bacteria isolated. Performed By: #### M100.1500 #### [facility] [address] [place], [address] Observed: 03/23/2018 Status: F Source: [place] CULTURE, DEEP WOUND 9:45 AM [facility] REPOSITORY Comments: RT LOWER ABDOMINAL ULCER Gram Stain Gram Stain 4+ Red Blood Cells 1+ White Blood Cells No organisms seen Wound Culture #2There are no CLSI standards for interpretation of this Drug/Organism combination. ORGANISM 1: Proteus sp. Amount Growth Rare ORGANISM 2: Corynebacterium striatum Amount Growth 1+ Proteus sp.: REACTION Amoxacillin/Clavulanic Acid $ <=2 S Ampicillin $ <=2 S Ampicillin/Sulbactam $ <=2 S Cefazolin $ <=4 S Cefepime $ <=1 S Ceftriaxone $ <=1 S Ciprofloxacin $ <=0.25 S Ertapenim $$$ <=0.5 S Gentamicin $ <=1 S Levofloxacin $ <=0.12 S Piperacillin/Tazobactam $$ <=4 S Tobramycin $ <=1 S Trimethoprim/Sulfametho $ <=20 S (NF) indicates non-formulary drug at [facility]. Approval by Infectious Disease Specialist required before non-formulary drugs may be ordered and/or dispensed. Cult, Anaerobic No anaerobic bacteria isolated. Performed By: #### M100.1500 #### [facility] [address] [place], [address] URGENT CARE VISIT Observed: 02/26/2018 Status: F Source: [place] REPORT 11:00 AM [facility] REPOSITORY [facility] [address] [place] [address] [address] [place] [address] OFFICE VISIT Date of Service: 02/26/18 MR#: [id number] Acct: [id number] Name: KEILY MARVIN Rep #: [id number] : 1945 Provider: Elijah BOWENS Age/Sex: 72/M Location: [facility] Status: Signed Intake Vital Signs02/26/18 Height 6 ft 3 in 02/26/18 Weight: 255 lb 02/26/18 Body Mass Index (BMI) 31.8 02/26/18 Blood Pressure 140/86 H Intake Visit Reasons: Clogged ear Chief Complaint: Cerumen impaction right ear Marketing Segment Manager Required: No Accompanied by: self Is patient in pain?: No Allergies ALLIE Inhibitors Adverse Reaction (Intermediate, Verified 02/26/18 10:05) Cough Medications canagliflozin 100 mg tablet 100 mg PO DAILY 90 Days #90 07/14/17 [History Confirmed 11/17/17] fenofibrate micronized 134 mg capsule 134 mg PO QHS 90 Days #90 07/14/17 [History Confirmed 11/17/17] metformin ER 500 mg tablet,extended release 24 hr 500 mg PO BID 30 Days #120 07/14/17 [History Confirmed 11/17/17] metoprolol tartrate 50 mg tablet 25 mg PO BID 90 Days #90 07/14/17 [History Confirmed 11/17/17] simvastatin 20 mg tablet 20 mg PO QHS 90 Days #90 07/14/17 [History Confirmed 11/17/17] vitamin B12 500 mcg-folic acid 400 mcg tablet 1 tab PO QDAY 07/14/17 [History Confirmed 11/17/17] aspirin 81 mg tablet,delayed release 81 mg PO QDAY tab 07/23/17 [History Confirmed 11/17/17] coenzyme Q10 100 mg capsule 100 mg PO QDAY 07/23/17 [History Confirmed 11/17/17] cyanocobalamin (vit B-12) 1,000 mcg tablet 1,000 mcg PO QDAY 07/23/17 [History Confirmed 11/17/17] amlodipine 2.5 mg tablet 2.5 mg PO QDAY #90 tab 07/29/17 [Rx Confirmed 11/17/17] losartan 100 mg tablet 100 mg PO QDAY #90 tab 07/29/17 [Rx Confirmed 11/17/17] nitroglycerin 0.4 mg sublingual tablet 0.4 mg SUBLINGUAL Q5M PRN #25 tab 07/30/17 [Rx Confirmed 11/17/17] Acetaminophen [Tylenol Tablet] 650 mg PO Q6H PRN PRN tab 11/21/17 [Rx] Diazepam [Valium] 5 mg PO 4X/DAY PRN PRN #30 tab 11/21/17 [Rx] Docusate Sodium [Colace] 100 mg PO BID #60 cap 11/21/17 [Rx] Doxycycline 100 mg PO BID #20 cap 11/21/17 [Rx] Lactobacillus Acidophilus [Acidophilus] 1 tab PO TID #30 tab 11/21/17 [Rx] Nutritional Supplement [Carloz - ORANGE FLAVOR] 1 packet PO BIDCM #60 packet 11/21/17 [Rx] Nystatin Powder [Mycostatin Powder] 1 applic TOPICAL BID #2 bottle 11/21/17 [Rx] Oxycodone HCl/Acetaminophen [Percocet 5/325] 1 - 2 tab PO 4X/DAY PRN PRN 7 Days #50 tab 11/21/17 [Rx] proMETHazine tablet [Phenergan tablet] 25 mg PO 4X/DAY PRN PRN #30 tab 11/21/17 [Rx] PFSH Medical History Hyperlipidemia (Chronic) Hypertension (Chronic) 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) Diabetes (Chronic) Abnormal cardiovascular stress test (Inactive) Surgical History S/P CABG x 5 (Chronic) History of left heart catheterization (Chronic) Family History Father , age 73 Myocardial infarction COPD (chronic obstructive pulmonary disease) Brother CAD (coronary artery disease) Hx CABG Myocardial infarction mid 40's Social History Smoking Status: Former smoker alcohol intake: never HPI Clogged Ears/Hearing Loss Exposure to loud noises: No Recent viral or bacterial upper respiratory infections: No Recent sore throat: No Recent headaches: No Recent seizures: No Recent vision changes: No Recent ear plug use: No Q-tip use: No Prior audiogram: No Additional symptoms: No HPI Chief Complaint: Cerumen impaction right ear Details: KEILY MARVIN, is a 72 M who presents to the office today for initial evaluation fullness sensation in right ear. Patient notes having a long- standing history of recurrent cerumen impactions to both ears, noting he is asymptomatic his left ear at this time. He notes slight muffled hearing in his right ear at this time as well though normal hearing in the left ear. He notes no complaints of lightheadedness or dizziness. He notes no complaints of fever, chills, sweats he notes no other associated symptoms no other alleviating or aggravating factors. ROS Const Constitutional: No other (ROS negative x10 other than as noted above) Exam Const General: cooperative, healthy appearing, no acute distress, comfortable Nutritional Appearance: average body habitus Orientation: alert, awake, oriented x3 HENMT Head: normal to inspection Ears: hearing grossly normal bilaterally, external ears normal, TM's normal bilaterally (After AD impaction removed per nursing), EAC's normal Nose: external nose normal, nares normal, septum normal, no nasal discharge Face and sinus: normal facial exam, face symmetric, sinuses nontender Mouth: tongue normal, lip normal, oropharynx normal, oral mucosae normal Teeth and gingiva: dentition normal, gingiva normal Throat: uvula midline, tonsils normal, posterior oropharynx normal, no postnasal drainage Eyes General: appearance normal, both eyes and all related structures Neck Neck: normal visual inspection, full ROM, no lymphadenopathy, no meningeal signs, supple Neck mass: No Thyroid: thyroid normal Lymphatic: no lymphadenopathy noted Chest Chest palpation AND inspection: normal inspection of the chest Resp Effort AND Inspection: normal respiratory effort, able to speak in complete sentences, symmetric chest movement Auscultation: Bilateral: Clear to Auscultation Cardio Palpation: normal PMI Rate: regular rate Rhythm: regular rhythm Heart Sounds: S1 normal, S2 normal, no gallops, no murmurs, no rubs Pulses: radial pulses present GI Inspection: normal to inspection Skin General: no rashes or lesions noted Neuro General: alert, awake, oriented x3, gait normal Cognition: normal cognition Speech: speech normal Gait: normal gait Motor: muscle tone normal throughout Sensory Exam: no sensory deficits noted Psych Appearance: grossly normal Mental Status: mental status grossly normal Mood: congruent mood Affect: normal affect Speech and Movement: speech and movement normal Attitude: cooperative Thought Process: normal Thought Content: normal Judgment: judgment good Office Procedures Cerumen Removal Procedure BMS Cerumen Removal Procedure Procedure performed by: Carrie Lucio Method of removal: irrigation From which ear canal was the cerumen removed: right Amount of Cerumen: large Patient tolerated procedure: well Complications: none Assessment AND Plan 1. Sensation of Plugged Ear H93.8X9 2. Impacted cerumen, right ear H61.21 Plan Ear hygiene as reinforced today. Follow-up with the [facility] or PCP on an as-needed basis only. Patient states acknowledging understanding all the above. This note was generated with NewComLinkation software. It may contain incorrect words, spelling, and punctuation that were not noted in checking the note before signing. Coding Level of Care Code Off vis,est,level 3 Diagnoses Sensation of Plugged Ear H93.8X9 Impacted cerumen, right ear H61.21 02/26/18 1100 <Electronically signed by Elijah BOWENS> Date Elijah BOWENS Cosigner Signature: Date (if applicable) CC: CBC W/DIFF, AUTOMATED Collected: 12/24/2017 Status: F Source: [place] 8:09 AM [facility] REPOSITORY TYPE CODE TESTS RESULT OUT OF RANGE REFERENCE UNITS LAB L100.1000 4.4-11.0 K/mm3 Normal WBC 5.9 LAB L100.1200 4.6-6.2 M/mm3 Normal RBC 5.26 LAB L100.1300 13.0-16.5 g/dl Normal HGB 15.3 LAB L100.1400 40-54 % Normal HCT 48.0 LAB L100.1500 80-94 fL Normal MCV 91.3 LAB L100.1600 27.0-32.0 pg Normal MCH 29.1 LAB L100.1700 32-36 g/gl Low MCHC 31.9 LAB L100.1810 11.6-14.6 % Normal RDW CV 14.3 LAB L100.1820 35.1-43.9 fl High RDW SD 47.6 LAB L100.1900 150-450 K/mm3 Normal PLT 230 LAB L100.2000 6.2-12.0 fl Normal MPV 9.7 LAB L100.2100 47-70 % Normal NEUT% 55.5 LAB L100.2200 19-41 % Normal LY% 30.9 LAB L100.2300 0-10 % Normal MONO% 10.0 LAB L100.2400 0-5 % Normal EO% 3.1 LAB L100.2500 0-1 % Normal BASO% 0.5 LAB L100.2550 0.0-0.9 % Normal IM GRAN % 0.000 Result Comment: IG% - Immature Granulocytes (promyelocytes, myelocytes and metamyelocytes) > 1% indicates that a LEFT SHIFT is Present. LAB L100.2620 2.0-7.7 X10 3/uL Normal Absolute Neut 3.3 LAB L100.2720 0.83-4.51 X10 3/ul Normal Absolute Lymph 1.82 Performed By: #### L100.0100 #### [facility] [address] [place], [place], [address] COMPREHENSIVE METABOLIC Collected: 12/24/2017 Status: F Source: [facility] 8:09 AM [facility] REPOSITORY TYPE CODE TESTS RESULT OUT OF RANGE REFERENCE UNITS LAB L501.0100 74-106 mg/dL High GLU 126 Result Comment: Fasting Glucose result greater than or equal to 126 mg/dL suggests DIABETES MELLITUS per A.D.A. criteria. Please note revised GLUCOSE reference range effective 2017. LAB L501.1000 7-18 mg/dL High BUN 20 LAB L501.1100 0.70-1.30 mg/dL Normal CREAT,SERUM 1.15 Result Comment: The validity of the calculated GFR AND GFRAA in patients over 70 years has not been determined. Clinical correlation is essential. LAB L501.1110 >60 mL/min Normal EST GFR 67 Result Comment: Non- GFR Calc LAB L501.1115 >60 mL/min Normal EST GFR - AA 81 Result Comment: GFR Calc LAB L501.1300 10-20 RATIO Normal BUN/CRE 17.4 LAB L501.1500 6.4-8.2 g/dL T Normal PROT 7.8 LAB L501.1800 3.2-5.0 g/dL Normal ALB 4.0 LAB L501.1950 2.2-4.2 g/dL Normal GLOB 3.8 LAB L501.2000 0.9-2.4 RATIO Normal A/G 1.1 LAB L501.2200 8.5-10.1 mg/dL CA Normal 9.2 LAB L501.4100 15-37 U/L Normal AST 24 LAB L501.4305 45-117 U/L Low ALK P 37 LAB L501.4405 16-61 U/L Normal ALT 29 LAB L501.4600 0.20-1.00 mg/dL T Normal BILI 0.60 LAB L501.5300 136-145 mmol/L NA Normal 140 LAB L501.5600 3.5-5.1 mmol/L K Normal 4.1 LAB L501.5900 98-107 mmol/L CL Normal 106 LAB L501.6100 21.0-32.0 mmol/L Normal CO2 25.0 LAB L501.6200 5-15 Normal GAP 9 Performed By: #### L500.4050, L501.9910 #### [facility] [address] [place], [place], [address] PSA,TOTAL - ANNUAL Collected: 12/24/2017 Status: F Source: [place] SCREEN 8:09 AM [facility] REPOSITORY TYPE CODE TESTS RESULT OUT OF RANGE REFERENCE UNITS LAB L501.9910 0.00-4.00 ng/mL Normal PSA,TOT 0.38 SCREEN Result Comment: This test was performed using the TPSA assay method for the [employer] chemistry system. Values obtained with different assay methods cannot be used interchangably. When changing PSA assays in the course of monitoring a patient, additional sequential testing should be carried out to confirm baseline values. Performed By: #### L500.4050, L501.9910 #### [facility] [address] [place], [place], [address] MICROALB:CREAT Collected: 12/24/2017 Status: F Source: [place] RATIO,RANDOM UR 8:09 AM [facility] REPOSITORY TYPE CODE TESTS RESULT OUT OF RANGE REFERENCE UNITS LAB L501.1200 NO RANGE EST. mg/dL Normal UR CREAT 231.00 LAB L502.0500 NO RANGE EST. mg/L Normal 210.0 MICROALBUMIN ,UR LAB L502.0600 <30 mg/g CRE mg/g CRE High 90.9 MALB:CREAT Performed By: #### L502.0250 #### [facility] [address] [place], [address] CONSULTATION Observed: 12/01/2017 Status: F Source: [place] 1:04 AM [facility] REPOSITORY [facility] Medical Records Department [address] [place] [address] Consultation 11/18/17 1100 MR#: [id number] Acct: [id number] Name: KEILY MARVIN Rep #: [id number] : 1945 72 From: Pepe Garcia MD PCP: Patricia Curry DO Status: DIS IN Y Location: MS3 [id number] Reason for Consult Date of Consultation: 11/18/17 Reason for Consultation: Diabetic abscess right inguinal area and pubic area. REFERRING PHYSICIAN: Dr. Frank. GENERAL FOUNDRY WORKER: Dr. Garcia. History of Present Illness: The patient is a 72 year old M was admitted yesterday with increasing pain and redness and swelling in the right inguinal and pubic area. He states it started about 3 days ago. He denies any trauma. He did have some fever. He denies any drainage. Upon admission his WBC was 15. His temp was 100. He is currently on Zosyn. A CT scan was done which showed diffuse subcutaneous edema or cellulitis lateral to the right lateral canal penile shaft. No focal abscess. Since admission, his symptomatology has worsened. I was asked to evaluate this patient for surgical options for treatment. Past Medical History Past Medical History (Chronic Problems): Chronic Problems (Last Updated 11/21/17 @ 15:12 by Wilmar Frank DO) DM type 2 (diabetes mellitus, type 2) (Chronic) Overweight (Chronic) Impacted cerumen of both ears (Chronic) S/P CABG x 5 (Chronic) BATISTA to LAD, SVG to DX-DX sequential and OM arteries; and right radial artery graft to the RCA 09/13/[address] García History of left heart catheterization (Chronic) 09/10/[address] [facility] [address] 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) Medical History: Medical History (Last Updated 11/21/17 @ 15:12 by Wilmar Frank DO) Hyperlipidemia (Chronic) E78.5 Hypertension (Chronic) I10 History of myocardial infarction of inferoposterior wall (Chronic) I25.2 Atherosclerotic heart disease of [place] coronary artery without angina pectoris (Chronic) I25.10 Diabetes E11.9 Abnormal cardiovascular stress test (Inactive) R94.39 Allergies ALLIE Inhibitors Adverse Reaction (Intermediate, Verified 11/17/17 14:09) Cough Current Medications Acetaminophen (Tylenol) 650 mg PO Q6H PRN PRN PRN Reason: Mild Pain (scale 0-3)/T>100.7 Al Hydroxide/Mg Hydroxide (Mylanta Ii) 30 ml PO Q6H PRN PRN PRN Reason: Gastric Burning Amlodipine Besylate (Norvasc) 2.5 mg PO DAILY [facility] Last Admin: 11/18/17 09:38 Dose: 2.5 mg Aspirin (Ecotrin) 81 mg PO DAILY@0800 [facility] Last Admin: 11/18/17 08:33 Dose: 81 mg Atorvastatin Calcium (Lipitor) 10 mg PO QHS [facility] Last Admin: 11/17/17 21:39 Dose: 10 mg Bisacodyl (Dulcolax) 10 mg RECTAL DAILY PRN PRN PRN Reason: Constipation Cyanocobalamin (Vitamin B12) 1,000 mcg PO DAILY [facility] Last Admin: 11/18/17 09:38 Dose: 1,000 mcg Dextrose (D50w Syringe) 0 gm IV X1 PRN; Protocol PRN Reason: Hypoglycemia Docusate Sodium (Colace) 200 mg PO BID PRN PRN PRN Reason: constipation Enoxaparin Sodium (Lovenox) 40 mg SC DAILY [facility] Last Admin: 11/18/17 09:38 Dose: 40 mg Fenofibrate (Tricor) 145 mg PO DAILY [facility] Last Admin: 11/18/17 09:38 Dose: 145 mg Glucagon () 1 mg IM .X1 PRN PRN Reason: Hypoglycemia Sodium Chloride () 1,000 mls @ 100 mls/hr IV .Q10H [facility] Last Admin: 11/18/17 07:08 Dose: 100 mls/hr Piperacillin Sod/Tazobactam Sod (Zosyn) 3.375 gm in 50 mls @ 12.5 mls/hr IV Q8 [facility] Last Admin: 11/18/17 06:51 Dose: 12.5 mls/hr Sodium Chloride () 250 mls @ 15 mls/hr IV .[id number] PRN PRN Reason: SALINE FLUSH Insulin Human Lispro (Humalog Kwikpen (Bkc)) 0 unit SQ ACHS FADI PRN Reason: Protocol Last Admin: 11/18/17 06:56 Dose: Not Given Losartan Potassium (Cozaar) 100 mg PO DAILY [facility] Last Admin: 11/18/17 09:38 Dose: 100 mg Metoprolol Tartrate (Lopressor (Beta Maria T)) 25 mg PO BID [facility] Last Admin: 11/18/17 09:38 Dose: 25 mg Morphine Sulfate () 1 - 2 mg IV Q4H PRN PRN PRN Reason: SEVERE PAIN (6-10/10) Nitroglycerin (Nitrostat) 0.4 mg SUBLINGUAL Q5M PRN PRN Reason: chest pain Ondansetron HCl (Zofran) 4 mg IV Q4H PRN PRN PRN Reason: Nausea Oxycodone HCl (Oxyir) 5 mg PO Q4H PRN PRN PRN Reason: Moderate Pain (pain scale 4-5) Polyethylene Glycol (Miralax) 17 gm PO DAILY [facility] Last Admin: 11/18/17 09:38 Dose: 17 gm Sodium Chloride () 5 - 30 ml IV UD PRN PRN Reason: SALINE FLUSH Last Admin: 11/17/17 19:58 Dose: 10 ml Zolpidem Tartrate (Ambien (Generic)) 5 mg PO QHS PRN PRN PRN Reason: INSOMNIA Home Medications: Ambulatory Orders Medication Instructions Recorded Surgical History: Surgical History (Last Updated 07/29/17 @ 10:49 by Justine Angulo) S/P CABG x 5 (Chronic) Z95.1 BATISTA to LAD, SVG to DX-DX sequential and OM arteries; and right radial artery graft to the RCA 09/13/[address] García History of left heart catheterization (Chronic) Z98.890 09/10/[address] [facility] [address] Moore> CABG X5 Smoking Status: Former smoker Tobacco Use: Cigarettes - *Family History Paternal Family History: Family History (Last Updated 07/29/17 @ 10:47 by Justine Ang[place]) Father Myocardial infarction COPD (chronic obstructive pulmonary disease) Brother CAD (coronary artery disease) Myocardial infarction History Items: No pertinent history Review of Systems Comment: General - Denies fever, fatigue, and weight loss. Eyes - Denies cataracts and glaucoma. ENT - Denies nasal congestion and sore throat. Endocrine - Denies excessive thirst and urination. Skin - Denies suspicious lesions and skin cancer. Musculoskeletal - Denies joint pain, joint stiffness, weakness of muscles and joints, back pain, and arthritis. Neuro - Denies headaches. Cardiovascular - Denies chest pain, fatigue, and shortness of breath with exertion. Psych - Denies anxiety and depression. Respiratory - Denies chronic cough and shortness of breath. Gastrointestinal - Denies nausea, vomiting, diarrhea, and constipation. Hematologic - Denies abnormal bruising and bleeding. Genitourinary - Denies hematuria and urinary frequency. - Physical Exam General - Alert and Oriented HEENT - PERRL. EOMI. Throat is clear. Neck - Supple and nontender. No cervical adenopathy. Lungs - Clear to auscultation. Heart - Regular rate and rhythm. Abdomen - Soft and nondistended. In the right inguinal area with extension into the pubic area is a large area of redness and induration and tenderness. Measures about 15 cm. Some fluctuance. No purulent drainage. Genitalia - Scrotum is nontender. Extremities - FROM. No axillary adenopathy. Radial pulses are palpable. Right and left medial thighs are nontender. Neuro - CN II-XII grossly intact. Psych - Normal mood and affect. Vital Signs Temp Pulse Resp BP Pulse Ox 98.8 F 80 18 106/45 L 98 11/18/17 09:31 11/18/17 09:38 11/18/17 09:31 11/18/17 09:31 11/18/17 09:31 Oxygen Delivery Method Room Air Weight: 260 lb 9.382 oz Body Mass Index (BMI) 32.5 Intake and Output for Last 24 Hours Intake Total 1813 / 1813 Balance 1813 / 1813 Laboratory Tests Past 24 Hrs POC Glucose POC Glucose 113 H 158 H 128 H Diagnostic Data Pelvis CT 11/17/17 15:12 IMPRESSION: Diffuse subcutaneous edema or cellulitis lateral to the right lateral canal penile shaft. No focal abscess Electronically Signed: Bernardo Gordon MD at 17:00 EDT , Service support , Assessment/Plan All Active Problems (Last Updated 11/21/17 @ 15:12 by Wilmar Frank DO) Open wound of pubic region with complication (Acute) Non-healing right groin open wound (Acute) Open wound anterior abdominal wall (Acute) Necrotizing soft tissue infection (Acute) Abscess of pubic region (Acute) Abscess of right groin (Acute) Intertrigo (Acute) Hyponatremia (Acute) Abscess or cellulitis of groin (Acute) Right-sided pubic soft tissue cellulitis (Acute) 1. Diabetic abscess right inguinal area and pubic area. 2. Diabetes mellitus. VAC applied today. Will be changed three times per week at 150 mmHg continuous suction. Wound is stable without further evidence of infection. Area of redness on the left pubic area is soft. No progression from the OR. Will observe. If it were to worsen, would need further operative debridement. Patient is aware of that possibility with necrotizing infections. Culture showed MRSA. Vancomycin is added to the Zosyn. Prealbumin low at 9.8. Encourage nutritional supplementation with protein to help the healing process. Code Visit Inpatient E AND M: 57632 Init Hosp L3 - -57 Modifier ICD-10 - L02.214, L02.219, M79.89, E11.9 12/01/17 0104 <Electronically signed by Pepe Garcia MD> Date Pepe Garcia MD Cosigner Signature (if applicable): Date CC: Pepe Garcia MD; Fantasma Kingsley MD; Patricia Curry DO; Spencer Joseph MD Signed OPERATIVE REPORT Observed: 12/01/2017 Status: F Source: [place] 1:04 AM [facility] REPOSITORY [facility] Medical Records Department [address] [place] [address] Operative Report 11/18/172011 MR#: [id number] Acct: [id number] Name: KEILY MARVIN Arnulfo Rep #: [id number] : 1945 72 From: Pepe Garcia MD PCP: Patricia Curry DO Status: DIS IN Y Location: MS3 [id number] Report of Operation Date of Procedure: 11/18/17 Pre-Operative Diagnosis: 1. Diabetic abscess right inguinal area and pubic area. 2. Diabetes mellitus. Post-Operative Diagnosis: 1. 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 2. Diabetes mellitus. Surgery/Procedure Performed:: Surgical preparation right inguinal and pubic area and lower anterior abdominal wall area with incision and drainage and excisional debridement skin, subcutaneous tissue and fascia for necrotizing diabetic abscess (190 cm2). Description of Surgical Findings:: The patient is a 72 year old M was admitted yesterday with increasing pain and redness and swelling in the right inguinal and pubic area. He states it started about 3 days ago. He denies any trauma. He did have some fever. He denies any drainage. Upon admission his WBC was 15. His temp was 100. He is currently on Zosyn. A CT scan was done which showed diffuse subcutaneous edema or cellulitis lateral to the right lateral canal penile shaft. No focal abscess. Since admission, his symptomatology has worsened. I was asked to evaluate this patient for surgical options for treatment. It was felt that urgent operative intervention was necessary to be done today because a necrotizing process is suspected. Patient was informed of the risks and complications of the procedure including alternatives to surgery. These were discussed with the patient personally. Patient voices understanding and wishes to proceed. Size of defect right inguinal area and pubic area - 19 x 10 x 3 cm. film reader: None Type of Anesthesia:: General Specimen's removed: 1. 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 2. MRSA Wound DNA by PCR. Drains: None. Estimated Blood Loss (mL): 150 ml. Description of Procedure: Patient was taken to OR in supine position and was placed under general anesthesia. His inguinal and pubic area was prepped and draped in the usual fashion. SCD's were placed for DVT prophylaxis. Perioperative antibiotics were given intravenously. Using a scalpel, an incision was made around the area of redness and induration. A lot of pus was seen in the subcutaneous tissue. Fat necrosis was present. The pus extended down to the spermatic cord and vessels and to the femoral vein. Some fascia was exposed and was inflamed and viable. An aggressive excisional debridement was performed down through the necrotizing subcutaneous tissue and some of the inflamed viable was debrided as well. The underlying muscle looked viable. No necrotic muscle was seen. Some of the excisional debridement extended from the right inguinal area to the pubic area and lower anterior abdominal wall area. Some of the tissue was sent to Microbiology for culture. A positive culture may necessitate antibiotic modification. Rest of the tissue was sent to Pathology for analysis to rule out carcinoma. MRSA Wound DNA by PCR was obtained as well. The pus was thick in areas and is suspicious for MRSA. The extensive wound was irrigated with saline. Hemostasis was obtained with electrocautery. The size of the right inguinal area and pubic area and some lower anterior abdominal wall area was 19 x 10 x 3cm. The wound was dressed with Mepitel nonadherent dressing followed by Kerlix gauze with Betadine. This was followed by a dry Kerlix gauze and ABD pads for a compression dressing. In the left pubic area adjacent to this large defect was some more redness. The underlying skin and soft tissue was soft and necrotic tissue or pus was seen in this area. However with this necrotizing diabetic abscess, the patient is at some risk that the infection may continue to spread. Will observe this area of redness. If it becomes worse such as increasing pain and redness and swelling and evidence of fat necrosis, then further aggressive operative debridement will be performed. Patient tolerated the procedure well and was sent to PACU in satisfactory condition. He will be sent back upstairs for postop care. The VAC will be applied tomorrow. Anticipate increased metabolic demands from the infection. Encourage nutritional supplementation with protein to help the healing process. After discharge, followup at the Wound Center. If there is a plateau in the healing process, can proceed to delayed closure with skin grafting. Grafts/Implants Used: None. - Complications None. - Admit VTE Documentation VTE Present on Admission: No VTE Mechan Device Prophylaxis: SCD's VTE Pharm Prophylaxis ordered?: Yes Code Visit Surgery Charges CPT - 98179 ICD-10 - L02.214, L02.219, M79.89, E11.9, S31.109A, S31.103A, S31.000A 12/01/17 0104 <Electronically signed by Pepe Garcia MD> Date Pepe Garcia MD CC: Alexa Frank; Pepe Garcia MD; Fantasma Kingsley MD; Patricia Curyr DO; Spencer Joseph MD; [facility] Signed DISCHARGE SUMMARY Observed: 11/26/2017 Status: F Source: [place] 11:18 AM [facility] REPOSITORY [facility] Medical Records Department [address] [place] [address] Discharge Summary 11/21/17 1519 MR#: [id number] Acct: [id number] Name: KEILY MARVIN Rep #: [id number] : 1945 72 From: Wilmar Frank DO PCP: Patricia Curry DO Status: DIS IN Y Location: [facility] [place] [id number] Discharge Date and Diagnosis Date of Admission: 11/17/17 Date of Discharge: 11/21/17 - Primary Discharge Diagnosis Active and Suspected Problems (Last Updated 08/25/17 @ 17:50 by Katy England) Diabetic Abscess and cellulitis of groin (Acute) due to MRSA Right-sided pubic soft tissue cellulitis (Acute) Intertrigo (Acute) - groin Hyponatremia (Acute) - Secondary Discharge Diagnosis Chronic Problems (Last Updated 08/25/17 @ 17:50 by Katy England) DM type 2 (diabetes mellitus, type 2) (Chronic) - well controlled Overweight (Chronic) Impacted cerumen of both ears (Chronic) S/P CABG x 5 (Chronic) BATISTA to LAD, SVG to DX-DX sequential and OM arteries; and right radial artery graft to the RCA 09/13/[address] García History of left heart catheterization (Chronic) 09/10/[address] [facility] [address]. 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 No focal abscess Electronically Signed: Bernardo Gordon MD at 17:00 EDT , Service support , Microbiology 11/18/17 Unknown Biopsy - Other Gram Stain - Final 11/18/17 Unknown Biopsy - Other Wound Culture - Final Meth. resistant Staph. aureus 11/18/17 Unknown Biopsy - Other Anaerobic Culture - Preliminary Checking for anaerobes, further studies to follow. 11/17/17 15:35 Blood Culture (Wb) - No Site/Description Given Blood Culture - Preliminary No growth in 48 hours. 11/17/17 15:00 Blood Culture (Wb) - Left Forearm Blood Culture - Preliminary No growth in 48 hours. Laboratory Results - last 24 hr C-React Prot Ext Range Vancomycin Trough 9.5 POC Glucose 145 H 122 H C-React Prot Ext Range 68.40 H Vancomycin Trough POC Glucose 121 H 181 H Consultations 11/19/17 06:51 Consult: Onc/Wound/men's designer Routine Comment: Reason for Consult:: wound vac placement Dr. Spencer Joseph-infectious disease Dr. Pepe Garcia-plastic surgery Operations: - - Surgical preparation right inguinal and pubic area and lower anterior abdominal wall area with incision and drainage and excisional debridement skin, subcutaneous tissue and fascia for necrotizing diabetic abscess (190 cm2). Procedures: None Summary of Care Provided: The patient is a 72-year-old male with a past medical history of coronary artery disease, CABG 5 vessels in August 2002, diabetes mellitus type 2, obesity and hypertension who presented to the emergency department at [facility] on 11/17/2017 complaining of fever/chills and right groin swelling that started on 11/14/17. Prior to coming to the ER he was seen in an [facility] with a temp of 102 and he was sent to the ED. White blood cell count was 15.4 with 82% neutrophils. Hemoglobin and platelets were within normal limits. Sodium was mildly decreased at 135. Random blood sugar was increased at 126 and a hemoglobin A1c was obtained and was excellent at 6.4. Lactic acid was 1.0. A CT scan of the pelvis was obtained and showed diffuse subcutaneous edema or cellulitis lateral to the right lateral canal penile shaft. There was no focal abscess. Cultures were sent. He was admitted to the hospital with a diagnosis of cellulitis of the right groin and started on intravenous Zosyn. The ER physician discussed the case with Dr. Kingsley who did not feel there was any need for surgical intervention at this time. The following morning the edema and erythema over the right groin had extended into the scrotum and the foreskin on the right lateral side. There was a very well-circumscribed area of hard induration in the right groin. Dr. Pepe Garcia was consulted for possible I AND D. He was taken to surgery on 11/18/[address] Garcia and extensive debridement of skin, subcutaneous tissue and fascia for necrotizing diabetic abscess was performed. PCR on drainage obtained at the time of surgery was positive for MRSA and vancomycin was started. A wound VAC was placed on 11/19/2017. Dr. Spencer Joseph was consulted to manage antibiotics. Patient remained on vancomycin and Zosyn until the final culture obtained at surgery was reported. Final culture was positive for MRSA. On 11/21 he was afebrile. Pain was adequately controlled. On that day he did complain of itchy eyes and had some redness in the periorbital area. There was cobblestoning of the palpebral conjunctiva with no purulent discharge. Dr. Joseph felt he could be discharged home on Augmentin and doxycycline for 10 additional days of treatment. Home health was set up for management of the wound VAC. He was given prescriptions for diazepam to be used 4 times daily as needed muscle spasms. He was also given a prescription for Percocet and Phenergan by Dr. Garcia. He will take lactobacillus 1 tab 3 times daily while he is on antibiotics and he will use Carloz 1 packet twice daily to promote wound healing. He will follow-up with Dr. Patricia Hadley in 7-[address] Pepe Garcia at the wound care center on 12/08/2017. Discharge Activity: May not drive while taking narcotic pain medications. Call your doctor if you observe: Fever of 101 or Higher, Inability to urinate, Inability to have a bowel movement, - - Call your PCP if severe diarrhea, painful sores in the mouth, painful swallowing, rash or itching. Increasing redness around the wound, increased sweling or pain in the scrotum, burning with urination. Home Medications: Medications to take at Discharge canagliflozin 100 mg tablet 100 mg PO DAILY 90 Days #90 07/14/17 fenofibrate micronized 134 mg capsule 134 mg PO QHS 90 Days #90 07/14/17 metformin ER 500 mg tablet,extended release 24 hr 500 mg PO BID 30 Days #120 07/14/17 metoprolol tartrate 50 mg tablet 25 mg PO BID 90 Days #90 07/14/17 simvastatin 20 mg tablet 20 mg PO QHS 90 Days #90 07/14/17 vitamin B12 500 mcg-folic acid 400 mcg tablet 1 tab PO QDAY 07/14/17 aspirin 81 mg tablet,delayed release 81 mg PO QDAY tab 07/23/17 coenzyme Q10 100 mg capsule 100 mg PO QDAY 07/23/17 cyanocobalamin (vit B-12) 1,000 mcg tablet 1,000 mcg PO QDAY 07/23/17 amlodipine 2.5 mg tablet 2.5 mg PO QDAY #90 tab 07/29/17 losartan 100 mg tablet 100 mg PO QDAY #90 tab 07/29/17 nitroglycerin 0.4 mg sublingual tablet 0.4 mg SUBLINGUAL Q5M PRN #25 tab 07/30/17 Acetaminophen [Tylenol Tablet] 650 mg PO Q6H PRN PRN tablet 11/21/17 Amox/Clavulanate Tablet [Augmentin Tablet] 875 mg PO BID #20 tab 11/21/17 Diazepam [Valium] 5 mg PO 4X/DAY PRN PRN #30 tab 11/21/17 Docusate Sodium [Colace] 100 mg PO BID #60 cap 11/21/17 Doxycycline 100 mg PO BID #20 cap 11/21/17 Lactobacillus Acidophilus [Acidophilus] 1 tab PO TID #30 tab 11/21/17 Nutritional Supplement [Carloz - ORANGE FLAVOR] 1 packet PO BIDCM #60 packet 11/21/17 Nystatin Powder [Mycostatin Powder] 1 applic TOPICAL BID #2 bottle 11/21/17 Oxycodone HCl/Acetaminophen [Percocet 5/325] 1 - 2 tab PO 4X/DAY PRN PRN 7 Days #50 tab 11/21/17 proMETHazine tablet [Phenergan tablet] 25 mg PO 4X/DAY PRN PRN #30 tab 11/21/17 Following Prescrptions Were Given to Patient: Diazepam [Valium] 5 mg PO 4X/DAY PRN PRN #30 tab PRN Reason: Spasms Oxycodone HCl/Acetaminophen [Percocet 5/325] 1 - 2 tab PO 4X/DAY PRN PRN 7 Days #50 tab PRN Reason: Pain proMETHazine tablet [Phenergan tablet] 25 mg PO 4X/DAY PRN PRN #30 tab PRN Reason: Nausea Amox/Clavulanate Tablet [Augmentin Tablet] 875 mg PO BID #20 tab Docusate Sodium [Colace] 100 mg PO BID #60 cap Doxycycline 100 mg PO BID #20 cap Nutritional Supplement [Carloz - ORANGE FLAVOR] 1 packet PO BIDCM #60 packet Nystatin Powder [Mycostatin Powder] 1 applic TOPICAL BID #2 bottle Lactobacillus Acidophilus [Acidophilus] 1 tab PO TID #30 tab Primary Care Physician: Patricia Curry DO [Primary Care Provider] - Please follow up with your Primary Care Physician in: 7-10 days Please Follow Up With: Pepe Garcia MD When: wound care center on 12/08/17 Disposition: Home Minutes spent on discharge:: 35 Patient Condition:: Good Medical Necessity - Tobacco Use Smoking Status: Former smoker Tobacco Use: Cigarettes Meaningful Use Info Meaningful Use Diagnoses (Choose all that apply): None applicable Code Visit Inpatient E AND M: 39445 Disch Hosp 11/26/17 1118 <Electronically signed by Wilmar Frank DO> Date Wilmar Frank DO Cosigner Signature (if applicable): Date CC: Alexa Frank; Pepe Garcia MD; Patricia Curry DO Signed BEDSIDE GLUCOSE Collected: 11/21/2017 Status: F Source: [place] 4:20 PM [facility] REPOSITORY TYPE CODE TESTS RESULT OUT OF REFERENCE UNITS RANGE LAB L501.080 70-110 mg/dL High BEDSIDE GLU 162 Result Comment: MANAGEMENT OF PATIENT CARE PER NURSING PROTOCOL Performed By: #### L501.080 #### [facility] Laboratory Point of Care [address] [place] [address] DISCHARGE INSTRUCTION Observed: 11/21/2017 Status: F Source: [place] 3:18 PM [facility] REPOSITORY [facility] Medical Records Department [address] [place] [address] Instructions for Home/Discharge Instructions 11/21/17 1507 MR#: [id number] Acct: [id number] Name: KEILY MARVIN Rep #: [id number] : 1945 72 From: Wilmar Frank DO PCP: Patricia Curry DO Status: ADM IN - Discharge Diagnoses Current Active Problems: Current Active and Chronic Problems (Last Updated 08/25/17 @ 17:50 by Katy England) Right-sided pubic soft tissue cellulitis (Acute) You will use the following diet at home:: Other - Resume previous diet Your food should be the consistency of: Regular, Mechanical soft (ground) Your liquids should be the consistency of: Regular/Thin Discharge Activity: May not drive while taking narcotic pain medications. Call your doctor if you observe: Fever of 101 or Higher, Inability to urinate, Inability to have a bowel movement, - - Call your PCP if severe diarrhea, painful sores in the mouth, painful swallowing, rash or itching. Increasing redness around the wound, increased sweling or pain in the scrotum, burning with urination. Additional Instructions: Home Health Care has been set up to change the wound vac 3 times a week......M,W,F. Take ALL of the antibiotics as prescribed. Follow up with Dr. Garcia in the wound care center on 12/08/2017 at 8 AM. Pending Tests on Discharge: none Allergies/Adverse Reactions: Allergies ALLIE Inhibitors Adverse Reaction (Intermediate, Verified 11/17/17 14:09) Cough Medications to take at Discharge canagliflozin 100 mg tablet 100 mg PO DAILY 90 Days #90 07/14/17 fenofibrate micronized 134 mg capsule 134 mg PO QHS 90 Days #90 07/14/17 metformin ER 500 mg tablet,extended release 24 hr 500 mg PO BID 30 Days #120 07/14/17 metoprolol tartrate 50 mg tablet 25 mg PO BID 90 Days #90 07/14/17 simvastatin 20 mg tablet 20 mg PO QHS 90 Days #90 07/14/17 vitamin B12 500 mcg-folic acid 400 mcg tablet 1 tab PO QDAY 07/14/17 aspirin 81 mg tablet,delayed release 81 mg PO QDAY tab 07/23/17 coenzyme Q10 100 mg capsule 100 mg PO QDAY 07/23/17 cyanocobalamin (vit B-12) 1,000 mcg tablet 1,000 mcg PO QDAY 07/23/17 amlodipine 2.5 mg tablet 2.5 mg PO QDAY #90 tab 07/29/17 losartan 100 mg tablet 100 mg PO QDAY #90 tab 07/29/17 nitroglycerin 0.4 mg sublingual tablet 0.4 mg SUBLINGUAL Q5M PRN #25 tab 07/30/17 Acetaminophen [Tylenol Tablet] 650 mg PO Q6H PRN PRN tablet 11/21/17 Amox/Clavulanate Tablet [Augmentin Tablet] 875 mg PO BID #20 tab 11/21/17 Diazepam [Valium] 5 mg PO 4X/DAY PRN PRN #30 tab 11/21/17 Docusate Sodium [Colace] 100 mg PO BID #60 cap 11/21/17 Doxycycline 100 mg PO BID #20 cap 11/21/17 Lactobacillus Acidophilus [Acidophilus] 1 tab PO TID #30 tab 11/21/17 Nutritional Supplement [Carloz - ORANGE FLAVOR] 1 packet PO BIDCM #60 packet 11/21/17 Nystatin Powder [Mycostatin Powder] 1 applic TOPICAL BID #2 bottle 11/21/17 Oxycodone HCl/Acetaminophen [Percocet 5/325] 1 - 2 tab PO 4X/DAY PRN PRN 7 Days #50 tab 11/21/17 proMETHazine tablet [Phenergan tablet] 25 mg PO 4X/DAY PRN PRN #30 tab 11/21/17 The following prescriptions were given: Diazepam [Valium] 5 mg PO 4X/DAY PRN PRN #30 tab PRN Reason: Spasms Oxycodone HCl/Acetaminophen [Percocet 5/325] 1 - 2 tab PO 4X/DAY PRN PRN 7 Days #50 tab PRN Reason: Pain proMETHazine tablet [Phenergan tablet] 25 mg PO 4X/DAY PRN PRN #30 tab PRN Reason: Nausea Amox/Clavulanate Tablet [Augmentin Tablet] 875 mg PO BID #20 tab Docusate Sodium [Colace] 100 mg PO BID #60 cap Doxycycline 100 mg PO BID #20 cap Nutritional Supplement [Carloz - ORANGE FLAVOR] 1 packet PO BIDCM #60 packet Nystatin Powder [Mycostatin Powder] 1 applic TOPICAL BID #2 bottle Lactobacillus Acidophilus [Acidophilus] 1 tab PO TID #30 tab Primary Care Physician: Patricia Curry DO [Primary Care Provider] - Please follow up with your Primary Care Physician in: 7-10 days Please Follow Up With: Pepe Garcia MD When: wound care center on 12/08/17 11/21/17 6177 <Electronically signed by Wilmar Frank DO> Date Wilmar Frank DO CC: Pepe Garcia MD; Fantasma Kingsley MD; Patricia Curry DO; Spencer Joseph MD BEDSIDE GLUCOSE Collected: 11/21/2017 Status: F Source: [place] 11:05 AM [facility] REPOSITORY TYPE CODE TESTS RESULT OUT OF REFERENCE UNITS RANGE LAB L501.080 70-110 mg/dL High BEDSIDE GLU 181 Result Comment: MANAGEMENT OF PATIENT CARE PER NURSING PROTOCOL Performed By: #### L501.080 #### [facility] Laboratory Point of Care [address] [place] [address] BEDSIDE GLUCOSE Collected: 11/21/2017 Status: F Source: [place] 6:44 AM [facility] REPOSITORY TYPE CODE TESTS RESULT OUT OF REFERENCE UNITS RANGE LAB L501.080 70-110 mg/dL High BEDSIDE GLU 121 Result Comment: MANAGEMENT OF PATIENT CARE PER NURSING PROTOCOL Performed By: #### L501.080 #### [facility] Laboratory Point of Care [address] [facility] [place] [address] CRP Collected: 11/21/2017 Status: F Source: [place] 5:30 AM [facility] REPOSITORY TYPE CODE TESTS RESULT OUT OF RANGE REFERENCE UNITS LAB L501.6710 0.0-3.0 mg/L High 68.40 C-REACTIVE PROT Result Comment: C-Reactive Protein (CRP) provides useful information for the diagnosis, therapy and monitoring of inflammatory processes and associated diseases. For the evaluation of Relative Risk for Cardiovascular Disease, a High Sensitivity CRP (HSCRP) should be ordered. Performed By: #### L501.6710 #### [facility] [address] [place], [place], [address] BEDSIDE GLUCOSE Collected: 11/20/2017 Status: F Source: [place] 9:27 PM [facility] REPOSITORY TYPE CODE TESTS RESULT OUT OF REFERENCE UNITS RANGE LAB L501.080 70-110 mg/dL High BEDSIDE GLU 122 Result Comment: MANAGEMENT OF PATIENT CARE PER NURSING PROTOCOL Performed By: #### L501.080 #### [facility] Point of Care [address] [place], [place] [id number] BEDSIDE GLUCOSE Collected: 11/20/2017 Status: F Source: [place] 4:08 PM [facility] REPOSITORY TYPE CODE TESTS RESULT OUT OF REFERENCE UNITS RANGE LAB L501.080 70-110 mg/dL High BEDSIDE GLU 145 Result Comment: MANAGEMENT OF PATIENT CARE PER NURSING PROTOCOL Performed By: #### L501.080 #### [facility] Point of Care [address] [place], [place] [address] VANCOMYCIN, TROUGH Collected: 11/20/2017 Status: F Source: [place] LEVEL 3:15 PM [facility] REPOSITORY Order Comment: Time Medication is to be Given? 1600 TYPE CODE TESTS RESULT OUT OF RANGE REFERENCE UNITS LAB L501.8820 5.0-15.0 ug/mL Normal VANCO, TROUGH 9.5 Result Comment: VANCOMYCIN STANDARED DRUG THERAPY TROUGH LEVEL: 5.0 - 15.0 mg/L VANCOMYCIN HIGH INTENSITY THERAPY TROUGH LEVEL: 15.0 - 20.0 mg/L High Intensity therapy recommended for serious life threatening infections include: - Meningitis -Endocarditis -Pneumonia (Ventilator/Healtcare Associated) -Sepsis PLEASE CONTACT PHARMACY SERVICES (#[id number]) FOR INTERPRETATION OF RESULTS. Performed By: #### L501.8820 #### [facility] [address] [place], [place], [address] BEDSIDE GLUCOSE Collected: 11/20/2017 Status: F Source: [place] 10:59 AM [facility] REPOSITORY TYPE CODE TESTS RESULT OUT OF REFERENCE UNITS RANGE LAB L501.080 70-110 mg/dL High BEDSIDE GLU 183 Result Comment: MANAGEMENT OF PATIENT CARE PER NURSING PROTOCOL Performed By: #### L501.080 #### [facility] Point of Care [address] [place] [address] CONSULTATION Observed: 11/20/2017 Status: F Source: [place] 10:37 AM [facility] REPOSITORY [facility] Medical Records Department [address] [place] [address] Consultation 11/20/17 1033 MR#: [id number] Acct: [id number] Name: KEILY MARVIN Rep #: [id number] : 1945 72 From: Spencer Joseph MD PCP: Patricia Curry DO Status: ADM IN Y Location: [place] [address] Problem List (1) Right-sided pubic soft tissue cellulitis Status: Acute Reason for Consult: mrsa Consulted by: Dr. Frank History of Present Illness: The patient is a 72 year old M with DM who presented 11/17 with several days of progressive pubic itching, pain, swelling. Pain became severe, no drainage, associated with fever. Had abscess on his back in the past few months, drained at urgent care. Came to ED, cxs sent, taken to OR by Dr. Garcia. On vanc/zosyn/fluc, feeling better. Wound vac in place. Full ROS performed and neg except as noted above. - Medical History Past Medical History (Chronic Problems): Chronic Problems (Last Updated 08/25/17 @ 17:50 by Katy England) Old myocardial infarction (Chronic) Overweight (Chronic) Impacted cerumen of both ears (Chronic) S/P CABG x 5 (Chronic) BATISTA to LAD, SVG to DX-DX sequential and OM arteries; and right radial artery graft to the RCA 09/13/[address] García History of left heart catheterization (Chronic) 09/10/[address] [facility] [address]. 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) Allergies/Adverse Reactions: Allergies ALLIE Inhibitors Adverse Reaction (Intermediate, Verified 11/17/17 14:09) Cough Home Medications: Ambulatory Orders Medication Instructions Recorded canagliflozin 100 mg tablet 100 mg PO DAILY 90 Days #90 07/14/17 - Social History SMOKING STATUS:: Never smoker Vital Signs Temp Pulse Resp BP Pulse Ox 98.8 F 73 18 121/59 H 93 11/20/17 10:08 11/20/17 10:09 11/20/17 10:08 11/20/17 10:08 11/20/17 10:08 Oxygen Flow Rate (L/min) 2 Oxygen Delivery Method Room Air Weight: 118.45 kg Body Mass Index (BMI) 32.5 Microbiology Past 72 Hours 11/18/17 Unknown Gram Stain - Final Biopsy - Other Wound Culture - Preliminary Laboratory Tests Past 24 Hrs WBC 7.1 RBC 4.00 L Hgb 12.1 L Hct 37.1 L MCV 92.8 MCH 30.3 MCHC 32.6 - Other Studies Radiology: [] reviewed Other Studies: [] Route of nutrition/ use of supplements: [] Nutritional Intake: [] IV Site: [] [place] Catheter: [] - Physical Exam General: Alert, Oriented x3, Cooperative, No apparent distress HEENT: Atraumatic, PERRLA, EOMI Neck: Supple, No Nodes Lungs: Clear to auscultation, Normal air movement Cardiovascular: Regular rate, Regular Rhythm, No murmurs Abdomen: Bowel Sounds Present, Soft, Non Tender, Non-Distended Extremities: Edema Skin: Ulcer/ Wound - pubic wound vac in place, reviewed photo IV Site: Peripheral, without redness Musculoskeletal: No Tenderness to Palpation of Joints or Extremities Neurological: Cranial nerves II-XII grossly intact - Assessment/Plan Antibiotics: [] Assessment/Plan: [] Active and Suspected Problems (Last Updated 08/25/17 @ 17:50 by Katy England) Right-sided pubic soft tissue cellulitis (Acute) 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 Cxs with MRSA so far. Cont abx. Will follow, thank you. 11/20/17 1037 <Electronically signed by Spencer Joseph MD> Date Spencer Joseph MD Cosigner Signature (if applicable): Date CC: Pepe Garcia MD; Fantasma Kingsley MD; Patricia Curry DO; Spencer Joseph MD Signed BEDSIDE GLUCOSE Collected: 11/20/2017 Status: F Source: [place] 6:50 AM [facility] REPOSITORY TYPE CODE TESTS RESULT OUT OF REFERENCE UNITS RANGE LAB L501.080 70-110 mg/dL High BEDSIDE GLU 137 Result Comment: MANAGEMENT OF PATIENT CARE PER NURSING PROTOCOL Performed By: #### L501.080 #### [facility] [place] [address] [address] CBC W/DIFF, AUTOMATED Collected: 11/20/2017 Status: F Source: [place] 5:30 AM [facility] REPOSITORY TYPE CODE TESTS RESULT OUT OF RANGE REFERENCE UNITS LAB L100.1000 4.4-11.0 K/mm3 Normal WBC 7.1 LAB L100.1200 4.6-6.2 M/mm3 Low RBC 4.00 LAB L100.1300 13.0-16.5 g/dl Low HGB 12.1 LAB L100.1400 40-54 % Low HCT 37.1 LAB L100.1500 80-94 fL Normal MCV 92.8 LAB L100.1600 27.0-32.0 pg Normal MCH 30.3 LAB L100.1700 32-36 g/gl Normal MCHC 32.6 LAB L100.1810 11.6-14.6 % Normal RDW CV 13.8 LAB L100.1820 35.1-43.9 fl High RDW SD 46.1 LAB L100.1900 150-450 K/mm3 Normal PLT 208 LAB L100.2000 6.2-12.0 fl Normal MPV 9.4 LAB L100.2100 47-70 % Normal NEUT% 63.8 LAB L100.2200 19-41 % Normal LY% 21.1 LAB L100.2300 0-10 % High MONO% 11.0 LAB L100.2400 0-5 % Normal EO% 3.7 LAB L100.2500 0-1 % Normal BASO% 0.3 LAB L100.2550 0.0-0.9 % Normal IM GRAN % 0.100 Result Comment: IG% - Immature Granulocytes (promyelocytes, myelocytes and metamyelocytes) > 1% indicates that a LEFT SHIFT is Present. LAB L100.2620 2.0-7.7 X10 3/uL Normal Absolute Neut 4.5 LAB L100.2720 0.83-4.51 X10 3/ul Normal Absolute Lymph 1.49 Performed By: #### L100.0100 #### [facility] [address] [place], [address] BASIC METABOLIC Collected: 11/20/2017 Status: F Source: [place] PROFILE (BMP) 5:30 AM [facility] REPOSITORY TYPE CODE TESTS RESULT OUT OF RANGE REFERENCE UNITS LAB L501.0100 74-106 mg/dL High GLU 124 Result Comment: Fasting Glucose result from 100 to 125 mg/dL suggests IMPAIRED HOMEOSTASIS per A.D.A. criteria. Please note revised GLUCOSE reference range effective 2017. LAB L501.1000 7-18 mg/dL Normal BUN 12 LAB L501.1100 0.70-1.30 mg/dL Normal CREAT,SERUM 1.01 Result Comment: The validity of the calculated GFR AND GFRAA in patients over 70 years has not been determined. Clinical correlation is essential. LAB L501.1110 >60 mL/min Normal EST GFR 78 Result Comment: Non- GFR Calc LAB L501.1115 >60 mL/min Normal EST GFR - AA 94 Result Comment: GFR Calc LAB L501.1255 ml/min Normal Estimated CRCL 81.34 LAB L501.1300 10-20 RATIO Normal BUN/CRE 11.9 LAB L501.2200 8.5-10 mg/dL Low .1 CA 8.1 LAB L501.5300 136-14 mmol/L Normal 5 NA 142 LAB L501.5600 3.5-5. mmol/L Normal 1 K 4.1 LAB L501.5900 98-107 mmol/L Normal CL 107 LAB L501.6100 21.0-3 mmol/L Normal 2.0 CO2 27.0 LAB L501.6200 5-15 Normal GAP 8 Performed By: #### L500.2500 #### [facility] [address] [place], [address] BEDSIDE GLUCOSE Collected: 11/19/2017 Status: F Source: [place] 9:05 PM [facility] REPOSITORY TYPE CODE TESTS RESULT OUT OF REFERENCE UNITS RANGE LAB L501.080 70-110 mg/dL High BEDSIDE GLU 166 Result Comment: MANAGEMENT OF PATIENT CARE PER NURSING PROTOCOL Performed By: #### L501.080 #### [facility] Point of Care [address] [place] [address] BEDSIDE GLUCOSE Collected: 11/19/2017 Status: F Source: [place] 4:29 PM [facility] REPOSITORY TYPE CODE TESTS RESULT OUT OF REFERENCE UNITS RANGE LAB L501.080 70-110 mg/dL High BEDSIDE GLU 131 Result Comment: MANAGEMENT OF PATIENT CARE PER NURSING PROTOCOL Performed By: #### L501.080 #### [facility] Point of Care [address] [place] [address] BEDSIDE GLUCOSE Collected: 11/19/2017 Status: F Source: [place] 11:23 AM [facility] REPOSITORY TYPE CODE TESTS RESULT OUT OF REFERENCE UNITS RANGE LAB L501.080 70-110 mg/dL High BEDSIDE GLU 139 Result Comment: MANAGEMENT OF PATIENT CARE PER NURSING PROTOCOL Performed By: #### L501.080 #### [facility] Point of Care [address] [place] [address] BEDSIDE GLUCOSE Collected: 11/19/2017 Status: F Source: [place] 6:29 AM [facility] REPOSITORY TYPE CODE TESTS RESULT OUT OF REFERENCE UNITS RANGE LAB L501.080 70-110 mg/dL High BEDSIDE GLU 167 Result Comment: MANAGEMENT OF PATIENT CARE PER NURSING PROTOCOL Performed By: #### L501.080 #### [facility] Point of Care [address] [place] [address] CBC W/DIFF, AUTOMATED Collected: 11/19/2017 Status: F Source: [place] 5:30 AM [facility] REPOSITORY TYPE CODE TESTS RESULT OUT OF RANGE REFERENCE UNITS LAB L100.1000 4.4-11.0 K/mm3 Normal WBC 10.8 LAB L100.1200 4.6-6.2 M/mm3 Low RBC 3.83 LAB L100.1300 13.0-16.5 g/dl Low HGB 11.6 LAB L100.1400 40-54 % Low HCT 35.7 LAB L100.1500 80-94 fL Normal MCV 93.2 LAB L100.1600 27.0-32.0 pg Normal MCH 30.3 LAB L100.1700 32-36 g/gl Normal MCHC 32.5 LAB L100.1810 11.6-14.6 % Normal RDW CV 14.2 LAB L100.1820 35.1-43.9 fl High RDW SD 47.1 LAB L100.1900 150-450 K/mm3 Normal PLT 173 LAB L100.2000 6.2-12.0 fl Normal MPV 9.9 LAB L100.2100 47-70 % High NEUT% 72.8 LAB L100.2200 19-41 % Low LY% 13.8 LAB L100.2300 0-10 % High MONO% 10.2 LAB L100.2400 0-5 % Normal EO% 2.8 LAB L100.2500 0-1 % Normal BASO% 0.2 LAB L100.2550 0.0-0.9 % Normal IM GRAN % 0.200 Result Comment: IG% - Immature Granulocytes (promyelocytes, myelocytes and metamyelocytes) > 1% indicates that a LEFT SHIFT is Present. LAB L100.2620 2.0-7.7 X10 3/uL High Absolute Neut 7.9 LAB L100.2720 0.83-4.51 X10 3/ul Normal Absolute Lymph 1.49 Performed By: #### L100.0100 #### [facility] [address] [place], [address] COMPREHENSIVE METABOLIC Collected: 11/19/2017 Status: F Source: [facility] 5:30 AM [facility] REPOSITORY TYPE CODE TESTS RESULT OUT OF RANGE REFERENCE UNITS LAB L501.0100 74-106 mg/dL High GLU 180 Result Comment: Fasting Glucose result greater than or equal to 126 mg/dL suggests DIABETES MELLITUS per A.D.A. criteria. Please note revised GLUCOSE reference range effective 2017. LAB L501.1000 7-18 mg/dL Normal BUN 18 LAB L501.1100 0.70-1.30 mg/dL Normal CREAT,SERUM 1.14 Result Comment: The validity of the calculated GFR AND GFRAA in patients over 70 years has not been determined. Clinical correlation is essential. LAB L501.1110 >60 mL/min Normal EST GFR 68 Result Comment: Non- GFR Calc LAB L501.1115 >60 mL/min Normal EST GFR - AA 82 Result Comment: GFR Calc LAB L501.1255 ml/min Normal Estimated CRCL 72.06 LAB L501.1300 10-20 RATIO Normal BUN/CRE 15.8 LAB L501.1500 6.4-8. g/dL Low 2 T PROT 5.7 LAB L501.1800 3.2-5. g/dL Low 0 ALB 2.5 LAB L501.1950 2.2-4. g/dL Normal 2 GLOB 3.2 LAB L501.2000 0.9-2. RATIO Low 4 A/G 0.8 LAB L501.2200 8.5-10 mg/dL Low .1 CA 7.6 LAB L501.4100 15-37 U/L Normal AST 16 LAB L501.4305 45-117 U/L Low ALK P 30 LAB L501.4405 16-61 U/L Normal ALT 16 LAB L501.4600 0.20-1 mg/dL Normal .00 T BILI 0.30 LAB L501.5300 136-14 mmol/L Normal 5 NA 140 LAB L501.5600 3.5-5. mmol/L Normal 1 K 3.8 LAB L501.5900 98-107 mmol/L Normal CL 106 LAB L501.6100 21.0-3 mmol/L Normal 2.0 CO2 25.0 LAB L501.6200 5-15 Normal GAP 9 Performed By: #### L500.4050, L501.2300, L501.5200, L506.0500 #### [facility] [address] [place], [address] PHOSPHORUS Collected: 11/19/2017 Status: F Source: [place] 5:30 AM [facility] REPOSITORY TYPE CODE TESTS RESULT OUT OF RANGE REFERENCE UNITS LAB L501.2300 2.5-4.9 mg/dL Normal PHOS 2.9 Performed By: #### L500.4050, L501.2300, L501.5200, L506.0500 #### [facility] [address] [place], [address] MAGNESIUM Collected: 11/19/2017 Status: F Source: [place] 5:30 AM [facility] REPOSITORY TYPE CODE TESTS RESULT OUT OF RANGE REFERENCE UNITS LAB L501.5200 1.6-2.6 mg/dL Normal MG 2.0 Performed By: #### L500.4050, L501.2300, L501.5200, L506.0500 #### [facility] [address] [place], [address] PREALBUMIN Collected: 11/19/2017 Status: F Source: [place] 5:30 AM [facility] REPOSITORY TYPE CODE TESTS RESULT OUT OF REFERENCE UNITS RANGE LAB L506.0500 20.0-40.0 mg/dL Low PREALBUMIN 9.8 Performed By: #### L500.4050, L501.2300, L501.5200, L506.0500 #### [facility] [address] [place], [address] BEDSIDE GLUCOSE Collected: 11/18/2017 Status: F Source: [place] 10:56 PM [facility] REPOSITORY TYPE CODE TESTS RESULT OUT OF REFERENCE UNITS RANGE LAB L501.080 70-110 mg/dL High BEDSIDE GLU 191 Result Comment: MANAGEMENT OF PATIENT CARE PER NURSING PROTOCOL Performed By: #### L501.080 #### [facility] Point of Care [address] [place] [address] BEDSIDE GLUCOSE Collected: 11/18/2017 Status: F Source: [place] 6:00 PM [facility] REPOSITORY TYPE CODE TESTS RESULT OUT OF RANGE REFERENCE UNITS LAB L501.080 70-110 mg/dL Normal BEDSIDE GLU 104 Result Comment: MANAGEMENT OF PATIENT CARE PER NURSING PROTOCOL Performed By: #### L501.080 #### [facility] Point of Care [address] [place] [address] SOFT TISSUE Observed: 11/18/2017 Status: F Source: [place] 11:45 AM [facility] REPOSITORY Patient: KEILY MARVIN : 1945 (72/M) Acct Num: [id number] Phys: Alexa Frank Unit Num: [id number] Loc: MS3 [id number] Specimen: [id number] Received: 11/19/17916 Spec Type: SOFT TISS TISSUES TISSUES: Soft tissues, NOS GROSS DESCRIPTION Received in fixative is one container labeled with the patient's name and designated right groin/pubic area soft tissue. The specimen consists of a piece of skin with underlying tissue measuring 12.5 x 8 cm and up to 5 cm in thickness. Also received are additional pieces of skin with soft tissue measuring in aggregate 12 x 11 x 3 cm. Sections reveal focal area filled with fibrinopurulent material. No mass lesion is identified. Control Valve Technician sections are submitted in three cassettes. / SJ:shane 11/19/17 TC:2 CPT: 81209, 39474 x2 HEADER OPERATION: Incision and drainage abscess groin/pubic PRE-OP DIAGNOSIS: Right groin/pubic area abscess TISSUE SUBMITTED: Right groin/pubic area soft tissue MICROSCOPIC DESCRIPTION Slides are reviewed. MICROSCOPIC DIAGNOSIS Right groin/pubic area soft tissue: Pieces of skin with underlying tissue with acute inflammation and abscess formation. Special stains for acid fast bacilli and fungi are negative for organisms; matched controls are appropriate. SJ:shane 11/20/17 Signed Gilbert Saldana 11/20/17 <signature on file> Performed By: #### PSOF #### [facility] [address] [place], [address] BEDSIDE GLUCOSE Collected: 11/18/2017 Status: F Source: [place] 11:03 AM [facility] REPOSITORY TYPE CODE TESTS RESULT OUT OF REFERENCE UNITS RANGE LAB L501.080 70-110 mg/dL High BEDSIDE GLU 168 Result Comment: MANAGEMENT OF PATIENT CARE PER NURSING PROTOCOL Performed By: #### L501.080 #### [facility] Point of Care [address] [place] [address] BEDSIDE GLUCOSE Collected: 11/18/2017 Status: F Source: [place] 6:55 AM [facility] REPOSITORY TYPE CODE TESTS RESULT OUT OF REFERENCE UNITS RANGE LAB L501.080 70-110 mg/dL High BEDSIDE GLU 113 Result Comment: MANAGEMENT OF PATIENT CARE PER NURSING PROTOCOL Performed By: #### L501.080 #### [facility] Point of Care [address] [place] [address] CBC W/DIFF, AUTOMATED Collected: 11/18/2017 Status: F Source: [place] 5:50 AM [facility] REPOSITORY TYPE CODE TESTS RESULT OUT OF RANGE REFERENCE UNITS LAB L100.1000 4.4-11.0 K/mm3 High WBC 13.2 LAB L100.1200 4.6-6.2 M/mm3 Low RBC 4.37 LAB L100.1300 13.0-16.5 g/dl Normal HGB 13.2 LAB L100.1400 40-54 % Normal HCT 40.1 LAB L100.1500 80-94 fL Normal MCV 91.8 LAB L100.1600 27.0-32.0 pg Normal MCH 30.2 LAB L100.1700 32-36 g/gl Normal MCHC 32.9 LAB L100.1810 11.6-14.6 % Normal RDW CV 14.1 LAB L100.1820 35.1-43.9 fl High RDW SD 46.6 LAB L100.1900 150-450 K/mm3 Normal PLT 175 LAB L100.2000 6.2-12.0 fl Normal MPV 9.7 LAB L100.2100 47-70 % High NEUT% 79.3 LAB L100.2200 19-41 % Low LY% 10.0 LAB L100.2300 0-10 % Normal MONO% 9.2 LAB L100.2400 0-5 % Normal EO% 1.1 LAB L100.2500 0-1 % Normal BASO% 0.2 LAB L100.2550 0.0-0.9 % Normal IM GRAN % 0.200 Result Comment: IG% - Immature Granulocytes (promyelocytes, myelocytes and metamyelocytes) > 1% indicates that a LEFT SHIFT is Present. LAB L100.2620 2.0-7.7 X10 3/uL High Absolute Neut 10.4 LAB L100.2720 0.83-4.51 X10 3/ul Normal Absolute Lymph 1.31 Performed By: #### L100.0100 #### [facility] [address] [place], [place], [address] BASIC METABOLIC Collected: 11/18/2017 Status: F Source: [place] PROFILE (BMP) 5:50 AM [facility] REPOSITORY TYPE CODE TESTS RESULT OUT OF RANGE REFERENCE UNITS LAB L501.0100 74-106 mg/dL Normal GLU 102 Result Comment: Fasting Glucose result from 100 to 125 mg/dL suggests IMPAIRED HOMEOSTASIS per A.D.A. criteria. Please note revised GLUCOSE reference range effective 2017. LAB L501.1000 7-18 mg/dL Normal BUN 18 LAB L501.1100 0.70-1.30 mg/dL Normal CREAT,SERUM 1.10 Result Comment: The validity of the calculated GFR AND GFRAA in patients over 70 years has not been determined. Clinical correlation is essential. LAB L501.1110 >60 mL/min Normal EST GFR 70 Result Comment: Non- GFR Calc LAB L501.1115 >60 mL/min Normal EST GFR - AA 85 Result Comment: GFR Calc LAB L501.1255 ml/min Normal Estimated CRCL 74.68 LAB L501.1300 10-20 RATIO Normal BUN/CRE 16.4 LAB L501.2200 8.5-10 mg/dL Low .1 CA 8.1 LAB L501.5300 136-14 mmol/L Normal 5 NA 138 LAB L501.5600 3.5-5. mmol/L Normal 1 K 4.0 LAB L501.5900 98-107 mmol/L Normal CL 105 LAB L501.6100 21.0-3 mmol/L Normal 2.0 CO2 24.0 LAB L501.6200 5-15 Normal GAP 9 Performed By: #### L500.2500 #### [facility] [address] [place], [address] ERYTHROCYTE SED RATE Collected: 11/18/2017 Status: F Source: [place] 5:50 AM [facility] REPOSITORY TYPE CODE TESTS RESULT OUT OF RANGE REFERENCE UNITS LAB L102.0000 0-20 mm/hr High SED RATE 35 Performed By: #### L101.9900 #### [facility] [address] [place], [address] CRP Collected: 11/18/2017 Status: F Source: [place] 5:50 AM [facility] REPOSITORY TYPE CODE TESTS RESULT OUT OF RANGE REFERENCE UNITS LAB L501.6710 0.0-3.0 mg/L High 152.00 C-REACTIVE PROT Result Comment: C-Reactive Protein (CRP) provides useful information for the diagnosis, therapy and monitoring of inflammatory processes and associated diseases. For the evaluation of Relative Risk for Cardiovascular Disease, a High Sensitivity CRP (HSCRP) should be ordered. Performed By: #### L501.6710 #### [facility] [address] [place], [address] MRSA WOUND DNA BY Collected: 11/18/2017 Status: F Source: [place] PCR 12:00 AM [facility] REPOSITORY Order Comment: RESULTS CALLED TO JACI BYNUM 11/18/172126 Velma Valadez. REPORT READ BACK BY SAME. Comments: RIGHT GROIN/PUBIC AREA SOFT TISSUE Specimen Source? RIGHT GROIN/PUBIC AREA SOFT TISSUE TYPE CODE TESTS RESULT OUT OF REFERENCE UNITS RANGE LAB L8200.1100 Negative High MRSA POSITIVE RESULT LAB L8200.1150 Negative High SA RESULT POSITIVE Performed By: #### L8200.1075 #### [facility] [address] [place], [address] Observed: 11/18/2017 Status: F Source: [place] CULTURE, DEEP WOUND 12:00 AM [facility] REPOSITORY Order Date: 01/01/17 Comments: RIGHT GROIN/PUBIC AREA SOFT TISSUE Gram Stain Gram Stain 3+ Red Blood Cells Rare White Blood Cells Rare Gram positive cocci Wound Culture RESULTS CALLED TO VANDANA Okeefe 11/21/17 0751 Rachael Hussein. Copy of report sent to Infection Control Printer [id number] 11/21/17 0752 MOUSTAPHA. ORGANISM 1: Meth. resistant Staph. aureus Amount Growth 2+ Meth. resistant Staph. aureus: REACTION Benzylpenicillin NF >=0.5 R Cefoxitin *NF + Clindamycin $$ <=0.25 S Inducable Clindamycin [place] - Erythromycin $ >=8 R Gentamicin $ <=0.5 S Levofloxacin $ 0.25 S Linezolid $$$$ 2 S Oxacillin NF >=4 R Tigecycline $$$$ <=0.12 S Rifampin $$ <=0.5 S Tetracycline NF <=1 S Trimethoprim/Sulfametho $ <=10 S Vancomycin $ 1 S (NF) indicates non-formulary drug at [facility]. Approval by Infectious Disease Specialist required before non-formulary drugs may be ordered and/or dispensed. * CLSI guidelines does not recommend testing of cephalosporins. This interpretation is deduced from Beta-lactam/penicillin results. Cult, Anaerobic No anaerobic bacteria isolated. Performed By: #### M100.1500 #### [facility] [address] [place], [address] Observed: 11/18/2017 Status: F Source: JEANNETTE GARCIA W/ 12:00 [facility] [id number] REPOSITORY Comments: RIGHT GROIN/PUBIC AREA SOFT TISSUE Is this test to exclude patient from TB Isolation? N Cu,[id number] TESTING PERFORMED AT [facility]. ORIGINAL REPORT ON FILE IN LAB CONTAINS ADDITIONAL TEST SITE INFORMATION. CUF No yeast or mold isolated after [address] TESTING PERFORMED AT [facility]. ORIGINAL REPORT ON FILE IN LAB CONTAINS ADDITIONAL TEST SITE INFORMATION. Fungus Stain No yeast or mold observed. Performed By: #### M600.1900 #### [facility] [address] [place], [address] BEDSIDE GLUCOSE Collected: 11/17/2017 Status: F Source: [place] 9:35 PM [facility] REPOSITORY TYPE CODE TESTS RESULT OUT OF REFERENCE UNITS RANGE LAB L501.080 70-110 mg/dL High BEDSIDE GLU 158 Result Comment: MANAGEMENT OF PATIENT CARE PER NURSING PROTOCOL Performed By: #### L501.080 #### [facility] Point of Care [address] [facility] [place], [place] [address] (572) LACTIC ACID Collected: 11/17/2017 Status: F Source: [place] 8:50 PM [facility] REPOSITORY Order Comment: Yes/No query for Sepsis Lactate Rule Y TYPE CODE TESTS RESULT OUT OF RANGE REFERENCE UNITS LAB L503.6005 0.4-2.0 mmol/L Normal LACTIC ACID 1.0 Performed By: #### L503.6005 #### [facility] [place], [place], [address] ([phone] BEDSIDE GLUCOSE Collected: 11/17/2017 Status: F Source: [place] 7:07 PM [facility] REPOSITORY TYPE CODE TESTS RESULT OUT OF REFERENCE UNITS RANGE LAB L501.080 70-110 mg/dL High BEDSIDE GLU 128 Result Comment: MANAGEMENT OF PATIENT CARE PER NURSING PROTOCOL Performed By: #### L501.080 #### [facility] Point of Care [address] [facility] [facility] [place], [place] [address] HISTORY AND PHYSICAL Observed: 11/17/2017 Status: F Source: [place] EXAM 6:52 PM [facility] REPOSITORY [facility] Medical Records Department [address] [place] [id number] History and Physical 11/17/17 1830 MR#: [id number] Acct: [id number] Name: KEILY MARVIN Rep #: [id number] : 1945 72 From: Trav Abbott MD PCP: Patricia Curry DO Status: ADM IN Y Location: MS3 [id number] ADDENDUM by Trav Abbott MD on 11/17/17 at 1852 Code Visit Urologist Dr. Kingsley is consulted physician. 11/17/17 1852 <Electronically signed by Trav Abbott MD> Date Trav Abbott MD cc: Patricia Curry DO; Trav Abbott MD * Signed Problem List (1) Right-sided pubic soft tissue cellulitis Status: Acute (2) Abnormal cardiovascular stress test Status: Acute (3) Old myocardial infarction Status: Chronic (4) Overweight Status: Chronic (5) Impacted cerumen of both ears Status: Chronic (6) S/P CABG x 5 Status: Chronic Comment: BATISTA to LAD, SVG to DX-DX sequential and OM arteries; and right radial artery graft to the RCA 09/13/[address] García (7) History of left heart catheterization Status: Chronic Comment: 09/10/[address] [facility] [address] Moore> CABG X5 (8) Hyperlipidemia Status: Chronic Qualifiers: (9) Hypertension Status: Chronic Qualifiers: (10) History of myocardial infarction of inferoposterior wall Status: Chronic (11) Atherosclerotic heart disease of [place] coronary artery without angina pectoris Status: Chronic Qualifiers: History of Present Illness Date of Admission: 11/17/17 Chief Complaint: Fever with right groin swelling for 3 days The patient is a 72 year old M with history of coronary artery disease status post CABG in August 2002, diabetes mellitus type 2 with good glycemic control came to ER with fever and right groin swelling since Friday. Patient noticed this spontaneously erythematous, hardness over right groin region the subcutaneous fat. No change in urinary stream. Denies purulent discharge per urethra, other lower urinary tract symptoms. Patient has chronic constipation for about 1 year moves bowel in 2-3 days. Has nausea but denies vomiting. Patient noticed to have fever 102 in the urgent care and was sent here. Did not had antibiotic care. In ED, temperature was 100 Fahrenheit, with no tachycardia, tachypnea or hypoxia. CT pelvis was done and reported as diffuse subcutaneous edema or cellulitis lateral to right inguinal canal is diffuse stranding in subcutaneous fat extending anteriorly into inferior pubic fat and extending along the dorsal surface of proximal penile shaft. ED physician discussed with Dr. Kingsley and an absence of abscess does not need any surgical maneuver/procedure at this point of time. [] Past Medical History Past Medical History (Chronic Problems): Chronic Problems (Last Updated 08/25/17 @ 17:50 by Katy England) Old myocardial infarction (Chronic) Overweight (Chronic) Impacted cerumen of both ears (Chronic) S/P CABG x 5 (Chronic) BATISTA to LAD, SVG to DX-DX sequential and OM arteries; and right radial artery graft to the RCA 09/13/[address] García History of left heart catheterization (Chronic) 09/10/[address] [facility] [address] 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) Medical History: Medical History (Last Updated 08/25/17 @ 17:50 by Katy England) Abnormal cardiovascular stress test (Acute) R94.39 Old myocardial infarction (Chronic) I25.2 Hyperlipidemia (Chronic) E78.5 Hypertension (Chronic) I10 History of myocardial infarction of inferoposterior wall (Chronic) I25.2 Atherosclerotic heart disease of [place] coronary artery without angina pectoris (Chronic) I25.10 Diabetes E11.9 Allergies ALLIE Inhibitors Adverse Reaction (Intermediate, Verified 11/17/17 14:09) Cough Home Medications: Ambulatory Orders Medication Instructions Recorded canagliflozin 100 mg tablet 100 mg PO DAILY 90 Days #90 07/14/17 fenofibrate micronized 134 mg 1 tab PO DAILY 90 Days #90 07/14/17 Surgical History: Surgical History (Last Updated 07/29/17 @ 10:49 by Justine Angulo) S/P CABG x 5 (Chronic) Z95.1 BATISTA to LAD, SVG to DX-DX sequential and OM arteries; and right radial artery graft to the RCA 09/13/[address] García History of left heart catheterization (Chronic) Z98.890 09/10/[address] [facility] [address] Moore> CABG X5 Smoking Status: Former smoker Tobacco Use: Cigarettes - *Family History Paternal Family History: Family History (Last Updated 07/29/17 @ 10:47 by Justine Angulo) Father Myocardial infarction COPD (chronic obstructive pulmonary disease) Brother CAD (coronary artery disease) Myocardial infarction History Items: No pertinent history Review of Systems Constitutional: Reports: Chills, Fever. Denies: Weight Change HEENT: Denies: Head Aches, Sinus Congestion, Sinus Drainage Cardiovascular: Denies: Chest Pain, Palpitations Respiratory: Denies: Cough, Shortness of breath at rest, Sputum production Gastrointestinal: Reports: Abdominal Pain, Nausea. Denies: Vomiting Genitourinary: Denies: Dysuria Musculoskeletal: Denies: Joint Pain, Joint Tenderness Skin: Reports: Rash. Denies: Wounds Neurological: Denies: Numbness, Tingling, Focal weakness Psychiatric: Denies: Anxiety, Depression, Homicidal Ideations, Suicidal Ideations Hematologic/ Lymphatic: Denies: Easy Bruising, Easy Bleeding VTE Information - Inpt Only VTE Present on Admission: No VTE Mechan Device Prophylaxis: SCD's VTE Pharm Prophylaxis ordered?: Yes Patient Problems: Active and Suspected Problems (Last Updated 08/25/17 @ 17:50 by Katy England) Right-sided pubic soft tissue cellulitis (Acute) - Physical Exam General: Alert, Oriented x3, Cooperative HEENT: Atraumatic, PERRLA, EOMI, Normocephalic Neck: Supple, No JVD, Negative Carotid Bruits Lungs: Clear to auscultation, Normal air movement, No rhonchi, No wheeze Cardiovascular: Regular rate, Regular Rhythm, Normal S1, Normal S2, No murmurs Abdomen: Bowel Sounds Present, Soft, Tender - Mild tenderness of subcutaneous fat along right inguinal region. No scrotal tenderness/penile tenderness. No discharge per urethra., No hernias noted - No impulse on coughing at deep ring. Small umbilical small fat hernia, - Extremities: No edema, Capillary Refill Less than 3 Seconds Skin: Rash Present - Erythematous rash present over right pelvic and inguinal region along with induration and hardness. Musculoskeletal: No Tenderness to Palpation of Joints or Extremities Neurological: Cranial nerves II-XII grossly intact Psych/Mental Status: Normal Affect, Appropriate Vital Signs Temp Pulse Resp BP Pulse Ox 100 F H 69 16 135/68 H 95 11/17/17 14:08 11/17/17 18:17 11/17/17 18:17 11/17/17 18:17 11/17/17 18:17 Oxygen Delivery Method Room Air Weight: 258 lb Body Mass Index (BMI) 32.2 Laboratory Tests Past 24 Hrs Assessment/Plan All Active Problems (Last Updated 08/25/17 @ 17:50 by Katy England) Right-sided pubic soft tissue cellulitis (Acute) Abnormal cardiovascular stress test (Acute) The patient is a 72 year old M with history of coronary artery disease status post CABG in August 2002, diabetes mellitus type 2 with good glycemic control came to ER with fever and right groin swelling since Friday. Patient noticed this spontaneously erythematous, hardness over right groin region the subcutaneous fat. No change in urinary stream. Denies purulent discharge per urethra, other lower urinary tract symptoms. Patient has chronic constipation for about 1 year moves bowel in 2-3 days. Has nausea but denies vomiting. Patient noticed to have fever 102 in the urgent care and was sent here. Did not had antibiotic care. In ED, temperature was 100 Fahrenheit, with no tachycardia, tachypnea or hypoxia. CT pelvis was done and reported as diffuse subcutaneous edema or cellulitis lateral to right inguinal canal is diffuse stranding in subcutaneous fat extending anteriorly into inferior pubic fat and extending along the dorsal surface of proximal penile shaft. ED physician discussed with Dr. Kingsley and an absence of abscess does not need any surgical maneuver/procedure at this point of time. Initial blood work shows leukocytosis with left shift. INR and kidney function normal. 1. Right sided inguinal region and pelvic subcutaneous fat plane cellulitis: Patient is being admitted on the MedSurg floor. Started on IV Zosyn. Blood cultures 2 ordered in ER. Lactic acid ordered. If if patient develops localized abscess during hospital course or condition further worsens, can consult Dr. Kingsley 2. Diabetes mellitus type 2 with good glycemic control: Patient said his blood sugar is between 90-110 mg/dl at home. Last A1c 6.2 about 3 months ago. Although our record shows 6.8 in August 2016. Hold metformin and canagliflozin as canagliflozin causes glucosuria and risk for aggravating infection along penile urethra. 3. Coronary artery disease status post four-vessel CABG in 2002, last cardiac cath in August [address] tran: On medical management. Resume home cardiac medications. 4 other comorbidities include hypertension, dyslipidemia: Home medication reconciliation done. This note was generated with Shareholder InSite dictation software. Every effort was made to ensure accuracy, however computerized shingle packer mistakes may persist. Laboratory Results 11/17/17 15:00: WBC 15.4 H, RBC 4.89, Hgb 14.5, Hct 43.9, MCV 89.8, MCH 29.7, MCHC 33.0, RDW 14.0, RDW Differential 46.0 H, Plt Count 183, MPV 9.5, Immature Gran % (Auto) 0.100, Neut % (Auto) 82.0 H, Lymph % (Auto) 8.6 L, [place] % (Auto) 9.0, Eos % (Auto) 0.2, Baso % (Auto) 0.1, Absolute Neuts (auto) 12.6 H, Absolute Lymphs (auto) 1.32, Total Counted Not Reportable 11/17/17 15:00: PT 15.2 H, INR 1.2 11/17/17 15:00: Sodium 135 L, Potassium 3.7, Chloride 104, Carbon Dioxide 24.0, Anion Gap 7, BUN 18, Creatinine 1.26, Estim Creat Clear Calc 65.20, Est GFR (MDRD) Af Amer 73, Est GFR (MDRD) Non-Af 60, BUN/Creatinine Ratio 14.3, Glucose 126 H, Calcium 8.8 Clinical Impression(s) from Imaging Studies Pelvis CT 11/17/17 15:12 IMPRESSION: Diffuse subcutaneous edema or cellulitis lateral to the right lateral canal penile shaft. No focal abscess Electronically Signed: Bernardo Gordon MD at 17:00 EDT , Service support , [] Code Visit Inpatient E AND M: [id number] Init Hosp L3 11/17/17 1850 <Electronically signed by Trav Abbott MD> Date Trav Abbott MD Cosigner Signature: Date (if applicable) CC: Patricia Curry DO; Trav Abbott MD Signed EMERGENCY DEPARTMENT Observed: 11/17/2017 Status: F Source: [place] SUMMARY 6:46 PM [facility] REPOSITORY [facility] Medical Records Department [address] [place] [address] Emergency Department Summary 11/17/17 1513 MR#: [id number] Acct: [id number] Name: KEILY MARVIN Rep #: [id number] : 1945 72 From: Lilia Cheek PCP: Patricia Curry DO Status: ADM IN - ER Visit Summary Date of Service: 11/17/17 Chief Complaint: [Right groin pain and swelling] History of Present Illness: The patient is a 72 M [who presents the emergency department with right groin pain and swelling. It has been going on for the last 3 days. He has had low-grade fevers. He has been nauseated. Is been slightly constipated. It hurts to move. He went to urgent care and they referred him here. He has not had an appetite today. He has a history of CABG coronary artery disease [place] diabetes hypertension.] Physical Examination: [] Temperature 100 F WN WD NAD PERRL EOMI MMM NECK supple and nontender, no masses RRR no murmur rub or gallop, no peripheral edema, symmetric radial pulses CTAB no respiratory distress ABDOMEN is soft and nontender, normal bowel sounds, no distension, no rebound or guarding SKIN 2 cm x 4 cm area of firm induration there is no palpable fluctuance, he has a cellulitis that extends across the mons lower abdomen and right groin Alert and Oriented x3, CN II-XII in tact, no motor or sensory deficits, gait normal No lymphadenopathy Test Results: [] Emergency Department Course and Treatment: [Patient was given pain medication and clindamycin. CT was obtained. CT showed no evidence of abscess or hernia. I spoke with the hospitalist who requested phone urology consultation with Dr. Sibley. I did speak with Dr. Kingsley. Patient remained stable and will be admitted.] Treatment Plan: [] Disposition: [Admit] Impression: [Right groin cellulitis] This note was generated with Shareholder InSite dictation software. It may contain incorrect words, spelling, and punctuation that were not noted in review of the chart prior to signing ED Disposition - Plan for ED Patient: Disposition: Acute Care Hospital [facility] Chief Complaint: Edema What to do if you have Problems For any increased pain, shortness of breath, bleeding, nausea or vomiting, chest pain, or any unexpected problems, contact your Primary Care Provider. Call [facility] ([phone]) or report to the closest Emergency Room. Call 911 if necessary. 11/17/17 1846 <Electronically signed by Lilia Cheek > Date Lilia Cheek Cosigner Signature (If Indicated): Date CC: Patricia Curry DO Observed: 11/17/2017 Status: F Source: [place] CULTURE, BLOOD (WB) 3:35 PM [facility] REPOSITORY BC No growth in 5 days. Performed By: #### M200.1000 #### [facility] [address] [place], [address] ERYTHROCYTE SED RATE Collected: 11/17/2017 Status: F Source: [place] 3:20 PM [facility] REPOSITORY TYPE CODE TESTS RESULT OUT OF RANGE REFERENCE UNITS LAB L102.0000 0-20 mm/hr High SED RATE 32 Performed By: #### L101.9900 #### [facility] [address] [place], [address] HEMOGLOBIN A1C Collected: 11/17/2017 Status: F Source: [place] 3:20 PM [facility] REPOSITORY TYPE CODE TESTS RESULT OUT OF RANGE REFERENCE UNITS LAB L501.9985 4.2-6.3 % High HGB A1C 6.4 Performed By: #### L501.9985 #### [facility] [address] [place], [address] PELVIS WITH IV Observed: 11/17/2017 Status: F Source: [place] CONTRAST 3:13 PM [facility] REPOSITORY [facility] Imaging Services [address] [place] [address] Pelvis WITH IV Contrast MR#: [id number] Acct: [id number] Name: KEILY MARVIN Rep #: [id number] : 1945 M 72 From: Bernardo Gordon MD PCP: Patricia Curry DO Status: REG ER Study: Pelvis WITH IV Contrast Date of Exam: 11/17/17 Exam# [id number] Ordering Dr: Lilia Cheek STUDY: CT PELVIS WITH CONTRAST REASON FOR EXAM: Male, 72 years old. Right groin firmness RADIATION DOSAGE (If Supplied By Facility): CTDIvol = ( 23.33 ) mGy, DLP = ( 1002.30 ) mGycm TECHNIQUE: Transaxial imaging of the pelvis was performed without oral contrast. 100ML ml of Isovue 300 contrast was administered intravenously. Individualized dose optimization techniques were used for this CT. COMPARISON: None. FINDINGS: Normal urinary bladder. Normal visualized small intestine. There are diverticular changes of the colon without evidence for acute diverticulitis.. There is no pelvic fluid. There is no pelvic lymphadenopathy or mass lesion. Normal visualized pelvic arteries. There are small bilateral fat-containing inguinal hernias. Lateral to the right inguinal canal there is diffuse stranding in the subcutaneous fat extending anteriorly into the inferior pubic fat and extending along the dorsal surface of the proximal penile shaft. Small umbilical hernia containing fat. Lumbar spine demonstrates spondylosis. CT/Pelvis WITH IV Contrast IMPRESSION: Diffuse subcutaneous edema or cellulitis lateral to the right lateral canal penile shaft. No focal abscess Electronically Signed: Bernardo Gordon MD at 17:00 EDT , Service support , CC: Lilia Cheek; Patricia Curry DO Directional Driller: Signed CBC W/DIFF, AUTOMATED Collected: 11/17/2017 Status: F Source: [place] 3:00 PM [facility] REPOSITORY TYPE CODE TESTS RESULT OUT OF RANGE REFERENCE UNITS LAB L100.1000 4.4-11.0 K/mm3 High WBC 15.4 LAB L100.1200 4.6-6.2 M/mm3 Normal RBC 4.89 LAB L100.1300 13.0-16.5 g/dl Normal HGB 14.5 LAB L100.1400 40-54 % Normal HCT 43.9 LAB L100.1500 80-94 fL Normal MCV 89.8 LAB L100.1600 27.0-32.0 pg Normal MCH 29.7 LAB L100.1700 32-36 g/gl Normal MCHC 33.0 LAB L100.1810 11.6-14.6 % Normal RDW CV 14.0 LAB L100.1820 35.1-43.9 fl High RDW SD 46.0 LAB L100.1900 150-450 K/mm3 Normal PLT 183 LAB L100.2000 6.2-12.0 fl Normal MPV 9.5 LAB L100.2100 47-70 % High NEUT% 82.0 LAB L100.2200 19-41 % Low LY% 8.6 LAB L100.2300 0-10 % Normal MONO% 9.0 LAB L100.2400 0-5 % Normal EO% 0.2 LAB L100.2500 0-1 % Normal BASO% 0.1 LAB L100.2550 0.0-0.9 % Normal IM GRAN % 0.100 Result Comment: IG% - Immature Granulocytes (promyelocytes, myelocytes and metamyelocytes) > 1% indicates that a LEFT SHIFT is Present. LAB L100.2620 2.0-7.7 X10 3/uL High Absolute Neut 12.6 LAB L100.2720 0.83-4.51 X10 3/ul Normal Absolute Lymph 1.32 Performed By: #### L100.0100 #### [facility] [place], [address] BASIC METABOLIC Collected: 11/17/2017 Status: F Source: [place] PROFILE (BMP) 3:00 PM [facility] REPOSITORY TYPE CODE TESTS RESULT OUT OF RANGE REFERENCE UNITS LAB L501.0100 74-106 mg/dL High GLU 126 Result Comment: Fasting Glucose result greater than or equal to 126 mg/dL suggests DIABETES MELLITUS per A.D.A. criteria. Please note revised GLUCOSE reference range effective 2017. LAB L501.1000 7-18 mg/dL Normal BUN 18 LAB L501.1100 0.70-1.30 mg/dL Normal CREAT,SERUM 1.26 Result Comment: The validity of the calculated GFR AND GFRAA in patients over 70 years has not been determined. Clinical correlation is essential. LAB L501.1110 >60 mL/min Normal EST GFR 60 Result Comment: Non- GFR Calc LAB L501.1115 >60 mL/min Normal EST GFR - AA 73 Result Comment: GFR Calc LAB L501.1255 ml/min Normal Estimated CRCL 65.20 LAB L501.1300 10-20 RATIO Normal BUN/CRE 14.3 LAB L501.2200 8.5-10 mg/dL Normal .1 CA 8.8 LAB L501.5300 136-14 mmol/L Low 5 NA 135 LAB L501.5600 3.5-5. mmol/L Normal 1 K 3.7 LAB L501.5900 98-107 mmol/L Normal CL 104 LAB L501.6100 21.0-3 mmol/L Normal 2.0 CO2 24.0 LAB L501.6200 5-15 Normal GAP 7 Performed By: #### L500.2500 #### [facility] [address] [facility] [place], [place], [address] PROTHROMBIN TIME W/INR Collected: 11/17/2017 Status: F Source: [place] 3:00 PM [facility] REPOSITORY TYPE CODE TESTS RESULT OUT OF RANGE REFERENCE UNITS LAB L300.4150 11.7-14.9 SECONDS High PROTIME 15.2 LAB L300.4200 Normal INR 1.2 Performed By: #### L300.3900 #### [facility] [address] [facility] [place], [address] Observed: 11/17/2017 Status: F Source: [place] CULTURE, BLOOD (WB) 3:00 PM [facility] REPOSITORY BC No growth in 5 days. Performed By: #### M200.1000 #### [facility] [address] [place], [address] OFFICE VISIT REPORT Observed: 08/26/2017 Status: F Source: [place] 2:25 PM [facility] REPOSITORY [facility] [address] [address] OFFICE VISIT Date of Service: 08/26/17 MR#: [id number] Acct: [id number] Patient: KEILY MARVIN Rep #: [id number] : 1945 Provider: Cali Fletcher MD Age/Sex: 71/M [place] [facility] [place]: Signed Intake Intake Visit Reasons: cath teaching Allergies ALLIE Inhibitors Adverse Reaction (Intermediate, Verified 07/29/17 10:46) Cough Medications canagliflozin 100 mg tablet PO 90 Days #90 07/14/17 [History Confirmed 07/29/17] fenofibrate micronized 134 mg capsule PO 90 Days #90 07/14/17 [History Confirmed 07/29/17] metformin ER 500 mg tablet,extended release 24 hr PO 30 Days #120 07/14/17 [History Confirmed 07/29/17] metoprolol tartrate 50 mg tablet PO 90 Days #90 07/14/17 [History Confirmed 07/29/17] simvastatin 20 mg tablet PO 90 Days #90 07/14/17 [History Confirmed 07/29/17] vitamin B12 500 mcg-folic acid 400 mcg tablet 1 tab PO QDAY 07/14/17 [History Confirmed 07/29/17] amoxicillin 500 mg tablet See Label Instructions PO .COMPLEX 07/23/17 [History Confirmed 07/29/17] aspirin 81 mg tablet,delayed release 81 mg PO QDAY tab 07/23/17 [History Confirmed 07/29/17] coenzyme Q10 100 mg capsule 100 mg PO QDAY 07/23/17 [History Confirmed 07/29/17] cyanocobalamin (vit B-12) 1,000 mcg tablet 1,000 mcg PO QDAY 07/23/17 [History Confirmed 07/29/17] amlodipine 2.5 mg tablet 2.5 mg PO QDAY #90 tab 07/29/17 [Rx Confirmed 07/29/17] losartan 100 mg tablet 100 mg PO QDAY #90 tab 07/29/17 [Rx Confirmed 07/29/17] nitroglycerin 0.4 mg sublingual tablet 0.4 mg SUBLINGUAL Q5M PRN #25 tab 07/30/17 [Rx] clopidogrel 75 mg tablet See Label Instructions PO .COMPLEX #30 tab 08/25/17 [Rx Confirmed 08/25/17] Nursing Note Patient in for Cardiac Cath Teaching. Cath booklet reviewed with verbal instructions given. Chest Xray and lab orders given to patient to be completed today. Patient stated that he did meat pickler plavix and started medication per instructions yesterday. 08/26/17 1425 <Electronically signed by Teresa BOWENS> Date Teresa BOWENS Cosigner Signature: Date (if applicable) CC: Teresa Christopher CBC W/DIFF, AUTOMATED Collected: 08/26/2017 Status: F Source: [place] 12:20 PM [facility] REPOSITORY TYPE CODE TESTS RESULT OUT OF RANGE REFERENCE UNITS LAB L100.1000 4.4-11.0 K/mm3 Normal WBC 7.5 LAB L100.1200 4.6-6.2 M/mm3 Normal RBC 5.10 LAB L100.1300 13.0-16.5 g/dl Normal HGB 15.4 LAB L100.1400 40-54 % Normal HCT 47.0 LAB L100.1500 80-94 fL Normal MCV 92.2 LAB L100.1600 27.0-32.0 pg Normal MCH 30.2 LAB L100.1700 32-36 g/gl Normal MCHC 32.8 LAB L100.1810 11.6-14.6 % Normal RDW CV 13.9 LAB L100.1820 35.1-43.9 fl High RDW SD 45.7 LAB L100.1900 150-450 K/mm3 Normal PLT 251 LAB L100.2000 6.2-12.0 fl Normal MPV 9.5 LAB L100.2100 47-70 % Normal NEUT% 61.0 LAB L100.2200 19-41 % Normal LY% 27.6 LAB L100.2300 0-10 % Normal MONO% 8.8 LAB L100.2400 0-5 % Normal EO% 2.1 LAB L100.2500 0-1 % Normal BASO% 0.4 LAB L100.2550 0.0-0.9 % Normal IM GRAN % 0.100 Result Comment: IG% - Immature Granulocytes (promyelocytes, myelocytes and metamyelocytes) > 1% indicates that a LEFT SHIFT is Present. LAB L100.2620 2.0-7.7 X10 3/uL Normal Absolute Neut 4.6 LAB L100.2720 0.83-4.51 X10 3/ul Normal Absolute Lymph 2.08 Performed By: #### L100.0100 #### [facility] [address] [place], [address] BASIC METABOLIC Collected: 08/26/2017 Status: F Source: [place] PROFILE (BMP) 12:19 PM [facility] REPOSITORY TYPE CODE TESTS RESULT OUT OF RANGE REFERENCE UNITS LAB L501.0100 74-106 mg/dL High GLU 108 Result Comment: Fasting Glucose result from 100 to 125 mg/dL suggests IMPAIRED HOMEOSTASIS per A.D.A. criteria. Please note revised GLUCOSE reference range effective 2017. LAB L501.1000 7-18 mg/dL High BUN 20 LAB L501.1100 0.70-1.30 mg/dL Normal CREAT,SERUM 1.15 Result Comment: The validity of the calculated GFR AND GFRAA in patients over 70 years has not been determined. Clinical correlation is essential. LAB L501.1110 >60 mL/min Normal EST GFR 67 Result Comment: Non- GFR Calc LAB L501.1115 >60 mL/min Normal EST GFR - AA 81 Result Comment: GFR Calc LAB L501.1255 ml/min Normal Estimated CRCL 66.54 LAB L501.1300 10-20 RATIO Normal BUN/CRE 17.4 LAB L501.2200 8.5-10 mg/dL Normal .1 CA 8.5 LAB L501.5300 136-14 mmol/L Normal 5 NA 139 LAB L501.5600 3.5-5. mmol/L Normal 1 K 4.7 LAB L501.5900 98-107 mmol/L Normal CL 106 LAB L501.6100 21.0-3 mmol/L Normal 2.0 CO2 25.0 LAB L501.6200 5-15 Normal GAP 8 Performed By: #### L500.2500 #### [facility] [address] [place], [address] PROTHROMBIN TIME W/INR Collected: 08/26/2017 Status: F Source: [place] 12:19 PM [facility] REPOSITORY TYPE CODE TESTS RESULT OUT OF RANGE REFERENCE UNITS LAB L300.4150 11.7-14.9 SECONDS Normal PROTIME 13.8 LAB L300.4200 Normal INR 1.1 Performed By: #### L300.3900, L300.4310 #### [facility] [facility] [address] [place], [address] PARTIAL THROMBOPLAST Collected: 08/26/2017 Status: F Source: [place] TIME 12:19 PM [facility] REPOSITORY TYPE CODE TESTS RESULT OUT OF RANGE REFERENCE UNITS LAB L300.4310 24.1-36.2 Seconds Normal PTT 30.0 Performed By: #### L300.3900, L300.4310 #### [facility] [address] [place], [address] CHEST PA AND LATERAL Observed: 08/26/2017 Status: F Source: [place] 11:47 AM [facility] REPOSITORY [facility] Imaging Services [address] [place] [address] Chest PA and Lateral MR#: [id number] Acct: [id number] Name: KEILY MARVIN Rep #: [id number] : 1945 M 71 From: Deon Machado PCP: Patricia Curry DO Status: REG CLI Study: Chest PA and Lateral Date of Exam: 08/26/17 Exam# [id number] Ordering Dr: Adalberto Tran MD STUDY: X-RAY CHEST REASON FOR EXAM: Male, 71 years old. Preop for heart catheterization TECHNIQUE: Frontal and lateral views of the chest. COMPARISON: None. FINDINGS: The lungs are clear and expanded. There is no demonstrated pleural abnormality. Normal size heart. Normal mediastinum and iqra. Normal visualized pulmonary arteries. Normal visualized aortic arch and descending thoracic aorta. Normal visualized thoracic spine. Normal visualized ribs, clavicles, and shoulders. There is no demonstrated abnormality of the visualized soft tissue structures of the upper abdomen. RAD/Chest PA and Lateral IMPRESSION: No acute cardiopulmonary disease. Electronically Signed: Deon Machado DO at 22:42 EDT , Service support , CC: Adalberto Tran MD; Patricia Curry DO Directional Driller: Signed STRESS REPORT Observed: 08/25/2017 Status: F Source: [place] 10:33 AM [facility] REPOSITORY [facility] Cardiovascular Services [address] [place] [id number] MR#: [id number] Acct: [id number] Name: KEILY MARVIN Rep #: [id number] : 1945 71 From: Adalberto Tran MD Primary Care: Patricia Curry DO Status: REG CLI Ordering Dr: Miguel: Wilmar C Stress Test Report Pharmacologic myocardial perfusion stress test. 71-year-old man with a history of known coronary artery disease status post carotid bypass surgery. Stress protocol: Resting EKG demonstrates normal sinus rhythm with rate of 60 bpm normal intervals are noted. Resting blood pressure is 124/74 mmHg. 0.4 mg of regadenoson was infused per usual protocol. Continuous EKG monitoring was performed. The patient maintained sinus rhythm throughout the recording the maximum heart rate was 83 bpm which was 54% of the maximum predicted heart rate the maximum workload attained was 1 metabolic equivalent. At rest there were no ST or T-wave changes noted suggest ischemia at peak infusion no ST or T- wave changes were noted suggest ischemia. Myocardial perfusion protocol. 14.8 mCi of technetium 99m sestamibi was injected at rest. 0.4 mg of regadenoson was infused per usual protocol. At peak infusion 44.9 mCi of technetium 99m sestamibi was injected. Stress images were obtained stress and rest images were reconstructed and compared in the short axis vertical long and horizontal long axis. Gated images were also obtained. Perfusion SPECT analysis: Review of the stress images demonstrate an upper normal cardiac silhouette size. The septum appears to be well perfused the anterior wall and lateral huynh are well perfused. There is a medium-sized defect noted in the basal to mid inferior wall. The distal inferior wall and inferoapical huynh are well perfused. This is present on the stress and the resting images to a similar extent. 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 There appears to be mild improvement in the inferolateral segment suggesting mild inferolateral alec-infarct ischemia. Gated SPECT analysis: The gated ejection fraction is noted to be 65%. 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 Preserved ejection fraction. 08/25/17 1033 <Electronically signed by Adalberto Tran MD> Date Adalberto Tran MD CC: Patricia Hughes Date Dictated: 08/25/17 1019 Date Transcribed: 08/25/17 1019 Directional Driller: CO Signed LIVER PROFILE Collected: 08/25/2017 Status: F Source: [place] 9:11 AM [facility] REPOSITORY TYPE CODE TESTS RESULT OUT OF RANGE REFERENCE UNITS LAB L501.1500 6.4-8.2 g/dL Normal T PROT 7.3 LAB L501.1800 3.2-5.0 g/dL Normal ALB 3.9 LAB L501.1950 2.2-4.2 g/dL Normal GLOB 3.4 LAB L501.4100 15-37 U/L Normal AST 26 LAB L501.4305 45-117 U/L Low ALK P 35 LAB L501.4405 16-61 U/L Normal ALT 26 Result Comment: Please note revised ALT reference range effective 2017. LAB L501.4600 0.20-1.00 mg/dL Normal T BILI 0.60 LAB L501.4700 0.00-0.30 mg/dL Normal D BILI 0.13 Performed By: #### L500.3400, L500.4100 #### [facility] [address] [place], [address] LIPID PROFILE Collected: 08/25/2017 Status: F Source: [place] 9:11 AM [facility] REPOSITORY TYPE CODE TESTS RESULT OUT OF RANGE REFERENCE UNITS LAB L501.4900 200 mg/dL Normal CHOL 150 Result Comment: <200 mg/dL Desirable 200-240 mg/dL Borderline >240 mg/dL High Risk LAB L501.5000 mg/dL Normal TRIG 129 Result Comment: The drugs N-Acetylcysteine and Metamizole may falsely depress this assay. Serum Triglycerides Reference Interval Normal <150 mg/dL Borderline high 150 - 199 mg/dL High 200 - 499 mg/dL Very High > or = 500 mg/dL LAB L501.6400 mg/dL Low HDL 36 Result Comment: The drugs N-Acetylcysteine and Metamizole may falsely depress this assay. Reference Range HDL <40 mg/dL Low HDL Cholesterol HDL >or= 60 mg/dL High HDL Cholesterol LAB L501.6500 0-130 mg/dL Normal LDL 88 LAB L501.6600 5-40 mg/dL Normal VLDL 26 Performed By: #### L500.3400, L500.4100 #### [facility] [address] [place], [address] CARDIOLOGY VISIT Observed: 07/29/2017 Status: F Source: [place] REPORT 7:25 PM [facility] REPOSITORY [facility] [address] [place] [address] OFFICE VISIT Date of Service: 07/29/17 MR#: [id number] Acct: [id number] Name: KEILY MARVIN Rep #: [id number] : 1945 Provider: Teresa Hughes Age/Sex: 71/M Location[place] [facility] [place] Status: Signed HPI HPI Details: KEILY MARVIN, is a 71 M who presents to the office today for a cardiovascular follow-up. He has a history of coronary artery disease with bypass surgery in 2002. He had an BATISTA to the LAD, SVG to the diagonal sequential to the OM, right radial to the RCA. He also has a history of hypertension, hyperlipidemia and diabetes. From a cardiac standpoint, patient is doing well. He does not have any chest discomfort. Although has left side lower chest discomfort. This is not new, when he burps it goes away. His exercise tolerance is stable for his age. He does not have any worsening symptoms of shortness of breath. He denies any PND. He does not have any orthopnea. He does not have any symptoms of congestive heart failure. He does not have any palpitations that he is aware of. He does not have any lightheadedness or dizziness. He does not have any near-syncope or syncope. He does not have any lower extremity edema. He does not have any symptoms of claudication. Intake Vital Signs07/29/17 Height 6 ft 07/29/17 Weight: 269 lb 07/29/17 Body Mass Index (BMI) 36.4 07/29/17 Blood Pressure 120/80 07/29/17 Pulse Rate 69 Intake Visit Reasons: 6 M FU Allergies ALLIE Inhibitors Adverse Reaction (Intermediate, Verified 07/29/17 10:46) Cough Medications canagliflozin 100 mg tablet PO 90 Days #90 07/14/17 [History Confirmed 07/29/17] fenofibrate micronized 134 mg capsule PO 90 Days #90 07/14/17 [History Confirmed 07/29/17] metformin ER 500 mg tablet,extended release 24 hr PO 30 Days #120 07/14/17 [History Confirmed 07/29/17] metoprolol tartrate 50 mg tablet PO 90 Days #90 07/14/17 [History Confirmed 07/29/17] simvastatin 20 mg tablet PO 90 Days #90 07/14/17 [History Confirmed 07/29/17] vitamin B12 500 mcg-folic acid 400 mcg tablet 1 tab PO QDAY 07/14/17 [History Confirmed 07/29/17] amoxicillin 500 mg tablet See Label Instructions PO .COMPLEX 07/23/17 [History Confirmed 07/29/17] aspirin 81 mg tablet,delayed release 81 mg PO QDAY tab 07/23/17 [History Confirmed 07/29/17] coenzyme Q10 100 mg capsule 100 mg PO QDAY 07/23/17 [History Confirmed 07/29/17] cyanocobalamin (vit B-12) 1,000 mcg tablet 1,000 mcg PO QDAY 07/23/17 [History Confirmed 07/29/17] nitroglycerin 0.4 mg sublingual tablet 0.4 mg SUBLINGUAL Q5M PRN 07/23/17 [History Confirmed 07/29/17] amlodipine 2.5 mg tablet 2.5 mg PO QDAY #90 tab 07/29/17 [Rx Confirmed 07/29/17] losartan 100 mg tablet 100 mg PO QDAY #90 tab 07/29/17 [Rx Confirmed 07/29/17] PFSH Medical History Old myocardial infarction (Chronic) Hyperlipidemia (Chronic) Hypertension (Chronic) 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) Diabetes (Chronic) Surgical History S/P CABG x 5 (Chronic) History of left heart catheterization (Chronic) Family History Father , age 73 Myocardial infarction COPD (chronic obstructive pulmonary disease) Brother CAD (coronary artery disease) Hx CABG Myocardial infarction mid 40's Social History Smoking Status: Former smoker alcohol intake: never ROS Const Const: Negative for weakness, fatigue, fever(s) or headache(s) Eyes Eyes: Negative for blind spots, loss of peripheral vision or transient loss of vision ENT ENT: Negative for headache(s), dizziness, tinnitus or Nosebleed/epistaxis Cardio Chest Pain: No Palpitations: No Edema: None Muscle aches with walking: None Resp Respiratory: Negative for SOB with activity, SOB at rest, SOB orthopnea\SOB lying down or Cough GI GI: Negative nausea, vomiting, heartburn or vomiting blood/hematemesis : Negative for hematuria Musc Musc: Negative for muscle aches/ myalgia Neuro Neuro: Negative for weakness, headache(s), dizziness, near syncope, syncope, lightheadedness or orthostatic symptoms Ravi Hematologic/Lymphatic: Negative for easy bleeding Endo Endo: Negative for fatigue Cardiology Exam Const Appearance: cooperative, no acute distress and well developed Orientation: alert, awake and oriented x3 Head Head: normocephalic and atraumatic Mouth: moist mucous membranes Eyes General: appearance normal, both eyes and all related structures Conjunctivae: conjunctivae normal Pupils: PERRL EOM: EOM intact bilaterally Neck Neck: normal visual inspection, no lymphadenopathy and no JVD Carotids: Negative bruit Neck Mass: Negative Neck mass Chest Chest inspection: normal inspection of the chest and symmetric chest movement Auscultation: Bilateral: Clear to Auscultation Cardio Palpation: normal PMI Rate: regular rate Rhythm: regular rhythm Heart sounds: S1 normal and S2 normal; negative rub, gallop or murmur GI GI: normal to inspection, soft, no hepatosplenomegaly and bowel sounds present; negative tender Neuro General: alert, awake, oriented x3, CN's II-XI intact bilaterally and moves all extremities Extremities Pulses: Normal: Right Posterior Tibial Pulse, Left Posterior Tibial Pulse, Right Radial Pulse, Left Radial Pulse Lower Extremity Edema: None: Bilateral Psych Psychological: normal affect Assessment AND Plan 1. Atherosclerosis of [place] coronary artery of [place] heart without angina pectoris I25.10 Plan - GOGO Colvin Patient does have some chest discomfort that could be concerning for angina. He is a diabetic. It is been greater than 4 years since his last stress test. Would like to obtain a stress test to evaluate for underlying ischemia. He will continue with aggressive medical management Orders Orders: 2. Essential hypertension I10 Plan - GOGO Colvin Blood pressure is well controlled on current medications, we do not recommend any changes at this time. Orders Orders: 3. Pure hypercholesterolemia E78.00; E78.0 Plan - GOGO Colvin Patient is due to have his lipids checked in the near future. Will obtain these. Will adjust if necessary. Orders Orders: Plan Detail Other Orders Orders: Other Medications Changed: Additional Comments - GOGO Colvin The above patient was discussed with Dr. Tari Fletcher's absence he agrees with plan of care. Thank you for allowing us to participate in patient's plan of care, if you have any questions please do not hesitate to call. This note was generated using a voice recognition system and there may be incorrect words, spelling or punctuation errors that were not noted when reviewing the office note prior to saving. Follow Up 9 Months (PFM) Coding Level of Care Code Off vis,est,level 4 Diagnoses Atherosclerosis of [place] coronary artery of [place] heart without angina pectoris I25.10 [place] vs. transplanted heart: [place] heart Essential hypertension I10 Hypertension type: essential hypertension Pure hypercholesterolemia E78.00; E78.0 Hyperlipidemia type: pure hypercholesterolemia Coding Level of Care Code Off vis,est,level 4 Diagnoses Atherosclerosis of [place] coronary artery of [place] heart without angina pectoris I25.10 [place] vs. transplanted heart: [place] heart Essential hypertension I10 Hypertension type: essential hypertension Pure hypercholesterolemia E78.00; E78.0 Hyperlipidemia type: pure hypercholesterolemia 07/29/17 1407 <Electronically signed by Teresa BOWENS> Date Teresa BOWENS 07/29/17 1925<Electronically signed by Adalberto Tran MD> Cosigner Signature: Date (if applicable) Adalberto Tran MD CC: URGENT CARE VISIT Observed: 07/14/2017 Status: F Source: [place] REPORT 2:22 PM [facility] [place] [address] OFFICE VISIT Date of Service: 07/14/17 MR#: [id number] Acct: [id number] Name: KEILY MARVIN Rep #: [id number] : 1945 Provider: Ion BOWENS Age/Sex: 71/M Location: [facility] Status: Signed Intake Vital Signs07/14/17 Height 6 ft 0.5 in Intake Visit Reasons: PLUGGED EAR Is patient in pain?: No Allergies No Known Allergies Allergy (Verified 07/14/17 13:54) Medications amlodipine 2.5 mg tablet PO 90 Days #90 07/14/17 [History Confirmed 07/14/17] canagliflozin 100 mg tablet PO 90 Days #90 07/14/17 [History Confirmed 07/14/17] fenofibrate micronized 134 mg capsule PO 90 Days #90 07/14/17 [History Confirmed 07/14/17] losartan 100 mg tablet PO 90 Days #90 07/14/17 [History Confirmed 07/14/17] metformin ER 500 mg tablet,extended release 24 hr PO 30 Days #120 07/14/17 [History Confirmed 07/14/17] metoprolol tartrate 50 mg tablet PO 90 Days #90 07/14/17 [History Confirmed 07/14/17] simvastatin 20 mg tablet PO 90 Days #90 07/14/17 [History Confirmed 07/14/17] vitamin B12 500 mcg-folic acid 400 mcg tablet 1 tab PO QDAY 07/14/17 [History Confirmed 07/14/17] [facility] Medical History S/P CABG x 5 (Chronic) Hyperlipidemia (Chronic) Hypertension (Chronic) 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) Diabetes (Acute) Surgical History History of left heart catheterization (Chronic) Social History Smoking Status: Unknown if ever smoked alcohol intake: never HPI HPI Details: KEILY MARVIN, is a 71 M who presents to the office today for feeling of aural fullness for the past several days. Patient states that he has tried to irrigate his own years at home with little success. He reports having issues with his ears being full of cerumen several times yearly. Patient denies otorrhea, hearing loss. No dizziness or near syncopal episodes. No other associated symptoms or alleviating/aggravating factors. ROS Const Constitutional: No chills, fever(s), fatigue or abnormal sleep pattern ENT ENT: Positive for ear pressure; no ear discharge, ear pain, nasal discharge, nasal congestion or sore throat Resp Respiratory: No shortness of breath or chest congestion Cardio Cardiology: No chest pain at rest, chest pain with exertion or shortness of breath Skin Skin: No wounds or lesions Neuro Neurology: No behavioral changes or confusion Psych Psychiatric: No behavioral changes, No confusion, No abnormal sleep pattern Endo Endocrine: No fatigue Exam Const General: cooperative, healthy appearing [facility] Head: normocephalic, atraumatic Ears: hearing grossly normal bilaterally, EAC abnormal cerumen impaction (Impaction cleared with irrigation and curettage) bilaterally Nose: external nose normal Face and sinus: face symmetric Mouth: oral mucosae normal Throat: posterior oropharynx normal Eyes General: appearance normal, both eyes and all related structures Pupils: PERRL Resp Effort AND Inspection: normal respiratory effort Auscultation: Bilateral: Clear to Auscultation Cardio Rate: regular rate Rhythm: regular rhythm Heart Sounds: S1 normal, S2 normal Skin General: no rashes or lesions noted Psych Appearance: grossly normal Assessment AND Plan Problems 1. Impacted cerumen of both ears H61.23 Status Acute Plan Cerumen was disimpacted by myself via irritation and curettage. Patient advised to follow-up with PCP in 5-7 days if no better or sooner if worse. Patient verbalized understanding all of the above. Medications Discontinued: oxycodone-acetaminophen 5-325 mg Discontinued Reason: 1 - 2 tabs PO Q4H PRN PRN Pain Pt no longer taking Coding Level of Care Code Off vis,new,level 4 Diagnoses Impacted cerumen of both ears H61.23 07/14/17 1422 <Electronically signed by Ion BOWENS> Date Ion BOWENS Cosigner Signature: Date (if applicable) CC: ALLERGIES ALLERGIES DATE TYPE / CODE NAME / CODE REACTION SEVERITY SOURCE 06/15/2018 Drug ALLIE cough MO [facility] Allergy/4160 Inhibitors/F0 Hospital 10955(SNOMED [id number](RXNO Repository CT) RM) 07/14/2017 Drug No Known Unknown [facility] Allergy/4160 Allergies/F00 Hospital 82620(SNOMED 1137717(RXNOR Repository CT) M) ENCOUNTERS ENCOUNTERS ADMIT/DISCHARGE ACCOUNT ADMITTING ENCOUNTER LOCATION SOURCE NUMBER CLASS 06/23/2018 [id number] Ambulatory BMSBuilding:B [place] 5 [facility] Repository 06/23/2018 [id number] [place] [facility] Hospital ing: Repository 06/18/2018 [id number] Ambulatory [place] [facility] Repository 06/15/2018 [id number] Ambulatory BMSBuilding:B [place] 1 [place] Repository 06/15/2018/ [id number] Ambulatory BMSBuilding:B [place] 9 [place].[facility] Repository 06/09/2018 [id number] Ambulatory BMSBuilding:B [place] 3 [place] Repository 06/01/2018/ [id number] Ambulatory [place] [facility] 9 [facility] Repository 06/01/2018 [id number] Ambulatory BMSBuilding:B [place] 8 [place] Repository 05/18/2018 [id number] Ambulatory BMSBuilding:[place] 1 [place] Repository 05/11/2018 [id number] Ambulatory BMSBuilding:B [place] 8 [facility] Repository 05/04/2018 [id number] Ambulatory BMSBuilding:[place] 2 [place] Repository 04/27/2018 [id number] Ambulatory BMSBuilding:B [place] 4 [facility] Repository 04/27/2018/ [id number] Ambulatory [place] 2 [facility] Hospital ing: Repository 04/20/2018 [id number] Ambulatory BMSBuilding:B [place] 8 [place] Repository 04/14/2018 [id number] Ambulatory BMSBuilding:B [place] 0 [facility] Repository 04/06/2018 [id number] Ambulatory BMSBuilding:B [place] 8 [facility] Repository 03/30/2018 [id number] Ambulatory BMSBuilding:B [place] 5 [place] Repository 03/30/2018/ [id number] Ambulatory [place] 8 3 [facility] Hospital ing: Repository 03/23/2018 [id number] Ambulatory BMSBuilding:B [place] 7 [facility] Repository 03/16/2018 [id number] Ambulatory BMSBuilding:B [place] 1 [facility] Repository 03/09/2018 [id number] Ambulatory BMSBuilding:[place] 6 [place] Repository 03/02/2018 [id number] Ambulatory BMSBuilding:B [place] 3 [facility] Repository 02/26/2018/ [id number] Ambulatory BMSBuilding:B [place] 8 9 MS.[facility] Repository 02/16/2018 [id number] Ambulatory BMSBuilding:B [place] 7 [facility] Repository 02/16/2018/ [id number] Ambulatory [place] 8 1 [facility] ing: Repository 01/19/2018/ [id number] Ambulatory [place] 0 [facility] ing: Repository 01/19/2018 [id number] Ambulatory BMSBuilding:B [place] 6 [place] Repository 12/24/2017 [id number] Ambulatory [place] 7 [facility] ing:LAB.[facility] Repository E 12/22/2017/ [id number] Ambulatory [place] 8 2 [facility] ing: Repository 12/22/2017 [id number] Ambulatory BMSBuilding:B [place] 2 [place] Repository 12/08/2017 [id number] Ambulatory BMSBuilding:B [place] 0 [facility] Repository 11/17/2017/ [id number] [place], Inpatient [place] 8 8 Trav [facility] Hospital ing:EE2Gmpj: Repository HJ458Eqn: 1 11/17/2017 [id number] [place], Ambulatory BMSBuilding:B [place] 8 Trav [place].[facility] Repository 11/17/2017 [id number] [place], Ambulatory BMSBuilding:B [place] 8 Trav [place].[facility] Repository 11/17/2017 [id number] [place], Ambulatory BMSBuilding:B [place] 0 Trav MS.[facility] Repository 11/17/2017 [id number] [place], Ambulatory BMSBuilding:B [place] 0 Trav [facility] Hospital Repository 11/17/2017 [id number] [place], Ambulatory BMSBuilding:B [place] 4 Trav [facility] Repository 11/17/2017 [id number] [place], Ambulatory BMSBuilding:B [place] 5 Trav [place].CF[facility] Repository 11/17/2017 [id number] [facility], Ambulatory BMSBuilding:B [place] 6 [place] Repository 11/17/2017 [id number] [facility], Ambulatory BMSBuilding:B [place] 7 [place] Repository 11/17/2017/ [id number] Ambulatory BMSBuilding:W [place] 8 2 [facility] Hospital Repository 08/27/2017 [id number] Ambulatory [place] 2 [facility] Hospital ing:[facility] Repository 08/27/2017 [id number] Ambulatory BMSBuilding:W [place] 1 [facility] Repository 08/26/2017 [id number] Ambulatory [place] 1 [facility] Hospital ing:RAD Repository 08/26/2017/ [id number] Ambulatory BMSBuilding:B [place] 8 5 [facility] Repository 08/25/2017 [id number] Ambulatory [place] 0 [facility] Repository 08/25/2017 [id number] Ambulatory BMSBuilding:W [place] 5 [facility] Hospital Repository 07/29/2017/ [id number] Ambulatory BMSBuilding:B [place] 8 3 [facility] Hospital Repository 07/29/2017 [id number] Ambulatory BMSBuilding:B [place] 3 [facility] Hospital Repository 07/14/2017/ [id number] Ambulatory BMSBuilding:B [place] 8 2 [place].[facility] Repository PAYERS PAYERS ENCOUNTER GUARANTOR PAYER SUBSCRIBER SOURCE 06/23/2018 KEILY Arredondo Primary KEILYORTEGA Parisi [id number] Insurance:MEDICARE POTTERDOB: [facility] PART A [facility] [id number] Number: Repository [id number]: ([phone] [id number] [phone] () Date:2017-11-21 06/23/2018 Secondary KEILY L [place] Insurance:AARPPolicy POTTERDOB: Community Number: [id number] Hospital [id number] Repository Date:4316-30-01OR [address], [place] [address]OP: 06/23/2018 Tertiary NOT GIV[place]UNK [place] Insurance:SELF PAY [facility] Number: Effective Repository Date:2018-06-23 06/23/2018 KEILY L Primary KEILY L [place] [id number] Insurance:MEDICARE POTTERDOB: [address] Number: Repository [id number]: 330 [id number] [phone] () Date:2017-11-21 06/23/2018 Secondary KEILY L [place] Insurance:AARPPolicy POTTERDOB: Community Number: [id number] [place] [address] [id number] Repository Date:0118-66-62TN [address], [place] [address]OU: 06/23/2018 Tertiary NOT GIVENUNK [place] Insurance:SELF PAY [facility] Number: Effective Repository Date:2018-06-02 06/18/2018 KEILY L Primary KEILY L [place] [id number] Insurance:MEDICARE POTTERDOB: [address] Number: Repository [id number]: 330 [id number] [phone] () Date:2018-05-12 06/18/2018 Secondary KEILY L [place] Insurance:AARPPolicy POTTERDOB: Community Number: [id number] [id number] Repository Date:2590-52-19SI [address], [place] [address]PO: 06/18/2018 Tertiary NOT GIVENUNK [place] Insurance:SELF PAY [facility] Number[facility] Effective Repository Date:2018-05-12 06/15/2018 KEILY L Primary KEILY L [place] [id number] Insurance:MEDICARE POTTERDOB: Community [place] PART A [facility] [id number] Number[place] Repository [address]Doz: 330 [id number] [phone] () Date:2017-11-21 06/15/2018 Secondary KEILY L [place] Insurance:AARPPolicy POTTERDOB: Community Number: [id number] Hospital [id number] Repository Date:2319-72-40CM [address]KKLKSXN, [place] [address]QP: 06/15/2018 Tertiary NOT GIVENUNK [place] Insurance:SELF PAY [facility] Number: Effective Repository Date:2018-06-15 06/15/2018 KEILY L Primary KEILY L [place] [id number] Insurance:MEDICARE POTTERDOB: [facility] PART A [facility] [id number] [place] Number: Repository [id number]: 330 [id number] [phone] () Date:2018-05-29 06/15/2018 Secondary KEILY L [place] Insurance:AARPPolicy POTTERDOB: Community Number: [id number] Hospital [id number] Repository Date:8268-59-70LW [facility] 263540WCRZMPU, [place] [address]VN: 06/15/2018 Tertiary NOT GIVENUNK [place] Insurance:SELF PAY [facility] Number: Effective Repository Date:2018-06-15 06/09/2018 KEILY L Primary KEILY L [place] [id number] Insurance:MEDICARE POTTERDOB: [facility] PART A [facility] [id number] [place] Number: Repository [address]Byl: 330 [id number] [phone] (HP) Date:2017-11-21 06/09/2018 Secondary KEILY L [place] Insurance:AARPPolicy POTTERDOB: Community Number: [id number] Hospital [id number] Repository Date:6334-94-18PY [facility] 092750VPALGFJ, [place] [address]YQ: 06/09/2018 Tertiary NOT G[place]K [place] Insurance:SELF PAY [facility] Number: Effective Repository Date:2018-06-09 06/01/2018 KEILY L Primary KEILY L [place] [id number] Insurance:MEDICARE POTTERDOB: [facility] PART A [facility] [id number] Number: Repository [address]Hud: 330 [id number] [phone] () Date:2017-11-21 06/01/2018 Secondary KEILY L [place] Insurance:AARPPolicy POTTERDOB: [facility] Number: [id number] Hospital [id number] Repository Date:6265-67-41EW [facility] 049271NGXA[place]G, [place] [address]DH: 06/01/2018 Tertiary NOT GIVENUNK [place] Insurance:SELF PAY [facility] Number: Effective Repository Date:2018-05-02 06/01/2018 KEILY L Primary KEILY L [place] [id number] Insurance:MEDICARE POTTERDOB: [facility] PART [facility] [id number] [place] [address] Number: Repository [id number]: 330 [id number] [phone] () Date:2017-11-21 06/01/2018 Secondary KEILY L [place] Insurance:AARPPolicy POTTERDOB: [facility] Number: [id number] Hospital [id number] Repository Date:2107-45-22QZ [facility] 635124WAGPZGR, [place] [address]HQ: 06/01/2018 Tertiary NOT GIVENUNK [place] Insurance:SELF PAY [facility] Number: Effective Repository Date:2018-06-01 05/18/2018 KEILY L Primary KEILY L [place] [id number] Insurance:MEDICARE POTTERDOB: [facility] PART A [address] [place] Number: Repository [address]Lsh: 330 [id number] [phone] (HP) Date:2017-11-21 05/18/2018 Secondary KEILY L [place] Insurance:AARPPolicy POTTERDOB: Community Number: [id number] [id number] Repository Date:4531-54-89QH [address]CPFIXKW, [place] [address]MS: 05/18/2018 Tertiary NOT GIVENUNK [place] Insurance:SELF PAY [facility] Number: Effective Repository Date:2018-05-18 05/11/2018 KEILY L Primary KEILY L [place] [id number] Insurance:MEDICARE POTTERDOB: [facility] PART A [address], [place] Number: Repository [id number]: 330 [id number] [phone] () Date:2017-11-21 05/11/2018 Secondary KEILY L [place] Insurance:AARPPolicy POTTERDOB: Community Number: [id number] [id number] Repository Date:0567-83-40SD [address]ZCFBVZO, [place] [address]WW: 05/11/2018 Tertiary NOT [place]K [place] Insurance:SELF PAY [facility] Number: Effective Repository Date:2018-05-11 05/04/2018 KEILY L Primary KEILY L [place] [id number] Insurance:MEDICARE POTTERDOB: [facility] PART A [address], [place] Number: Repository [id number]: 330 [id number] [phone] () Date:2017-11-21 05/04/2018 Secondary KEILY L [place] Insurance:AARPPolicy POTTERDOB: Community Number: [id number] Hospital [id number] Repository Date:9150-54-12MH [address]SYZBDKH, [place] [address]IP: 05/04/2018 Tertiary NOT GIV[place]UNK [place] Insurance:SELF PAY [facility] Number: Effective Repository Date:2018-05-04 04/27/2018 KEILY L Primary KEILY L [place] [id number] Insurance:MEDICARE POTTERDOB: Community [place] PART A [facility] [id number] Number: Repository [address]Ghc: 330 [id number] [phone] () Date:2017-11-21 04/27/2018 Secondary KEILY L [place] Insurance:AARPPolicy POTTERDOB: Community Number: [id number] Hospital [id number] Repository Date:3127-80-46CS [address]XROW[place]O, [place] [address]OD: 04/27/2018 Tertiary NOT GIVENUNK [place] Insurance:SELF PAY [facility] Number: Effective Repository Date:2018-04-27 04/27/2018 KEILY L Primary KEILY L [place] [id number] Insurance:MEDICARE POTTERDOB: Community [place] PART A [facility] [id number] [place] Number: Repository [address]Avq: 330 [id number] [phone] () Date:2017-11-21 04/27/2018 Secondary KEILY L [place] Insurance:AARPPolicy POTTERDOB: Community Number: [id number] Hospital [id number] Repository Date:1728-46-45EQ [address]LGLHCMB, [place] [address]GQ: 04/27/2018 Tertiary NOT GIVENUNK [place] Insurance:SELF PAY [facility] Number: Effective Repository Date:2018-04-02 04/20/2018 KEILY L Primary KEILY L [place] [id number] Insurance:MEDICARE POTTERDOB: Community [place] PART A [facility] [id number] Number: Repository [address]Eal: 330 [id number] [phone] () Date:2017-11-21 04/20/2018 Secondary KEILY L [place] Insurance:AARPPolicy POTTERDOB: Community Number: [id number] Hospital [id number] Repository Date:5853-32-54UA [address]LTXXRSB, [place] [address]EF: 04/20/2018 Tertiary NOT [place]K [place] Insurance:SELF PAY [facility] Number: Effective Repository Date:2018-04-20 04/14/2018 KEILY L Primary KEILY L [place] [id number] Insurance:MEDICARE POTTERDOB: [facility] PART A [facility] [id number] Number: Repository [address]Tec: 330 [id number] [phone] () Date:2017-11-21 04/14/2018 Secondary KEILY L [place] Insurance:AARPPolicy POTTERDOB: Community Number: [id number] Hospital [id number] Repository Date:8068-92-94PR [address]CSHNBRX, [place] [address]CF: 04/14/2018 Tertiary NOT GIVENUNK [place] Insurance:SELF PAY [facility] Number: Effective Repository Date:2018-04-14 04/06/2018 KEILY L Primary KEILY L [place] [id number] Insurance:MEDICARE POTTERDOB: Community [place] PART A [facility] [id number] Number: Repository [address]Qat: 330 [id number] [phone] () Date:2017-11-21 04/06/2018 Secondary KEILY L [place] Insurance:AARPPolicy POTTERDOB: Community Number: [id number] Hospital [id number] Repository Date:7537-63-10YP [address]SWJOHED, [place] [address]YG: 04/06/2018 Tertiary NOT GIVENUNK [place] Insurance:SELF PAY [facility] Number: Effective Repository Date:2018-04-06 03/30/2018 KEILY L Primary KEILY L [place] [id number] Insurance:MEDICARE POTTERDOB: [facility] PART A [facility] [id number] [facility] [place] Number: Repository [address]Rsk: 330 [id number] [phone] () Date:2017-11-21 03/30/2018 Secondary KEILY L [place] Insurance:AARPPolicy POTTERDOB: [facility] Number: [id number] Hospital [id number] Repository Date:9516-92-92QY [facility] 206426UUZHKVL, [place] [address]FE: 03/30/2018 Tertiary NOT GIV[place]K [place] Insurance:SELF PAY [facility] Number: Effective Repository Date:2018-03-30 03/30/2018 KEILY L Primary KEILY L [place] [id number] Insurance:MEDICARE POTTERDOB: [facility] PART A [facility] [id number] Number: Repository [id number]: 330 [id number] [phone] () Date:2017-11-21 03/30/2018 Secondary KEILY L [place] Insurance:AARPPolicy POTTERDOB: [facility] Number: [id number] [place] [address] [id number] Repository Date:2977-61-17CW [address]PSVXIRX, [place] [address]OX: 03/30/2018 Tertiary NOT [place]K [place] Insurance:SELF PAY [facility] Number: Effective Repository Date:2018-03-02 03/23/2018 KEILY L Primary KELIY L [place] [id number] Insurance:MEDICARE POTTERDOB: [facility] PART A [place] [id number], [place] Number: Repository [address]Wxd: 330 [id number] [phone] () Date:2017-11-21 03/23/2018 Secondary KEILY L [place] Insurance:AARPPolicy POTTERDOB: Community Number: [id number] [place] [address] [id number] Repository Date:4322-46-49XX [facility] 181624YDEKBNK, [place] [address]TV: 03/23/2018 Tertiary NOT GIVENUNK [place] Insurance:SELF PAY [facility] Number: Effective Repository Date:2018-03-23 03/16/2018 KEILY L Primary KEILY L [place] [id number] Insurance:MEDICARE POTTERDOB: [address] Number: Repository [id number]: 330 [id number] [phone] () Date:2017-11-21 03/16/2018 Secondary KEILY L [place] Insurance:AARPPolicy POTTERDOB: Community Number: [id number] [place] [address] [id number] Repository Date:9436-67-11OD [address]LSLRHYM, [place] [address]HG: 03/16/2018 Tertiary NOT GIVENUNK [place] Insurance:SELF PAY [facility] Number: Effective Repository Date:2018-03-16 03/09/2018 KEILY L Primary KEILY L [place] [id number] Insurance:MEDICARE POTTERDOB: [address] Number: Repository [address]Kze: 330 [id number] [phone] () Date:2017-11-21 03/09/2018 Secondary KEILY L [place] Insurance:AARPPolicy POTTERDOB: [facility] Number: [address] [place] [address] [id number] Repository Date:8647-51-32JT [address]OZCWMIU, [place] [address]JV: 03/09/2018 Tertiary NOT GIVENUNK [place] Insurance:SELF PAY [facility] Number: Effective Repository Date:2018-03-09 03/02/2018 KEILY L Primary KEILY L [place] [id number] Insurance:MEDICARE POTTERDOB: Community [place] PART A [address], [place] Number: Repository [address]Cun: 330 [id number] [phone] (HP) Date:2017-11-21 03/02/2018 Secondary KEILY L [place] Insurance:AARPPolicy POTTERDOB: Community Number: [id number] [id number] Repository Date:2292-06-43TV [facility] 468192OJKIKKR, [place] [address]PO: 03/02/2018 Tertiary NOT [place]K [place] Insurance:SELF PAY [facility] Number: Effective Repository Date:2018-03-02 02/26/2018 KEILY L Primary KEILY L [place] [id number] Insurance:MEDICARE POTTERDOB: [facility] PART [address], [place] Number: Repository [address]Nld: 330 [id number] [phone] () Date:2018-02-26 02/26/2018 Secondary KEILY L [place] Insurance:AARPPolicy POTTERDOB: Community Number: [id number] [id number] Repository Date:0758-74-08HJ [facility] 382753MNAEVMN, [place] [address]BH: 02/26/2018 Tertiary NOT [place]K [place] Insurance:SELF PAY [facility] Number: Effective Repository Date:2018-02-26 02/16/2018 KEILY L Primary KEILY L [place] [id number] Insurance:MEDICARE POTTERDOB: Community [place] PART A [address], [place] Number: Repository [address]Pcf: 330 [id number] [phone] (HP) Date:2017-11-21 02/16/2018 Secondary KEILY L [place] Insurance:AARPPolicy POTTERDOB: Community Number: [id number] Hospital [id number] Repository Date:2067-38-76CF [address]KCRTJYN, [place] [address]DA: 02/16/2018 Tertiary NOT GIVENUNK [place] Insurance:SELF PAY [facility] Number: Effective Repository Date:2018-02-16 02/16/2018 KEILY L Primary KEILY L [place] [id number] Insurance:MEDICARE POTTERDOB: [facility] PART A [facility] [id number] [place] Number: Repository [address]Cpx: [phone] [id number] [phone] () Date:2017-11-21 02/16/2018 Secondary KEILY L [place] Insurance:AARPPolicy POTTERDOB: Community Number: [id number] Hospital [id number] Repository Date:8139-78-59MH [address]PJEJRNW, [place] [address]PL: 02/16/2018 Tertiary NOT [place]K [place] Insurance:SELF PAY [facility] Number: Effective Repository Date:2018-01-31 01/19/2018 KEILY L Primary KEILY L [place] [id number] Insurance:MEDICARE POTTERDOB: [facility] PART A [facility] [id number] [place] Number: Repository [address]Qnz: 330 [id number] [phone] () Date:2017-11-21 01/19/2018 Secondary KEILY L [place] Insurance:AARPPolicy POTTERDOB: Community Number: [id number] Hospital [id number] Repository Date:2828-26-04XU [address]EYDYYVI, [place] [address]ZX: 01/19/2018 Tertiary NOT [place]K [place] Insurance:SELF PAY [facility] Number: Effective Repository Date:2017-12-31 01/19/2018 KEILY L Primary KEILY L [place] [id number] Insurance:MEDICARE POTTERDOB: Community [place] PART A [facility] [id number] [facility] [place] Number: Repository [address]Wjx: 330 [id number] [phone] () Date:2017-11-21 01/19/2018 Secondary KEILY L [place] Insurance:AARPPolicy POTTERDOB: Community Number: [id number] Hospital [id number] Repository Date:5322-47-79EX [address]QQRPUWP, [place] [address]EL: 01/19/2018 Tertiary NOT [place]K [place] Insurance:SELF PAY [facility] Number: Effective Repository Date:2018-01-19 12/24/2017 KEILY L Primary KEILY L [place] [id number] Insurance:MEDICARE POTTERDOB: [facility] PART A [facility] [id number] [facility] [place] Number: Repository [address]Jdw: 330 [id number] [phone] () Date:2017-12-17 12/24/2017 Secondary KEILY L [place] Insurance:AARPPolicy POTTERDOB: Community Number: [id number] Hospital [id number] Repository Date:3523-36-07ZL [address]LRINZUV, [place] [address]OW: 12/24/2017 Tertiary NOT [place]K [place] Insurance:SELF PAY [facility] Number: Effective Repository Date:2017-12-17 12/22/2017 KEILY L Primary KEILY L [place] [id number] Insurance:MEDICARE POTTERDOB: [facility] PART A [facility] [id number] [place] [place] Number[place] Repository [address]Jeq: 330 [id number] [phone] () Date:2017-11-21 12/22/2017 Secondary KEILY L [place] Insurance:AARPPolicy POTTERDOB: Community Number: [id number] Hospital [id number] Repository Date:6161-96-97ED [address]JOAAJTA, [place] [address]GS: 12/22/2017 Tertiary NOT [place]K [place] Insurance:SELF PAY [facility] Number: Effective Repository Date:2017-11-21 12/22/2017 KIELY L Primary KEILY L [place] [id number] Insurance:MEDICARE POTTERDOB: [facility] PART A [facility] [id number] Number: Repository [address]Gir: 330 [id number] [phone] () Date:2017-11-21 12/22/2017 Secondary KEILY L [place] Insurance:AARPPolicy POTTERDOB: [facility] Number: [id number] Hospital [id number] Repository Date:6108-67-75IH [facility] 604135HGATDEL, [place] [address]UM: 12/22/2017 Tertiary NOT [place]IV[place]K [place] Insurance:SELF PAY [facility] Number: Effective Repository Date:2017-12-22 12/08/2017 KEILY L Primary KEILY L [place] [id number] Insurance:MEDICARE POTTERDOB: [facility] PART A [facility] [id number] Number: Repository [address]Ini: 330 [id number] [phone] () Date:2017-11-21 12/08/2017 Secondary KEIYL L [place] Insurance:AARPPolicy POTTERDOB: [facility] Number: [id number] [place] [address] [id number] Repository Date:4294-03-86JY [address]HESSMCW, [place] [address]CF: 12/08/2017 Tertiary NOT [place]K [place] Insurance:SELF PAY [facility] Number: Effective Repository Date:2017-12-08 11/17/2017 KEILY L Primary KEILY L [place] [id number] Insurance:MEDICARE POTTERDOB: [facility] PART A [facility] [id number] Number: Repository [address]Diw: [phone]) [id number] [phone] (HP) Date:2017-11-17 11/17/2017 Secondary KEILY L [place] Insurance:AARPPolicy POTTERDOB: Community Number: [id number] [place] [address] [id number] Repository Date:0258-84-67GF [facility] 772738LZHCRXV, [place] [address]DA: 11/17/2017 Tertiary NOT GIVENUNK [place] Insurance:SELF PAY [facility] Number: Effective Repository Date:2017-11-17 11/17/2017 KEILY L Primary KEILY L [place] [id number] Insurance:MEDICARE POTTERDOB: [facility] PART A [address] Number: Repository [id number]: [id number] [phone] Date:2017-11-17 () 11/17/2017 Secondary KEILY L [place] Insurance:AARPPolicy POTTERDOB: Community Number: [id number] [id number] Repository Date:3639-47-67IN [address]ZSZFIJY, [place] [address]EC: 11/17/2017 Tertiary NOT GIVENUNK [place] Insurance:SELF PAY [facility] Number: Effective Repository Date:2017-11-17 11/17/2017 KEILY L Primary KEILY L [place] [id number] Insurance:MEDICARE POTTERDOB: [facility] PART A [address] [place] Number: Repository [address]Dzz: 330 [id number] [phone] () Date:2017-11-17 11/17/2017 Secondary KEILY L [place] Insurance:AARPPolicy POTTERDOB: [facility] Number: [id number] [id number] Repository Date:3962-22-01YR [facility] 790786KPQMTXY, [place] [address]SA: 11/17/2017 Tertiary NOT [place]K [place] Insurance:SELF PAY [facility] Number: Effective Repository Date:2017-11-17 11/17/2017 KEILY L Primary KEILY L [place] [id number] Insurance:MEDICARE POTTERDOB: Community [place] PART A [address] [place] Number: Repository [address]Ufh: 330 [id number] [phone] (HP) Date:2017-11-17 11/17/2017 Secondary KEILY L [place] Insurance:AARPPolicy POTTERDOB: Community Number: [address] [place] [address] [id number] Repository Date:2990-38-45QI [address]MJEXUMR, [place] [address]HK: 11/17/2017 Tertiary NOT GIVENUNK [place] Insurance:SELF PAY [facility] Number: Effective Repository Date:2017-11-17 11/17/2017 KEILY L Primary KEILY L [place] [id number] Insurance:MEDICARE POTTERDOB: [address], [place] Number: Repository [address]Gcd: 330 [id number] [phone] () Date:2017-11-17 11/17/2017 Secondary KEILY L [place] Insurance:AARPPolicy POTTERDOB: Community Number: [address] [place] [address] [id number] Repository Date:6429-66-88RA [address]ZUQSYNW, [place] [address]ZY: 11/17/2017 Tertiary NOT GIVENUNK [place] Insurance:SELF PAY [facility] Number: Effective Repository Date:2017-11-17 11/17/2017 KEILY L Primary KEILY L [place] [id number] Insurance:MEDICARE POTTERDOB: [facility] PART A [address], [place] Number: Repository [id number]: 330 [id number] [phone] (HP) Date:2017-11-17 11/17/2017 Secondary KEILY L [place] Insurance:AARPPolicy POTTERDOB: Community Number: [id number] Hospital [id number] Repository Date:9531-44-51IP [address]GERIDNY, [place] [address]BO: 11/17/2017 Tertiary NOT GIVENUNK [place] Insurance:SELF PAY [facility] Number: Effective Repository Date:2017-11-17 11/17/2017 KEILY L Primary KEILY L [place] [id number] Insurance:MEDICARE POTTERDOB: [facility] PART A [facility] [id number] [place] Number: Repository [id number]: [phone]) [id number] [phone] () Date:2017-11-17 11/17/2017 Secondary KEILY L [place] Insurance:AARPPolicy POTTERDOB: Community Number: [id number] Hospital [id number] Repository Date:1606-22-10ZA [address]NBLUFIH, [place] [address]UY: 11/17/2017 Tertiary NOT GIVENUNK [place] Insurance:SELF PAY [facility] Number: Effective Repository Date:2017-11-17 11/17/2017 KEILY L Primary KEILY L [place] [id number] Insurance:MEDICARE POTTERDOB: [facility] PART A [facility] [id number], [place] Number: Repository [id number]: [phone] [id number] [phone] () Date:2017-11-17 11/17/2017 Secondary KEILY L [place] Insurance:AARPPolicy POTTERDOB: Community Number: [id number] [place] [address] [id number] Repository Date:[id number] [address]NG: 11/17/2017 Tertiary NOT GIVENUNK [place] Insurance:SELF PAY [facility] Number: Effective Repository Date:2017-11-17 11/17/2017 KEILY L Primary KEILY L [place] [id number] Insurance:MEDICARE POTTERDOB: Community CHAMPAIGN PART A [facility] [id number] [place]: Repository [address]Hwm: [phone] [id number] [phone] () Date:2017-11-17 11/17/2017 Secondary KEILY L [place] Insurance:AARPPolicy POTTERDOB: Community Number: [id number] [facility] [id number] Repository Date:2733-08-62[address], [place] [address]GU: 11/17/2017 Tertiary NOT GIVENUNK A[place] Insurance:SELF PAY [facility] Number: Effective Repository Date:2017-11-17 11/17/2017 KEILY L Primary KEILY L Ailin [id number] Insurance:MEDICARE POTTERDOB: [facility] PART A [facility] [id number] [place] Repository [id number]: [phone] [id number] [phone] () Date:2017-11-17 11/17/2017 Secondary KEILY L [place] Insurance:AARPPolicy POTTERDOB: Community Number: [id number] Hospital [id number] Repository Date:9581-07-68WK [address], [place] [address]IW: 11/17/2017 Tertiary NOT GIVENUNK [place] Insurance:SELF PAY [facility] Number: Effective Repository Date:2017-11-17 08/27/2017 KEILY L Primary KEILY L [place] [id number] Insurance:MEDICARE POTTERDOB: [facility] PART A [facility] [id number] [place] Repository [id number]: [id number] [phone] Date:2017-08-264 () 08/27/2017 Secondary KEILY L [place] Insurance:AARPPolicy POTTERDOB: Community Number: [id number] Hospital [id number] Repository Date:5727-82-41KC [address], [place] [address]CG: 08/27/2017 Tertiary NOT GIVENUNK [place] Insurance:SELF PAY [facility] Number: Effective Repository Date:2017-08-26 08/27/2017 KEILY L Primary KEILY L [place] [id number] Insurance:MEDICARE POTTERDOB: [facility] PART A [facility] [id number] [place] [address] [place]: Repository [id number]: [id number] [phone] Date:2017-08-26 () 08/27/2017 Secondary KEILY L Ailin Insurance:AARPPolicy POTTERDOB: [facility] Number: [id number] [place] [address] [id number] Repository Date:4471-15-40GB [address], [place] [address]FH: 08/27/2017 Tertiary NOT GIVENUNK [place] Insurance:SELF PAY [facility] Number: Effective Repository Date:2017-08-27 08/26/2017 KEILY L Primary KEILY L [place] [id number] Insurance:MEDICARE POTTERDOB: [facility] PART A [facility] [id number] Number: Repository [id number]: [id number] [phone] Date:2017-08-26 () 08/26/2017 Secondary KEILY L [place] Insurance:AARPPolicy POTTERDOB: Community Number: [id number] [place] [address] [id number] Repository Date:1348-67-00SJ [address], [place] [address]ZY: 08/26/2017 Tertiary NOT GIVENUNK [place] Insurance:SELF PAY [facility] Number: Effective Repository Date:2017-08-26 08/26/2017 KEILY L Primary KEILY L [place] [id number] Insurance:MEDICARE POTTERDOB: [facility] PART A [facility] [id number], [place] Number: Repository [id number]: [id number] [phone] Date:2017-08-26 () 08/26/2017 Secondary KEILY L [place] Insurance:AARPPolicy POTTERDOB: Community Number: [id number] Hospital [id number] Repository Date:7166-50-87ZU [address], [place] [address]OZ: 08/26/2017 Tertiary NOT GIVENUNK [place] Insurance:SELF PAY [facility] Effective Repository Date:2017-08-26 08/25/2017 KEILY L Primary KEILY L [place] [id number] Insurance:MEDICARE POTTERDOB: [facility] PART A [facility] [id number] [place] Number: Repository [address]Xfk: [id number] [phone] Date:2017-08-12 () 08/25/2017 Secondary KEILY L [place] Insurance:AARPPolicy POTTERDOB: Community Number: [id number] [place] [address] [id number] Repository Date:0383-31-27SG [address], [place] [address]DN: 08/25/2017 Tertiary NOT GIVENUNK [place] Insurance:SELF PAY [facility] Number: Effective Repository Date:2017-08-12 08/25/2017 KEILY L Primary KEILY L [place] [id number] Insurance:MEDICARE POTTERDOB: [facility] PART A [facility] [id number], [place] Number: Repository [id number]: [id number] [phone] Date:2017-08-12 () 08/25/2017 Secondary KEILY L [place] Insurance:AARPPolicy POTTERDOB: Community Number: [id number] [place] [address] [id number] Repository Date:1064-45-80XU [address], [place] [address]BE: 08/25/2017 Tertiary NOT GIVENUNK [place] Insurance:SELF PAY [facility] Number: Effective Repository Date:2017-08-25 07/29/2017 KEILY L Primary KEILY L [place] [id number] Insurance:MEDICARE POTTERDOB: Community [place] PART A olic [id number] [place] Number: Repository [address]Tow: [id number] [phone] Date:2017-05-08 () 07/29/2017 Secondary KEILY L [place] Insurance:AARPPolicy POTTERDOB: Community Number: [id number] Hospital [id number] Repository Date:2198-12-78ZK [address], [place] [address]DH: 07/29/2017 Tertiary NOT GIVENUNK [place] Insurance:SELF PAY [facility] Number: Effective Repository Date:2017-05-08 07/29/2017 KEILY L Primary KEILY L [place] [id number] Insurance:MEDICARE POTTERDOB: Community [place] PART A [facility] [id number] [place] [place] Number[place] Repository [address]Twh: [id number] [phone] Date:2017-07-29 () 07/29/2017 Secondary KEILY L [place] Insurance:AARPPolicy POTTERDOB: Community Number: [id number] Hospital [id number] Repository Date:1206-53-21ZX [address], [place] [address]WT: 07/29/2017 Tertiary NOT GIVENUNK [place] Insurance:SELF PAY [facility] Number: Effective Repository Date:2017-07-29 07/14/2017 KEILY L Primary KEILY L [place] [id number] Insurance:MEDICARE POTTERDOB: Community [place] PART A [facility] [id number] [place] [place] Number[place] Repository [address]Vlq: [id number] [phone] Date:2017-07-14 -4 (HP) 07/14/2017 Secondary KEILY [place] Insurance:Navdeep SPRAGUE: [facility] Number: [id number] Hospital [id number] Repository Date:2605-07-98PL [facility] [address], [place] [address]XU: 07/14/2017 Tertiary NOT GIVENUNK [place] Insurance:SELF PAY [facility] Number: Effective Repository Date:2017-07-14
== END ==
PROVIDERS: Family Provider Family Medicine; PCP Family Medicine; Referring Provider Surgery; Visit Provider Surgery
DX: Z53.9 Procedure and treatment not carried out, unspecified reason (principal)

== ENCOUNTER 2018-06-23 13:00 | Outpatient (RCR) | payer MEDICARE, OTHER, SELFPAY ==
[2018-06-02 00:32] VITALS: BP 146/81; PULSE 63; RESP 18; TEMP 36.4
[2018-06-09 13:21] VITALS: BP 139/83; PULSE 65; RESP 16; TEMP 36.6
--- NOTE | 2018-06-09 14:18 | PN.PCM_ITS ---
(1) Non-healing right groin open wound Status: Chronic Current Visit: Yes Code(s): S31.103A - Unspecified open wound of abdominal wall, right lower quadrant without penetration into peritoneal cavity, initial encounter Comment: open surgical necrotizing diabetic abscess wound lower anterior abdominal wall and right inguinal area and pubic area (2) Methicillin resistant Staphylococcus aureus infection Status: Acute Current Visit: Yes Code(s): A49.02 - Methicillin resistant Staphylococcus aureus infection, unspecified site Type of Wound Date of Service: 06/09/18 Chief Complaint: Nonhealing diabetic ulcer right inguinal and pubic and abdominal wall area. History of Wound: Surgery 11/18/17 - Surgical preparation right inguinal and pubic area and lower anterior abdominal wall area with incision and drainage and excisional debridement skin, subcutaneous tissue and fascia for necrotizing diabetic abscess (190 cm2). Wound care - Silver. Operative culture - MRSA. He was discharged home on Doxycycline and has finished them. He had a wound culture done on 03/23/18 and it showed Proteus. He was placed on Levaquin and finished them. On 05/04/18, another wound culture was done due to lack of improvement and persistent moisture in the area. It showed MRSA. He was placed on Doxycycline. Encourage nutritional supplementation with protein to help the healing process. Today he denies fever. His appetite is good. He is back to work and doing ok. He has been placing Bactroban ointment to his nose with some improvement. He is scheduled for operative debridement and secondary wound closure this 05/22/18. Progress of Wound: Improving. - Physical Exam Vital Signs Temp Pulse Resp BP 97.8 F 65 16 139/83 H 06/09/18 13:21 06/09/18 13:21 06/09/18 13:21 06/09/18 13:21 General: Alert, Oriented x3, Cooperative HEENT: Atraumatic Oral: Moist Mucosa Cardiovascular: Regular rate Skin: Ulcer/ Wound - Right groin wound improving. Wound Measurements and Assessment WC - Nurse 1 - General Ulcer Measurement Start: 06/09/18 13:21 Freq: Status: Active Protocol: Activity Type Activity Date Activity User E-Sign Co-Sign Detail Recorded Client Recorded Date Recorded By Document 06/09/18 13:21 [id number] 06/09/18 13:24 01/08/19 13:21 Wound Center Nurse 1 [Ulcer Assessment] #1 RIGHT GROIN WOUND -Combined with other wound No -Current Size (cm) - Length 0.5 -Current Size (cm) - Width 0.5 -Current Size (cm) - Depth 0.1 -Total Square Cm 0.25 -Date of Last Picture (Recall this 06/09/18 field) -Photo Taken Yes -Epithelialization None Present -Tunneling No -Undermining/Tunneling No -Circular Undermining No -Exudate Amt Medium (34-66%) -Exudate Type Serosanguineous -Wound Margin Distinct, Outline Attached -Granulation Amt Large (67-100%) -Granulation Quality [place] Red -Slough/Fibrin Yes -Necrosis Amt Small (1-33%) -Necrotic Tissue Type Adherent Slough -Structure Exposed None/Limited to Skin Breakdown -Texture ([facility]-wound Skin Appearance) Scarring -Moisture ([facility]-wound Skin Appearance No Abnormality ) Assessed -Color ([facility]-wound Skin Appearance) No Abnormality Assessed -Temperature ([facility]-wound Skin No Abnormality Appearance) (Pt Warm) -Tenderness on Palpation ([place]-wound No Skin Appearance) -Ulcer Cleansing Rinsed/ Irrigated with Saline -Foul Odor after Cleansing No -Anesthetic Used 5% Lidocaine Gel [Edema Assessment] -Lower Limb Edema Present NA - Nurse 2 - General Ulcer CM Notes Start: 06/09/18 13:21 Freq: Status: Active Protocol: Activity Type Activity Date Activity User E-Sign Co-Sign Detail Recorded Client Recorded Date Recorded By Document 06/09/18 13:33 STEVE [id number] 06/09/18 13:34 STEVE 06/09/18 13:33 Wound Center Nurse 2 [Procedure/Treatment] #1 RIGHT GROIN WOUND -Time 13:33 -Correct Patient Yes -Correct Side, Site, Position Yes -Correct Procedure Yes -Procedure Performed Yes -Type of Procedure Debridement -Clinical Debridement Subcutaneous -Post Debridement Size (cm) - Length 0.3 -Post Debridement Size (cm) - Width 0.7 -Post Debridement Size (cm) - Depth 0.1 -Total Square Cm 0.21 -Wound/Ulcer Outcome Not Healed -Ulcer Cleansing Rinsed/ Irrigated with Saline -Foul Odor after Cleansing No -Bioengineered Tissue No -Bleeding Controlled with Pressure -Offloading No -Treatment Response Procedure Tolerated Well [See Physician Procedure note for Specifics] Pain Scale: 0-10 Numeric [Pain] -Is Patient Pain Free? Yes Musculoskeletal: No Tenderness to Palpation of Joints or Extremities Neurological: Neuro grossly intact Psych/Mental Status: Normal Affect, Appropriate Debridement Note Post-Debridement Measurements/Treatment WC - Nurse 2 - General Ulcer CM Notes Start: 06/09/18 13:21 Freq: Status: Active Protocol: Activity Type Activity Date Activity User E-Sign Co-Sign Detail Recorded Client Recorded Date Recorded By Document 06/09/18 13:33 [id number] 06/09/18 13:34 06/09/18 13:33 Wound Center Nurse 2 #1 RIGHT GROIN WOUND -Time 13:33 -Correct Patient Yes -Correct Side, Site, Position Yes -Correct Procedure Yes -Procedure Performed Yes -Type of Procedure Debridement -Clinical Debridement Subcutaneous -Post Debridement Size (cm) - Length 0.3 -Post Debridement Size (cm) - Width 0.7 -Post Debridement Size (cm) - Depth 0.1 -Total Square Cm 0.21 -Wound/Ulcer Outcome Not Healed -Ulcer Cleansing Rinsed/ Irrigated with Saline -Foul Odor after Cleansing No -Bioengineered Tissue No -Bleeding Controlled with Pressure -Offloading No -Treatment Response Procedure Tolerated Well Pain Scale: 0-10 Numeric Is Patient Pain Free? Yes Wound debrided: Right groin Laterality: Right Type of Debridement: Excisional debridement Anesthesia Used: 4% Lidocaine Solution Depth: Down to and including healthy tissue, in the subcutaneous layer Percentage of wound debrided: 100 Instrument Used: 3mm curette Tissue Removed: Subcutaneous tissue and slough Severity: Limited To Skin Breakdown Amount of bleeding with debridement: Mild Bleeding Controlled with: Pressure Patient tolerated procedure well Assessment/Plan Active Problems (Last Updated 05/18/18 @ 09:36 by Teresa Christopher) Methicillin resistant Staphylococcus aureus infection (Acute) Non-healing right groin open wound (Chronic) open surgical necrotizing diabetic abscess wound lower anterior abdominal wall and right inguinal area and pubic area Assessment: 1. 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 2. Diabetes mellitus. 3. MRSA. 4. s/p surgical preparation right inguinal and pubic area and lower anterior abdominal wall area with incision and drainage and excisional debridement skin, subcutaneous tissue and fascia for necrotizing diabetic abscess (190 cm2). 5. Nonhealing diabetic ulcer right inguinal and pubic and abdominal wall area. Plan: Continue Silver dressing changes daily. May moisten with saline if too dry. Continue Doxycycilne for the MRSA culture from 05/04/18. Encourage nutritional supplementation with protein to help the healing process. 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 There has been increased moisture in the area of the ulcer which is contributing to delay in healing. 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 He has been doing a good job keeping the area dry. There is improvement in his wound over the past several weeks. He will follow up in one week. Code Visit 111xxx-113xx: 11469 [place] subq tissue 20 sq cm/<
[2018-06-15 09:28] VITALS: BP 154/76; PULSE 76; RESP 16; TEMP 35.4
--- NOTE | 2018-06-15 12:18 | PN.PCM_ITS ---
(1) Non-healing right groin open wound Status: Chronic Current Visit: Yes Code(s): S31.103A - Unspecified open wound of abdominal wall, right lower quadrant without penetration into peritoneal cavity, initial encounter Comment: open surgical necrotizing diabetic abscess wound lower anterior abdominal wall and right inguinal area and pubic area (2) Methicillin resistant Staphylococcus aureus infection Status: Acute Current Visit: Yes Code(s): A49.02 - Methicillin resistant Staphylococcus aureus infection, unspecified site Type of Wound Date of Service: 06/15/18 Chief Complaint: Nonhealing diabetic ulcer right inguinal and pubic and abdominal wall area. History of Wound: Surgery 11/18/17 - Surgical preparation right inguinal and pubic area and lower anterior abdominal wall area with incision and drainage and excisional debridement skin, subcutaneous tissue and fascia for necrotizing diabetic abscess (190 cm2). Wound care - Silver. Operative culture - MRSA. He was discharged home on Doxycycline and has finished them. He had a wound culture done on 03/23/18 and it showed Proteus. He was placed on Levaquin and finished them. On 05/04/18, another wound culture was done due to lack of improvement and persistent moisture in the area. It showed MRSA. He was placed on Doxycycline. Encourage nutritional supplementation with protein to help the healing process. Today he denies fever. His appetite is good. He is back to work and doing ok. He has been placing Bactroban ointment to his nose with some improvement. He is scheduled for operative debridement and secondary wound closure this 05/22/18. Progress of Wound: Improved. - Physical Exam Vital Signs Temp Pulse Resp BP 95.7 F L 76 16 154/76 H 06/15/18 09:28 06/15/18 09:28 06/15/18 09:28 06/15/18 09:28 General: Alert, Oriented x3, Cooperative HEENT: Atraumatic Cardiovascular: Regular rate Extremities: No edema, Peripheral Pulses Normal Skin: Ulcer/ Wound - Right groin with a small opened area. The remainder of the incision area has healed. Wound Measurements and Assessment WC - Nurse 1 - General Ulcer Measurement Start: 06/09/18 13:21 Freq: Status: Active Protocol: Activity Type Activity Date Activity User E-Sign Co-Sign Detail Recorded Client Recorded Date Recorded By Document 06/15/18 09:28 [id number] 06/15/18 09:29 MW 06/15/18 09:28 Wound Center Nurse 1 [Ulcer Assessment] #1 RIGHT GROIN WOUND -Combined with other wound No -Current Size (cm) - Length 0.4 -Current Size (cm) - Width 1.1 -Current Size (cm) - Depth 0.1 -Total Square Cm 0.44 -Photo Taken No -Epithelialization Small 1-33% -Tunneling No -Undermining/Tunneling No -Circular Undermining No -Exudate Amt None Present -Wound Margin Flat & Intact -Granulation Amt Small (1-33%) -Granulation Quality Red -Slough/Fibrin Yes -Necrosis Amt Medium (34-66%) -Necrotic Tissue Type Adherent Slough -Structure Exposed N/A -Texture ([place]-wound Skin Appearance) Assessed Scarring -Moisture ([place]-wound Skin Appearance No Abnormality ) Assessed -Color ([place]-wound Skin Appearance) No Abnormality Assessed -Temperature ([place]-wound Skin No Abnormality Appearance) (Pt Warm) -Tenderness on Palpation ([place]-wound No Skin Appearance) -Ulcer Cleansing Rinsed/ Irrigated with Saline -Foul Odor after Cleansing No -Anesthetic Used 4% Lidocaine Solution [Edema Assessment] -Lower Limb Edema Present No WC - Nurse 2 - General Ulcer CM Notes Start: 06/09/18 13:21 Freq: Status: Active Protocol: Activity Type Activity Date Activity User E-Sign Co-Sign Detail Recorded Client Recorded Date Recorded By Document 06/15/18 09:38 [id number] 06/15/18 09:39 06/15/18 09:38 Wound Center Nurse 2 [Procedure/Treatment] #1 RIGHT GROIN WOUND -Time 09:39 -Correct Patient Yes -Correct Side, Site, Position Yes -Correct Procedure Yes -Procedure Performed Yes -Type of Procedure Debridement -Clinical Debridement Subcutaneous -Post Debridement Size (cm) - Length 0.7 -Post Debridement Size (cm) - Width 1.8 -Post Debridement Size (cm) - Depth 0.1 -Total Square Cm 1.26 -Wound/Ulcer Outcome Not Healed -Ulcer Cleansing Rinsed/ Irrigated with Saline -Foul Odor after Cleansing No -Bioengineered Tissue No -Bleeding Controlled with Pressure -Offloading No -Treatment Response Procedure Tolerated Well [See Physician Procedure note for Specifics] Pain Scale: 0-10 Numeric [Pain] -Is Patient Pain Free? Yes Musculoskeletal: No Tenderness to Palpation of Joints or Extremities Neurological: Neuro grossly intact Psych/Mental Status: Normal Affect, Appropriate Debridement Note Post-Debridement Measurements/Treatment - Nurse 2 - General Ulcer CM Notes Start: 06/09/18 13:21 Freq: Status: Active Protocol: Activity Type Activity Date Activity User E-Sign Co-Sign Detail Recorded Client Recorded Date Recorded By Document 06/09/18 13:33 [id number] 06/09/18 13:34 Document 06/15/18 09:38 [id number] 06/15/18 09:39 06/09/18 06/15/18 13:33 09:38 Wound Center Nurse 2 #1 RIGHT GROIN WOUND -Time 13:33 09:39 -Correct Patient Yes Yes -Correct Side, Site, Position Yes Yes -Correct Procedure Yes Yes -Procedure Performed Yes Yes -Type of Procedure Debridement Debridement -Clinical Debridement Subcutaneous Subcutaneous -Post Debridement Size (cm) - Length 0.3 0.7 -Post Debridement Size (cm) - Width 0.7 1.8 -Post Debridement Size (cm) - Depth 0.1 0.1 -Total Square Cm 0.21 1.26 -Wound/Ulcer Outcome Not Healed Not Healed -Ulcer Cleansing Rinsed/ Rinsed/ Irrigated with Irrigated with Saline Saline -Foul Odor after Cleansing No No -Bioengineered Tissue No No -Bleeding Controlled with Pressure Pressure -Offloading No No -Treatment Response Procedure Procedure Tolerated Well Tolerated Well Pain Scale: 0-10 Numeric Is Patient Pain Free? Yes Yes Wound debrided: Right groin Laterality: Right Type of Debridement: Excisional debridement Anesthesia Used: 4% Lidocaine Solution Depth: Down to and including healthy tissue, in the subcutaneous layer Percentage of wound debrided: 100 Instrument Used: 3mm curette Tissue Removed: Subcutaneous tissue and slough Severity: Limited To Skin Breakdown Amount of bleeding with debridement: Mild Bleeding Controlled with: Pressure Patient tolerated procedure well Assessment/Plan Active Problems (Last Reviewed 06/15/18 @ 10:46 by Teresa Christopher) Methicillin resistant Staphylococcus aureus infection (Acute) Non-healing right groin open wound (Chronic) open surgical necrotizing diabetic abscess wound lower anterior abdominal wall and right inguinal area and pubic area Assessment: 1. 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 2. Diabetes mellitus. 3. MRSA. 4. s/p surgical preparation right inguinal and pubic area and lower anterior abdominal wall area with incision and drainage and excisional debridement skin, subcutaneous tissue and fascia for necrotizing diabetic abscess (190 cm2). 5. Nonhealing diabetic ulcer right inguinal and pubic and abdominal wall area. Plan: Will stop the silver dressing and trial a strip of foam dressing along the suture line/scar tissue to help keep moisture down. Continue Doxycycline for the MRSA culture from 05/04/18. Encourage nutritional supplementation with protein to help the healing process. 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 There has been increased moisture in the area of the ulcer which is contributing to delay in healing. 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 He has been doing a good job keeping the area dry. There is improvement in his wound over the pa st several weeks. He will follow up in one week. Code Visit 111xxx-113xx: [id number] [place] subq tissue 20 sq cm/<
--- NOTE | 2018-06-23 13:11 | PCM.WC.PN ---
(1) Non-healing right groin open wound Status: Chronic Current Visit: Yes Code(s): S31.103A - Unspecified open wound of abdominal wall, right lower quadrant without penetration into peritoneal cavity, initial encounter Comment: open surgical necrotizing diabetic abscess wound lower anterior abdominal wall and right inguinal area and pubic area (2) Methicillin resistant Staphylococcus aureus infection Status: Acute Current Visit: Yes Code(s): A49.02 - Methicillin resistant Staphylococcus aureus infection, unspecified site Type of Wound Date of Service: 06/23/18 Chief Complaint: Nonhealing diabetic ulcer right inguinal and pubic and abdominal wall area. History of Wound: Surgery 11/18/17 - Surgical preparation right inguinal and pubic area and lower anterior abdominal wall area with incision and drainage and excisional debridement skin, subcutaneous tissue and fascia for necrotizing diabetic abscess (190 cm2). Wound care - Silver. Operative culture - MRSA. He was discharged home on Doxycycline and has finished them. He had a wound culture done on 03/23/18 and it showed Proteus. He was placed on Levaquin and finished them. On 05/04/18, another wound culture was done due to lack of improvement and persistent moisture in the area. It showed MRSA. He was placed on Minocycline which he finished 06/22/18. Encourage nutritional supplementation with protein to help the healing process. Today he denies fever. His appetite is good. He is back to work and doing ok. Progress of Wound: Improved. - Physical Exam Vital Signs Temp Pulse Resp BP 95.7 F L 76 16 154/76 H 06/15/18 09:28 06/15/18 09:28 06/15/18 09:28 06/15/18 09:28 General: Alert, Oriented x3, Cooperative HEENT: Atraumatic, PERRLA Oral: Moist Mucosa Lungs: Normal air movement Cardiovascular: Regular rate Extremities: No edema, Capillary Refill Less than 3 Seconds Skin: Ulcer/ Wound - Right groin wound Musculoskeletal: No Tenderness to Palpation of Joints or Extremities Neurological: Neuro grossly intact Psych/Mental Status: Normal Affect, Appropriate Debridement Note Post-Debridement Measurements/Treatment WC - Nurse 2 - General Ulcer CM Notes Start: 06/09/18 13:21 Freq: Status: Active Protocol: Activity Type Activity Date Activity User E-Sign Co-Sign Detail Recorded Client Recorded Date Recorded By Document 06/09/18 13:33 [id number] 06/09/18 13:34 Document 06/15/18 09:38 [id number] 06/15/18 09:39 06/09/18 06/15/18 13:33 09:38 Wound Center Nurse 2 #1 RIGHT GROIN WOUND -Time 13:33 09:39 -Correct Patient Yes Yes -Correct Side, Site, Position Yes Yes -Correct Procedure Yes Yes -Procedure Performed Yes Yes -Type of Procedure Debridement Debridement -Clinical Debridement Subcutaneous Subcutaneous -Post Debridement Size (cm) - Length 0.3 0.7 -Post Debridement Size (cm) - Width 0.7 1.8 -Post Debridement Size (cm) - Depth 0.1 0.1 -Total Square Cm 0.21 1.26 -Wound/Ulcer Outcome Not Healed Not Healed -Ulcer Cleansing Rinsed/ Rinsed/ Irrigated with Irrigated with Saline Saline -Foul Odor after Cleansing No No -Bioengineered Tissue No No -Bleeding Controlled with Pressure Pressure -Offloading No No -Treatment Response Procedure Procedure Tolerated Well Tolerated Well Pain Scale: 0-10 Numeric Is Patient Pain Free? Yes Yes Wound debrided: Right groin Laterality: Right Type of Debridement: Excisional debridement Anesthesia Used: 5% Lidocaine Gel Depth: Down to and including healthy tissue, in the subcutaneous layer Percentage of wound debrided: 100 Instrument Used: 3mm curette Tissue Removed: Subcutaneous tissue and slough Severity: Limited To Skin Breakdown Amount of bleeding with debridement: Mild Bleeding Controlled with: Pressure Patient tolerated procedure well Assessment/Plan Active Problems (Last Reviewed 06/15/18 @ 10:46 by Teresa Christopher) Methicillin resistant Staphylococcus aureus infection (Acute) Non-healing right groin open wound (Chronic) open surgical necrotizing diabetic abscess wound lower anterior abdominal wall and right inguinal area and pubic area Assessment: 1. 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 2. Diabetes mellitus. 3. MRSA. 4. s/p surgical preparation right inguinal and pubic area and lower anterior abdominal wall area with incision and drainage and excisional debridement skin, subcutaneous tissue and fascia for necrotizing diabetic abscess (190 cm2). 5. Nonhealing diabetic ulcer right inguinal and pubic and abdominal wall area. Plan: Continue the foam dressing along the suture line/scar tissue to help keep moisture down. Secure with the blue silicone tape. Finished the Minocycline yesterday for the MRSA culture from 05/04/18. Encourage nutritional supplementation with protein to help the healing process. 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 There has been increased moisture in the area of the ulcer which is contributing to delay in healing. 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 He has been doing a good job keeping the area dry. There is improvement in his wound over the past several weeks. He will follow up in one week. Code Visit [id number]: [id number] [place] subq tissue 20 sq cm/<
[2018-06-23 13:16] VITALS: BP 147/68; PULSE 66; RESP 18; TEMP 35.9
== END 2018-07-02 23:59 ==
LOC: WC 13:00
PROVIDERS: Family Provider Family Medicine; PCP Family Medicine; Visit Provider Surgery
DX: E11.622 Type 2 diabetes mellitus with other skin ulcer (principal); Z86.14 Personal history of Methicillin resistant Staphylococcus aureus infection; L01.00 Impetigo, unspecified; L02.214 Cutaneous abscess of groin; L98.491 Non-pressure chronic ulcer of skin of other sites limited to breakdown of skin
CPT/HCPCS: 11042

== ENCOUNTER 2018-07-14 00:20 | Inpatient (IN) | payer MEDICARE, OTHER, SELFPAY ==
[2018-07-07 13:21] VITALS: BMI 34.2
[2018-07-14] VITALS (9 sets, daily range): BP systolic 118–164; BP diastolic 55–76; PULSE 62–73; RESP 16–20; TEMP 36.3–37.1; O2SAT 94–99; BMI 34.0; BMI 34.1
--- NOTE | 2018-07-14 00:45 | CT_ITS ---
STUDY: CT ABDOMEN AND PELVIS WITHOUT CONTRAST REASON FOR EXAM: Male, 72 years old. Abdominal pain RADIATION DOSAGE (If Supplied By Facility): CTDIvol = ( 22.36 ) mGy, DLP = ( 1206.49 ) mGycm TECHNIQUE: Transaxial images were obtained from the dome of the diaphragm to the symphysis pubis without oral contrast, and without intravenous contrast. Sagittal and coronal images were reconstructed. Individualized dose optimization techniques were used for this CT. COMPARISON: None. FINDINGS: Evaluation limited by lack of IV and oral contrast. Atelectasis/scarring within the lungs. Coronary artery calcifications. Normal unenhanced liver. There are multiple gallstones. Normal unenhanced spleen. Normal unenhanced pancreas. Normal unenhanced bilateral adrenal glands. 3 mm nonobstructing left nephrolithiasis. Nonspecific bilateral perinephric fatty stranding. Otherwise the unenhanced kidneys are grossly unremarkable. Normal visualized stomach. Normal small intestine. There are multiple colonic diverticula consistent with diverticulosis. There is non-visualization of the appendix. There is diffuse atherosclerotic calcification of the abdominal aorta, without a demonstrated aneurysm. Cannot evaluate for dissection due to lack of IV contrast. Nonspecific subcentimeter short axis mesenteric and retroperitoneal lymph nodes. Normal retroperitoneum. Normal unenhanced urinary bladder. Numerous prostate calcifications are present. Small bilateral fat-containing inguinal hernias. Small fat-containing umbilical hernia. There are diffuse degenerative changes of the visualized lumbar spine. CT/Abdomen/Pelvis without Cont IMPRESSION: Nonobstructing left nephrolithiasis. Cholelithiasis. Gallbladder ultrasound could be performed to further evaluate as clinically indicated. Extensive atherosclerotic disease of the aorta and branching vessels. No CT evidence for diverticulitis. Other findings as above. Electronically Signed: Mannie Medina, at 2:00 EST Tel , Service support ,
--- NOTE | 2018-07-14 00:47 | ED.DCSUM_ITS ---
- ER Visit Summary Date of Service: 07/14/18 Chief Complaint: [] Right flank pain History of Present Illness: The patient is a 72 M [] complaining of right flank pain since 6 PM sudden onset continuous sharp pain after dinner. Hurts to take a deep breath. Associated nausea. He had 2 loose bowel movements tonight. No urinary symptoms. He feels mildly bloated. He ate some peppers for dinner and is unsure if that caused it. No history of AAA. History of coronary artery disease. Remote 5 vessel bypass. Physical Examination: [] Vital signs reviewed General: Well-nourished well-developed Head: Normocephalic atraumatic Eyes: Pupils equal round and reactive to light extraocular movements intact ENT: TMs clear no hemotympanum no trauma Neck: Nontender full range of motion Cardiovascular: Regular rate rhythm no murmurs normal S1-S2 Respiratory: No distress clear to auscultation bilaterally chest nontender Abdomen: Soft nontender nondistended normal bowel sounds no masses Back: Nontender no CVA tenderness Extremities: Nontender active range of motion ?4 extremities no trauma Skin: Normal color no trauma Neuro alert oriented cranial nerves II through XII intact normal strength sensation reflexes Test Results: [] Emergency Department Course and Treatment: [] Given IV fluids judiciously as well as Zofran and morphine. Lab work obtained as well as CT abdomen pelvis CT abdomen pelvis shows gallstones noted. No inflammation of gallbladder wall. CBC is normal except a white count of 12.1. Segs 82. Chemistries normal except glucose 184 BUN 20. Her function tests are elevated with a total bili of 2.1. Direct bili 1.4. Lipase 8235. Urinalysis shows rare bacteria. Lactate is 2.1. Patient given IV fluids, Zofran morphine and a dose of Zosyn for his gallstone pancreatitis. Discussed with the hospitalist as well as Dr. Dawkins the surgeon. He will be admitted by the hospitalist with a surgical consult Treatment Plan: [] Disposition: [] Impression: [] Gallstone pancreatitis This note was generated with [employer] software. It may contain incorrect words, spelling, and punctuation that were not noted in review of the chart prior to signing ED Disposition - Plan for ED Patient: Referrals: Leena Reynaga MD [Primary Care Provider] -
[2018-07-14 00:50] LABS: Mucous, Urine 0 SEEN /hpf (<or=2+); Red Blood Cells-Urine 0 SEEN /hpf (0-5)
[2018-07-14 00:53] LABS: Color, Urine Yellow (Yellow); Glucose, Dipstick Normal (Normal); Ketone-Dipstick Negative (Negative); Leukocyte Esterase-Dipstick 25 /ul (Negative); Nitrite-Dipstick Negative (Negative); Occult Blood-Urine Negative /ul (Negative); Protein-Dipstick 30 mg/dl (Negative); Urine Bilirubin Dipstick Negative (Negative); Urine Clarity Sl. Cloudy (Clear); Urine Urobilinogen 1 mg/dl (Normal)
[2018-07-14 01:00] LABS: Bacteria RARE /hpf (None Seen); Squamous Epithelial Cells - UA 0-5 SEEN /hpf (0-5); White Blood Cells 0-5 SEEN /hpf (0-5)
[2018-07-14] MEDS: Morphine 4 MG/ML Syringe IV ×2 (01:04→04:51)
[2018-07-14] MEDS: Ondansetron 4 MG/2 ML Vial IV ×2 (01:04→09:14)
[2018-07-14] MEDS: 0.9% Normal Saline 1,000 ML 125 ML IV ×3 (01:04→17:20)
[2018-07-14 01:12] LABS: Basophil# 0.02 X10^3/uL; Basophil% 0.2 % (0-1); Eosinophil# 0.05 X10^3/uL; Eosinophils% 0.4 % (0-5); Hematocrit 41.8 % (40-54); Hemoglobin 14.4 g/dl (13.0-16.5); Lymphocyte % 9.1 % (19-41); Mean Corp Hgb Conc 34.4 g/gl (32-36); Mean Corpuscular Hgb 31.7 pg (27.0-32.0); Mean Corpuscular Volume 92.1 fL (80-94); Mean Platelet Vol. 9.5 fl (6.2-12.0); Monocyte# 0.92 X10^3/uL; Monocyte% 7.6 % (0-10); Neutrophil # 9.99 X10^3/uL (2.7-7.7); Neutrophil % 82.4 % (47-70); Platelet Count 266 K/mm3 (150-450); RBC Distribution Width CV 13.4 % (11.6-14.6); RBC Distribution Width SD 44.3 fl (35.1-43.9); Red Blood Count 4.54 M/mm3 (4.6-6.2); White Blood Count 12.1 K/mm3 (4.4-11.0)
[2018-07-14 01:13] LABS: POSITIVE COUNT NO; POSITIVE DIFFERENTIAL NO; POSITIVE MORPHOLOGY NO
[2018-07-14 01:30] LABS: AST(SGOT) 262 U/L (15-37); Alanine Aminotransfer ALT/SGPT 135 U/L (16-61); Albumin, Serum 3.7 g/dL (3.2-5.0); Alkaline Phosphatase 43 U/L (45-117); Anion Gap 9 (5-15); BUN 20 mg/dL (7-18); BUN/Creat Ratio 18.3 RATIO (10-20); Calcium,Total 8.8 mg/dL (8.5-10.1); Chloride 107 mmol/L (98-107); Creatinine, Serum 1.09 mg/dL (0.70-1.30); EST Glomerular Filtration Rate 71 mL/min (>60); Est Glom Filt Rate - Afr Amer 86 mL/min (>60); Estimated Creatinine Clearance 75.37 ml/min; Globulin 3.8 g/dL (2.2-4.2); Glucose 184 mg/dL (74-106); Lipase 8235 U/L (73-393); Potassium 4.2 mmol/L (3.5-5.1); Protein, Total 7.5 g/dL (6.4-8.2); Sodium Level 138 mmol/L (136-145)
--- NOTE | 2018-07-14 01:42 | ED.RN ---
LAB CALLED WITH CRITICAL LAB RESULTS. LACTIC ACID 2.1. DR. RUBIN MADE AWARE NO NEW ORDERS AT THIS TIME
[2018-07-14 01:43] LABS: Lactic Acid 2.1 mmol/L (0.4-2.0)
--- NOTE | 2018-07-14 04:50 | PCM.HP.STD ---
Problem List (1) Acute gallstone pancreatitis Status: Acute (2) Cholecystitis Status: Acute (3) Premature atrial contraction Status: Inactive (4) Hyponatremia Status: Resolved (5) Impetigo Status: Inactive (6) Impacted cerumen, right ear Status: Inactive History of Present Illness Date of Admission: 07/14/18 Chief Complaint: right flank pain The patient is a 72 year old M with a significant history of CAD status post CABG; hypertension; and diabetes mellitus who presented with excruciating progressively worsening sharp right-sided flank pain that started few hours before his admission. His right flank pain started after dinner. He attributed his pain to dialysis for which reason he took soda water but had no relief from it. He denies any alleviating factors except pain medicine that he received at the emergency department. His pain worsened with taking a deep breath. His lipase was severely elevated at emergency department and his urinalysis was mildly abnormal. Patient denies any urinary symptoms. At the emergency department patient had a CT abdomen findings of cholelithiasis; left nonobstructing nephrolithiasis; and non-specific mesenteric and retroperitoneal lymph nodes. His pancreas was nonenhanced. Emergency department doctor discussed the case with Dr. Waterman who wanted to see patient in am Past Medical History Past Medical History (Chronic Problems): Chronic Problems (Last Reviewed 07/14/18 @ 06:07 by Kulwinder Cantor MD) Essential hypertension (Chronic) Non-healing right groin open wound (Chronic) open surgical necrotizing diabetic abscess wound lower anterior abdominal wall and right inguinal area and pubic area DM type 2 (diabetes mellitus, type 2) (Chronic) Overweight (Chronic) Impacted cerumen of both ears (Chronic) S/P CABG x 5 (Chronic) BATISTA to LAD, SVG to DX-DX sequential and OM arteries; and right radial artery graft to the RCA 09/13/[address] García History of left heart catheterization (Chronic) 09/10/[address] [facility] per Dr. Moore> CABG X5 Hyperlipidemia (Chronic) History of myocardial infarction of inferoposterior wall (Chronic) Atherosclerotic heart disease of [place] coronary artery without angina pectoris (Chronic) Medical History: Medical History (Last Reviewed 07/14/18 @ 06:07 by Kulwinder Cantor MD) Premature atrial contraction (Acute) I49.1 Premature ventricular contraction (Inactive) I49.3 Essential hypertension (Chronic) I10 Hyperlipidemia (Chronic) E78.5 History of myocardial infarction of inferoposterior wall (Chronic) I25.2 Atherosclerotic heart disease of [place] coronary artery without angina pectoris (Chronic) I25.10 Diabetes E11.9 Abnormal cardiovascular stress test (Inactive) R94.39 Hypertension (Inactive) I10 Allergies ALLIE Inhibitors Adverse Reaction (Intermediate, Verified 07/14/18 00:21) Cough Home Medications: Ambulatory Orders Medication Instructions Recorded fenofibrate micronized 134 mg 134 mg PO QHS 90 Days #90 07/14/17 capsule metoprolol tartrate 50 mg tablet 25 mg PO BID 90 Days #90 07/14/17 simvastatin 20 mg tablet 20 mg PO QHS 90 Days #90 07/14/17 aspirin 81 mg tablet,delayed 81 mg PO LUNCH tab 07/23/17 release coenzyme Q10 100 mg capsule 100 mg PO LUNCH 07/23/17 cyanocobalamin (vit B-12) 1,000 1,000 mcg PO LUNCH 07/23/17 mcg tablet metformin ER 500 mg 1,000 mg PO BID 30 Days #120 tab 06/15/18 tablet,extended release 24 hr Amlodipine Besylate [Norvasc] 2.5 mg PO QDAY 07/14/18 Losartan Potassium 100 mg PO QDAY 07/14/18 Surgical History: Surgical History (Last Reviewed 07/14/18 @ 05:08 by Kulwinder Cantor MD) S/P CABG x 5 (Chronic) Z95.1 BATISTA to LAD, SVG to DX-DX sequential and OM arteries; and right radial artery graft to the RCA 09/13/[address] García History of left heart catheterization (Chronic) Z98.890 09/10/[address] [facility] per Dr. Moore> CABG X5 Lives: Spouse/ Significant Other Smoking Status: Former smoker Alcohol: None - *Family History Paternal Family History: Family History (Last Reviewed 07/14/18 @ 05:08 by Kulwinder Cantor MD) Father Myocardial infarction COPD (chronic obstructive pulmonary disease) Brother CAD (coronary artery disease) Myocardial infarction History Items: No pertinent history Review of Systems Constitutional: Denies: Chills, Fever, Weight Change HEENT: Denies: Head Aches, Sinus Congestion, Sinus Drainage Cardiovascular: Denies: Chest Pain, Palpitations Respiratory: Denies: Cough, Shortness of breath at rest, Sputum production Gastrointestinal: Reports: Abdominal Pain - Right flank pain. Denies: Nausea, Vomiting Genitourinary: Denies: Dysuria Musculoskeletal: Denies: Joint Pain, Joint Tenderness Skin: Denies: Rash, Wounds Neurological: Denies: Numbness, Tingling, Focal weakness Psychiatric: Denies: Anxiety, Depression, Homicidal Ideations, Suicidal Ideations Hematologic/ Lymphatic: Denies: Easy Bruising, Easy Bleeding VTE Information - Inpt Only VTE Present on Admission: No VTE Mechan Device Prophylaxis: SCD's VTE Pharm Prophylaxis ordered?: Yes Patient Problems: Active and Suspected Problems (Last Reviewed 07/14/18 @ 06:07 by Kulwinder Cantor MD) Acute gallstone pancreatitis (Acute) Cholecystitis (Acute) - Physical Exam General: Alert, Oriented x3, Cooperative HEENT: Atraumatic, PERRLA, EOMI, Normocephalic Neck: Supple, No JVD, Negative Carotid Bruits Lungs: Clear to auscultation, Normal air movement Cardiovascular: Regular rate, No murmurs Abdomen: Bowel Sounds Present, Soft, Tender - Right CVA Extremities: No edema, Capillary Refill Less than 3 Seconds Skin: No rashes, No breakdown Musculoskeletal: No Tenderness to Palpation of Joints or Extremities Neurological: Neuro grossly intact Psych/Mental Status: Normal Affect, Appropriate Vital Signs Temp Pulse Resp BP Pulse Ox 98.7 F 63 18 128/72 H 99 07/14/18 03:30 07/14/18 03:30 07/14/18 03:30 07/14/18 03:30 07/14/18 03:30 Oxygen Delivery Method Room Air Weight: 123.831 kg Body Mass Index (BMI) 34.1 Laboratory Tests Past 24 Hrs 07/14/18 07/14/18 07/14/18 00:45 01:00 01:00 WBC 12.1 H RBC 4.54 L Hgb 14.4 Hct 41.8 MCV 92.1 MCH 31.7 MCHC 34.4 RDW 13.4 RDW Differential 44.3 H Plt Count 266 MPV 9.5 Immature Gran % (Auto) 0.300 Neut % (Auto) 82.4 H Lymph % (Auto) 9.1 L [place] % (Auto) 7.6 Eos % (Auto) 0.4 Baso % (Auto) 0.2 Absolute Neuts (auto) 10.0 H Absolute Lymphs (auto) 1.10 Total Counted Not Reportable Sodium 138 Potassium 4.2 Chloride 107 Carbon Dioxide 22.0 Anion Gap 9 BUN 20 H Creatinine 1.09 Estim Creat Clear Calc 75.37 Est GFR (MDRD) Af Amer 86 Est GFR (MDRD) Non-Af 71 BUN/Creatinine Ratio 18.3 Glucose 184 H Lactic Acid Calcium 8.8 Total Bilirubin 2.10 H Direct Bilirubin 1.40 H AST 262 H ALT 135 H Alkaline Phosphatase 43 L Total Protein 7.5 Albumin 3.7 Globulin 3.8 Lipase 8235 H Urine Color Yellow Urine Clarity Sl. Cloudy Urine pH 6.0 Ur Specific [place] 1.020 Urine Protein 30 H Urine Glucose (UA) Normal Urine Ketones Negative Urine Occult Blood Negative Urine Nitrite Negative Urine Bilirubin Negative Urine Urobilinogen 1 H Ur Leukocyte Esterase 25 H Urine RBC 0 SEEN Urine WBC 0-5 SEEN Ur Squamous Epith Cells 0-5 SEEN Urine Bacteria RARE Urine Mucus 0 SEEN 07/14/18 01:00 WBC RBC Hgb Hct MCV MCH MCHC RDW RDW Differential Plt Count MPV Immature Gran % (Auto) Neut % (Auto) Lymph % (Auto) [place] % (Auto) Eos % (Auto) Baso % (Auto) Absolute Neuts (auto) Absolute Lymphs (auto) Total Counted Sodium Potassium Chloride Carbon Dioxide Anion Gap BUN Creatinine Estim Creat Clear Calc Est GFR (MDRD) Af Amer Est GFR (MDRD) Non-Af BUN/Creatinine Ratio Glucose Lactic Acid 2.1 H Calcium Total Bilirubin Direct Bilirubin AST ALT Alkaline Phosphatase Total Protein Albumin Globulin Lipase Urine Color Urine Clarity Urine pH Ur Specific [place] Urine Protein Urine Glucose (UA) Urine Ketones Urine Occult Blood Urine Nitrite Urine Bilirubin Urine Urobilinogen Ur Leukocyte Esterase Urine RBC Urine WBC Ur Squamous Epith Cells Urine Bacteria Urine Mucus Assessment/Plan All Active Problems (Last Reviewed 07/14/18 @ 06:07 by Kulwinder Cantor MD) Acute gallstone pancreatitis (Acute) Cholecystitis (Acute) Open wound anterior abdominal wall (Acute) Necrotizing soft tissue infection (Acute) Abscess of pubic region (Acute) Intertrigo (Acute) Hyponatremia (Resolved) Abscess or cellulitis of groin (Acute) Right-sided pubic soft tissue cellulitis (Acute) The patient is a 72 year old M with a significant history of CAD status post CABG; hypertension; and diabetes mellitus who presented with excruciating progressively worsening sharp right-sided flank pain and found to have elevated lipase; mild lactic acidosis; and radiographic findings of multiple gallstones as well as mildly abnormal urinalysis consistent with probable gallstone pancreatitis and probable acute cholecystitis. Acute Gallstone pancreatitis with probable cholecystitis Leukocytosis Patient with right-sided flank pain that started after eating Patient with elevated bilirubin and transaminitis as well as elevated alkaline phosphatase. Severely elevated lipase on presentation Radiographic evidence of multiple gallstones Patient received Zosyn in the emergency department. We will continue Zosyn for now. Radiologist recommended ultrasound of gallbladder. Will consult general surgery and will defer further imaging if needed to general surgery. Trend CBC. Check triglycerides. We will keep patient n.p.o. and hydrate with lactated Ringer's. Due to his age and history of CAD with CABG will be careful with IV fluids. However patient denies any history of CHF. Pain control with as needed morphine IV. IV Zofran and bowel regimen in the setting of narcotic administration. CAD s/p CABG Aspirin held due to probable surgery. Metoprolol, losartan and statin continued Fenofibrate continued Lactic acidosis Different diagnosis include infection and inflammation from pancreatitis and probable cholecystitis Adequate diagnosis include metformin use. We will hold metformin at this time. IV hydration as above Trend Diabetes mellitus On presentation his blood glucose was slightly above goal. Hold metformin due to lactic acidosis Placed on correction scale insulin. Hypertension On presentation his blood pressure was not within goal Amlodipine, metoprolol and losartan continued. Trend blood pressure and adjust bp meds DVT prophylaxis :SCD and subcutaneous heparin ordered. Code Visit Inpatient E&M: 09910 Init Hosp L3
[2018-07-14 05:08] LABS: Reflex Lactate? Y
[2018-07-14] MEDS: Lactated Ringers 1,000 ML 125 ML IV ×2 (05:23→13:49)
[2018-07-14 05:31] LABS: Bedside Glucose 136 mg/dL (70-110)
[2018-07-14 06:15] LABS: Lactic Acid 1.2 mmol/L (0.4-2.0)
[2018-07-14] MEDS: amLODIPine 2.5 MG Tablet PO (09:14)
[2018-07-14] MEDS: Losartan Potassium 100 MG Tablet PO (09:14)
[2018-07-14] MEDS: Senna/Docusate Sodium 1 Tablet PO (09:14)
[2018-07-14] MEDS: Metoprolol Tartrate 25 MG Tablet PO ×2 (09:19→21:47)
[2018-07-14] MEDS: Heparin Injection (Vial) 5,000 UNIT/ML VIAL 5000 UNIT SC ×2 (09:21→21:47)
[2018-07-14 09:45] LABS: AST(SGOT) 369 U/L (15-37); Alanine Aminotransfer ALT/SGPT 209 U/L (16-61); Albumin, Serum 3.3 g/dL (3.2-5.0); Alkaline Phosphatase 41 U/L (45-117); Anion Gap 8 (5-15); BUN 17 mg/dL (7-18); BUN/Creat Ratio 15.7 RATIO (10-20); Calcium,Total 8.6 mg/dL (8.5-10.1); Chloride 107 mmol/L (98-107); Creatinine, Serum 1.08 mg/dL (0.70-1.30); EST Glomerular Filtration Rate 72 mL/min (>60); Est Glom Filt Rate - Afr Amer 87 mL/min (>60); Estimated Creatinine Clearance 76.07 ml/min; Globulin 3.4 g/dL (2.2-4.2); Glucose 125 mg/dL (74-106); LDH 283 U/L (87-241); Lipase 3390 U/L (73-393); Potassium 4.1 mmol/L (3.5-5.1); Protein, Total 6.7 g/dL (6.4-8.2); Sodium Level 139 mmol/L (136-145)
[2018-07-14 09:47] LABS: Cholesterol 136 mg/dL (200); High Density Lipoprotein 36 mg/dL; Triglycerides 110 mg/dL; Very Low Density Lipoprotein 22 mg/dL (5-40)
--- NOTE | 2018-07-14 11:36 | CASEMGMT ---
RN CM Assessment Presentation: Worsening sharp right sided flank pain. Plan is for choley possibly 07/15/18. Intro role of CM and purpose of RN CM assessment. Pt is ambulating in room, able to participate in assessment. PCP: Dr. Reynaga Specialists: Dr. Garcia, wound center. Preferred [facility]acy: [facility] Insurance: [facility] Prescription Benefit: yes LNOK: Elba Hayse, Living Arrangements: Lives in one story home with . Pt states he is independent, does not require assistance with ADL's. Transportation: Drives DME: has cane at home, but does not use. (Denies having oxygen, CPAP or nebulizer) HHC: Had [facility] in past. does dressing changes at home now, and pt f/u with wound clinic. Noted dressing change not ordered for this admission. Elizabeth, RN Chg nurse will look into this. DC PLAN: anticipate home on dc with family support. Pt denies any needs at this time. Clement KEENE RN ACM
--- NOTE | 2018-07-14 11:51 | PCM.PN.HOSP ---
Patient Problems: Active and Suspected Problems (Last Reviewed 07/14/18 @ 06:07 by Kulwinder Cantor MD) Acute gallstone pancreatitis (Acute) Cholecystitis (Acute) Subjective: Patient seen and examined. He was admitted the early hours of this morning with complaint of upper abdominal pain was found to have acute pancreatitis due to gallstones. He was admitted to a monitored bed and general surgery has been consulted. He said abdominal pain had improved and now rated it at about 3/10. He denied any fever chills, any cough or chest pain, and palpitations, any diarrhea vomiting. Review of systems otherwise negative. Labs and vitals reviewed. Vitals/I&O's: Vital Signs Temp Pulse Resp BP Pulse Ox 98.7 F 72 18 128/72 H 94 07/14/18 03:30 07/14/18 09:19 07/14/18 03:30 07/14/18 03:30 07/14/18 06:41 Oxygen Delivery Method Room Air Weight: 273 lb 0.01 oz Body Mass Index (BMI) 34.1 Intake and Output for Last 24 Hours 07/12/18 07/13/18 07/14/18 23:59 23:59 23:59 Intake Total 311 / 311 Balance 311 / 311 General: Alert, Oriented x3, Cooperative, No apparent distress HEENT: Atraumatic, PERRLA, EOMI, Normocephalic Oral: Moist Mucosa Neck: Supple, No JVD, Negative Carotid Bruits Lungs: Clear to auscultation, Normal air movement, No rhonchi, No wheeze, No rales Cardiovascular: Regular rate, Regular Rhythm, Normal S1, Normal S2, No murmurs Abdomen: Bowel Sounds Present, Soft, Non Tender, Non-Distended, No Hepato-splenomegaly Extremities: No clubbing, No cyanosis, No edema, Capillary Refill Less than 3 Seconds Skin: No rashes, No breakdown Musculoskeletal: No Tenderness to Palpation of Joints or Extremities Lymphatic: No Cervical, Supraclavicular, or Inguinal Adenopathy Neurological: Cranial nerves II-XII grossly intact, Neuro grossly intact, Motor Exam 5/5 strength throughout Psych/Mental Status: Normal Affect, Appropriate, Alert and oriented to time, place, person, mood and affect Laboratory Results 07/14/18 00:45: Urine Color Yellow, Urine Clarity Sl. Cloudy, Urine pH 6.0, Ur Specific [place] 1.020, Urine Protein 30 H, Urine Glucose (UA) Normal, Urine Ketones Negative, Urine Occult Blood Negative, Urine Nitrite Negative, Urine Bilirubin Negative, Urine Urobilinogen 1 H, Ur Leukocyte Esterase 25 H, Urine RBC 0 SEEN, Urine WBC 0-5 SEEN, Ur Squamous Epith Cells 0-5 SEEN, Urine Bacteria RARE, Urine Mucus 0 SEEN 07/14/18 01:00: WBC 12.1 H, RBC 4.54 L, Hgb 14.4, Hct 41.8, MCV 92.1, MCH 31.7, MCHC 34.4, RDW 13.4, RDW Differential 44.3 H, Plt Count 266, MPV 9.5, Immature Gran % (Auto) 0.300, Neut % (Auto) 82.4 H, Lymph % (Auto) 9.1 L, [place] % (Auto) 7.6, Eos % (Auto) 0.4, Baso % (Auto) 0.2, Absolute Neuts (auto) 10.0 H, Absolute Lymphs (auto) 1.10, Total Counted Not Reportable 07/14/18 01:00: Sodium 138, Potassium 4.2, Chloride 107, Carbon Dioxide 22.0, Anion Gap 9, BUN 20 H, Creatinine 1.09, Estim Creat Clear Calc 75.37, Est GFR (MDRD) Af Amer 86, Est GFR (MDRD) Non-Af 71, BUN/Creatinine Ratio 18.3, Glucose 184 H, Calcium 8.8, Total Bilirubin 2.10 H, Direct Bilirubin 1.40 H, AST 262 H, ALT 135 H, Alkaline Phosphatase 43 L, Total Protein 7.5, Albumin 3.7, Globulin 3.8, Lipase 8235 H 07/14/18 01:00: Lactic Acid 2.1 H 07/14/18 05:26: Triglycerides 110, Cholesterol 136, LDL Cholesterol 78, VLDL Cholesterol 22, HDL Cholesterol 36 L 07/14/18 05:26: Lactic Acid 1.2 07/14/18 05:27: POC Glucose 136 H 07/14/18 09:02: Sodium 139, Potassium 4.1, Chloride 107, Carbon Dioxide 24.0, Anion Gap 8, BUN 17, Creatinine 1.08, Estim Creat Clear Calc 76.07, Est GFR (MDRD) Af Amer 87, Est GFR (MDRD) Non-Af 72, BUN/Creatinine Ratio 15.7, Glucose 125 H, Calcium 8.6, Total Bilirubin 2.50 H, AST 369 H, ALT 209 H, Alkaline Phosphatase 41 L, Lactate Dehydrogenase 283 H, Total Protein 6.7, Albumin 3.3, Globulin 3.4, Albumin/Globulin Ratio 1.0, Lipase 3390 H Diagnostic Data Abdomen/Pelvis CT 07/14/18 00:45 IMPRESSION: Nonobstructing left nephrolithiasis. Cholelithiasis. Gallbladder ultrasound could be performed to further evaluate as clinically indicated. Extensive atherosclerotic disease of the aorta and branching vessels. No CT evidence for diverticulitis. Other findings as above. Electronically Signed: Mannie Montesinosford, at 2:00 EST Tel , Service support , Current Medications Acetaminophen (Tylenol) 650 mg PO Q6H PRN PRN PRN Reason: Non-cardiac pain (mod-severe) Amlodipine Besylate (Norvasc) 2.5 mg PO DAILY [facility] Last Admin: 07/14/18 09:14 Dose: 2.5 mg Atorvastatin Calcium (Lipitor) 10 mg PO QHS [facility]ADI Bisacodyl (Dulcolax) 5 mg PO DAILY PRN PRN Reason: Constipation Cyanocobalamin (Vitamin B12) 1,000 mcg PO LUNCH [facility] Dextrose (D50w Syringe) 0 gm IV X1 PRN; Protocol PRN Reason: Hypoglycemia Fenofibrate (Tricor) 145 mg PO QHS [facility] Glucagon () 1 mg IM .X1 PRN PRN Reason: Hypoglycemia Heparin Sodium (Porcine) (Heparin Na) 5,000 unit SC Q12 [facility] Last Admin: 07/14/18 09:21 Dose: 5,000 unit Lactated Ringer's () 1,000 mls @ 125 mls/hr IV .Q8H [facility] Stop: 07/14/18 16:55 Last Admin: 07/14/18 05:23 Dose: 125 mls/hr Piperacillin Sod/Tazobactam (Sod 3.375 gm/ Sodium Chloride) 50 mls @ 12.5 mls/hr IV Q8 [facility] Insulin Human Lispro (Humalog Kwikpen (Bkc)) 0 unit SQ Q6 [facility]; Protocol Last Admin: 07/14/18 05:28 Dose: Not Given Losartan Potassium (Cozaar) 100 mg PO DAILY [facility] Last Admin: 07/14/18 09:14 Dose: 100 mg Magnesium Hydroxide (Milk Of Magnesia) 30 ml PO DAILY PRN PRN PRN Reason: Constipation Metoprolol Tartrate (Lopressor (Beta Mraia T)) 25 mg PO BID [facility] Last Admin: 07/14/18 09:19 Dose: 25 mg Morphine Sulfate () 2 - 4 mg IV Q4H PRN PRN PRN Reason: PAIN Morphine Sulfate () 2 - 4 mg IV Q4H PRN PRN PRN Reason: PAIN Ondansetron HCl (Zofran) 4 mg IV Q6H PRN PRN PRN Reason: NAUSEA/VOMITING Last Admin: 07/14/18 09:14 Dose: 4 mg Senna/Docusate Sodium (Senokot-S, Savana-Colace) 1 tablet PO DAILY [facility] Last Admin: 07/14/18 09:14 Dose: 1 tablet Sodium Chloride () 5 - 15 ml IV UD PRN PRN Reason: SALINE FLUSH Medical Necessity - Tobacco Use Smoking Status: Former smoker Assessment/Plan All Active Problems (Last Reviewed 07/14/18 @ 06:07 by Kulwinder Cantor MD) Acute gallstone pancreatitis (Acute) Cholecystitis (Acute) Open wound anterior abdominal wall (Acute) Necrotizing soft tissue infection (Acute) Abscess of pubic region (Acute) Intertrigo (Acute) Hyponatremia (Resolved) Abscess or cellulitis of groin (Acute) Right-sided pubic soft tissue cellulitis (Acute) 1. Acute gallstone pancreatitis Admitted with a complaint of abdominal pain mainly in the right side and was found to have elevated lipase and CT finding of multiple gallstones as well as pancreatitis and probable acute cholecystitis. On IV Zosyn. general surgery on board. had mild leucocytosis on admission; triglycerides were only 110 bilirubin was 2.5, with direct bilirubin of 1.4 and AST of 316 as well as ALT of 209. ALP was 41 and LDH was 283. Lipase was initially 8235 and trended down to 3390 continue IV zosyn await general surgery rec's continue IVF and pain meds 2. CAD status post CABG: On metoprolol, losartan and statin. Aspirin held accountable surgery. Also on fenofibrate. 2. Lactic acidosis: Resolved. Lactic acid down to 1.2 from 2.1 on admission currently on IV fluids 4. Diabetes mellitus: metformin on hold o/a of lactic acidosis. On ISS. Accuchecks ACHS 5. Hypertension: On amlodipine, metoprolol and losartan. Fairly well controlled. We will continue to monitor. 6. DVT prophylaxis: Heparin Code Visit Inpatient E&M: 97475 Subs Hosp L3
--- NOTE | 2018-07-14 11:56 | PN_ITS ---
Patient Problems: Active and Suspected Problems (Last Reviewed 07/14/18 @ 06:07 by Kulwinder Cantor MD) Acute gallstone pancreatitis (Acute) Cholecystitis (Acute) Subjective: Patient seen and examined. He was admitted the early hours of this morning with complaint of upper abdominal pain was found to have acute pancreatitis due to gallstones. He was admitted to a monitored bed and general surgery has been consulted. He said abdominal pain had improved and now rated it at about 3/10. He denied any fever chills, any cough or chest pain, and palpitations, any diarrhea vomiting. Review of systems otherwise negative. Labs and vitals reviewed. Vitals/I&O's: Vital Signs Temp Pulse Resp BP Pulse Ox 98.7 F 72 18 128/72 H 94 07/14/18 03:30 07/14/18 09:19 07/14/18 03:30 07/14/18 03:30 07/14/18 06:41 Oxygen Delivery Method Room Air Weight: 273 lb 0.01 oz Body Mass Index (BMI) 34.1 Intake and Output for Last 24 Hours 07/12/18 07/13/18 07/14/18 23:59 23:59 23:59 Intake Total 311 / 311 Balance 311 / 311 General: Alert, Oriented x3, Cooperative, No apparent distress HEENT: Atraumatic, PERRLA, EOMI, Normocephalic Oral: Moist Mucosa Neck: Supple, No JVD, Negative Carotid Bruits Lungs: Clear to auscultation, Normal air movement, No rhonchi, No wheeze, No rales Cardiovascular: Regular rate, Regular Rhythm, Normal S1, Normal S2, No murmurs Abdomen: Bowel Sounds Present, Soft, Non Tender, Non-Distended, No Hepato- splenomegaly Extremities: No clubbing, No cyanosis, No edema, Capillary Refill Less than 3 Seconds Skin: No rashes, No breakdown Musculoskeletal: No Tenderness to Palpation of Joints or Extremities Lymphatic: No Cervical, Supraclavicular, or Inguinal Adenopathy Neurological: Cranial nerves II-XII grossly intact, Neuro grossly intact, Motor Exam 5/5 strength throughout Psych/Mental Status: Normal Affect, Appropriate, Alert and oriented to time, place, person, mood and affect Laboratory Results 07/14/18 00:45: Urine Color Yellow, Urine Clarity Sl. Cloudy, Urine pH 6.0, Ur Specific [place] 1.020, Urine Protein 30 H, Urine Glucose (UA) Normal, Urine Ketones Negative, Urine Occult Blood Negative, Urine Nitrite Negative, Urine Bilirubin Negative, Urine Urobilinogen 1 H, Ur Leukocyte Esterase 25 H, Urine RBC 0 SEEN, Urine WBC 0-5 SEEN, Ur Squamous Epith Cells 0-5 SEEN, Urine Bacteria RARE, Urine Mucus 0 SEEN 07/14/18 01:00: WBC 12.1 H, RBC 4.54 L, Hgb 14.4, Hct 41.8, MCV 92.1, MCH 31.7, MCHC 34.4, RDW 13.4, RDW Differential 44.3 H, Plt Count 266, MPV 9.5, Immature Gran % (Auto) 0.300, Neut % (Auto) 82.4 H, Lymph % (Auto) 9.1 L, [place] % (Auto) 7.6, Eos % (Auto) 0.4, Baso % (Auto) 0.2, Absolute Neuts (auto) 10.0 H, Absolute Lymphs (auto) 1.10, Total Counted Not Reportable 07/14/18 01:00: Sodium 138, Potassium 4.2, Chloride 107, Carbon Dioxide 22.0, Anion Gap 9, BUN 20 H, Creatinine 1.09, Estim Creat Clear Calc 75.37, Est GFR (MDRD) Af Amer 86, Est GFR (MDRD) Non-Af 71, BUN/Creatinine Ratio 18.3, Glucose 184 H, Calcium 8.8, Total Bilirubin 2.10 H, Direct Bilirubin 1.40 H, AST 262 H, ALT 135 H, Alkaline Phosphatase 43 L, Total Protein 7.5, Albumin 3.7, Globulin 3.8, Lipase 8235 H 07/14/18 01:00: Lactic Acid 2.1 H 07/14/18 05:26: Triglycerides 110, Cholesterol 136, LDL Cholesterol 78, VLDL Cholesterol 22, HDL Cholesterol 36 L 07/14/18 05:26: Lactic Acid 1.2 07/14/18 05:27: POC Glucose 136 H 07/14/18 09:02: Sodium 139, Potassium 4.1, Chloride 107, Carbon Dioxide 24.0, Anion Gap 8, BUN 17, Creatinine 1.08, Estim Creat Clear Calc 76.07, Est GFR (MDRD) Af Amer 87, Est GFR (MDRD) Non-Af 72, BUN/Creatinine Ratio 15.7, Glucose 125 H, Calcium 8.6, Total Bilirubin 2.50 H, AST 369 H, ALT 209 H, Alkaline Phosphatase 41 L, Lactate Dehydrogenase 283 H, Total Protein 6.7, Albumin 3.3, Globulin 3.4, Albumin/Globulin Ratio 1.0, Lipase 3390 H Diagnostic Data Abdomen/Pelvis CT 07/14/18 00:45 IMPRESSION: Nonobstructing left nephrolithiasis. Cholelithiasis. Gallbladder ultrasound could be performed to further evaluate as clinically indicated. Extensive atherosclerotic disease of the aorta and branching vessels. No CT evidence for diverticulitis. Other findings as above. Electronically Signed: Mannie Montesinosford, at 2:00 EST Tel , Service support , Current Medications Acetaminophen (Tylenol) 650 mg PO Q6H PRN PRN PRN Reason: Non-cardiac pain (mod-severe) Amlodipine Besylate (Norvasc) 2.5 mg PO DAILY [facility] Last Admin: 07/14/18 09:14 Dose: 2.5 mg Atorvastatin Calcium (Lipitor) 10 mg PO QHS [facility] Bisacodyl (Dulcolax) 5 mg PO DAILY PRN PRN Reason: Constipation Cyanocobalamin (Vitamin B12) 1,000 mcg PO LUNCH [facility] Dextrose (D50w Syringe) 0 gm IV X1 PRN; Protocol PRN Reason: Hypoglycemia Fenofibrate (Tricor) 145 mg PO QHS [facility] Glucagon () 1 mg IM .X1 PRN PRN Reason: Hypoglycemia Heparin Sodium (Porcine) (Heparin Na) 5,000 unit SC Q12 [facility] Last Admin: 07/14/18 09:21 Dose: 5,000 unit Lactated Ringer's () 1,000 mls @ 125 mls/hr IV .Q8H [facility] Stop: 07/14/18 16:55 Last Admin: 07/14/18 05:23 Dose: 125 mls/hr Piperacillin Sod/Tazobactam (Sod 3.375 gm/ Sodium Chloride) 50 mls @ 12.5 mls/hr IV Q8 [facility] Insulin Human Lispro (Humalog Kwikpen (Bkc)) 0 unit SQ Q6 [facility]; Protocol Last Admin: 07/14/18 05:28 Dose: Not Given Losartan Potassium (Cozaar) 100 mg PO DAILY [facility] Last Admin: 07/14/18 09:14 Dose: 100 mg Magnesium Hydroxide (Milk Of Magnesia) 30 ml PO DAILY PRN PRN PRN Reason: Constipation Metoprolol Tartrate (Lopressor (Beta Maria T)) 25 mg PO BID [facility] Last Admin: 07/14/18 09:19 Dose: 25 mg Morphine Sulfate () 2 - 4 mg IV Q4H PRN PRN PRN Reason: PAIN Morphine Sulfate () 2 - 4 mg IV Q4H PRN PRN PRN Reason: PAIN Ondansetron HCl (Zofran) 4 mg IV Q6H PRN PRN PRN Reason: NAUSEA/VOMITING Last Admin: 07/14/18 09:14 Dose: 4 mg Senna/Docusate Sodium (Senokot-S, [place]-Colace) 1 tablet PO DAILY [facility] Last Admin: 07/14/18 09:14 Dose: 1 tablet Sodium Chloride () 5 - 15 ml IV UD PRN PRN Reason: SALINE FLUSH Medical Necessity - Tobacco Use Smoking Status: Former smoker Assessment/Plan All Active Problems (Last Reviewed 07/14/18 @ 06:07 by Kulwinder Cantor MD) Acute gallstone pancreatitis (Acute) Cholecystitis (Acute) Open wound anterior abdominal wall (Acute) Necrotizing soft tissue infection (Acute) Abscess of pubic region (Acute) Intertrigo (Acute) Hyponatremia (Resolved) Abscess or cellulitis of groin (Acute) Right-sided pubic soft tissue cellulitis (Acute) 1. Acute gallstone pancreatitis * Admitted with a complaint of abdominal pain mainly in the right side and was found to have elevated lipase and CT finding of multiple gallstones as well as pancreatitis and probable acute cholecystitis. * On IV Zosyn. * general surgery on board. * had mild leucocytosis on admission; triglycerides were only 110 * bilirubin was 2.5, with direct bilirubin of 1.4 and AST of 316 as well as ALT of 209. ALP was 41 and LDH was 283. Lipase was initially 8235 and trended down to 3390 * continue IV zosyn * await general surgery rec's * continue IVF and pain meds * 2. CAD status post CABG: On metoprolol, losartan and statin. Aspirin held accountable surgery. Also on fenofibrate. 2. Lactic acidosis: Resolved. Lactic acid down to 1.2 from 2.1 on admission currently on IV fluids 4. Diabetes mellitus: metformin on hold o/a of lactic acidosis. On ISS. Accuchecks ACHS 5. Hypertension: On amlodipine, metoprolol and losartan. Fairly well controlled. We will continue to monitor. 6. DVT prophylaxis: Heparin Code Visit Inpatient E&M: 61165 Subs Hosp L3
[2018-07-14] MEDS: Cyanocobalamin 500 MCG Tablet 1000 MCG PO (12:07)
[2018-07-14 12:11] LABS: Bedside Glucose 142 mg/dL (70-110)
--- NOTE | 2018-07-14 12:32 | CON.PCM_ITS ---
Reason for Consult Date of Consultation: 07/14/18 Reason for Consultation: biliary pancreatitis History of Present Illness: The patient is a 72 year old M who presents with a 1 day history of upper abdominal radiating straight through to his back pain. The patient had a known history of gallstones. He denied any past significant biliary colic attacks but then later to my student admitted to occasional more mild biliary colic attacks?. Last night for dinner, the patient had grilled peppers and onions. He then noted upper abdominal pain radiating straight through his back. This pain was constant and boring in nature. the patient denied nausea or vomiting. He noted no change in bowel habits. He presented to [facility] emergency department due to the severe abdominal pain. Laboratory studies were obtained which demonstrated mildly elevated white blood cell count of 12, bilirubin of 2.1 glucose of 184, LDH was not obtained, initial AST of 262. transaminases were more elevated than alkaline phosphatase. CT scan of the abdomen pelvis was then obtained. This demonstrated-radiopaque cholelithiasis,no obviously dilated bile ducts were noted. A 3 mm nonobstructing left kidney stone, what appeared to be chronic bilateral perinephric stranding. Otherwise unremarkable CT scan of the abdomen. he had an incidental small umbilical hernia and was felt to be too small bilateral fat-containing inguinal hernias. The patient was admitted to the medical service and I was contacted. The patient had not urinated overnight but did urinate after evaluation this morning. the patient has a past history of hyperlipidemia hypertension, coronary artery disease, diabetes. He had undergone previous coronary bypass grafting in 2002. He underwent noninvasive and invasive cardiac testing last year which demonstrated stenoses but had developed collateral circulation so he did not require stenting. he had more recently undergone excision of what sounds like hidradenitis in his right inguinal area. He was followed with wound care until recently. Past Medical History Past Medical History (Chronic Problems): Chronic Problems (Last Reviewed 07/14/18 @ 06:07 by Kulwinder Cantor MD) Essential hypertension (Chronic) Non-healing right groin open wound (Chronic) open surgical necrotizing diabetic abscess wound lower anterior abdominal wall and right inguinal area and pubic area DM type 2 (diabetes mellitus, type 2) (Chronic) Overweight (Chronic) Impacted cerumen of both ears (Chronic) S/P CABG x 5 (Chronic) BATISTA to LAD, SVG to DX-DX sequential and OM arteries; and right radial artery graft to the RCA 09/13/[address] García History of left heart catheterization (Chronic) 09/10/2002 [facility] per Dr. Moore> CABG X5 Hyperlipidemia (Chronic) History of myocardial infarction of inferoposterior wall (Chronic) Atherosclerotic heart disease of [place] coronary artery without angina pectoris (Chronic) Medical History: Medical History (Last Reviewed 07/14/18 @ 06:07 by Kulwinder Cantor MD) Premature atrial contraction (Inactive) I49.1 Premature ventricular contraction (Inactive) I49.3 Essential hypertension (Chronic) I10 Hyperlipidemia (Chronic) E78.5 History of myocardial infarction of inferoposterior wall (Chronic) I25.2 Atherosclerotic heart disease of [place] coronary artery without angina pectoris (Chronic) I25.10 Diabetes E11.9 Abnormal cardiovascular stress test (Inactive) R94.39 Hypertension (Inactive) I10 Allergies ALLIE Inhibitors Adverse Reaction (Intermediate, Verified 07/14/18 00:21) Cough Home Medications: Ambulatory Orders Medication Instructions Recorded fenofibrate micronized 134 mg 134 mg PO QHS 90 Days #90 07/14/17 capsule metoprolol tartrate 50 mg tablet 25 mg PO BID 90 Days #90 07/14/17 simvastatin 20 mg tablet 20 mg PO QHS 90 Days #90 07/14/17 aspirin 81 mg tablet,delayed 81 mg PO LUNCH tab 07/23/17 release coenzyme Q10 100 mg capsule 100 mg PO LUNCH 07/23/17 cyanocobalamin (vit B-12) 1,000 1,000 mcg PO LUNCH 07/23/17 mcg tablet metformin ER 500 mg 1,000 mg PO BID 30 Days #120 tab 06/15/18 tablet,extended release 24 hr Amlodipine Besylate [Norvasc] 2.5 mg PO QDAY 07/14/18 Losartan Potassium 100 mg PO QDAY 07/14/18 Surgical History: Surgical History (Last Reviewed 07/14/18 @ 05:08 by Kulwinder Cantor MD) S/P CABG x 5 (Chronic) Z95.1 BATISTA to LAD, SVG to DX-DX sequential and OM arteries; and right radial artery graft to the RCA 09/13/[address] García History of left heart catheterization (Chronic) Z98.890 09/10/2002 [facility] per Dr. Moore> CABG X5 Lives: Spouse/ Significant Other Smoking Status: Former smoker Alcohol: None - *Family History Paternal Family History: Family History (Last Reviewed 07/14/18 @ 05:08 by Kulwinder Cantor MD) Father Myocardial infarction COPD (chronic obstructive pulmonary disease) Brother CAD (coronary artery disease) Myocardial infarction History Items: No pertinent history Review of Systems Constitutional: Denies: Chills, Fever, Weight Change HEENT: Denies: Head Aches, Sinus Congestion, Sinus Drainage Cardiovascular: Denies: Chest Pain, Palpitations Respiratory: Denies: Cough, Shortness of breath at rest, Sputum production Gastrointestinal: Reports: Abdominal Pain. Denies: Nausea, Vomiting Genitourinary: Denies: Dysuria Musculoskeletal: Denies: Joint Pain, Joint Tenderness Skin: Denies: Rash, Wounds Neurological: Denies: Numbness, Tingling, Focal weakness Psychiatric: Denies: Anxiety, Depression, Homicidal Ideations, Suicidal Ideations Hematologic/ Lymphatic: Denies: Easy Bruising, Easy Bleeding Patient Problems: Active and Suspected Problems (Last Reviewed 07/14/18 @ 06:07 by Kulwinder Cantor MD) Acute gallstone pancreatitis (Acute) Cholecystitis (Acute) - Physical Exam General: Alert, Oriented x3, Cooperative HEENT: Atraumatic, PERRLA, EOMI, Normocephalic Neck: Supple, No JVD, Negative Carotid Bruits Lungs: Clear to auscultation, Normal air movement Cardiovascular: Regular rate, No murmurs Abdomen: Soft, Hypoactive Bowel Sounds, Tender - mild diffusely tender without peritoneal signs Extremities: No edema, Capillary Refill Less than 3 Seconds Skin: No rashes, No breakdown Musculoskeletal: No Tenderness to Palpation of Joints or Extremities Neurological: Cranial nerves II-XII grossly intact Psych/Mental Status: Normal Affect, Appropriate Vital Signs Temp Pulse Resp BP Pulse Ox 98.5 F 72 18 123/55 H 94 07/14/18 09:30 07/14/18 09:30 07/14/18 09:30 07/14/18 09:30 07/14/18 09:30 Oxygen Delivery Method Room Air Weight: 123.831 kg Body Mass Index (BMI) 34.1 Intake and Output for Last 24 Hours 07/12/18 07/13/18 07/14/18 23:59 23:59 23:59 Intake Total 1139 / 1139 Output Total 575 / 575 Balance 564 / 564 Laboratory Tests Past 24 Hrs 07/14/18 07/14/18 07/14/18 00:45 01:00 01:00 WBC 12.1 H RBC 4.54 L Hgb 14.4 Hct 41.8 MCV 92.1 MCH 31.7 MCHC 34.4 RDW 13.4 RDW Differential 44.3 H Plt Count 266 MPV 9.5 Immature Gran % (Auto) 0.300 Neut % (Auto) 82.4 H Lymph % (Auto) 9.1 L [place] % (Auto) 7.6 Eos % (Auto) 0.4 Baso % (Auto) 0.2 Absolute Neuts (auto) 10.0 H Absolute Lymphs (auto) 1.10 Total Counted Not Reportable Sodium 138 Potassium 4.2 Chloride 107 Carbon Dioxide 22.0 Anion Gap 9 BUN 20 H Creatinine 1.09 Estim Creat Clear Calc 75.37 Est GFR (MDRD) Af Amer 86 Est GFR (MDRD) Non-Af 71 BUN/Creatinine Ratio 18.3 Glucose 184 H Lactic Acid Calcium 8.8 Total Bilirubin 2.10 H Direct Bilirubin 1.40 H AST 262 H ALT 135 H Alkaline Phosphatase 43 L Lactate Dehydrogenase Total Protein 7.5 Albumin 3.7 Globulin 3.8 Albumin/Globulin Ratio Triglycerides Cholesterol LDL Cholesterol VLDL Cholesterol HDL Cholesterol Lipase 8235 H Urine Color Yellow Urine Clarity Sl. Cloudy Urine pH 6.0 Ur Specific [place] 1.020 Urine Protein 30 H Urine Glucose (UA) Normal Urine Ketones Negative Urine Occult Blood Negative Urine Nitrite Negative Urine Bilirubin Negative Urine Urobilinogen 1 H Ur Leukocyte Esterase 25 H Urine RBC 0 SEEN Urine WBC 0-5 SEEN Ur Squamous Epith Cells 0-5 SEEN Urine Bacteria RARE Urine Mucus 0 SEEN 07/14/18 07/14/18 07/14/18 01:00 05:26 05:26 WBC RBC Hgb Hct MCV MCH MCHC RDW RDW Differential Plt Count MPV Immature Gran % (Auto) Neut % (Auto) Lymph % (Auto) [place] % (Auto) Eos % (Auto) Baso % (Auto) Absolute Neuts (auto) Absolute Lymphs (auto) Total Counted Sodium Potassium Chloride Carbon Dioxide Anion Gap BUN Creatinine Estim Creat Clear Calc Est GFR (MDRD) Af Amer Est GFR (MDRD) Non-Af BUN/Creatinine Ratio Glucose Lactic Acid 2.1 H 1.2 Calcium Total Bilirubin Direct Bilirubin AST ALT Alkaline Phosphatase Lactate Dehydrogenase Total Protein Albumin Globulin Albumin/Globulin Ratio Triglycerides 110 Cholesterol 136 LDL Cholesterol 78 VLDL Cholesterol 22 HDL Cholesterol 36 L Lipase Urine Color Urine Clarity Urine pH Ur Specific [place] Urine Protein Urine Glucose (UA) Urine Ketones Urine Occult Blood Urine Nitrite Urine Bilirubin Urine Urobilinogen Ur Leukocyte Esterase Urine RBC Urine WBC Ur Squamous Epith Cells Urine Bacteria Urine Mucus 07/14/18 09:02 WBC RBC Hgb Hct MCV MCH MCHC RDW RDW Differential Plt Count MPV Immature Gran % (Auto) Neut % (Auto) Lymph % (Auto) [place] % (Auto) Eos % (Auto) Baso % (Auto) Absolute Neuts (auto) Absolute Lymphs (auto) Total Counted Sodium 139 Potassium 4.1 Chloride 107 Carbon Dioxide 24.0 Anion Gap 8 BUN 17 Creatinine 1.08 Estim Creat Clear Calc 76.07 Est GFR (MDRD) Af Amer 87 Est GFR (MDRD) Non-Af 72 BUN/Creatinine Ratio 15.7 Glucose 125 H Lactic Acid Calcium 8.6 Total Bilirubin 2.50 H Direct Bilirubin AST 369 H ALT 209 H Alkaline Phosphatase 41 L Lactate Dehydrogenase 283 H Total Protein 6.7 Albumin 3.3 Globulin 3.4 Albumin/Globulin Ratio 1.0 Triglycerides Cholesterol LDL Cholesterol VLDL Cholesterol HDL Cholesterol Lipase 3390 H Urine Color Urine Clarity Urine pH Ur Specific [place] Urine Protein Urine Glucose (UA) Urine Ketones Urine Occult Blood Urine Nitrite Urine Bilirubin Urine Urobilinogen Ur Leukocyte Esterase Urine RBC Urine WBC Ur Squamous Epith Cells Urine Bacteria Urine Mucus POC Glucose 07/14/18 07/14/18 12:01 05:27 POC Glucose 142 H 136 H Assessment/Plan All Active Problems (Last Reviewed 07/14/18 @ 06:07 by Kulwinder Cantor MD) Acute gallstone pancreatitis (Acute) Cholecystitis (Acute) Open wound anterior abdominal wall (Acute) Necrotizing soft tissue infection (Acute) Abscess of pubic region (Acute) Intertrigo (Acute) Hyponatremia (Resolved) Abscess or cellulitis of groin (Acute) Right-sided pubic soft tissue cellulitis (Acute) cholelithiasis, elevated bilirubin-question concern for possible choledocholithiasis, biliary pancreatitis 1-cholelithiasis Patient with a known history of cholelithiasis. He denied previous significant symptoms in the past but now admitted with biliary pancreatitis and possible choledocholithiasis. We will address points 2 and 3 to plan for timing for laparoscopic cholecystectomy. Patient will require laparoscopic cholecystectomy possibly this hospital admission versus later based on his recovery from his pancreatitis. Patient has history of coronary disease but is followed by Dr. Cali Fletcher. He had recent noninvasive and invasive studies which demonstrated good cardiac function and perfusion. Only takes 81 mg aspirin would not be a contraindication to surgical procedure. 2-possible choledocholithiasis Patient with elevated bilirubin increased overnight from 2.1-2.5. Not overly clinically jaundiced. No obvious ductal dilatation on CT scan-possibly transient stone that passed versus continued common duct stone, versus edema at the ampulla from the pancreatitis. Currently, we'll watch patient clinically. If bilirubin continues to increase, would consider MRCP. 3-biliary pancreatitis laboratory studies today demonstrated decrease in his lipase area did however, given the degree of pain that was constant early on the patient's age and elevated AST and glucose, concerned for more significant pancreatitis clinically. At this point in time would follow the patient very closely with his ins and outs to assure he is adequately fluid resuscitated. Manage pain as needed with narcotics. Would continue following serial liver enzymes and lipase level to assure improvement. While general am comfortable operating on the index hospitalization once the patient's lipase has returned towards normal. Given his age and my clinical impression at presentation, I would be more inclined to potentially postpone surgery.
[2018-07-14] MEDS: Insulin Lispro 100 UNIT/ML INSULN.PEN SQ (17:32)
[2018-07-14 17:36] LABS: Bedside Glucose 159 mg/dL (70-110)
[2018-07-14 21:07] LABS: Lipase 440 U/L (73-393)
[2018-07-14] MEDS: Atorvastatin Calcium 10 MG Tablet PO (21:47)
[2018-07-14] MEDS: BACITRACIN 15 GM Tube 1 APPLIC TOPICAL (21:47)
[2018-07-14] MEDS: Fenofibrate 145 MG Tablet PO (21:48)
[2018-07-15] VITALS (9 sets, daily range): BP systolic 124–153; BP diastolic 57–77; PULSE 57–67; RESP 16–17; TEMP 36.4–36.8; O2SAT 92–97
[2018-07-15 00:36] LABS: Bedside Glucose 148 mg/dL (70-110)
[2018-07-15] MEDS: 0.9% Normal Saline 1,000 ML 125 ML IV (01:31)
[2018-07-15 05:46] LABS: Bedside Glucose 134 mg/dL (70-110)
[2018-07-15 06:16] LABS: Absolute Lymphocyte Count 1.93 X10^3/ul (0.83-4.51); Absolute Neutrophil Count 4.1 X10^3/uL (2.0-7.7); Basophil# 0.02 X10^3/uL; Basophil% 0.3 % (0-1); Eosinophil# 0.17 X10^3/uL; Eosinophils% 2.5 % (0-5); Hematocrit 40.6 % (40-54); Hemoglobin 13.2 g/dl (13.0-16.5); Lymphocyte # 1.93 X10^3/ul (4.0); Lymphocyte % 28.3 % (19-41); Mean Corp Hgb Conc 32.5 g/gl (32-36); Mean Corpuscular Hgb 30.3 pg (27.0-32.0); Mean Corpuscular Volume 93.3 fL (80-94); Mean Platelet Vol. 9.6 fl (6.2-12.0); Monocyte# 0.63 X10^3/uL; Monocyte% 9.3 % (0-10); Neutrophil # 4.05 X10^3/uL (2.7-7.7); Neutrophil % 59.5 % (47-70); Platelet Count 196 K/mm3 (150-450); RBC Distribution Width CV 13.7 % (11.6-14.6); RBC Distribution Width SD 46.6 fl (35.1-43.9); Red Blood Count 4.35 M/mm3 (4.6-6.2); White Blood Count 6.8 K/mm3 (4.4-11.0)
[2018-07-15 06:28] LABS: POSITIVE COUNT NO; POSITIVE DIFFERENTIAL NO; POSITIVE MORPHOLOGY NO
[2018-07-15 06:32] LABS: ALB/GLOB Ratio 0.7 RATIO (0.9-2.4); AST(SGOT) 175 U/L (15-37); Alanine Aminotransfer ALT/SGPT 193 U/L (16-61); Albumin, Serum 2.7 g/dL (3.2-5.0); Alkaline Phosphatase 48 U/L (45-117); Anion Gap 9 (5-15); BUN 15 mg/dL (7-18); BUN/Creat Ratio 12.3 RATIO (10-20); Calcium,Total 8.2 mg/dL (8.5-10.1); Chloride 111 mmol/L (98-107); Creatinine, Serum 1.22 mg/dL (0.70-1.30); EST Glomerular Filtration Rate 62 mL/min (>60); Est Glom Filt Rate - Afr Amer 75 mL/min (>60); Estimated Creatinine Clearance 67.34 ml/min; Globulin 3.7 g/dL (2.2-4.2); Glucose 134 mg/dL (74-106); Potassium 4.5 mmol/L (3.5-5.1); Protein, Total 6.4 g/dL (6.4-8.2); Sodium Level 138 mmol/L (136-145)
[2018-07-15] MEDS: BACITRACIN 15 GM Tube 1 APPLIC TOPICAL ×2 (10:43→21:28)
[2018-07-15] MEDS: Senna/Docusate Sodium 1 Tablet PO (10:46)
[2018-07-15] MEDS: amLODIPine 2.5 MG Tablet PO (10:46)
[2018-07-15] MEDS: Metoprolol Tartrate 25 MG Tablet PO ×2 (10:46→21:28)
[2018-07-15] MEDS: Losartan Potassium 100 MG Tablet PO (10:46)
[2018-07-15] MEDS: Heparin Injection (Vial) 5,000 UNIT/ML VIAL 5000 UNIT SC ×2 (10:47→21:29)
--- NOTE | 2018-07-15 11:22 | PN.SURG_ITS ---
Patient Problems: Active and Suspected Problems (Last Reviewed 07/14/18 @ 06:07 by Kulwinder Cantor MD) Acute gallstone pancreatitis (Acute) Cholecystitis (Acute) Subjective: still right flank pain, improved - Physical Exam General: Alert, Oriented x3, Cooperative Lungs: Clear to auscultation, Normal air movement Cardiovascular: Regular rate, No murmurs Abdomen: Bowel Sounds Present, Soft, Tender - periumbilical and right paramedian, no peritoneal signs Vital Signs Temp Pulse Resp BP Pulse Ox 97.6 F L 66 17 128/58 H 93 07/15/18 11:12 07/15/18 11:12 07/15/18 11:12 07/15/18 11:12 07/15/18 11:12 Oxygen Delivery Method Room Air Weight: 123.831 kg Body Mass Index (BMI) 34.1 Intake and Output for Last 24 Hours 07/13/18 07/14/18 07/15/18 23:59 23:59 23:59 Intake Total 2025 / 2025 4458.6 / 4458.6 Output Total 1200 / 1200 2700 / 2700 Balance 825 / 825 1758.6 / 1758.6 Laboratory Tests Past 24 Hrs 07/14/18 07/15/18 07/15/18 20:40 05:50 05:50 WBC 6.8 RBC 4.35 L Hgb 13.2 Hct 40.6 MCV 93.3 MCH 30.3 MCHC 32.5 RDW 13.7 RDW Differential 46.6 H Plt Count 196 MPV 9.6 Immature Gran % (Auto) 0.100 Neut % (Auto) 59.5 Lymph % (Auto) 28.3 [place] % (Auto) 9.3 Eos % (Auto) 2.5 Baso % (Auto) 0.3 Absolute Neuts (auto) 4.1 Absolute Lymphs (auto) 1.93 Total Counted Not Reportable Sodium 138 Potassium 4.5 Chloride 111 H Carbon Dioxide 18.0 L Anion Gap 9 BUN 15 Creatinine 1.22 Estim Creat Clear Calc 67.34 Est GFR (MDRD) Af Amer 75 Est GFR (MDRD) Non-Af 62 BUN/Creatinine Ratio 12.3 Glucose 134 H Calcium 8.2 L Total Bilirubin 0.90 AST 175 H ALT 193 H Alkaline Phosphatase 48 Total Protein 6.4 Albumin 2.7 L Globulin 3.7 Albumin/Globulin Ratio 0.7 L Lipase 440 H POC Glucose 07/15/18 07/15/18 07/14/18 05:35 00:26 17:28 POC Glucose 134 H 148 H 159 H 07/14/18 12:01 POC Glucose 142 H Medical Necessity - Tobacco Use Smoking Status: Former smoker Assessment/Plan All Active Problems (Last Reviewed 07/14/18 @ 06:07 by Kulwinder Cantor MD) Acute gallstone pancreatitis (Acute) Cholecystitis (Acute) Open wound anterior abdominal wall (Acute) Necrotizing soft tissue infection (Acute) Abscess of pubic region (Acute) Intertrigo (Acute) Hyponatremia (Resolved) Abscess or cellulitis of groin (Acute) Right-sided pubic soft tissue cellulitis (Acute) cholelithiasis, elevated bilirubin-question concern for possible choledocholithiasis, biliary pancreatitis 1-cholelithiasis Patient with a known history of cholelithiasis. He denied previous significant symptoms in the past but now admitted with biliary pancreatitis and possible choledocholithiasis. Points 2 and 3 improving will plan for timing for laparoscopic cholecystectomy with intraoperative cholangiogram tomorrow. The patient understnads the risks, benefits, possible complications including recurrent pancreatitis and agrees to the procedure 2-possible choledocholithiasis Patient with elevated bilirubin increased overnight from 2.1-2.5. Bilirubin now normalizing Not overly clinically jaundiced. Will plan for surgery tomorrow 3-biliary pancreatitis laboratory studies today demonstrated decrease in his lipase and transaminases.
--- NOTE | 2018-07-15 11:42 | PCM.PN.HOSP ---
Patient Problems: Active and Suspected Problems (Last Reviewed 07/14/18 @ 06:07 by Kulwinder Cantor MD) Acute gallstone pancreatitis (Acute) Cholecystitis (Acute) Subjective: Patient seen and examined. Abdominal pain is improved significantly he has no complaints. Liver enzymes also trending up. He denies any fever, any chills, any palpitations or dizziness, any diarrhea vomiting. Review of systems otherwise negative. Labs and vitals reviewed. General surgery on board. Vitals/I&O's: Vital Signs Temp Pulse Resp BP Pulse Ox 97.6 F L 66 17 128/58 H 93 07/15/18 11:12 07/15/18 11:12 07/15/18 11:12 07/15/18 11:12 07/15/18 11:12 Oxygen Delivery Method Room Air Weight: 273 lb 0.01 oz Body Mass Index (BMI) 34.1 Intake and Output for Last 24 Hours 07/13/18 07/14/18 07/15/18 23:59 23:59 23:59 Intake Total 2024 / 2024 4458.6 / 4458.6 Output Total 1200 / 1200 2700 / 2700 Balance 825 / 825 1758.6 / 1758.6 General: Alert, Oriented x3, Cooperative, No apparent distress HEENT: Atraumatic, PERRLA, EOMI, Normocephalic Oral: Moist Mucosa Neck: Supple, No JVD, Negative Carotid Bruits, No Nodes Lungs: Clear to auscultation, Normal air movement, No rhonchi, No wheeze, No rales Cardiovascular: Regular rate, Regular Rhythm, Normal S1, Normal S2, No murmurs Abdomen: Bowel Sounds Present, Soft, Non Tender, Non-Distended, No Hepato-splenomegaly Extremities: No clubbing, No cyanosis, No edema, Capillary Refill Less than 3 Seconds Skin: No rashes, No breakdown Musculoskeletal: No Tenderness to Palpation of Joints or Extremities Lymphatic: No Cervical, Supraclavicular, or Inguinal Adenopathy Neurological: Cranial nerves II-XII grossly intact, Neuro grossly intact, Motor Exam 5/5 strength throughout Psych/Mental Status: Normal Affect, Appropriate, Alert and oriented to time, place, person, mood and affect Laboratory Results 07/14/18 12:01: POC Glucose 142 H 07/14/18 17:28: POC Glucose 159 H 07/14/18 20:40: Lipase 440 H 07/15/18 00:26: POC Glucose 148 H 07/15/18 05:35: POC Glucose 134 H 07/15/18 05:50: WBC 6.8, RBC 4.35 L, Hgb 13.2, Hct 40.6, MCV 93.3, MCH 30.3, MCHC 32.5, RDW 13.7, RDW Differential 46.6 H, Plt Count 196, MPV 9.6, Immature Gran % (Auto) 0.100, Neut % (Auto) 59.5, Lymph % (Auto) 28.3, [place] % (Auto) 9.3, Eos % (Auto) 2.5, Baso % (Auto) 0.3, Absolute Neuts (auto) 4.1, Absolute Lymphs (auto) 1.93, Total Counted Not Reportable 07/15/18 05:50: Sodium 138, Potassium 4.5, Chloride 111 H, Carbon Dioxide 18.0 L, Anion Gap 9, BUN 15, Creatinine 1.22, Estim Creat Clear Calc 67.34, Est GFR (MDRD) Af Amer 75, Est GFR (MDRD) Non-Af 62, BUN/Creatinine Ratio 12.3, Glucose 134 H, Calcium 8.2 L, Total Bilirubin 0.90, AST 175 H, ALT 193 H, Alkaline Phosphatase 48, Total Protein 6.4, Albumin 2.7 L, Globulin 3.7, Albumin/Globulin Ratio 0.7 L 07/15/18 05:50: Lipase Pending Diagnostic Data Abdomen/Pelvis CT 07/14/18 00:45 IMPRESSION: Nonobstructing left nephrolithiasis. Cholelithiasis. Gallbladder ultrasound could be performed to further evaluate as clinically indicated. Extensive atherosclerotic disease of the aorta and branching vessels. No CT evidence for diverticulitis. Other findings as above. Electronically Signed: Mannie Medina, at 2:00 EST Tel , Service support , Current Medications Acetaminophen (Tylenol) 650 mg PO Q6H PRN PRN PRN Reason: Non-cardiac pain (mod-severe) Amlodipine Besylate (Norvasc) 2.5 mg PO DAILY [facility] Last Admin: 07/15/18 10:46 Dose: 2.5 mg Atorvastatin Calcium (Lipitor) 10 mg PO QHS [facility] Last Admin: 07/14/18 21:47 Dose: 10 mg Bacitracin (Bacitracin Ointment) 1 applic TOPICAL BID [facility]; Protocol Last Admin: 07/15/18 10:43 Dose: 1 applicatio Bisacodyl (Dulcolax) 5 mg PO DAILY PRN PRN Reason: Constipation Cyanocobalamin (Vitamin B12) 1,000 mcg PO LUNCH [facility] Last Admin: 07/14/18 12:07 Dose: 1,000 mcg Dextrose (D50w Syringe) 0 gm IV X1 PRN; Protocol PRN Reason: Hypoglycemia Fenofibrate (Tricor) 145 mg PO QHS [facility] Last Admin: 07/14/18 21:48 Dose: 145 mg Glucagon () 1 mg IM .X1 PRN PRN Reason: Hypoglycemia Heparin Sodium (Porcine) (Heparin Na) 5,000 unit SC Q12 [facility] Last Admin: 07/15/18 10:47 Dose: 5,000 unit Piperacillin Sod/Tazobactam (Sod 3.375 gm/ Sodium Chloride) 50 mls @ 12.5 mls/hr IV Q8 [facility] Last Admin: 07/15/18 05:36 Dose: 12.5 mls/hr Insulin Human Lispro (Humalog Kwikpen (Bkc)) 0 unit SQ Q6 [facility]; Protocol Last Admin: 07/15/18 05:35 Dose: Not Given Losartan Potassium (Cozaar) 100 mg PO DAILY [facility] Last Admin: 07/15/18 10:46 Dose: 100 mg Magnesium Hydroxide (Milk Of Magnesia) 30 ml PO DAILY PRN PRN PRN Reason: Constipation Metoprolol Tartrate (Lopressor (Beta Maria T)) 25 mg PO BID [facility] Last Admin: 07/15/18 10:46 Dose: 25 mg Morphine Sulfate () 2 - 4 mg IV Q4H PRN PRN PRN Reason: PAIN Morphine Sulfate () 2 - 4 mg IV Q4H PRN PRN PRN Reason: PAIN Ondansetron HCl (Zofran) 4 mg IV Q6H PRN PRN PRN Reason: NAUSEA/VOMITING Last Admin: 07/14/18 09:14 Dose: 4 mg Senna/Docusate Sodium (Senokot-S, Savana-Colace) 1 tablet PO DAILY [facility] Last Admin: 07/15/18 10:46 Dose: 1 tablet Sodium Chloride () 5 - 15 ml IV UD PRN PRN Reason: SALINE FLUSH Medical Necessity - Tobacco Use Smoking Status: Former smoker Assessment/Plan All Active Problems (Last Reviewed 07/14/18 @ 06:07 by Kulwinder Cantor MD) Acute gallstone pancreatitis (Acute) Cholecystitis (Acute) Open wound anterior abdominal wall (Acute) Necrotizing soft tissue infection (Acute) Abscess of pubic region (Acute) Intertrigo (Acute) Hyponatremia (Resolved) Abscess or cellulitis of groin (Acute) Right-sided pubic soft tissue cellulitis (Acute) 1. Acute gallstone pancreatitis with possible choledocholithiasis abdominal pain has improved significantly liver enzymes also trending down; bilirubin down to 0.90 from a peak of 2.5. AST down to 175 from 369 and ALT down to 193 from 209. general surgery on board leucocytosis has resolved for laparoscopic cholecystectomy tomorrow with intraoperative cholangiogram Continue IV Zosyn Continue IV morphine as needed for pain 2. CAD status post CABG: On metoprolol, losartan and statin. Aspirin held accountable surgery. Also on fenofibrate. 3. Lactic acidosis: Resolved. 4. Diabetes mellitus: metformin on hold o/a of lactic acidosis. On ISS. Accuchecks ACHS 5. Hypertension: On amlodipine, metoprolol and losartan. Fairly well controlled. We will continue to monitor. 6. DVT prophylaxis: Heparin Code Visit Inpatient E&M: 46975 [facility] Hosp L3
[2018-07-15] MEDS: Insulin Lispro 100 UNIT/ML INSULN.PEN SQ ×2 (11:47→18:09)
[2018-07-15] MEDS: Cyanocobalamin 500 MCG Tablet 1000 MCG PO (11:48)
--- NOTE | 2018-07-15 11:48 | PN_ITS ---
Patient Problems: Active and Suspected Problems (Last Reviewed 07/14/18 @ 06:07 by Kulwinder Cantor MD) Acute gallstone pancreatitis (Acute) Cholecystitis (Acute) Subjective: Patient seen and examined. Abdominal pain is improved significantly he has no complaints. Liver enzymes also trending up. He denies any fever, any chills, any palpitations or dizziness, any diarrhea vomiting. Review of systems otherwise negative. Labs and vitals reviewed. General surgery on board. Vitals/I&O's: Vital Signs Temp Pulse Resp BP Pulse Ox 97.6 F L 66 17 128/58 H 93 07/15/18 11:12 07/15/18 11:12 07/15/18 11:12 07/15/18 11:12 07/15/18 11:12 Oxygen Delivery Method Room Air Weight: 273 lb 0.01 oz Body Mass Index (BMI) 34.1 Intake and Output for Last 24 Hours 07/13/18 07/14/18 07/15/18 23:59 23:59 23:59 Intake Total 2024 / 2024 4458.6 / 4458.6 Output Total 1200 / 1200 2700 / 2700 Balance 825 / 825 1758.6 / 1758.6 General: Alert, Oriented x3, Cooperative, No apparent distress HEENT: Atraumatic, PERRLA, EOMI, Normocephalic Oral: Moist Mucosa Neck: Supple, No JVD, Negative Carotid Bruits, No Nodes Lungs: Clear to auscultation, Normal air movement, No rhonchi, No wheeze, No rales Cardiovascular: Regular rate, Regular Rhythm, Normal S1, Normal S2, No murmurs Abdomen: Bowel Sounds Present, Soft, Non Tender, Non-Distended, No Hepato- splenomegaly Extremities: No clubbing, No cyanosis, No edema, Capillary Refill Less than 3 Seconds Skin: No rashes, No breakdown Musculoskeletal: No Tenderness to Palpation of Joints or Extremities Lymphatic: No Cervical, Supraclavicular, or Inguinal Adenopathy Neurological: Cranial nerves II-XII grossly intact, Neuro grossly intact, Motor Exam 5/5 strength throughout Psych/Mental Status: Normal Affect, Appropriate, Alert and oriented to time, place, person, mood and affect Laboratory Results 07/14/18 12:01: POC Glucose 142 H 07/14/18 17:28: POC Glucose 159 H 07/14/18 20:40: Lipase 440 H 07/15/18 00:26: POC Glucose 148 H 07/15/18 05:35: POC Glucose 134 H 07/15/18 05:50: WBC 6.8, RBC 4.35 L, Hgb 13.2, Hct 40.6, MCV 93.3, MCH 30.3, MCHC 32.5, RDW 13.7, RDW Differential 46.6 H, Plt Count 196, MPV 9.6, Immature Gran % (Auto) 0.100, Neut % (Auto) 59.5, Lymph % (Auto) 28.3, [place] % (Auto) 9.3, Eos % (Auto) 2.5, Baso % (Auto) 0.3, Absolute Neuts (auto) 4.1, Absolute Lymphs (auto) 1.93, Total Counted Not Reportable 07/15/18 05:50: Sodium 138, Potassium 4.5, Chloride 111 H, Carbon Dioxide 18.0 L , Anion Gap 9, BUN 15, Creatinine 1.22, Estim Creat Clear Calc 67.34, Est GFR (MDRD) Af Amer 75, Est GFR (MDRD) Non-Af 62, BUN/Creatinine Ratio 12.3, Glucose 134 H, Calcium 8.2 L, Total Bilirubin 0.90, AST 175 H, ALT 193 H, Alkaline Phosphatase 48, Total Protein 6.4, Albumin 2.7 L, Globulin 3.7, Albumin/Globulin Ratio 0.7 L 07/15/18 05:50: Lipase Pending Diagnostic Data Abdomen/Pelvis CT 07/14/18 00:45 IMPRESSION: Nonobstructing left nephrolithiasis. Cholelithiasis. Gallbladder ultrasound could be performed to further evaluate as clinically indicated. Extensive atherosclerotic disease of the aorta and branching vessels. No CT evidence for diverticulitis. Other findings as above. Electronically Signed: Mannie Medina, at 2:00 EST Tel , Service support , Current Medications Acetaminophen (Tylenol) 650 mg PO Q6H PRN PRN PRN Reason: Non-cardiac pain (mod-severe) Amlodipine Besylate (Norvasc) 2.5 mg PO DAILY [facility] Last Admin: 07/15/18 10:46 Dose: 2.5 mg Atorvastatin Calcium (Lipitor) 10 mg PO QHS [facility] Last Admin: 07/14/18 21:47 Dose: 10 mg Bacitracin (Bacitracin Ointment) 1 applic TOPICAL BID [facility]; Protocol Last Admin: 07/15/18 10:43 Dose: 1 applicatio Bisacodyl (Dulcolax) 5 mg PO DAILY PRN PRN Reason: Constipation Cyanocobalamin (Vitamin B12) 1,000 mcg PO LUNCH [facility] Last Admin: 07/14/18 12:07 Dose: 1,000 mcg Dextrose (D50w Syringe) 0 gm IV X1 PRN; Protocol PRN Reason: Hypoglycemia Fenofibrate (Tricor) 145 mg PO QHS [facility] Last Admin: 07/14/18 21:48 Dose: 145 mg Glucagon () 1 mg IM .X1 PRN PRN Reason: Hypoglycemia Heparin Sodium (Porcine) (Heparin Na) 5,000 unit SC Q12 [facility] Last Admin: 07/15/18 10:47 Dose: 5,000 unit Piperacillin Sod/Tazobactam (Sod 3.375 gm/ Sodium Chloride) 50 mls @ 12.5 mls/hr IV Q8 [facility] Last Admin: 07/15/18 05:36 Dose: 12.5 mls/hr Insulin Human Lispro (Humalog Kwikpen (Bkc)) 0 unit SQ Q6 [facility]; Protocol Last Admin: 07/15/18 05:35 Dose: Not Given Losartan Potassium (Cozaar) 100 mg PO DAILY [facility] Last Admin: 07/15/18 10:46 Dose: 100 mg Magnesium Hydroxide (Milk Of Magnesia) 30 ml PO DAILY PRN PRN PRN Reason: Constipation Metoprolol Tartrate (Lopressor (Beta Maria T)) 25 mg PO BID [facility] Last Admin: 07/15/18 10:46 Dose: 25 mg Morphine Sulfate () 2 - 4 mg IV Q4H PRN PRN PRN Reason: PAIN Morphine Sulfate () 2 - 4 mg IV Q4H PRN PRN PRN Reason: PAIN Ondansetron HCl (Zofran) 4 mg IV Q6H PRN PRN PRN Reason: NAUSEA/VOMITING Last Admin: 07/14/18 09:14 Dose: 4 mg Senna/Docusate Sodium (Senokot-S, Savana-Colace) 1 tablet PO DAILY [facility] Last Admin: 07/15/18 10:46 Dose: 1 tablet Sodium Chloride () 5 - 15 ml IV UD PRN PRN Reason: SALINE FLUSH Medical Necessity - Tobacco Use Smoking Status: Former smoker Assessment/Plan All Active Problems (Last Reviewed 07/14/18 @ 06:07 by Kulwinder Cantor MD) Acute gallstone pancreatitis (Acute) Cholecystitis (Acute) Open wound anterior abdominal wall (Acute) Necrotizing soft tissue infection (Acute) Abscess of pubic region (Acute) Intertrigo (Acute) Hyponatremia (Resolved) Abscess or cellulitis of groin (Acute) Right-sided pubic soft tissue cellulitis (Acute) 1. Acute gallstone pancreatitis with possible choledocholithiasis * abdominal pain has improved significantly * liver enzymes also trending down; bilirubin down to 0.90 from a peak of 2.5. AST down to 175 from 369 and ALT down to 193 from 209. * general surgery on board * leucocytosis has resolved * for laparoscopic cholecystectomy tomorrow with intraoperative cholangiogram * Continue IV Zosyn * Continue IV morphine as needed for pain * * 2. CAD status post CABG: On metoprolol, losartan and statin. Aspirin held accountable surgery. Also on fenofibrate. 3. Lactic acidosis: Resolved. 4. Diabetes mellitus: metformin on hold o/a of lactic acidosis. On ISS. Accuchecks ACHS 5. Hypertension: On amlodipine, metoprolol and losartan. Fairly well controlled. We will continue to monitor. 6. DVT prophylaxis: Heparin Code Visit Inpatient E&M: 72751 Subs Hosp L3
[2018-07-15 12:01] LABS: Bedside Glucose 161 mg/dL (70-110)
[2018-07-15 12:02] LABS: Lipase 254 U/L (73-393)
--- NOTE | 2018-07-15 14:34 | NURSING ---
student nurse's charting reviewed for educational and learning purposes.
[2018-07-15 18:16] LABS: Bedside Glucose 176 mg/dL (70-110)
[2018-07-15] MEDS: Fenofibrate 145 MG Tablet PO (21:28)
[2018-07-15] MEDS: Atorvastatin Calcium 10 MG Tablet PO (21:29)
[2018-07-16] VITALS (16 sets, daily range): BP systolic 129–175; BP diastolic 75–91; PULSE 52–77; RESP 16–18; TEMP 36.2–36.8; O2SAT 93–99; BMI 34.1
[2018-07-16] MEDS: Insulin Lispro 100 UNIT/ML INSULN.PEN SQ ×2 (00:36→18:08)
[2018-07-16 00:46] LABS: Bedside Glucose 170 mg/dL (70-110)
--- NOTE | 2018-07-16 06:00 | EKG12_ITS ---
Test Reason : AM EKG Blood Pressure : / mmHG Vent. Rate : 071 BPM Atrial Rate : 071 BPM P-R Int : 240 ms QRS Dur : 096 ms QT Int : 402 ms P-R-T Axes : 057 033 029 degrees QTc Int : 436 ms Sinus rhythm with 1st degree A-V block Otherwise normal ECG When compared with ECG of 17-FEB-2007 08:01, MANUAL COMPARISON REQUIRED, DATA IS UNCONFIRMED Confirmed by LI RECINOS, SERINA ([id number]), sound editor AMARI TEAGUE ([id number]) on 07/17/2018 9:28:38 AM Referred By: Kulwinder Cantor Confirmed By:SERINA JEFFERSON MD
[2018-07-16 06:46] LABS: Bedside Glucose 143 mg/dL (70-110)
[2018-07-16 06:58] LABS: Absolute Lymphocyte Count 1.99 X10^3/ul (0.83-4.51); Basophil# 0.01 X10^3/uL; Basophil% 0.2 % (0-1); Eosinophils% 3.4 % (0-5); Hematocrit 40.1 % (40-54); Hemoglobin 12.9 g/dl (13.0-16.5); Lymphocyte # 1.99 X10^3/ul (4.0); Lymphocyte % 33.8 % (19-41); Mean Corp Hgb Conc 32.2 g/gl (32-36); Mean Corpuscular Hgb 29.9 pg (27.0-32.0); Mean Platelet Vol. 9.6 fl (6.2-12.0); Monocyte# 0.63 X10^3/uL; Monocyte% 10.7 % (0-10); Neutrophil # 3.03 X10^3/uL (2.7-7.7); Neutrophil % 51.6 % (47-70); Platelet Count 231 K/mm3 (150-450); RBC Distribution Width CV 13.6 % (11.6-14.6); RBC Distribution Width SD 46.5 fl (35.1-43.9); Red Blood Count 4.31 M/mm3 (4.6-6.2); White Blood Count 5.9 K/mm3 (4.4-11.0)
[2018-07-16 07:07] LABS: POSITIVE COUNT NO; POSITIVE DIFFERENTIAL NO; POSITIVE MORPHOLOGY NO
[2018-07-16 07:16] LABS: ALB/GLOB Ratio 0.9 RATIO (0.9-2.4); AST(SGOT) 70 U/L (15-37); Alanine Aminotransfer ALT/SGPT 134 U/L (16-61); Albumin, Serum 3.3 g/dL (3.2-5.0); Alkaline Phosphatase 48 U/L (45-117); Anion Gap 9 (5-15); BUN 13 mg/dL (7-18); BUN/Creat Ratio 11.4 RATIO (10-20); Calcium,Total 8.6 mg/dL (8.5-10.1); Chloride 111 mmol/L (98-107); Creatinine, Serum 1.14 mg/dL (0.70-1.30); EST Glomerular Filtration Rate 67 mL/min (>60); Est Glom Filt Rate - Afr Amer 82 mL/min (>60); Estimated Creatinine Clearance 72.06 ml/min; Globulin 3.5 g/dL (2.2-4.2); Glucose 144 mg/dL (74-106); Protein, Total 6.8 g/dL (6.4-8.2); Sodium Level 142 mmol/L (136-145)
[2018-07-16 07:54] LABS: Hemoglobin A1c 6.6 % (4.2-6.3)
[2018-07-16] MEDS: 0.9% Normal Saline 1,000 ML 75 ML IV ×2 (08:49→21:51)
[2018-07-16] MEDS: Metoprolol Tartrate 25 MG Tablet PO ×2 (09:18→21:50)
[2018-07-16 09:32] LABS: Bedside Glucose 164 mg/dL (70-110)
--- NOTE | 2018-07-16 11:00 | GALL_PTH ---
PATIENT: KEILY MARVIN LOC: MS3 U#:[id number] AGE/SX: 72/M ROOM: MD314 RE07/14/[address]: Dr. Annette Kern MD : [id number] BED: 1 DIS: 07/17/2018 SPEC #: [id number] RECD: 07/16/18 16:46 STATUS: OLY JORGE #: [id number] SHARRI: 07/16/18 11:[address]: Andrade Waterman DEPT: SURGICAL PATHOLOGY RECD BY: Otis Powers ENTERED: 07/17/18 09:34 SP TYPE: GALLBLADDE DANNIELLE DR: MD Dr. Kulwinder Dickey MD Dr. Nana Yaa Koram, MD Tissues: Gallbladder, NOS Procedures: Surgery Specimen Level II Surgery Specimen Level III HEADER OPERATION: Laparoscopic cholecystectomy with IOC PRE-OP DIAGNOSIS: Acute gallstone pancreatitis, cholecystitis TISSUE SUBMITTED: Gallbladder and umbilical hernia sac MICROSCOPIC DIAGNOSIS Gallbladder, cholecystectomy: Chronic cholecystitis and cholelithiasis. Umbilical hernia sac, excision: Mild fibrosis. AM:shane 07/20/18 MICROSCOPIC DESCRIPTION Slides are reviewed. GROSS DESCRIPTION Received is one container labeled with the patient's name and designated gallbladder and umbilical hernia sac. The specimen consists of a gallbladder measuring 7.5 cm in length and up to 4 cm in diameter. The external surface is pink-cheney, smooth and glistening for the most part. Focally it is granular, hemorrhagic and contains cautery artifact. The gallbladder contains green-yellow mucoid bile and multiple black irregular stones measuring in aggregate 3 x 2.5 x 1 cm and 0.3 to 1 cm in greatest dimension. The mucosa is bile-stained and without any mass lesions. The gallbladder wall measures up to 0.5 cm in thickness. Also present in the container is an irregular piece of fibroadipose and fibroconnective tissue measuring 6 x 4 x 1 cm. Razor Grinder sections are submitted in two cassettes as follows: 1 - gallbladder and cystic duct, 2 - detached piece of fibroadipose and fibroconnective tissue. / ELKE:shane 07/17/18 TC:3 CPT: 24860, 56348
--- NOTE | 2018-07-16 14:02 | PCM.PN.HOSP ---
Patient Problems: Active and Suspected Problems (Last Reviewed 07/14/18 @ 06:07 by Kulwinder Cantor MD) Acute gallstone pancreatitis (Acute) Cholecystitis (Acute) Subjective: Patient seen and examined. Feels well has no complaints. Abdominal pain has resolved. Review of systems otherwise negative. He is scheduled for laparoscopic cholecystectomy with intraoperative cholangiogram today. Vitals/I&O's: Vital Signs Temp Pulse Resp BP Pulse Ox 98.3 F 52 L 18 135/75 H 99 07/16/18 09:29 07/16/18 09:29 07/16/18 09:29 07/16/18 09:29 07/16/18 09:29 Oxygen Delivery Method Room Air Weight: 273 lb Body Mass Index (BMI) 34.1 Intake and Output for Last 24 Hours 07/14/18 07/15/18 07/16/18 23:59 23:59 23:59 Intake Total 2024 / 2024 5758.6 / 5758.6 1430.7 / 1430.7 Output Total 1200 / 1200 3900 / 3900 1300 / 1300 Balance 825 / 825 1858.6 / 1858.6 130.7 / 130.7 General: Alert, Oriented x3, Cooperative, No apparent distress HEENT: Atraumatic, PERRLA, EOMI, Normocephalic Oral: Moist Mucosa Neck: Supple, No JVD, Negative Carotid Bruits, No Nodes Lungs: Clear to auscultation, Normal air movement, No rhonchi, No wheeze, No rales Cardiovascular: Regular rate, Regular Rhythm, Normal S1, Normal S2, No murmurs Abdomen: Bowel Sounds Present, Soft, Non Tender, Non-Distended, No Hepato-splenomegaly Extremities: No clubbing, No cyanosis, No edema, Capillary Refill Less than 3 Seconds Skin: No rashes, No breakdown Musculoskeletal: No Tenderness to Palpation of Joints or Extremities Lymphatic: No Cervical, Supraclavicular, or Inguinal Adenopathy Neurological: Cranial nerves II-XII grossly intact, Neuro grossly intact, Motor Exam 5/5 strength throughout Psych/Mental Status: Normal Affect, Appropriate, Alert and oriented to time, place, person, mood and affect Laboratory Results 07/15/18 18:06: POC Glucose 176 H 07/16/18 00:34: POC Glucose 170 H 07/16/18 06:32: WBC 5.9, RBC 4.31 L, Hgb 12.9 L, Hct 40.1, MCV 93.0, MCH 29.9, MCHC 32.2, RDW 13.6, RDW Differential 46.5 H, Plt Count 231, MPV 9.6, Immature Gran % (Auto) 0.300, Neut % (Auto) 51.6, Lymph % (Auto) 33.8, [place] % (Auto) 10.7 H, Eos % (Auto) 3.4, Baso % (Auto) 0.2, Absolute Neuts (auto) 3.0, Absolute Lymphs (auto) 1.99, Total Counted Not Reportable 07/16/18 06:32: Sodium 142, Potassium 4.0, Chloride 111 H, Carbon Dioxide 22.0, Anion Gap 9, BUN 13, Creatinine 1.14, Estim Creat Clear Calc 72.06, Est GFR (MDRD) Af Amer 82, Est GFR (MDRD) Non-Af 67, BUN/Creatinine Ratio 11.4, Glucose 144 H, Calcium 8.6, Total Bilirubin 0.50, AST 70 H, ALT 134 H, Alkaline Phosphatase 48, Total Protein 6.8, Albumin 3.3, Globulin 3.5, Albumin/Globulin Ratio 0.9 07/16/18 06:32: Hemoglobin A1c 6.6 H 07/16/18 06:35: POC Glucose 143 H 07/16/18 09:27: POC Glucose 164 H Diagnostic Data Abdomen/Pelvis CT 07/14/18 00:45 IMPRESSION: Nonobstructing left nephrolithiasis. Cholelithiasis. Gallbladder ultrasound could be performed to further evaluate as clinically indicated. Extensive atherosclerotic disease of the aorta and branching vessels. No CT evidence for diverticulitis. Other findings as above. Electronically Signed: Mannie Medina, at 2:00 EST Tel , Service support , Current Medications Acetaminophen (Tylenol) 650 mg PO Q6H PRN PRN PRN Reason: Non-cardiac pain (mod-severe) Amlodipine Besylate (Norvasc) 2.5 mg PO DAILY [facility] Last Admin: 07/16/18 11:18 Dose: Not Given Atorvastatin Calcium (Lipitor) 10 mg PO QHS [facility] Last Admin: 07/15/18 21:29 Dose: 10 mg Bacitracin (Bacitracin Ointment) 1 applic TOPICAL BID [facility]; Protocol Last Admin: 07/16/18 09:34 Dose: Not Given Bisacodyl (Dulcolax) 5 mg PO DAILY PRN PRN Reason: Constipation Cyanocobalamin (Vitamin B12) 1,000 mcg PO LUNCH [facility] Last Admin: 07/16/18 13:19 Dose: Not Given Dextrose (D50w Syringe) 0 gm IV X1 PRN; Protocol PRN Reason: Hypoglycemia Fenofibrate (Tricor) 145 mg PO QHS [facility] Last Admin: 07/15/18 21:28 Dose: 145 mg Glucagon () 1 mg IM .X1 PRN PRN Reason: Hypoglycemia Heparin Sodium (Porcine) (Heparin Na) 5,000 unit SC Q12 [facility] Last Admin: 07/16/18 07:08 Dose: Not Given Piperacillin Sod/Tazobactam (Sod 3.375 gm/ Sodium Chloride) 50 mls @ 12.5 mls/hr IV Q8 [facility] Last Admin: 07/16/18 06:33 Dose: 12.5 mls/hr Sodium Chloride () 1,000 mls @ 75 mls/hr IV .[id number] [facility] Last Admin: 07/16/18 08:49 Dose: 75 mls/hr Insulin Human Lispro (Humalog Kwikpen (Bkc)) 0 unit SQ Q6 [facility]; Protocol Last Admin: 07/16/18 13:18 Dose: Not Given Losartan Potassium (Cozaar) 100 mg PO DAILY [facility] Last Admin: 07/16/18 09:35 Dose: Not Given Magnesium Hydroxide (Milk Of Magnesia) 30 ml PO DAILY PRN PRN PRN Reason: Constipation Metoprolol Tartrate (Lopressor (Beta Maria T)) 25 mg PO BID [facility] Last Admin: 07/16/18 09:18 Dose: 25 mg Morphine Sulfate () 2 - 4 mg IV Q4H PRN PRN PRN Reason: PAIN Morphine Sulfate () 2 - 4 mg IV Q4H PRN PRN PRN Reason: PAIN Ondansetron HCl (Zofran) 4 mg IV Q6H PRN PRN PRN Reason: NAUSEA/VOMITING Last Admin: 07/14/18 09:14 Dose: 4 mg Senna/Docusate Sodium (Senokot-S, Savana-Colace) 1 tablet PO DAILY [facility] Last Admin: 07/16/18 09:35 Dose: Not Given Sodium Chloride () 5 - 15 ml IV UD PRN PRN Reason: SALINE FLUSH Medical Necessity - Tobacco Use Smoking Status: Former smoker Assessment/Plan All Active Problems (Last Reviewed 07/14/18 @ 06:07 by Kulwinder Cantor MD) Acute gallstone pancreatitis (Acute) Cholecystitis (Acute) Open wound anterior abdominal wall (Acute) Necrotizing soft tissue infection (Acute) Abscess of pubic region (Acute) Intertrigo (Acute) Hyponatremia (Resolved) Abscess or cellulitis of groin (Acute) Right-sided pubic soft tissue cellulitis (Acute) 1. Acute gallstone pancreatitis with possible choledocholithiasis abdominal pain has resolved. Liver enzymes have trended down significantly with AST down to 70 and ALT down to 134. Bilirubin is also down to 0.5 For laparoscopic cholecystectomy with intraoperative angiogram today. continue IV Zosyn. IV morphine as needed for pain. 2. CAD status post CABG: On metoprolol, losartan and statin. Aspirin held accountable surgery. Also on fenofibrate. 3. Lactic acidosis: Resolved. 4. Diabetes mellitus: metformin on hold o/a of lactic acidosis. On ISS. Accuchecks ACHS 5. Hypertension: On amlodipine, metoprolol and losartan. Fairly well controlled. 6. DVT prophylaxis: Heparin Code Visit Inpatient E&M: 87864 Subs Hosp L3
--- NOTE | 2018-07-16 14:05 | PN_ITS ---
Patient Problems: Active and Suspected Problems (Last Reviewed 07/14/18 @ 06:07 by Kulwinder Cantor MD) Acute gallstone pancreatitis (Acute) Cholecystitis (Acute) Subjective: Patient seen and examined. Feels well has no complaints. Abdominal pain has resolved. Review of systems otherwise negative. He is scheduled for laparosco pic cholecystectomy with intraoperative cholangiogram today. Vitals/I&O's: Vital Signs Temp Pulse Resp BP Pulse Ox 98.3 F 52 L 18 135/75 H 99 07/16/18 09:29 07/16/18 09:29 07/16/18 09:29 07/16/18 09:29 07/16/18 09:29 Oxygen Delivery Method Room Air Weight: 273 lb Body Mass Index (BMI) 34.1 Intake and Output for Last 24 Hours 07/14/18 07/15/18 07/16/18 23:59 23:59 23:59 Intake Total 5 / 5 5758.6 / 5758.6 1430.7 / 1430.7 Output Total 1200 / 1200 3900 / 3900 1300 / 1300 Balance 825 / 825 1858.6 / 1858.6 130.7 / 130.7 General: Alert, Oriented x3, Cooperative, No apparent distress HEENT: Atraumatic, PERRLA, EOMI, Normocephalic Oral: Moist Mucosa Neck: Supple, No JVD, Negative Carotid Bruits, No Nodes Lungs: Clear to auscultation, Normal air movement, No rhonchi, No wheeze, No rales Cardiovascular: Regular rate, Regular Rhythm, Normal S1, Normal S2, No murmurs Abdomen: Bowel Sounds Present, Soft, Non Tender, Non-Distended, No Hepato- splenomegaly Extremities: No clubbing, No cyanosis, No edema, Capillary Refill Less than 3 Seconds Skin: No rashes, No breakdown Musculoskeletal: No Tenderness to Palpation of Joints or Extremities Lymphatic: No Cervical, Supraclavicular, or Inguinal Adenopathy Neurological: Cranial nerves II-XII grossly intact, Neuro grossly intact, Motor Exam 5/5 strength throughout Psych/Mental Status: Normal Affect, Appropriate, Alert and oriented to time, place, person, mood and affect Laboratory Results 07/15/18 18:06: POC Glucose 176 H 07/16/18 00:34: POC Glucose 170 H 07/16/18 06:32: WBC 5.9, RBC 4.31 L, Hgb 12.9 L, Hct 40.1, MCV 93.0, MCH 29.9, MCHC 32.2, RDW 13.6, RDW Differential 46.5 H, Plt Count 231, MPV 9.6, Immature Gran % (Auto) 0.300, Neut % (Auto) 51.6, Lymph % (Auto) 33.8, [place] % (Auto) 10.7 H, Eos % (Auto) 3.4, Baso % (Auto) 0.2, Absolute Neuts (auto) 3.0, Absolute Lymphs (auto) 1.99, Total Counted Not Reportable 07/16/18 06:32: Sodium 142, Potassium 4.0, Chloride 111 H, Carbon Dioxide 22.0, Anion Gap 9, BUN 13, Creatinine 1.14, Estim Creat Clear Calc 72.06, Est GFR (MDRD) Af Amer 82, Est GFR (MDRD) Non-Af 67, BUN/Creatinine Ratio 11.4, Glucose 144 H, Calcium 8.6, Total Bilirubin 0.50, AST 70 H, ALT 134 H, Alkaline Phosphatase 48, Total Protein 6.8, Albumin 3.3, Globulin 3.5, Albumin/Globulin Ratio 0.9 07/16/18 06:32: Hemoglobin A1c 6.6 H 07/16/18 06:35: POC Glucose 143 H 07/16/18 09:27: POC Glucose 164 H Diagnostic Data Abdomen/Pelvis CT 07/14/18 00:45 IMPRESSION: Nonobstructing left nephrolithiasis. Cholelithiasis. Gallbladder ultrasound could be performed to further evaluate as clinically indicated. Extensive atherosclerotic disease of the aorta and branching vessels. No CT evidence for diverticulitis. Other findings as above. Electronically Signed: Mannie Carol, at 2:00 EST Tel , Service support , Current Medications Acetaminophen (Tylenol) 650 mg PO Q6H PRN PRN PRN Reason: Non-cardiac pain (mod-severe) Amlodipine Besylate (Norvasc) 2.5 mg PO DAILY FADI Last Admin: 07/16/18 11:18 Dose: Not Given Atorvastatin Calcium (Lipitor) 10 mg PO QHS [facility] Last Admin: 07/15/18 21:29 Dose: 10 mg Bacitracin (Bacitracin Ointment) 1 applic TOPICAL BID [facility]; Protocol Last Admin: 07/16/18 09:34 Dose: Not Given Bisacodyl (Dulcolax) 5 mg PO DAILY PRN PRN Reason: Constipation Cyanocobalamin (Vitamin B12) 1,000 mcg PO LUNCH [facility] Last Admin: 07/16/18 13:19 Dose: Not Given Dextrose (D50w Syringe) 0 gm IV X1 PRN; Protocol PRN Reason: Hypoglycemia Fenofibrate (Tricor) 145 mg PO QHS [facility] Last Admin: 07/15/18 21:28 Dose: 145 mg Glucagon () 1 mg IM .X1 PRN PRN Reason: Hypoglycemia Heparin Sodium (Porcine) (Heparin Na) 5,000 unit SC Q12 [facility] Last Admin: 07/16/18 07:08 Dose: Not Given Piperacillin Sod/Tazobactam (Sod 3.375 gm/ Sodium Chloride) 50 mls @ 12.5 mls/hr IV Q8 [facility] Last Admin: 07/16/18 06:33 Dose: 12.5 mls/hr Sodium Chloride () 1,000 mls @ 75 mls/hr IV .[id number] [facility] Last Admin: 07/16/18 08:49 Dose: 75 mls/hr Insulin Human Lispro (Humalog Kwikpen (Bkc)) 0 unit SQ Q6 [facility]; Protocol Last Admin: 07/16/18 13:18 Dose: Not Given Losartan Potassium (Cozaar) 100 mg PO DAILY [facility] Last Admin: 07/16/18 09:35 Dose: Not Given Magnesium Hydroxide (Milk Of Magnesia) 30 ml PO DAILY PRN PRN PRN Reason: Constipation Metoprolol Tartrate (Lopressor (Beta Maria T)) 25 mg PO BID [facility] Last Admin: 07/16/18 09:18 Dose: 25 mg Morphine Sulfate () 2 - 4 mg IV Q4H PRN PRN PRN Reason: PAIN Morphine Sulfate () 2 - 4 mg IV Q4H PRN PRN PRN Reason: PAIN Ondansetron HCl (Zofran) 4 mg IV Q6H PRN PRN PRN Reason: NAUSEA/VOMITING Last Admin: 07/14/18 09:14 Dose: 4 mg Senna/Docusate Sodium (Senokot-S, Savana-Colace) 1 tablet PO DAILY [facility]ADI Last Admin: 07/16/18 09:35 Dose: Not Given Sodium Chloride () 5 - 15 ml IV UD PRN PRN Reason: SALINE FLUSH Medical Necessity - Tobacco Use Smoking Status: Former smoker Assessment/Plan All Active Problems (Last Reviewed 07/14/18 @ 06:07 by Kulwinder Cantor MD) Acute gallstone pancreatitis (Acute) Cholecystitis (Acute) Open wound anterior abdominal wall (Acute) Necrotizing soft tissue infection (Acute) Abscess of pubic region (Acute) Intertrigo (Acute) Hyponatremia (Resolved) Abscess or cellulitis of groin (Acute) Right-sided pubic soft tissue cellulitis (Acute) 1. Acute gallstone pancreatitis with possible choledocholithiasis * abdominal pain has resolved. * Liver enzymes have trended down significantly with AST down to 70 and ALT down to 134. Bilirubin is also down to 0.5 * For laparoscopic cholecystectomy with intraoperative angiogram today. * continue IV Zosyn. * IV morphine as needed for pain. * 2. CAD status post CABG: On metoprolol, losartan and statin. Aspirin held accountable surgery. Also on fenofibrate. 3. Lactic acidosis: Resolved. 4. Diabetes mellitus: metformin on hold o/a of lactic acidosis. On ISS. Accuchecks ACHS 5. Hypertension: On amlodipine, metoprolol and losartan. Fairly well controlled. 6. DVT prophylaxis: Heparin Code Visit Inpatient E&M: 24331 Subs Hosp L3
--- NOTE | 2018-07-16 14:15 | RAD_ITS ---
PROCEDURE: INTRAOPERATIVE CHOLANGIOGRAM. REASON FOR EXAM: Male, 72 years old. Biliary pancreatitis. RADIATION DOSAGE (If Supplied By Facility): 10.9 seconds fluoroscopy. TECHNIQUE: Real-time fluoroscopy was provided during intraoperative contrast infusion via the cystic duct. A fluoroscopic cine run comprising 67 images submitted. COMPARISON: CT abdomen and pelvis July 14, 2018. FINDINGS: Normal caliber intra-and extrahepatic bile ducts. No filling defects or strictures seen. Contrast flows to the duodenum. RAD/Cholangiogram/ O R,Initial IMPRESSION: Normal intraoperative cholangiogram. Electronically Signed: Jcarlos Swift MD at 18:14 EST , Service support ,
--- NOTE | 2018-07-16 15:34 | PCM.OPRPT ---
Report of Operation Date of Procedure: 07/16/18 Pre-Operative Diagnosis: biliary pancreatitis Post-Operative Diagnosis: biliary pancreatitis, intrahepatic gallbladder,normal IOC Surgery/Procedure Performed:: laparoscopic cholecystectomy with intraoperative cholangiogram Description of Surgical Findings:: as above director of public health: None Type of Anesthesia:: General Anesthesiologist: Andi Nunn ASA2 Specimen's removed: gallbladder, umbilical hernia sac Drains: none Estimated Blood Loss (mL): 75 Fluids Replaced: 1200 Description of Procedure: The patient was brought to the operating suite. Sign in was performed verifying patient, site, position, antibiotics for pancreatitis were continued at 3.375 g Zosyn every 8 hours and DVT prophylaxis with SCDs. Following induction of general anesthetic. The patient?s abdomen was prepped and draped in the usual fashion. Timeout was performed verifying patient, site, position. Local anesthetic was injected below the umbilicus. Incision made and dissection carried down to the umbilical root fascia. 2 stay sutures were placed. Incision made in the fascia, the peritoneum entered under direct visualization. A 10 mm Carvalho trocar was inserted and secured with the stay sutures. Pneumoperitoneum to 15 mmHg was insufflated. 3 right upper quadrant 5 ports were placed in the standard position. Visual inspection revealed a fatty liver with adhesions to the liver and the gallbladder with an edematous gallbladder without additional abnormalities noted. Incidentally, the gallbladder was 80% intrahepatic. . The gallbladder was grasped retracted upward and outward. Dissection was carried out in Calot?s triangle. When a critical view of the neck of the gallbladder funneling of the cystic duct with no signs of aberrant ductal structures were seen, a clip was placed on the neck of the gallbladder cystic duct junction. A partial ductotomy was made. A Cholangiocath was inserted into the duct and secured with a clip. Intraoperative cholangiogram was performed demonstrating filling of the cystic duct filling the common bile duct and emptying into the duodenum without signs of obstruction area and the clip and catheter were removed. 2 clips placed on the cystic duct and the cystic duct divided. Dissection was continued until the cystic artery was clearly dissected and identified. The artery was then doubly clipped proximally singly clipped distally and divided. The gallbladder was then dissected free from the gallbladder fossa using electrocautery. The gallbladder was placed in an Endobag and removed through the umbilical port site. the umbilical hernia sac was dissected off the umbilical skin and a 0 Prolene [id number] suture was placed around the umbilical port site defect. Pneumoperitoneum was reestablished. The gallbladder fossa was checked for hemostasis. With good hemostasis, the area was irrigated and aspirated to clear. 5mm ports were removed under direct visualization with no signs of bleeding. Pneumoperitoneum was released. The Carvalho trocar was removed. The umbilical fascial suture was secured area did skin was closed with interrupted 4-0 Monocryl subcuticular sutures. Steri-Strips and bandages were applied. The patient was brought to recovery room in stable condition. - Admit VTE Documentation VTE Present on Admission: No VTE Mechan Device Prophylaxis: SCD's VTE Pharm Prophylaxis ordered?: No
[2018-07-16] MEDS: Bacitracin 500 UNITS/GM PACKET (15:41)
[2018-07-16 17:26] LABS: Bedside Glucose 181 mg/dL (70-110)
[2018-07-16 18:16] LABS: Bedside Glucose 174 mg/dL (70-110)
[2018-07-16] MEDS: Morphine 4 MG/ML Syringe IV (21:49)
[2018-07-16] MEDS: BACITRACIN 15 GM Tube 1 APPLIC TOPICAL (21:49)
[2018-07-16] MEDS: Fenofibrate 145 MG Tablet PO (21:50)
[2018-07-16] MEDS: Atorvastatin Calcium 10 MG Tablet PO (21:50)
[2018-07-17] MEDS: Insulin Lispro 100 UNIT/ML INSULN.PEN SQ ×3 (00:12→12:44)
[2018-07-17 01:41] LABS: Bedside Glucose 174 mg/dL (70-110)
[2018-07-17 03:19] VITALS: BP 135/77; PULSE 69; RESP 16; TEMP 36.6; O2SAT 98
[2018-07-17] MEDS: Morphine 4 MG/ML Syringe IV (03:46)
--- NOTE | 2018-07-17 06:23 | DCINST_ITS ---
Discharge Diet: Light diet - advance as tolerated Discharge Activity: May Not Drive - for 2-3 days or while taking narcotic pain medications., - - Do not drive, work heavy equipment or sign legal documents for 24 hours. May shower in (days): 1 - with the bandage in place. Additional Activity Instructions:: Pain medication may cause nausea. You should typically eat light foods as you take your pain medications. Pain medication may also cause constipation. If this is a problem for you, please discuss with your doctor. Call your doctor if your incision/area has: Continuous Slow Oozing, Sudden Increased Bleeding, Increased Pain/ Swelling, Increased Redness, Foul Smelling Discharge Call your doctor if you observe: Fever of 101 or Higher Suture Line Care: Avoid Pulling/Pushing, Avoid Pinching/Bending Additional Dressing/Incision Instructions:: Leave operative bandaids on for 2 days. When you remove dressing, leave Steri-Strips on until your follow-up appointment, or until the Steri-Strips fall off on their own. Allergies/Adverse Reactions: Allergies ALLIE Inhibitors Adverse Reaction (Intermediate, Verified 07/14/18 00:21) Cough Medications to take at Discharge fenofibrate micronized 134 mg capsule 134 mg PO QHS 90 Days #90 07/14/17 metoprolol tartrate 50 mg tablet 25 mg PO BID 90 Days #90 07/14/17 simvastatin 20 mg tablet 20 mg PO QHS 90 Days #90 07/14/17 aspirin 81 mg tablet,delayed release 81 mg PO LUNCH tab 07/23/17 coenzyme Q10 100 mg capsule 100 mg PO LUNCH 07/23/17 cyanocobalamin (vit B-12) 1,000 mcg tablet 1,000 mcg PO LUNCH 07/23/17 metformin ER 500 mg tablet,extended release 24 hr 1,000 mg PO BID 30 Days #120 tab 06/15/18 Amlodipine Besylate [Norvasc] 2.5 mg PO QDAY 07/14/18 Losartan Potassium 100 mg PO QDAY 07/14/18 Acetaminophen [Tylenol Tablet] 650 mg PO Q6H PRN PRN tablet 07/17/18 Bisacodyl [Dulcolax] 5 mg PO DAILY PRN tablet 07/17/18 Insulin Lispro [Humalog KwikPen] See Protocol SQ Q6 insuln.pen 07/17/18 Magnesium Hydroxide [Milk Of Magnesia] 30 ml PO DAILY PRN PRN udc 07/17/18 Oxycodone HCl/Acetaminophen [Percocet 5/325] 1 tab PO Q6H PRN PRN 7 Days #10 tab 07/17/18 The following prescriptions were given: Oxycodone HCl/Acetaminophen [Percocet 5/325] 1 tab PO Q6H PRN PRN 7 Days #10 tab PRN Reason: Pain Primary Care Physician: Leena Reynaga MD [Primary Care Provider] - Test Results: Test results from this visit will be discussed in further detail at your follow- up appointment, if applicable. Please Follow Up With: Andrade Waterman MD - Please call [phone] to schedule an appointment. When: 7 days after your surgery
[2018-07-17 06:41] LABS: Bedside Glucose 155 mg/dL (70-110)
[2018-07-17 07:27] LABS: Absolute Neutrophil Count 8.6 X10^3/uL (2.0-7.7); Basophil# 0.01 X10^3/uL; Basophil% 0.1 % (0-1); Eosinophil# 0.01 X10^3/uL; Eosinophils% 0.1 % (0-5); Hemoglobin 13.1 g/dl (13.0-16.5); Lymphocyte % 11.2 % (19-41); Mean Platelet Vol. 9.5 fl (6.2-12.0); Monocyte% 8.4 % (0-10); Platelet Count 248 K/mm3 (150-450); RBC Distribution Width CV 13.5 % (11.6-14.6); RBC Distribution Width SD 44.6 fl (35.1-43.9); Red Blood Count 4.36 M/mm3 (4.6-6.2); White Blood Count 10.7 K/mm3 (4.4-11.0)
[2018-07-17 07:30] LABS: POSITIVE COUNT NO; POSITIVE DIFFERENTIAL NO; POSITIVE MORPHOLOGY NO
[2018-07-17 07:42] LABS: BUN 12 mg/dL (7-18); Creatinine, Serum 1.17 mg/dL (0.70-1.30); Glucose 151 mg/dL (74-106)
[2018-07-17 07:43] LABS: ALB/GLOB Ratio 0.9 RATIO (0.9-2.4); AST(SGOT) 50 U/L (15-37); Alanine Aminotransfer ALT/SGPT 105 U/L (16-61); Albumin, Serum 3.3 g/dL (3.2-5.0); Alkaline Phosphatase 42 U/L (45-117); Anion Gap 6 (5-15); BUN/Creat Ratio 10.3 RATIO (10-20); Calcium,Total 8.3 mg/dL (8.5-10.1); Chloride 107 mmol/L (98-107); EST Glomerular Filtration Rate 65 mL/min (>60); Est Glom Filt Rate - Afr Amer 79 mL/min (>60); Estimated Creatinine Clearance 70.22 ml/min; Globulin 3.5 g/dL (2.2-4.2); Lipase 122 U/L (73-393); Potassium 4.2 mmol/L (3.5-5.1); Protein, Total 6.8 g/dL (6.4-8.2); Sodium Level 137 mmol/L (136-145)
[2018-07-17 07:58] VITALS: BP 144/60; PULSE 54; RESP 18; TEMP 36.8; O2SAT 98
[2018-07-17 09:19] VITALS: BP 125/62; PULSE 56; RESP 18; TEMP 37; O2SAT 98
[2018-07-17] MEDS: Acetaminophen 325 MG Tablet 650 MG PO (10:00)
[2018-07-17 10:02] VITALS: BP 125/62; PULSE 56
[2018-07-17] MEDS: amLODIPine 2.5 MG Tablet PO (10:02)
[2018-07-17] MEDS: Senna/Docusate Sodium 1 Tablet PO (10:02)
[2018-07-17] MEDS: Metoprolol Tartrate 25 MG Tablet PO (10:02)
[2018-07-17] MEDS: Losartan Potassium 100 MG Tablet PO (10:02)
[2018-07-17] MEDS: 0.9% Normal Saline 1,000 ML 75 ML IV (10:02)
[2018-07-17] MEDS: BACITRACIN 15 GM Tube 1 APPLIC TOPICAL (10:03)
[2018-07-17 11:36] LABS: Bedside Glucose 155 mg/dL (70-110)
--- NOTE | 2018-07-17 12:32 | PCM.DC.SUM ---
Discharge Date and Diagnosis - Problem List Patient Problems: Active and Suspected Problems (Last Reviewed 07/14/18 @ 06:07 by Kulwinder Cantor MD) Acute gallstone pancreatitis (Acute) Cholecystitis (Acute) Date of Admission: 07/14/18 Date of Discharge: 07/17/18 - Primary Discharge Diagnosis Active and Suspected Problems (Last Reviewed 07/14/18 @ 06:07 by Kulwinder Cantor MD) Acute gallstone pancreatitis (Acute) Cholecystitis (Acute) - Secondary Discharge Diagnosis Chronic Problems (Last Reviewed 07/14/18 @ 06:07 by Kulwinder Cantor MD) Essential hypertension (Chronic) Non-healing right groin open wound (Chronic) open surgical necrotizing diabetic abscess wound lower anterior abdominal wall and right inguinal area and pubic area DM type 2 (diabetes mellitus, type 2) (Chronic) Overweight (Chronic) Impacted cerumen of both ears (Chronic) S/P CABG x 5 (Chronic) BATISTA to LAD, SVG to DX-DX sequential and OM arteries; and right radial artery graft to the RCA 09/13/[address] García History of left heart catheterization (Chronic) 09/10/[address] [facility] [address]. Moore> CABG X5 Hyperlipidemia (Chronic) History of myocardial infarction of inferoposterior wall (Chronic) Atherosclerotic heart disease of [place] coronary artery without angina pectoris (Chronic) Hospital Course and Treatment Operations: cholecystecomy, - - Surgical preparation right inguinal and pubic area and lower anterior abdominal wall area with incision and drainage and excisional debridement skin, subcutaneous tissue and fascia for necrotizing diabetic abscess (190 cm2). Summary of Care Provided: The patient is a 72 year old M with a known history of gallstones and presents with a one-day history of abdominal through to his back pain. The patient was found to have elevated lipase elevated transaminases and elevated bilirubin consistent with biliary pancreatitis with possible common duct stone. His enzymes normalized. He was taken for laparoscopic cholecystectomy. This demonstrated a normal intraoperative cholangiogram. The patient did not have recurrence of his pancreatitis on postoperative day laboratory studies and was ready for discharge to home. Patient Problems: Active and Suspected Problems (Last Reviewed 07/14/18 @ 06:07 by Kulwinder Cantor MD) Acute gallstone pancreatitis (Acute) Cholecystitis (Acute) - Physical Exam General: Alert, Oriented x3, Cooperative Lungs: Clear to auscultation, Normal air movement Cardiovascular: Regular rate, No murmurs Abdomen: Bowel Sounds Present, Soft, Non Tender Vital Signs Temp Pulse Resp BP Pulse Ox 98.6 F 56 L 18 125/62 H 98 07/17/18 09:19 07/17/18 10:02 07/17/18 09:19 07/17/18 10:02 07/17/18 09:19 Oxygen Flow Rate (L/min) 2 Oxygen Delivery Method Room Air Weight: 123.831 kg Body Mass Index (BMI) 34.1 Finger Stick Blood Glucose 181 Intake and Output for Last 24 Hours 07/15/18 07/16/18 07/17/18 23:59 23:59 23:59 Intake Total 5758.6 / 5758.6 3330.7 / 3330.7 2342 / 2342 Output Total 3900 / 3900 1800 / 1800 800 / 800 Balance 1858.6 / 1858.6 1530.7 / 1530.7 1542 / 1542 Laboratory Tests Past 24 Hrs 07/17/18 07/17/18 07:05 07:05 WBC 10.7 RBC 4.36 L Hgb 13.1 Hct 41.0 MCV 94.0 MCH 30.0 MCHC 32.0 RDW 13.5 RDW Differential 44.6 H Plt Count 248 MPV 9.5 Immature Gran % (Auto) 0.200 Neut % (Auto) 80.0 H Lymph % (Auto) 11.2 L [place] % (Auto) 8.4 Eos % (Auto) 0.1 Baso % (Auto) 0.1 Absolute Neuts (auto) 8.6 H Absolute Lymphs (auto) 1.20 Total Counted Not Reportable Sodium 137 Potassium 4.2 Chloride 107 Carbon Dioxide 24.0 Anion Gap 6 BUN 12 Creatinine 1.17 Estim Creat Clear Calc 70.22 Est GFR (MDRD) Af Amer 79 Est GFR (MDRD) Non-Af 65 BUN/Creatinine Ratio 10.3 Glucose 151 H Calcium 8.3 L Total Bilirubin 0.50 AST 50 H ALT 105 H Alkaline Phosphatase 42 L Total Protein 6.8 Albumin 3.3 Globulin 3.5 Albumin/Globulin Ratio 0.9 Lipase 122 POC Glucose 07/17/18 07/17/18 07/17/18 11:29 06:21 00:09 POC Glucose 155 H 155 H 174 H 07/16/18 07/16/18 18:03 17:21 POC Glucose 174 H 181 H Discharge Diet: Light diet - advance as tolerated Discharge Activity: May Not Drive - for 2-3 days or while taking narcotic pain medications., - - Do not drive, work heavy equipment or sign legal documents for 24 hours. May shower in (days): 1 - with the bandage in place. Additional Activity Instructions:: Pain medication may cause nausea. You should typically eat light foods as you take your pain medications. Pain medication may also cause constipation. If this is a problem for you, please discuss with your doctor. Call your doctor if your incision/area has: Continuous Slow Oozing, Sudden Increased Bleeding, Increased Pain/ Swelling, Increased Redness, Foul Smelling Discharge Call your doctor if you observe: Fever of 101 or Higher Suture Line Care: Avoid Pulling/Pushing, Avoid Pinching/Bending Additional Dressing/Incision Instructions:: Leave operative bandaids on for 2 days. When you remove dressing, leave Steri-Strips on until your follow-up appointment, or until the Steri-Strips fall off on their own. Home Medications: Medications to take at Discharge fenofibrate micronized 134 mg capsule 134 mg PO QHS 90 Days #90 07/14/17 metoprolol tartrate 50 mg tablet 25 mg PO BID 90 Days #90 07/14/17 simvastatin 20 mg tablet 20 mg PO QHS 90 Days #90 07/14/17 aspirin 81 mg tablet,delayed release 81 mg PO LUNCH tab 07/23/17 coenzyme Q10 100 mg capsule 100 mg PO LUNCH 07/23/17 cyanocobalamin (vit B-12) 1,000 mcg tablet 1,000 mcg PO LUNCH 07/23/17 metformin ER 500 mg tablet,extended release 24 hr 1,000 mg PO BID 30 Days #120 tab 06/15/18 Amlodipine Besylate [Norvasc] 2.5 mg PO QDAY 07/14/18 Losartan Potassium 100 mg PO QDAY 07/14/18 Acetaminophen [Tylenol Tablet] 650 mg PO Q6H PRN PRN tablet 07/17/18 Bisacodyl [Dulcolax] 5 mg PO DAILY PRN tablet 07/17/18 Insulin Lispro [Humalog KwikPen] See Protocol SQ Q6 insuln.pen 07/17/18 Magnesium Hydroxide [Milk Of Magnesia] 30 ml PO DAILY PRN PRN udc 07/17/18 Oxycodone HCl/Acetaminophen [Percocet 5/325] 1 tab PO Q6H PRN PRN 7 Days #10 tab 07/17/18 Following Prescrptions Were Given to Patient: Oxycodone HCl/Acetaminophen [Percocet 5/325] 1 tab PO Q6H PRN PRN 7 Days #10 tab PRN Reason: Pain Primary Care Physician: Leena Reynaga MD [Primary Care Provider] - Please Follow Up With: Andrade Waterman MD When: 7 days after your surgery Medical Necessity - Tobacco Use Smoking Status: Former smoker Meaningful Use Info Meaningful Use Diagnoses (Choose all that apply): None applicable
[2018-07-17] MEDS: Cyanocobalamin 500 MCG Tablet 1000 MCG PO (12:45)
[2018-07-17 14:30] VITALS: BP 129/70; PULSE 59; RESP 18; TEMP 36.8; O2SAT 95
--- NOTE | 2018-07-17 17:56 | PCM.PN.HOSP ---
Subjective: Vision seen and examined. He is status post laparoscopic cholecystectomy with intraoperative cholangiogram. Today's postop day 1. He tolerated procedure well. He complains of mild pain in the abdomen. Review of systems otherwise negative. He is looking forward to going home. Labs and vitals reviewed. Vitals/I&O's: Vital Signs Temp Pulse Resp BP Pulse Ox 98.3 F 59 L 18 129/70 H 95 07/17/18 14:30 07/17/18 14:30 07/17/18 14:30 07/17/18 14:30 07/17/18 14:30 Oxygen Flow Rate (L/min) 2 Oxygen Delivery Method Room Air Weight: 273 lb Body Mass Index (BMI) 34.1 Finger Stick Blood Glucose 181 Intake and Output for Last 24 Hours 07/15/18 07/16/18 07/17/18 23:59 23:59 23:59 Intake Total 5758.6 / 5758.6 3330.7 / 3330.7 3242 / 3242 Output Total 3900 / 3900 1800 / 1800 800 / 800 Balance 1858.6 / 1858.6 1530.7 / 1530.7 2442 / 2442 General: Alert, Oriented x3, Cooperative, No apparent distress HEENT: Atraumatic, PERRLA, EOMI, Normocephalic Oral: Moist Mucosa Neck: Supple, No JVD, Negative Carotid Bruits, No Nodes Lungs: Clear to auscultation, Normal air movement, No rhonchi, No wheeze, No rales Cardiovascular: Regular rate, Regular Rhythm, Normal S1, Normal S2, No murmurs Abdomen: Bowel Sounds Present, Soft, mild tenderness around epigastric region, laparoscopic surgical site is clean and dry. No Hepato-splenomegaly Extremities: No clubbing, No cyanosis, No edema, Capillary Refill Less than 3 Seconds Skin: No rashes, No breakdown Musculoskeletal: No Tenderness to Palpation of Joints or Extremities Lymphatic: No Cervical, Supraclavicular, or Inguinal Adenopathy Neurological: Cranial nerves II-XII grossly intact, Neuro grossly intact, Motor Exam 5/5 strength throughout Psych/Mental Status: Normal Affect, Appropriate, Alert and oriented to time, place, person, mood and affect Laboratory Results 07/16/18 18:03: POC Glucose 174 H 07/17/18 00:09: POC Glucose 174 H 07/17/18 06:21: POC Glucose 155 H 07/17/18 07:05: WBC 10.7, RBC 4.36 L, Hgb 13.1, Hct 41.0, MCV 94.0, MCH 30.0, MCHC 32.0, RDW 13.5, RDW Differential 44.6 H, Plt Count 248, MPV 9.5, Immature Gran % (Auto) 0.200, Neut % (Auto) 80.0 H, Lymph % (Auto) 11.2 L, [place] % (Auto) 8.4, Eos % (Auto) 0.1, Baso % (Auto) 0.1, Absolute Neuts (auto) 8.6 H, Absolute Lymphs (auto) 1.20, Total Counted Not Reportable 07/17/18 07:05: Sodium 137, Potassium 4.2, Chloride 107, Carbon Dioxide 24.0, Anion Gap 6, BUN 12, Creatinine 1.17, Estim Creat Clear Calc 70.22, Est GFR (MDRD) Af Amer 79, Est GFR (MDRD) Non-Af 65, BUN/Creatinine Ratio 10.3, Glucose 151 H, Calcium 8.3 L, Total Bilirubin 0.50, AST 50 H, ALT 105 H, Alkaline Phosphatase 42 L, Total Protein 6.8, Albumin 3.3, Globulin 3.5, Albumin/Globulin Ratio 0.9, Lipase 122 07/17/18 11:29: POC Glucose 155 H Medical Necessity - Tobacco Use Smoking Status: Former smoker Assessment/Plan All Active Problems (Last Reviewed 07/14/18 @ 06:07 by Kulwinder Cantor MD) Acute gallstone pancreatitis (Acute) Cholecystitis (Acute) Open wound anterior abdominal wall (Acute) Necrotizing soft tissue infection (Acute) Abscess of pubic region (Acute) Intertrigo (Acute) Hyponatremia (Resolved) Abscess or cellulitis of groin (Acute) Right-sided pubic soft tissue cellulitis (Acute) 1. Acute gallstone pancreatitis with possible choledocholithiasis s/p laparoscopic cholecystectomy with intraoperative cholangiogram which was negative stable for dc home today today. to follow up with general surgery and her PCP pain meds script given by Dr Waterman. 2. CAD status post CABG: On metoprolol, losartan and statin. on aspirin. Also on fenofibrate. 3. Lactic acidosis: Resolved. 4. Diabetes mellitus:metformin was held on admission o/a of lactic acidosis due to acute gallstone pancreatitis. On ISS. Accuchecks ACHS 5. Hypertension: On amlodipine, metoprolol and losartan. Fairly well controlled. 6. DVT prophylaxis: Heparin Disposition: will dc home today Code Visit Inpatient E&M: [id number] [facility] Hosp L3
--- NOTE | 2018-07-17 18:02 | PN_ITS ---
Subjective: Vision seen and examined. He is status post laparoscopic cholecystectomy with intraoperative cholangiogram. Today's postop day 1. He tolerated procedure well. He complains of mild pain in the abdomen. Review of systems otherwise negative. He is looking forward to going home. Labs and vitals reviewed. Vitals/I&O's: Vital Signs Temp Pulse Resp BP Pulse Ox 98.3 F 59 L 18 129/70 H 95 07/17/18 14:30 07/17/18 14:30 07/17/18 14:30 07/17/18 14:30 07/17/18 14:30 Oxygen Flow Rate (L/min) 2 Oxygen Delivery Method Room Air Weight: 273 lb Body Mass Index (BMI) 34.1 Finger Stick Blood Glucose 181 Intake and Output for Last 24 Hours 07/15/18 07/16/18 07/17/18 23:59 23:59 23:59 Intake Total 5758.6 / 5758.6 3330.7 / 3330.7 3242 / 3242 Output Total 3900 / 3900 1800 / 1800 800 / 800 Balance 1858.6 / 1858.6 1530.7 / 1530.7 2442 / 2442 General: Alert, Oriented x3, Cooperative, No apparent distress HEENT: Atraumatic, PERRLA, EOMI, Normocephalic Oral: Moist Mucosa Neck: Supple, No JVD, Negative Carotid Bruits, No Nodes Lungs: Clear to auscultation, Normal air movement, No rhonchi, No wheeze, No rales Cardiovascular: Regular rate, Regular Rhythm, Normal S1, Normal S2, No murmurs Abdomen: Bowel Sounds Present, Soft, mild tenderness around epigastric region, laparoscopic surgical site is clean and dry. No Hepato-splenomegaly Extremities: No clubbing, No cyanosis, No edema, Capillary Refill Less than 3 Seconds Skin: No rashes, No breakdown Musculoskeletal: No Tenderness to Palpation of Joints or Extremities Lymphatic: No Cervical, Supraclavicular, or Inguinal Adenopathy Neurological: Cranial nerves II-XII grossly intact, Neuro grossly intact, Motor Exam 5/5 strength throughout Psych/Mental Status: Normal Affect, Appropriate, Alert and oriented to time, place, person, mood and affect Laboratory Results 07/16/18 18:03: POC Glucose 174 H 07/17/18 00:09: POC Glucose 174 H 07/17/18 06:21: POC Glucose 155 H 07/17/18 07:05: WBC 10.7, RBC 4.36 L, Hgb 13.1, Hct 41.0, MCV 94.0, MCH 30.0, MCHC 32.0, RDW 13.5, RDW Differential 44.6 H, Plt Count 248, MPV 9.5, Immature Gran % (Auto) 0.200, Neut % (Auto) 80.0 H, Lymph % (Auto) 11.2 L, [place]rack[place] % (Auto) 8.4, Eos % (Auto) 0.1, Baso % (Auto) 0.1, Absolute Neuts (auto) 8.6 H, Absolute Lymphs (auto) 1.20, Total Counted Not Reportable 07/17/18 07:05: Sodium 137, Potassium 4.2, Chloride 107, Carbon Dioxide 24.0, Anion Gap 6, BUN 12, Creatinine 1.17, Estim Creat Clear Calc 70.22, Est GFR (MDRD) Af Amer 79, Est GFR (MDRD) Non-Af 65, BUN/Creatinine Ratio 10.3, Glucose 151 H, Calcium 8.3 L, Total Bilirubin 0.50, AST 50 H, ALT 105 H, Alkaline Phosphatase 42 L, Total Protein 6.8, Albumin 3.3, Globulin 3.5, Albumin/Globulin Ratio 0.9, Lipase 122 07/17/18 11:29: POC Glucose 155 H Medical Necessity - Tobacco Use Smoking Status: Former smoker Assessment/Plan All Active Problems (Last Reviewed 07/14/18 @ 06:07 by Kulwinder Cantor MD) Acute gallstone pancreatitis (Acute) Cholecystitis (Acute) Open wound anterior abdominal wall (Acute) Necrotizing soft tissue infection (Acute) Abscess of pubic region (Acute) Intertrigo (Acute) Hyponatremia (Resolved) Abscess or cellulitis of groin (Acute) Right-sided pubic soft tissue cellulitis (Acute) 1. Acute gallstone pancreatitis with possible choledocholithiasis * s/p laparoscopic cholecystectomy with intraoperative cholangiogram which was negative * stable * for dc home today today. * to follow up with general surgery and her PCP * pain meds script given by Dr Waterman. * 2. CAD status post CABG: On metoprolol, losartan and statin. on aspirin. Also on fenofibrate. 3. Lactic acidosis: Resolved. 4. Diabetes mellitus:metformin was held on admission o/a of lactic acidosis due to acute gallstone pancreatitis. On ISS. Accuchecks ACHS 5. Hypertension: On amlodipine, metoprolol and losartan. Fairly well controlled. 6. DVT prophylaxis: Heparin Disposition: will dc home today Code Visit Inpatient E&M: 40455 Subs Hosp L3
--- NOTE | 2018-07-20 14:39 | CASEMGMT ---
PEDRO DC Phone call DC Date: 07/17/18 DC Disposition: Home LACE/STRATA: 04/04 Call details: Intro role of CM to patient via phone. Per , pt is improving, has his medications and understands how to take them. will assist with f/u appointments. No further questions noted. Clement KEENE RN ACM
== END 2018-07-17 14:50 | disposition home or self-care (01) | DRG 418 ==
LOC: ED 01:12 → MS3 02:31
PROVIDERS: Anesthesiology; Surgery; Admitting Provider Hospitalist; Emergency Provider Emergency Medicine; Family Provider Family Medicine; PCP Family Medicine; Referring Provider Hospitalist; Visit Provider Student in an Organized Health Care Education/Training Program
PROC: 0FT44ZZ Resection of Gallbladder, Percutaneous Endoscopic Approach (ICD-10-PCS; CPT 47610; principal; 2018-07-16 10:40)
DX: K85.10 Biliary acute pancreatitis without necrosis or infection (principal); E87.2 Acidosis; K80.10 Calculus of gallbladder with chronic cholecystitis without obstruction; E11.9 Type 2 diabetes mellitus without complications; I10 Essential (primary) hypertension; E78.5 Hyperlipidemia, unspecified; Z79.899 Other long term (current) drug therapy; Z79.84 Long term (current) use of oral hypoglycemic drugs; Z87.891 Personal history of nicotine dependence; Z95.1 Presence of aortocoronary bypass graft; K42.9 Umbilical hernia without obstruction or gangrene; E66.3 Overweight; Z68.34 Body mass index [BMI] 34.0-34.9, adult; I25.2 Old myocardial infarction
CPT/HCPCS: 36415; 74176; 74300; 76000; 80048; 80053; 80061; 80076; 81001; 82962; 83036; 83605; 83615; 83690; 85025; 88302; 88304; 93005; 99285; J7030; J7040; J7120; A4216; J2405

== ENCOUNTER 2018-07-28 13:00 | Outpatient (RCR) | payer SELFPAY ==
[2018-06-15 10:43] VITALS: BMI 34.2
[2018-07-03 00:58] VITALS: BP 147/68; PULSE 66; RESP 18; TEMP 35.9
[2018-07-07 13:21] VITALS: BP 145/71; PULSE 67; RESP 16; TEMP 36.3; BMI 34.2
--- NOTE | 2018-07-07 16:12 | PCM.WC.PN ---
(1) Open wound of pubic region with complication Status: Chronic Current Visit: Yes Code(s): S31.000A - Unspecified open wound of lower back and pelvis without penetration into retroperitoneum, initial encounter Comment: open surgical necrotizing diabetic abscess wound lower anterior abdominal wall and right inguinal area and pubic area (2) DM type 2 (diabetes mellitus, type 2) Status: Chronic Current Visit: Yes Code(s): E11.9 - Type 2 diabetes mellitus without complications (3) Overweight Status: Chronic Current Visit: Yes Code(s): E66.3 - Overweight Type of Wound Date of Service: 07/07/18 Chief Complaint: Nonhealing diabetic ulcer right inguinal and pubic and abdominal wall area. History of Wound: Surgery 11/18/17 - Surgical preparation right inguinal and pubic area and lower anterior abdominal wall area with incision and drainage and excisional debridement skin, subcutaneous tissue and fascia for necrotizing diabetic abscess (190 cm2). Wound care - Will try bactroban this week with dry gauze to keep moisture. Operative culture - MRSA. He was discharged home on Doxycycline and has finished them. He had a wound culture done on 03/23/18 and it showed Proteus. He was placed on Levaquin and finished them. On 05/04/18, another wound culture was done due to lack of improvement and persistent moisture in the area. It showed MRSA. He was placed on Minocycline which he finished 06/22/18. Encourage nutritional supplementation with protein to help the healing process. Today he denies fever. His appetite is good. He is back to work and doing ok. Progress of Wound: Stable. - Physical Exam Vital Signs Temp Pulse Resp BP 97.3 F L 67 16 145/71 H 07/07/18 13:21 07/07/18 13:21 07/07/18 13:21 07/07/18 13:21 General: Alert, Oriented x3, Cooperative HEENT: Atraumatic Oral: Moist Mucosa Lungs: Normal air movement Cardiovascular: Regular rate Extremities: No edema, Capillary Refill Less than 3 Seconds Skin: Ulcer/ Wound - Right groin with two small open areas on lateral aspect of incision. The majority of the incision has fragile, pink skin but it is not progressing Wound Measurements and Assessment WC - Nurse 1 - General Ulcer Measurement Start: 07/07/18 13:19 Freq: Status: Active Protocol: Activity Type Activity Date Activity User E-Sign Co-Sign Detail Recorded Client Recorded Date Recorded By Document 07/07/18 13:21 [facility] [id number] 07/07/18 13:29 [facility] 07/07/18 13:21 Wound Center Nurse 1 [Ulcer Assessment] #1 RIGHT GROIN WOUND -Combined with other wound No -Current Size (cm) - Length 0.9 -Current Size (cm) - Width 11.6 -Current Size (cm) - Depth 0.1 -Total Square Cm 10.44 -Date of Last Picture (Recall this 07/07/18 field) -Photo Taken Yes -Epithelialization None Present -Tunneling No -Undermining/Tunneling No -Circular Undermining No -Exudate Amt Small -Exudate Type Serous -Wound Margin Flat & Intact -Granulation Amt Large (67-100%) -Granulation Quality Red -Slough/Fibrin No -Necrosis Amt None Present (0 %) -Texture ([place]-wound Skin Appearance) Scarring -Moisture ([place]-wound Skin Appearance Assessed ) Maceration -Color ([place]-wound Skin Appearance) Assessed Erythema -Temperature ([place]-wound Skin No Abnormality Appearance) (Pt Warm) -Tenderness on Palpation ([place]-wound No Skin Appearance) -Ulcer Cleansing Rinsed/ Irrigated with Saline -Foul Odor after Cleansing No -Anesthetic Used 5% Lidocaine Gel WC - Nurse 2 - General Ulcer CM Notes Start: 07/07/18 13:19 Freq: Status: Active Protocol: Activity Type Activity Date Activity User E-Sign Co-Sign Detail Recorded Client Recorded Date Recorded By Document 07/07/18 13:47 [id number] 07/07/18 13:49 07/07/18 13:47 Wound Center Nurse 2 [Procedure/Treatment] 3-RIGHT SUPERIOR GROIN ULCER -Time 13:48 -Correct Patient Yes -Correct Side, Site, Position Yes -Correct Procedure Yes -Procedure Performed Yes -Type of Procedure Debridement -Clinical Debridement Subcutaneous -Post Debridement Size (cm) - Length 0.4 -Post Debridement Size (cm) - Width 0.9 -Post Debridement Size (cm) - Depth 0.1 -Total Square Cm 0.36 -Wound/Ulcer Outcome Not Healed -Ulcer Cleansing Rinsed/ Irrigated with Saline -Foul Odor after Cleansing No -Bioengineered Tissue No -Bleeding Controlled with Pressure -Offloading No -Treatment Response Procedure Tolerated Well #1 RIGHT GROIN WOUND -Time 13:48 -Correct Patient Yes -Correct Side, Site, Position Yes -Correct Procedure Yes -Procedure Performed Yes -Type of Procedure Debridement -Clinical Debridement Subcutaneous -Post Debridement Size (cm) - Length 0.5 -Post Debridement Size (cm) - Width 2.3 -Post Debridement Size (cm) - Depth 0.1 -Total Square Cm 1.15 -Wound/Ulcer Outcome Not Healed -Ulcer Cleansing Rinsed/ Irrigated with Saline -Foul Odor after Cleansing No -Bioengineered Tissue No -Bleeding Controlled with Pressure -Offloading No -Treatment Response Procedure Tolerated Well [See Physician Procedure note for Specifics] Pain Scale: 0-10 Numeric [Pain] -Is Patient Pain Free? Yes Musculoskeletal: Tenderness - right knee it tender and swollen from fall on the ice last week Lymphatic: No Cervical, Supraclavicular, or Inguinal Adenopathy Neurological: Neuro grossly intact Psych/Mental Status: Normal Affect, Appropriate Debridement Note Post-Debridement Measurements/Treatment WC - Nurse 2 - General Ulcer CM Notes Start: 07/07/18 13:19 Freq: Status: Active Protocol: Activity Type Activity Date Activity User E-Sign Co-Sign Detail Recorded Client Recorded Date Recorded By Document 07/07/18 13:47 [email or web address] [id number] 07/07/18 13:49 STEVE 07/07/18 13:47 Wound Center Nurse 2 3-RIGHT SUPERIOR GROIN ULCER -Time 13:48 -Correct Patient Yes -Correct Side, Site, Position Yes -Correct Procedure Yes -Procedure Performed Yes -Type of Procedure Debridement -Clinical Debridement Subcutaneous -Post Debridement Size (cm) - Length 0.4 -Post Debridement Size (cm) - Width 0.9 -Post Debridement Size (cm) - Depth 0.1 -Total Square Cm 0.36 -Wound/Ulcer Outcome Not Healed -Ulcer Cleansing Rinsed/ Irrigated with Saline -Foul Odor after Cleansing No -Bioengineered Tissue No -Bleeding Controlled with Pressure -Offloading No -Treatment Response Procedure Tolerated Well #1 RIGHT GROIN WOUND -Time 13:48 -Correct Patient Yes -Correct Side, Site, Position Yes -Correct Procedure Yes -Procedure Performed Yes -Type of Procedure Debridement -Clinical Debridement Subcutaneous -Post Debridement Size (cm) - Length 0.5 -Post Debridement Size (cm) - Width 2.3 -Post Debridement Size (cm) - Depth 0.1 -Total Square Cm 1.15 -Wound/Ulcer Outcome Not Healed -Ulcer Cleansing Rinsed/ Irrigated with Saline -Foul Odor after Cleansing No -Bioengineered Tissue No -Bleeding Controlled with Pressure -Offloading No -Treatment Response Procedure Tolerated Well Pain Scale: 0-10 Numeric Is Patient Pain Free? Yes Wound debrided: right groin Laterality: Right Type of Debridement: Excisional debridement Anesthesia Used: 5% Lidocaine Gel Depth: Down to and including healthy tissue, in the subcutaneous layer Percentage of wound debrided: 100 Instrument Used: 3mm curette Tissue Removed: Subcutaneous tissue and slough Severity: Limited To Skin Breakdown Amount of bleeding with debridement: Mild Bleeding Controlled with: Pressure Patient tolerated procedure well Assessment/Plan Active Problems (Last Reviewed 06/15/18 @ 10:46 by Teresa Christopher) Open wound of pubic region with complication (Chronic) open surgical necrotizing diabetic abscess wound lower anterior abdominal wall and right inguinal area and pubic area DM type 2 (diabetes mellitus, type 2) (Chronic) Overweight (Chronic) Assessment: 1. 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 2. Diabetes mellitus. 3. MRSA. 4. s/p surgical preparation right inguinal and pubic area and lower anterior abdominal wall area with incision and drainage and excisional debridement skin, subcutaneous tissue and fascia for necrotizing diabetic abscess (190 cm2). 5. Nonhealing diabetic ulcer right inguinal and pubic and abdominal wall area. Plan: Incision line is not progressing beyond the fragile skin. Has two small open areas on lateral aspect. 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 Will start bactroban twice daily with dry gauze covering. Instructed to gently cleanse with soap and water daily. He is not working for the next 3 weeks due to his right knee pain. Finished the Minocycline yesterday for the MRSA culture from 05/04/18. Encourage nutritional supplementation with protein to help the healing process. 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 There has been increased moisture in the area of the ulcer which is contributing to delay in healing. 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 He has been doing a good job keeping the area dry. There is improvement in his wound over the past several weeks. He will follow up in one week. Code Visit 111xxx-113xx: [id number] [place] subq tissue 20 sq cm/<
[2018-07-28 12:55] VITALS: BP 123/68; PULSE 63; RESP 18; TEMP 36.5; BMI 34.2
--- NOTE | 2018-07-28 16:22 | PCM.WC.PN ---
(1) Open wound of pubic region with complication Status: Chronic Current Visit: Yes Code(s): S31.000A - Unspecified open wound of lower back and pelvis without penetration into retroperitoneum, initial encounter Comment: open surgical necrotizing diabetic abscess wound lower anterior abdominal wall and right inguinal area and pubic area (2) DM type 2 (diabetes mellitus, type 2) Status: Chronic Current Visit: Yes Code(s): E11.9 - Type 2 diabetes mellitus without complications (3) Overweight Status: Chronic Current Visit: Yes Code(s): E66.3 - Overweight Type of Wound Date of Service: 07/28/18 Chief Complaint: Nonhealing diabetic ulcer right inguinal and pubic and abdominal wall area. History of Wound: Surgery 11/18/17 - Surgical preparation right inguinal and pubic area and lower anterior abdominal wall area with incision and drainage and excisional debridement skin, subcutaneous tissue and fascia for necrotizing diabetic abscess (190 cm2). Wound care - Will try bactroban this week with dry gauze to keep moisture. Operative culture - MRSA. He was discharged home on Doxycycline and has finished them. He had a wound culture done on 03/23/18 and it showed Proteus. He was placed on Levaquin and finished them. On 05/04/18, another wound culture was done due to lack of improvement and persistent moisture in the area. It showed MRSA. He was placed on Minocycline which he finished 06/22/18. Encourage nutritional supplementation with protein to help the healing process. Today he denies fever. His appetite is good. He is back to work and doing ok. Progress of Wound: Stable. - Physical Exam Vital Signs Temp Pulse Resp BP 97.7 F L 63 18 123/68 H 07/28/18 12:55 07/28/18 12:55 07/28/18 12:55 07/28/18 12:55 General: Alert, Oriented x3, Cooperative HEENT: Atraumatic Oral: Moist Mucosa Lungs: Normal air movement Cardiovascular: Regular rate Extremities: No edema, Capillary Refill Less than 3 Seconds Skin: Ulcer/ Wound - Continues to have issues with epithelialization of right groin area Wound Measurements and Assessment WC - Nurse 1 - General Ulcer Measurement Start: 07/07/18 13:19 Freq: Status: Active Protocol: Activity Type Activity Date Activity User E-Sign Co-Sign Detail Recorded Client Recorded Date Recorded By Document 07/28/18 12:55 [email or web address] [id number] 07/28/18 13:08 W[place] 07/28/18 12:55 Wound Center Nurse 1 [Ulcer Assessment] 3-RIGHT SUPERIOR GROIN ULCER -Combined with other wound No -Current Size (cm) - Length 0.9 -Current Size (cm) - Width 7 -Current Size (cm) - Depth 0.1 -Total Square Cm 6.3 -Photo Taken No -Tunneling No -Undermining/Tunneling No -Circular Undermining No -Exudate Amt None Present -Wound Margin Flat & Intact -Granulation Amt Large (67-100%) -Granulation Quality Pale [place] Red -Slough/Fibrin No -Texture ([place]-wound Skin Appearance) Assessed -Moisture ([place]-wound Skin Appearance Assessed ) Maceration -Color ([place]-wound Skin Appearance) Assessed -Temperature ([place]-wound Skin No Abnormality Appearance) (Pt Warm) -Tenderness on Palpation ([place]-wound No Skin Appearance) -Ulcer Cleansing Rinsed/ Irrigated with Saline -Foul Odor after Cleansing No -Anesthetic Used 4% Lidocaine Solution #1 RIGHT GROIN WOUND -Current Size (cm) - Length 0.1 -Current Size (cm) - Width 0.1 -Current Size (cm) - Depth 0.1 -Total Square Cm 0.01 WC - Nurse 2 - General Ulcer CM Notes Start: 07/07/18 13:19 Freq: Status: Active Protocol: Activity Type Activity Date Activity User E-Sign Co-Sign Detail Recorded Client Recorded Date Recorded By Document 07/28/18 13:25 [id number] 07/28/18 13:25 07/28/18 13:25 Wound Center Nurse 2 [Procedure/Treatment] 3-RIGHT SUPERIOR GROIN ULCER -Correct Patient No -Correct Side, Site, Position No -Correct Procedure No -Procedure Performed No -Wound/Ulcer Outcome Not Healed #1 RIGHT GROIN WOUND -Correct Patient No -Correct Side, Site, Position No -Correct Procedure No -Procedure Performed No [See Physician Procedure note for Specifics] Pain Scale: 0-10 Numeric [Pain] -Is Patient Pain Free? Yes Musculoskeletal: No Tenderness to Palpation of Joints or Extremities Neurological: Neuro grossly intact Psych/Mental Status: Normal Affect, Appropriate Debridement Note Post-Debridement Measurements/Treatment WC - Nurse 2 - General Ulcer CM Notes Start: 02/05/19 13:19 Freq: Status: Active Protocol: Activity Type Activity Date Activity User E-Sign Co-Sign Detail Recorded Client Recorded Date Recorded By Document 07/07/18 13:47 [id number] 07/07/18 13:49 Document 07/28/18 13:25 [id number] 07/28/18 13:25 07/07/18 07/28/18 13:47 13:25 Wound Center Nurse 2 3-RIGHT SUPERIOR GROIN ULCER -Time 13:48 -Correct Patient Yes No -Correct Side, Site, Position Yes No -Correct Procedure Yes No -Procedure Performed Yes No -Type of Procedure Debridement -Clinical Debridement Subcutaneous -Post Debridement Size (cm) - Length 0.4 -Post Debridement Size (cm) - Width 0.9 -Post Debridement Size (cm) - Depth 0.1 -Total Square Cm 0.36 -Wound/Ulcer Outcome Not Healed Not Healed -Ulcer Cleansing Rinsed/ Irrigated with Saline -Foul Odor after Cleansing No -Bioengineered Tissue No -Bleeding Controlled with Pressure -Offloading No -Treatment Response Procedure Tolerated Well #1 RIGHT GROIN WOUND -Time 13:48 -Correct Patient Yes No -Correct Side, Site, Position Yes No -Correct Procedure Yes No -Procedure Performed Yes No -Type of Procedure Debridement -Clinical Debridement Subcutaneous -Post Debridement Size (cm) - Length 0.5 -Post Debridement Size (cm) - Width 2.3 -Post Debridement Size (cm) - Depth 0.1 -Total Square Cm 1.15 -Wound/Ulcer Outcome Not Healed -Ulcer Cleansing Rinsed/ Irrigated with Saline -Foul Odor after Cleansing No -Bioengineered Tissue No -Bleeding Controlled with Pressure -Offloading No -Treatment Response Procedure Tolerated Well Pain Scale: 0-10 Numeric Is Patient Pain Free? Yes Yes Wound debrided: Right groin No debridement was completed today Assessment/Plan Active Problems (Last Reviewed 07/14/18 @ 06:07 by Kulwinder Cantor MD) Open wound of pubic region with complication (Chronic) open surgical necrotizing diabetic abscess wound lower anterior abdominal wall and right inguinal area and pubic area DM type 2 (diabetes mellitus, type 2) (Chronic) Overweight (Chronic) Assessment: 1. 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 2. Diabetes mellitus. 3. MRSA. 4. s/p surgical preparation right inguinal and pubic area and lower anterior abdominal wall area with incision and drainage and excisional debridement skin, subcutaneous tissue and fascia for necrotizing diabetic abscess (190 cm2). 5. Nonhealing diabetic ulcer right inguinal and pubic and abdominal wall area. Plan: Incision line is not progressing beyond the fragile skin. Has two small open areas on lateral aspect. 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 He had his gallbladder removed and had pancreatitis in early 07/21. Instructed to gently cleanse with soap and water daily. He will apply Dimethicone 20% spray as needed (skin barrier) and top with kerramax dressing to help keep area dry. He just started back to work this week after being off for his knee and then gallbladder. Finished the Minocycline yesterday for the MRSA culture from 05/04/18. Encourage nutritional supplementation with protein to help the healing process. I have discussed with him about consulting Dr. Garcia for an opinion and the patient is hesitant because he does not want any further surgeries. He will follow up in one week. Code Visit Office Visits / Consults: [id number] OV L3 Est
== END 2018-07-30 23:59 ==
LOC: WC 13:00
PROVIDERS: Family Provider Family Medicine; PCP Family Medicine; Visit Provider Surgery
DX: E11.622 Type 2 diabetes mellitus with other skin ulcer (principal); Z86.14 Personal history of Methicillin resistant Staphylococcus aureus infection; L98.491 Non-pressure chronic ulcer of skin of other sites limited to breakdown of skin; L02.214 Cutaneous abscess of groin
CPT/HCPCS: 11042; 99213; G0463

== ENCOUNTER 2018-08-25 13:00 | Outpatient (RCR) | payer MEDICARE, OTHER, SELFPAY ==
[2018-07-31 00:48] VITALS: BP 123/68; PULSE 63; RESP 18; TEMP 36.5
[2018-08-03 10:28] VITALS: BP 144/70; PULSE 67; RESP 20; TEMP 36; BMI 34.2
--- NOTE | 2018-08-03 16:54 | PCM.WC.PN ---
(1) Non-healing right groin open wound Status: Chronic Current Visit: Yes Code(s): S31.103A - Unspecified open wound of abdominal wall, right lower quadrant without penetration into peritoneal cavity, initial encounter Comment: open surgical necrotizing diabetic abscess wound lower anterior abdominal wall and right inguinal area and pubic area (2) Intertrigo Status: Chronic Current Visit: Yes Code(s): L30.4 - Erythema intertrigo (3) DM type 2 (diabetes mellitus, type 2) Status: Chronic Current Visit: Yes Code(s): E11.9 - Type 2 diabetes mellitus without complications (4) Overweight Status: Chronic Current Visit: Yes Code(s): E66.3 - Overweight Type of Wound Date of Service: 08/03/18 Chief Complaint: Nonhealing diabetic ulcer right inguinal and pubic and abdominal wall area. History of Wound: Surgery 11/18/17 - Surgical preparation right inguinal and pubic area and lower anterior abdominal wall area with incision and drainage and excisional debridement skin, subcutaneous tissue and fascia for necrotizing diabetic abscess (190 cm2). Wound care - Will try zinc oxide/dimethicone to keep area dry. It has helped to improve the epithelialial tissue. Operative culture - MRSA. He was discharged home on Doxycycline and has finished them. He had a wound culture done on 03/23/18 and it showed Proteus. He was placed on Levaquin and finished them. On 05/04/18, another wound culture was done due to lack of improvement and persistent moisture in the area. It showed MRSA. He was placed on Minocycline which he finished 06/22/18. Encourage nutritional supplementation with protein to help the healing process. He went to see dermatology about the sores on his face and he was diagnosed with Roscea and has started treatment which he has seen an improvement. Today he denies fever. His appetite is good. He is back to work and doing ok. Progress of Wound: Mild improvement - Physical Exam Vital Signs Temp Pulse Resp BP 96.8 F L 67 20 H 144/70 H 08/03/18 10:28 08/03/18 10:28 08/03/18 10:28 08/03/18 10:28 General: Alert, Oriented x3, Cooperative HEENT: Atraumatic Oral: Moist Mucosa Lungs: Normal air movement Cardiovascular: Regular rate Extremities: Capillary Refill Less than 3 Seconds, Edema Skin: Ulcer/ Wound - Right groin ulcer is stable with mild improvement Wound Measurements and Assessment - Nurse 1 - General Ulcer Measurement Start: 08/03/18 10:28 Freq: Status: Active Protocol: Activity Type Activity Date Activity User E-Sign Co-Sign Detail Recorded Client Recorded Date Recorded By Document 08/03/18 10:28 [email or web address] [id number] 08/03/18 10:35 DL 08/03/18 10:28 Wound Center Nurse 1 [Ulcer Assessment] #1 RIGHT GROIN WOUND -Current Size (cm) - Length 0.3 -Current Size (cm) - Width 1 -Current Size (cm) - Depth 0.1 -Total Square Cm 0.3 -Photo Taken No -Exudate Amt Small -Exudate Type Serosanguineous -Wound Margin Flat & Intact -Granulation Amt Large (67-100%) -Granulation Quality Red -Necrosis Amt None Present (0 %) -Structure Exposed N/A -Texture ([place]-wound Skin Appearance) Scarring -Moisture ([place]-wound Skin Appearance No Abnormality ) -Color ([place]-wound Skin Appearance) No Abnormality -Temperature ([place]-wound Skin No Abnormality Appearance) (Pt Warm) -Tenderness on Palpation ([place]-wound No Skin Appearance) -Ulcer Cleansing Rinsed/ Irrigated with Saline -Foul Odor after Cleansing No -Anesthetic Used 4% Lidocaine Solution - Nurse 2 - General Ulcer CM Notes Start: 08/03/18 10:28 Freq: Status: Active Protocol: Activity Type Activity Date Activity User E-Sign Co-Sign Detail Recorded Client Recorded Date Recorded By Document 08/03/18 10:53 [email or web address] [id number] 08/03/18 10:55 [email or web address] 08/03/18 10:53 Wound Center Nurse 2 [Procedure/Treatment] -Time 10:55 -Correct Patient No -Correct Side, Site, Position No -Correct Procedure No -Procedure Performed No -Post Debridement Size (cm) - Length 0.1 -Post Debridement Size (cm) - Width 0.1 -Post Debridement Size (cm) - Depth 0.1 -Total Square Cm 0.01 -Wound/Ulcer Outcome Not Healed -Ulcer Cleansing Rinsed/ Irrigated with Saline -Foul Odor after Cleansing No -Bioengineered Tissue No -Bleeding Controlled with Pressure -Offloading No -Treatment Response Procedure Tolerated Well [See Physician Procedure note for Specifics] Pain Scale: 0-10 Numeric [Pain] -Is Patient Pain Free? Yes Musculoskeletal: No Tenderness to Palpation of Joints or Extremities Neurological: Neuro grossly intact Psych/Mental Status: Normal Affect, Appropriate Debridement Note Post-Debridement Measurements/Treatment WC - Nurse 2 - General Ulcer CM Notes Start: 08/03/18 10:28 Freq: Status: Active Protocol: Activity Type Activity Date Activity User E-Sign Co-Sign Detail Recorded Client Recorded Date Recorded By Document 08/03/18 10:53 [email or web address] [id number] 08/03/18 10:55 08/03/18 10:53 Wound Center Nurse 2 #1 RIGHT GROIN WOUND -Time 10:55 -Correct Patient No -Correct Side, Site, Position No -Correct Procedure No -Procedure Performed No -Post Debridement Size (cm) - Length 0.1 -Post Debridement Size (cm) - Width 0.1 -Post Debridement Size (cm) - Depth 0.1 -Total Square Cm 0.01 -Wound/Ulcer Outcome Not Healed -Ulcer Cleansing Rinsed/ Irrigated with Saline -Foul Odor after Cleansing No -Bioengineered Tissue No -Bleeding Controlled with Pressure -Offloading No -Treatment Response Procedure Tolerated Well Pain Scale: 0-10 Numeric Is Patient Pain Free? Yes No debridement was completed today Assessment/Plan Active Problems (Last Reviewed 07/14/18 @ 06:07 by Kulwinder Cantor MD) Non-healing right groin open wound (Chronic) open surgical necrotizing diabetic abscess wound lower anterior abdominal wall and right inguinal area and pubic area Intertrigo (Chronic) DM type 2 (diabetes mellitus, type 2) (Chronic) Overweight (Chronic) Assessment: 1. 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 2. Diabetes mellitus. 3. MRSA. 4. s/p surgical preparation right inguinal and pubic area and lower anterior abdominal wall area with incision and drainage and excisional debridement skin, subcutaneous tissue and fascia for necrotizing diabetic abscess (190 cm2). 5. Nonhealing diabetic ulcer right inguinal and pubic and abdominal wall area. Plan: Incision line is not progressing beyond the fragile skin. Has two small open areas on lateral aspect. 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 He had his gallbladder removed and had pancreatitis in early 07/21. Instructed to gently cleanse with soap and water daily. He will continue to apply Dimethicone 20%/zinc oxide spray as needed (skin barrier) and top with kerramax dressing to help keep area dry. He just started back to work this week after being off for his knee and then gallbladder. Finished the Minocycline yesterday for the MRSA culture from 05/04/18. Encourage nutritional supplementation with protein to help the healing process. I have discussed with him about consulting Dr. Garcia for an opinion and the patient is hesitant because he does not want any further surgeries. He will follow up in one week. Code Visit Office Visits / Consults: [id number] OV L3 Est
[2018-08-11 13:50] VITALS: BP 141/73; PULSE 65; RESP 18; TEMP 37; BMI 34.2
--- NOTE | 2018-08-11 14:39 | PCM.WC.PN ---
(1) Non-healing right groin open wound Status: Chronic Current Visit: Yes Code(s): S31.103A - Unspecified open wound of abdominal wall, right lower quadrant without penetration into peritoneal cavity, initial encounter Comment: open surgical necrotizing diabetic abscess wound lower anterior abdominal wall and right inguinal area and pubic area (2) Intertrigo Status: Chronic Current Visit: Yes Code(s): L30.4 - Erythema intertrigo (3) DM type 2 (diabetes mellitus, type 2) Status: Chronic Current Visit: Yes Code(s): E11.9 - Type 2 diabetes mellitus without complications (4) Overweight Status: Chronic Current Visit: Yes Code(s): E66.3 - Overweight Type of Wound Date of Service: 08/11/18 Chief Complaint: Nonhealing diabetic ulcer right inguinal and pubic and abdominal wall area. History of Wound: Surgery 11/18/17 - Surgical preparation right inguinal and pubic area and lower anterior abdominal wall area with incision and drainage and excisional debridement skin, subcutaneous tissue and fascia for necrotizing diabetic abscess (190 cm2). Wound care - Will try zinc oxide/dimethicone to keep area dry. It has helped to improve the epithelialial tissue. Operative culture - MRSA. He was discharged home on Doxycycline and has finished them. He had a wound culture done on 03/23/18 and it showed Proteus. He was placed on Levaquin and finished them. On 05/04/18, another wound culture was done due to lack of improvement and persistent moisture in the area. It showed MRSA. He was placed on Minocycline which he finished 06/22/18. Encourage nutritional supplementation with protein to help the healing process. He went to see dermatology about the sores on his face and he was diagnosed with Roscea and has started treatment which he has seen an improvement. Today he denies fever. His appetite is good. He is back to work and doing ok. Progress of Wound: Stable - Physical Exam Vital Signs Temp Pulse Resp BP 98.6 F 65 18 141/73 H 08/11/18 13:50 08/11/18 13:50 08/11/18 13:50 08/11/18 13:50 General: Alert, Oriented x3, Cooperative HEENT: Atraumatic Oral: Moist Mucosa Lungs: Normal air movement Cardiovascular: Regular rate Extremities: No edema, Capillary Refill Less than 3 Seconds Skin: Ulcer/ Wound - Right groin ulcer, fragile epithelialization. Wound Measurements and Assessment WC - Nurse 1 - General Ulcer Measurement Start: 08/03/18 10:28 Freq: Status: Active Protocol: Activity Type Activity Date Activity User E-Sign Co-Sign Detail Recorded Client Recorded Date Recorded By Document 08/11/18 13:50 RB [id number] 08/11/18 13:54 RB 08/11/18 13:50 Wound Center Nurse 1 [Ulcer Assessment] #1 RIGHT GROIN WOUND -Combined with other wound No -Current Size (cm) - Length 5.7 -Current Size (cm) - Width 1.2 -Current Size (cm) - Depth 0.1 -Total Square Cm 6.84 -Photo Taken No -Tunneling No -Undermining/Tunneling No -Circular Undermining No -Exudate Amt Small -Exudate Type Serosanguineous -Wound Margin Distinct, Outline Attached -Granulation Amt Large (67-100%) -Granulation Quality [place] -Slough/Fibrin Yes -Necrosis Amt Small (1-33%) -Necrotic Tissue Type Adherent Slough -Structure Exposed N/A -Texture ([place]-wound Skin Appearance) Assessed -Moisture ([place]-wound Skin Appearance Assessed ) -Color ([place]-wound Skin Appearance) Assessed -Temperature ([place]-wound Skin No Abnormality Appearance) (Pt Warm) -Tenderness on Palpation ([place]-wound No Skin Appearance) -Ulcer Cleansing Rinsed/ Irrigated with Saline -Foul Odor after Cleansing No -Anesthetic Used 4% Lidocaine Solution - Nurse 2 - General Ulcer CM Notes Start: 08/03/18 10:28 Freq: Status: Active Protocol: Activity Type Activity Date Activity User E-Sign Co-Sign Detail Recorded Client Recorded Date Recorded By Document 08/11/18 14:08 AN [id number] 08/11/18 14:13 AN 08/11/18 14:08 Wound Center Nurse 2 [Procedure/Treatment] -Time 14:11 -Correct Patient Yes -Correct Side, Site, Position Yes -Correct Procedure No -Procedure Performed No -Wound/Ulcer Outcome Not Healed -Ulcer Cleansing Rinsed/ Irrigated with Saline -Foul Odor after Cleansing No [See Physician Procedure note for Specifics] Pain Scale: 0-10 Numeric [Pain] -Is Patient Pain Free? Yes Musculoskeletal: No Tenderness to Palpation of Joints or Extremities Neurological: Neuro grossly intact Psych/Mental Status: Normal Affect, Appropriate Debridement Note Post-Debridement Measurements/Treatment WC - Nurse 2 - General Ulcer CM Notes Start: 08/03/18 10:28 Freq: Status: Active Protocol: Activity Type Activity Date Activity User E-Sign Co-Sign Detail Recorded Client Recorded Date Recorded By Document 08/03/18 10:53 [id number] 08/03/18 10:55 Document 08/11/18 14:08 AN [id number] 08/11/18 14:13 AN 08/03/18 08/11/18 10:53 14:08 Wound Center Nurse 2 #1 RIGHT GROIN WOUND -Time 10:55 14:11 -Correct Patient No Yes -Correct Side, Site, Position No Yes -Correct Procedure No No -Procedure Performed No No -Post Debridement Size (cm) - Length 0.1 -Post Debridement Size (cm) - Width 0.1 -Post Debridement Size (cm) - Depth 0.1 -Total Square Cm 0.01 -Wound/Ulcer Outcome Not Healed Not Healed -Ulcer Cleansing Rinsed/ Rinsed/ Irrigated with Irrigated with Saline Saline -Foul Odor after Cleansing No No -Bioengineered Tissue No -Bleeding Controlled with Pressure -Offloading No -Treatment Response Procedure Tolerated Well Pain Scale: 0-10 Numeric Is Patient Pain Free? Yes Yes Wound debrided: Right groin Laterality: Right No debridement was completed today Assessment/Plan Active Problems (Last Reviewed 07/14/18 @ 06:07 by Kulwinder Cantor MD) Non-healing right groin open wound (Chronic) open surgical necrotizing diabetic abscess wound lower anterior abdominal wall and right inguinal area and pubic area Intertrigo (Chronic) DM type 2 (diabetes mellitus, type 2) (Chronic) Overweight (Chronic) Assessment: 1. 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 2. Diabetes mellitus. 3. MRSA. 4. s/p surgical preparation right inguinal and pubic area and lower anterior abdominal wall area with incision and drainage and excisional debridement skin, subcutaneous tissue and fascia for necrotizing diabetic abscess (190 cm2). 5. Nonhealing diabetic ulcer right inguinal and pubic and abdominal wall area. Plan: Incision line is not progressing beyond the fragile skin. No opened areas noted.. 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 He had his gallbladder removed and had pancreatitis in early 07/21. Instructed to gently cleanse with soap and water daily. He will continue to apply Dimethicone 20%/zinc oxide spray as needed (skin barrier)-which has helped keep area dry, and top with dry gauze. Encouraged to keep area opened to air when at home. Finished the Minocycline for the MRSA culture from 05/04/18. Encourage nutritional supplementation with protein to help the healing process. I have discussed with him about consulting Dr. Garcia for another opinion and the patient is hesitant because he does not want any further surgeries. He will follow up in two weeks. Code Visit Office Visits / Consults: [id number] OV L2 Est
[2018-08-25 13:11] VITALS: BP 125/68; PULSE 65; RESP 18; TEMP 37.2; BMI 34.2
--- NOTE | 2018-08-25 14:23 | PCM.WC.PN ---
(1) Non-healing right groin open wound Status: Chronic Current Visit: Yes Code(s): S31.103A - Unspecified open wound of abdominal wall, right lower quadrant without penetration into peritoneal cavity, initial encounter Comment: open surgical necrotizing diabetic abscess wound lower anterior abdominal wall and right inguinal area and pubic area (2) Intertrigo Status: Chronic Current Visit: Yes Code(s): L30.4 - Erythema intertrigo (3) DM type 2 (diabetes mellitus, type 2) Status: Chronic Current Visit: Yes Code(s): E11.9 - Type 2 diabetes mellitus without complications (4) Overweight Status: Chronic Current Visit: Yes Code(s): E66.3 - Overweight Type of Wound Date of Service: 08/25/18 Chief Complaint: Nonhealing diabetic ulcer right inguinal and pubic and abdominal wall area. History of Wound: Surgery 11/18/17 - Surgical preparation right inguinal and pubic area and lower anterior abdominal wall area with incision and drainage and excisional debridement skin, subcutaneous tissue and fascia for necrotizing diabetic abscess (190 cm2). Wound care - Will try zinc oxide/dimethicone to keep area dry. It has helped to improve the epithelialial tissue. Operative culture - MRSA. He was discharged home on Doxycycline and has finished them. He had a wound culture done on 03/23/18 and it showed Proteus. He was placed on Levaquin and finished them. On 05/04/18, another wound culture was done due to lack of improvement and persistent moisture in the area. It showed MRSA. He was placed on Minocycline which he finished 06/22/18. Encourage nutritional supplementation with protein to help the healing process. He went to see dermatology about the sores on his face and he was diagnosed with Roscea and has started treatment which he has seen an improvement. Today he denies fever. His appetite is good. He is back to work and doing ok. Progress of Wound: Healed. - Physical Exam Vital Signs Temp Pulse Resp BP 98.9 F 65 18 125/68 H 08/25/18 13:11 08/25/18 13:11 08/25/18 13:11 08/25/18 13:11 General: Alert, Oriented x3, Cooperative HEENT: Atraumatic Oral: Moist Mucosa Lungs: Normal air movement Cardiovascular: Regular rate Extremities: Capillary Refill Less than 3 Seconds, Diminished Peripheral Pulses Skin: Ulcer/ Wound - Right groin is healed Wound Measurements and Assessment - Nurse 1 - General Ulcer Measurement Start: 08/03/18 10:28 Freq: Status: Active Protocol: Activity Type Activity Date Activity User E-Sign Co-Sign Detail Recorded Client Recorded Date Recorded By Document 08/25/18 13:11 AN [id number] 08/25/18 13:20 AN 08/25/18 13:11 Wound Center Nurse 1 [Ulcer Assessment] #1 RIGHT GROIN WOUND -Current Size (cm) - Length 0.1 -Current Size (cm) - Width 0.1 -Current Size (cm) - Depth 0.1 -Total Square Cm 0.01 - Nurse 2 - General Ulcer CM Notes Start: 08/03/18 10:28 Freq: Status: Active Protocol: Activity Type Activity Date Activity User E-Sign Co-Sign Detail Recorded Client Recorded Date Recorded By Document 08/25/18 13:37 [id number] 08/25/18 13:37 08/25/18 13:37 Wound Center Nurse 2 [Procedure/Treatment] -Correct Patient No -Correct Side, Site, Position No -Correct Procedure No -Procedure Performed No -Post Debridement Size (cm) - Length 0 -Post Debridement Size (cm) - Width 0 -Post Debridement Size (cm) - Depth 0 -Total Square Cm 0 -Wound/Ulcer Outcome Healed- Epithelialized [See Physician Procedure note for Specifics] Pain Scale: 0-10 Numeric [Pain] -Is Patient Pain Free? Yes Musculoskeletal: No Tenderness to Palpation of Joints or Extremities Neurological: Neuro grossly intact Psych/Mental Status: Normal Affect, Appropriate Debridement Note Post-Debridement Measurements/Treatment - Nurse 2 - General Ulcer CM Notes Start: 08/03/18 10:28 Freq: Status: Active Protocol: Activity Type Activity Date Activity User E-Sign Co-Sign Detail Recorded Client Recorded Date Recorded By Document 08/03/18 10:53 [id number] 08/03/18 10:55 JF Document 08/11/18 14:08 AN [id number] 08/11/18 14:13 AN Document 08/25/18 13:37 [id number] 08/25/18 13:37 JF 08/03/18 08/11/18 08/25/18 10:53 14:08 13:37 Wound Center Nurse 2 #1 RIGHT GROIN WOUND -Time 10:55 14:11 -Correct Patient No Yes No -Correct Side, Site, Position No Yes No -Correct Procedure No No No -Procedure Performed No No No -Post Debridement Size (cm) - Length 0.1 0 -Post Debridement Size (cm) - Width 0.1 0 -Post Debridement Size (cm) - Depth 0.1 0 -Total Square Cm 0.01 0 -Wound/Ulcer Outcome Not Healed Not Healed Healed- Epithelialized -Ulcer Cleansing Rinsed/ Rinsed/ Irrigated with Irrigated with Saline Saline -Foul Odor after Cleansing No No -Bioengineered Tissue No -Bleeding Controlled with Pressure -Offloading No -Treatment Response Procedure Tolerated Well Pain Scale: 0-10 Numeric Is Patient Pain Free? Yes Yes Yes No debridement was completed today Assessment/Plan Active Problems (Last Reviewed 07/14/18 @ 06:07 by Kulwinder Cantor MD) Non-healing right groin open wound (Chronic) open surgical necrotizing diabetic abscess wound lower anterior abdominal wall and right inguinal area and pubic area Intertrigo (Chronic) DM type 2 (diabetes mellitus, type 2) (Chronic) Overweight (Chronic) Assessment: 1. 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 2. Diabetes mellitus. 3. MRSA. 4. s/p surgical preparation right inguinal and pubic area and lower anterior abdominal wall area with incision and drainage and excisional debridement skin, subcutaneous tissue and fascia for necrotizing diabetic abscess (190 cm2). 5. Nonhealing diabetic ulcer right inguinal and pubic and abdominal wall area. Plan: Right groin site is healed. Encouraged to keep area dry and to make sure there is air getting to it several times a day. Instructed to gently cleanse with soap and water daily. He will continue to apply Dimethicone 20%/zinc oxide spray as needed (skin barrier)-which has helped keep area dry, and top with dry gauze to help keep area stable. Encouraged to massage the scar to help soften scarring. 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 He is healed and does not need to follow up unless he reopens. Code Visit Office Visits / Consults: [id number] OV L3 Est
== END 2018-08-30 23:59 ==
LOC: WC 13:00
PROVIDERS: Family Provider Family Medicine; PCP Family Medicine; Visit Provider Surgery
DX: E11.622 Type 2 diabetes mellitus with other skin ulcer (principal); L30.4 Erythema intertrigo; Z86.14 Personal history of Methicillin resistant Staphylococcus aureus infection; L98.491 Non-pressure chronic ulcer of skin of other sites limited to breakdown of skin
CPT/HCPCS: 99212; G0463

== ENCOUNTER → 2018-12-29 06:59 | Outpatient (CLI) | payer MEDICARE, OTHER, SELFPAY ==
[2018-12-22 09:45] VITALS: BMI 34.1
[2018-12-29 08:06] LABS: Absolute Lymphocyte Count 2.35 X10^3/uL (0.83-4.51); Absolute Neutrophil Count 2.9 X10^3/uL (2.0-7.7); Basophil# 0.02 X10^3/uL; Basophil% 0.3 % (0-1); Eosinophil# 0.17 X10^3/uL; Eosinophils% 2.8 % (0-5); Hematocrit 41.2 % (40-54); Hemoglobin 13.6 g/dL (13.0-16.5); Lymphocyte # 2.35 X10^3/ul (4.0); Lymphocyte % 39.4 % (19-41); Mean Corpuscular Hgb 30.2 pg (27.0-32.0); Mean Corpuscular Volume 91.6 fL (80-94); Mean Platelet Vol. 9.7 fl (6.2-12.0); Monocyte# 0.55 X10^3/uL; Monocyte% 9.2 % (0-10); NRBC Flagged by Analyzer 0 % (0-5); Neutrophil # 2.86 X10^3/uL (2.7-7.7); Platelet Count 219 K/mm3 (150-450); RBC Distribution Width CV 12.9 % (11.6-14.6); RBC Distribution Width SD 43.3 fl (35.1-43.9)
[2018-12-29 08:47] LABS: BUN/Creat Ratio 15.1 RATIO (10-20); Thyroid Stim Hormone (TSH) 3.67 uIU/mL (0.358-3.74)
== END ==
PROVIDERS: Family Provider Family Medicine; PCP Family Medicine; Referring Provider Otolaryngology; Visit Provider Otolaryngology
DX: H93.11 Tinnitus, right ear (principal); R09.89 Other specified symptoms and signs involving the circulatory and respiratory systems
CPT/HCPCS: 36415; 84443; 85025

== ENCOUNTER → 2019-01-01 15:34 | Outpatient (CLI) | payer MEDICARE, OTHER, SELFPAY ==
[2018-12-22 09:45] VITALS: BMI 34.1
--- NOTE | 2019-01-01 15:37 | CT_ITS ---
STUDY: CT SOFT TISSUE NECK WITH CONTRAST REASON FOR EXAM: Male, 73 years old. ] Tinnitus right ear RADIATION DOSAGE (If Supplied By Facility): CTDIvol = ( 13.35 ) mGy, DLP = ( 391.57 ) mGycm TECHNIQUE: The patient was scanned in a multi-detector CT scanner. High resolution transaxial imaging was performed following intravenous administration of 100ML IV Isovue 300. Sagittal and coronal images were reconstructed. Individualized dose optimization techniques were used for this CT. COMPARISON: None. FINDINGS: Normal bilateral parotid glands. 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 Normal bilateral parapharyngeal spaces. Moderate plaque in the carotid bulbs bilaterally. Normal bilateral sublingual and submandibular glands and spaces. Normal visualized nasopharynx. Normal retropharyngeal space. Normal perivertebral space. Normal visualized bilateral faucial tonsils. The visualized tongue, tongue base and oropharynx are normal. The visualized cervical lymph nodes (levels I-) are within normal size limits, and maintain normal morphology. There is no demonstrated solid or cystic mass lesion. There is no abnormal contrast enhancement. Normal epiglottis, bilateral vallecula and hypopharynx. The pre-epiglottic and paraglottic adipose spaces are normal. Normal visualized bilateral piriform sinuses, aryepiglottic folds, vocal cords, and arytenoid-cricoid articulations. Normal subglottic trachea. Normal bilateral lobes of the thyroid gland. Normal visualized pulmonary apices. Normal visualized paranasal sinuses. Normal visualized cervical spine. CT/Soft Tissue Neck WITH Contrast IMPRESSION: Moderate carotid plaque in the bulbs bilaterally. Grossly normal temporal bones but High resolution temporal bone CT or MRI may be more sensitive if clinically warranted. Electronically Signed: Georgi Buckley MD at 17:07 EDT , Service support ,
[2019-01-01 16:30] LABS: EGFR FINGERSTICK > 60.0000 mL/min (>60)
== END ==
PROVIDERS: Family Provider Family Medicine; PCP Family Medicine; Referring Provider Otolaryngology; Visit Provider Otolaryngology
DX: H93.11 Tinnitus, right ear (principal)
CPT/HCPCS: 70491; Q9967

== ENCOUNTER → 2019-03-17 10:15 | Outpatient (CLI) | payer MEDICARE, OTHER, SELFPAY ==
[2019-03-17 10:07] VITALS: BMI 33.9
--- NOTE | 2019-03-17 10:18 | RAD_ITS ---
STUDY: X-RAY CHEST REASON FOR EXAM: Male, 73 years old. Cough. TECHNIQUE: PA and lateral views of the chest. COMPARISON: Comparison is made with prior examination dated October 26, 2017. FINDINGS: The lungs are clear and expanded. There is no demonstrated pleural abnormality. Sternal cerclage wires and vascular clips are present from a prior sternotomy and coronary artery bypass graft procedure (CABG). Normal mediastinum and iqra. Normal visualized pulmonary arteries. There is atherosclerotic tortuosity of the aortic arch and descending thoracic aorta. There are diffuse degenerative changes of the visualized thoracic spine. Normal visualized ribs, clavicles, and shoulders. There is no demonstrated abnormality of the visualized soft tissue structures of the upper abdomen. RAD/Chest PA and Lateral IMPRESSION: No acute abnormality is seen. Electronically Signed: Bridger Gurrola, at 10:37 EDT , Service support ,
== END ==
PROVIDERS: Family Provider Family Medicine; PCP Family Medicine; Referring Provider Physician Assistant; Visit Provider Physician Assistant
DX: R05 Cough (principal)
CPT/HCPCS: 71046

== ENCOUNTER → 2019-07-19 07:40 | Outpatient (CLI) | payer MEDICARE, SELFPAY ==
[2019-06-25 13:04] VITALS: BMI 34.2
--- NOTE | 2019-07-19 07:42 | ECHOCS_ITS ---
Reason For Study: Murmur Procedure This was a 2D Doppler, Color Flow transthoracic echocardiogram. The study was technically difficult. Contrast injection was performed. Exam performed in department. Left Ventricle Normal LV size. Mild concentric left ventricular hypertrophy. Left ventricular systolic function is normal. The estimated ejection fraction is 65 %. Diastolic function is indeterminate. No regional wall motion abnormalities noted. Right Ventricle Normal RV size. Normal systolic function. Atria Normal left atrium. Normal right atrium. No doppler evidence for ASD. Mitral Valve There is no mitral annular calcification. Normal mitral valve. Trivial mitral valve insufficiency. Tricuspid Valve Normal tricuspid valve. Trivial tricuspid valve insufficiency. Right ventricular systolic pressure estimated to be 30 mmHg. Aortic Valve Trisinus/trileaflet aortic valve. Moderate focal aortic valve calcification. Aortic sclerosis, no stenosis. Pulmonic Valve The pulmonic valve is not well visualized. Trivial pulmonic valve insufficiency. Great Vessels The aortic root is not well visualized. Pericardium/Pleural No pericardial effusion. Medication 22 gauge I.V. with prn adaptor inserted into right arm. Diluted definity 3ml given slow IV push to enhance endocardial definition. MMode/2D Measurements & Calculations LVIDd: 4.7 cm IVSd: 1.3 cm LVOT diam: 2.0 cm LVIDs: 3.1 cm LVPWd: 1.5 cm FS: 35.6 % LVOT area: 3.3 cm2 LAV(MOD-bp): 78.8 ml LA A4 area: 25.6 cm2 RA A4 area: 18.2 cm2 LAV(MOD-bp) Indexed: 31.7 ml/m2 LAV(MOD-sp2): 68.9 ml LAV(MOD-sp4): 75.1 ml Time Measurements MV dec time: 0.24 sec Doppler Measurements & Calculations MV E max jarad: 87.5 cm/sec Lat Peak E' Jarad: 10.8 cm/sec Med Peak E' Jarad: 5.1 cm/sec MV A max jarad: 101.3 cm/sec E/E' lat: 8.1 E/E' med: 17.2 MV E/A: 0.86 MV V2 max: 110.7 cm/sec MV P1/2t max jarad: 97.3 cm/sec Ao V2 max: 176.2 cm/sec MV max P.9 mmHg MV P1/2t: 92.4 msec Ao max P.4 mmHg MV V2 mean: 65.9 cm/sec MV dec slope: 308.2 cm/sec2 CHRISTIANO(V,D): 2.4 cm2 MV mean P.9 mmHg MV V2 VTI: 38.0 cm MVA(P1/2t): 2.4 cm2 LV V1 max: 127.9 cm/sec PA V2 max: 131.9 cm/sec TR max jarad: 260.5 cm/sec LV V1 max P.5 mmHg TR max P.1 mmHg Interpretation Summary The study was technically difficult. Contrast injection was performed. Left ventricular systolic function is normal. The estimated ejection fraction is 65 %. Mild concentric left ventricular hypertrophy. Trivial mitral valve insufficiency. Trivial tricuspid valve insufficiency. Aortic sclerosis, no stenosis. Trivial pulmonic valve insufficiency. Right ventricular systolic pressure estimated to be 30 mmHg. Diastolic function is indeterminate. Ordering Physician: Teresa Hughes Referring Physician: Teresa Hughes Performed By: Darnell Hendrickson RCS
== END ==
PROVIDERS: PCP Nurse Practitioner; Referring Provider Physician Assistant Medical; Visit Provider Physician Assistant Medical
DX: I25.10 Atherosclerotic heart disease of native coronary artery without angina pectoris (principal)
CPT/HCPCS: 93306; Q9957; A4216; C8929

== ENCOUNTER → 2019-11-09 | Outpatient (CLI) | payer MEDICARE, SELFPAY ==
[2019-06-25 13:04] VITALS: BMI 34.2
== END | disposition home or self-care (01) ==
LOC: LABSPEC 12:57
PROVIDERS: PCP Nurse Practitioner; Referring Provider Dermatology; Visit Provider Dermatology
DX: L08.9 Local infection of the skin and subcutaneous tissue, unspecified (principal); L57.0 Actinic keratosis; L80 Vitiligo
CPT/HCPCS: 87070; 87077; 87186; 87205

== ENCOUNTER → 2019-11-22 16:21 | Outpatient (CLI) | payer MEDICARE, SELFPAY ==
[2019-06-25 13:04] VITALS: BMI 34.2
== END ==
PROVIDERS: PCP Nurse Practitioner; Referring Provider Dermatology; Visit Provider Dermatology
DX: L12.0 Bullous pemphigoid (principal)
CPT/HCPCS: 36415

== ENCOUNTER 2020-07-26 12:59 | Outpatient (RCR) | payer MEDICARE, SELFPAY ==
[2020-06-22 10:02] VITALS: BMI 34.3
== END 2020-07-26 23:59 ==
LOC: IMMUN 12:59
PROVIDERS: PCP Nurse Practitioner; Referring Provider Family Medicine; Visit Provider Family Medicine
DX: Z23 Encounter for immunization (principal)
CPT/HCPCS: 0011A; 0012A

== ENCOUNTER → 2021-02-21 08:49 | Outpatient (CLI) | payer MEDICARE, SELFPAY ==
--- NOTE | 2021-02-21 08:52 | CDU_ITS ---
Reason For Study: CAROTID STENOSIS Rt. Velocities/BP Lt. Velocities/BP Prox CCA 60.6/7.7 cm/sec. Prox CCA 123.5/0.0 cm/sec. Mid CCA 95.3/11.3 cm/sec. Mid CCA 96.9/10.9 cm/sec. Dist CCA 67.9/11.3 cm/sec. Dist CCA 94.4/15.8 cm/sec. Prox ICA 64.1/7.6 cm/sec. Prox ICA 80.6/11.8 cm/sec. Mid ICA 71.1/18.3 cm/sec. Mid ICA 79.6/19.4 cm/sec. Dist ICA 51.5/14.6 cm/sec. Dist ICA 106.3/29.0 cm/sec. Rt. ICA/CCA = 71.1/95.3=0.7. Lt. ICA/CCA = 106.3/96.9=1.1. Prox ECA 127.7/10.8 cm/sec. Prox ECA 254.6/26.7 cm/sec. Rt. Vert. 47.1/13.1 cm/sec. Lt. Vert. 62.3/9.4 cm/sec. Right Extracranial There is homogeneous, smooth atherosclerotic plaque noted in the right common carotid artery. There is heterogeneous, irregular atherosclerotic plaque noted in the right internal carotid artery. There is heterogeneous, smooth atherosclerotic plaque noted in the right external carotid artery. Antegrade flow is noted in the right vertebral artery. Left Extracranial There is homogeneous, smooth atherosclerotic plaque noted in the left common carotid artery. There is heterogeneous, irregular atherosclerotic plaque noted in the left internal carotid artery. There is homogeneous, smooth atherosclerotic plaque noted in the left external carotid artery. Antegrade flow is noted in the left vertebral artery. There is heterogeneous, irregular atherosclerotic plaque noted in the left bulb. Procedure Carotid Duplex [id number]. Exam performed in department. VL/Carotid Duplex Ultrasound Interpretation Summary Mild (<50%) stenosis right extracranial internal carotid. Mild (<50%) stenosis left extracranial internal carotid. Flow within the vertebral arteries is antegrade bilaterally. Ordering Physician: Amanda Jones Referring Physician: Amanda Jones Performed By: Alie Loomis, CHRISTIANO, RVT
== END ==
PROVIDERS: PCP Nurse Practitioner; Referring Provider Nurse Practitioner; Visit Provider Nurse Practitioner
DX: I65.23 Occlusion and stenosis of bilateral carotid arteries (principal)
CPT/HCPCS: 93880

== ENCOUNTER → 2021-02-23 08:46 | Outpatient (CLI) | payer MEDICARE, SELFPAY ==
--- NOTE | 2021-02-23 08:49 | US_ITS ---
STUDY: RENAL ULTRASOUND - COMPLETE REASON FOR EXAM: Male, 75 years old. URINARY FREQUENCY TECHNIQUE: Ultrasound evaluation of the kidneys was performed with real-time and static vela-scale imaging. COMPARISON: None. FINDINGS: RIGHT KIDNEY: Normal location of the right kidney, which is normal in size. The right kidney measures 11.4 cm x 5.7 cm x 7.5 cm. There is a normal cortex of the right kidney. The renal cortex measures 2 cm. There is no right renal mass or cyst. There are no right renal calculi. There is no right hydronephrosis. DISTAL RIGHT URETER: There is non-visualization of the distal right ureter. There is no demonstrated right ureterovesical junction calculus. There is a visualized right ureteral jet. LEFT KIDNEY: Normal location of the left kidney, which is normal in size. The left kidney measures 12.4 cm x 5.6 x 5.5 cm. There is a normal cortex of the left kidney. The renal cortex measures 1.8 cm. There is no left renal mass or cyst. There are no left renal calculi. There is no left hydronephrosis. DISTAL LEFT URETER: There is non-visualization of the distal left ureter. There is no demonstrated left ureterovesical junction calculus. There is a visualized left ureteral jet. BLADDER: The distended urinary bladder has a volume of 40 ml. There is a normal wall thickness of the distended urinary bladder. There is no demonstrated mass within the urinary bladder. There are no demonstrated bladder calculi. US/Kidney and Bladder IMPRESSION: Normal ultrasound of the kidneys and urinary bladder. Electronically Signed: Bridger Gurrola MD at 12:47 EDT , Service support ,
== END ==
PROVIDERS: PCP Nurse Practitioner; Referring Provider Nurse Practitioner; Visit Provider Nurse Practitioner
DX: R35.0 Frequency of micturition (principal)
CPT/HCPCS: 76770

== ENCOUNTER 2021-08-02 08:52 | Outpatient (CLI) | payer MEDICARE, SELFPAY ==
--- NOTE | 2021-08-02 09:10 | BD_ITS ---
STUDY: DUAL ENERGY X-RAY ABSORPTIOMETRY / DXA REASON FOR EXAM: Male, 75 years old. M85.80. Patient is postmenopausal. TECHNIQUE: Bone Mineral Density (BMD) measurements of lumbar spine and bilateral hips were obtained. COMPARISON: None. FINDINGS: Lumbar Spine (L1-L4): g/cm2 (1.409) / T-score (3.1) / Z-score (4.1) Findings are suggestive of normal bone density with a low fracture risk. Left Femur Total: g/cm2 (1.117) / T-score (0.6) / Z-score (1.) Left Femoral Neck: g/cm2 (0.945) / T-score (0.1) / Z-score (1.4) Right Femur Total: g/cm2 (1.098) / T-score (0.4) / Z-score (1.2) Right Femoral Neck: g/cm2 (0.835) / T-score (-0.7) / Z-score (0.6) BD/Dexa Bone Density Study IMPRESSION: The patient is considered normal as outlined below according to World Stephen Organization (WHO) criteria with a low fracture risk. Reference Information: The T-score is the number of standard deviations above or below the standard which is normal for young adults at their peak bone mineral density. The World Health Organization (WHO) interprets the T-scores as follows: Above -1 Normal bone density Between -1 and -2.5 Osteopenia Equal to / or below -2.5 Osteoporosis As a practical clinical guideline, osteopenia may be graded as follows: Mild -1 through -1.5 Moderate -1.6 through -2.0 Severe -2.1 through -2.4 The Z-score is the number of standard deviations above or below age-matched controls. A Z-score of less than -1.5 would be considered abnormal. References: 1. NIH Osteoporosis and Related Bone Diseases www osteo.org 2. International Society for Clinical Densitometry www iscd.org 3. National Osteoporosis Foundation www nof.org Electronically Signed: Bridger Gurrola MD at 9:00 EST ,
== END 2021-08-02 23:59 | disposition home or self-care (01) ==
LOC: OPBD 08:53
PROVIDERS: PCP Nurse Practitioner; Referring Provider Nurse Practitioner; Visit Provider Nurse Practitioner
DX: M85.89 Other specified disorders of bone density and structure, multiple sites (principal)
CPT/HCPCS: 77080

== ENCOUNTER 2022-02-11 14:23 | Outpatient (CLI) | payer MEDICARE, SELFPAY ==
[2022-02-11] MEDS: 0.9% Saline Lock 10 ML Syringe IV ×3 (14:44→15:29)
[2022-02-11 14:49] VITALS: BP 139/64; PULSE 70; RESP 18; TEMP 36.5; O2SAT 99; BMI 32.0
[2022-02-11] MEDS: BEBTELOVIMAB 175 MG/2 ML VIAL IV (15:26)
[2022-02-11 15:53] VITALS: BP 132/62; PULSE 67; RESP 18; TEMP 36.7; O2SAT 98
[2022-02-11 16:19] VITALS: BP 138/70; PULSE 66; RESP 16; TEMP 36.5; O2SAT 98
== END 2022-02-11 16:26 | disposition home or self-care (01) ==
LOC: MS3OUT 14:23 → MS2 14:24
PROVIDERS: PCP Nurse Practitioner Family; Visit Provider Nurse Practitioner Acute Care
DX: U07.1 COVID-19 (principal)
CPT/HCPCS: M0222; Q0222; A4216

== ENCOUNTER → 2022-07-01 | Outpatient (CLI) | payer MEDICARE, SELFPAY ==
--- NOTE | 2022-07-01 09:51 | CDU_ITS ---
Reason For Study: Carotid Stenosis Rt. Velocities/BP Lt. Velocities/BP Prox CCA 81/7 cm/sec. Prox CCA 122/18 cm/sec. Mid CCA 78/11 cm/sec. Mid CCA 80/11 cm/sec. Dist CCA 53/10 cm/sec. Dist CCA 74/12 cm/sec. Prox ICA 46/11 cm/sec. Prox ICA 63/13 cm/sec. Mid ICA 66/19 cm/sec. Mid ICA 60/19 cm/sec. Dist ICA 72/21 cm/sec. Dist ICA 58/17 cm/sec. Rt. ICA/CCA = 0.9. Lt. ICA/CCA = 0.8. Prox ECA 95/8 cm/sec. Prox ECA 206/10 cm/sec. Rt. Vert. 43/12 cm/sec. Lt. Vert. 40/4 cm/sec. Right Extracranial There is heterogeneous, irregular atherosclerotic plaque noted in the right common carotid artery. There is heterogeneous, irregular atherosclerotic plaque noted in the right internal carotid artery. There is heterogeneous, irregular atherosclerotic plaque noted in the right external carotid artery. Antegrade flow is noted in the right vertebral artery. Left Extracranial There is heterogeneous, irregular atherosclerotic plaque noted in the left common carotid artery. There is heterogeneous, irregular atherosclerotic plaque noted in the left internal carotid artery. The atherosclerotic plaque causes acoustic shadowing. There is heterogeneous, irregular atherosclerotic plaque noted in the left external carotid artery. Antegrade flow is noted in the left vertebral artery. Procedure Carotid Duplex 90271. This is a Carotid Duplex examination using B-mode, color flow and specral Doppler. Exam performed in department. VL/Carotid Duplex Ultrasound Interpretation Summary Mild (<50%) stenosis right extracranial internal carotid. Mild (<50%) stenosis left extracranial internal carotid. Patent and antegrade vertebrals bilaterally. Ordering Physician: Alley Yan Referring Physician: Alley Yan Performed By: Reema Brady, RDCS, RVT
== END | disposition home or self-care (01) ==
LOC: CVS 09:49
PROVIDERS: PCP Nurse Practitioner Family; Visit Provider Nurse Practitioner Family
DX: I65.23 Occlusion and stenosis of bilateral carotid arteries (principal)
CPT/HCPCS: 93880

== ENCOUNTER → 2022-09-24 | Outpatient (CLI) | payer MEDICARE, SELFPAY ==
--- NOTE | 2022-09-24 10:07 | ECHOD_ITS ---
Reason For Study: Murmur Procedure This was a 2D Doppler, Color Flow transthoracic echocardiogram. Exam performed in department. Left Ventricle Normal LV size. Left ventricular systolic function is normal. Stage 1 diastolic dysfunction. No regional wall motion abnormalities noted. Right Ventricle Normal RV size. Normal systolic function. Atria The left atrium is mildly enlarged. Normal right atrium. Tricuspid Valve Normal tricuspid valve. Mild tricuspid valve insufficiency. Pulmonary artery systolic pressure is 32 mmHg. Aortic Valve Trisinus/trileaflet aortic valve. Moderate diffuse aortic valve thickening. Pulmonic Valve Normal pulmonic valve. Great Vessels Mildly dilated aortic root. The pulmonary artery is normal size. Normal inferior vena cava. Pericardium/Pleural No pericardial effusion. MMode/2D Measurements & Calculations LVIDd: 5.6 cm IVSd: 1.2 cm Ao root diam: 4.1 cm LVIDs: 4.6 cm LVPWd: 1.0 cm LA dimension: 5.6 cm RVDd: 3.1 cm FS: 18.3 % LAV(MOD-bp): 71.8 ml LA A4 area: 23.9 cm2 RA A4 area: 20.9 cm2 LAV(MOD-bp) Indexed: 32.1 ml/m2 LAV(MOD-sp2): 60.9 ml LAV(MOD-sp4): 77.1 ml Time Measurements MV dec time: 0.21 sec Doppler Measurements & Calculations MV E max jarad: 83.2 cm/sec Lat Peak E' Jarad: 10.4 cm/sec Med Peak E' Jarad: 5.7 cm/sec MV A max jarad: 88.0 cm/sec E/E' lat: 8.0 E/E' med: 14.5 MV E/A: 0.94 MV V2 max: 104.4 cm/sec MV P1/2t max jarad: 106.2 cm/sec Ao V2 max: 173.6 cm/sec MV max P.4 mmHg MV P1/2t: 80.6 msec Ao max P.1 mmHg MV V2 mean: 61.3 cm/sec MV mean P.8 mmHg MV dec slope: 386.0 cm/sec2 MV V2 VTI: 36.6 cm MVA(P1/2t): 2.7 cm2 LV V1 max: 99.7 cm/sec MR max jarad: 560.3 cm/sec PA V2 max: 84.1 cm/sec LV V1 max P.0 mmHg MR max P.6 mmHg MR mean jarad: 441.4 cm/sec MR mean P.2 mmHg MR VTI: 212.5 cm TR max jarad: 265.7 cm/sec TR max P.2 mmHg ECHO/Echo Complete Interpretation Summary Normal LV size. Left ventricular systolic function is normal. The left atrium is mildly enlarged. Stage 1 diastolic dysfunction. Mildly dilated aortic root. Moderate diffuse aortic valve thickening. Ordering Physician: Teresa Hughes Referring Physician: Teresa Hughes Performed By: Darnell Hendrickson RCS
== END | disposition home or self-care (01) ==
LOC: CVS 10:06
PROVIDERS: PCP Nurse Practitioner Family; Referring Provider Physician Assistant Medical; Visit Provider Physician Assistant Medical
DX: I25.10 Atherosclerotic heart disease of native coronary artery without angina pectoris (principal); R01.1 Cardiac murmur, unspecified
CPT/HCPCS: 93306

== ENCOUNTER 2023-05-05 19:02 | Emergency (ER) | payer MEDICARE, SELFPAY ==
[2023-05-05 19:03] VITALS: BP 151/68; PULSE 62; RESP 18; TEMP 36.3; O2SAT 99; BMI 34.6
--- NOTE | 2023-05-05 20:25 | CT_ITS ---
EXAM: CT ANGIOGRAPHY HEAD WITHOUT AND WITH INTRAVENOUS CONTRAST CLINICAL INDICATION: headache TECHNIQUE: [place]/head CT angiography protocol performed without and with intravenous contrast. CTDIvol = ( 47.45 ) mGy, DLP = ( 1291.64 ) mGycm This CT exam was performed using one or more of the following dose reduction techniques: automated exposure control, adjustment of the mA and/or kV according to patient size, and/or use of iterative reconstruction technique. MIP reconstructed images were created and reviewed. CONTRAST: IV 100mL [id number] COMPARISON: No relevant prior studies available. FINDINGS: VASCULATURE: RIGHT INTERNAL CAROTID ARTERY: No acute findings. No significant stenosis at the intracranial/visualized segments. No aneurysm. RIGHT ANTERIOR CEREBRAL ARTERY: Unremarkable. No occlusion or significant stenosis. Anterior communicating artery is present. No aneurysm. RIGHT MIDDLE CEREBRAL ARTERY: Unremarkable. No occlusion or significant stenosis. No aneurysm. RIGHT POSTERIOR CEREBRAL ARTERY: Unremarkable. No occlusion or significant stenosis. No aneurysm. RIGHT VERTEBRAL ARTERY: Unremarkable as visualized. No significant stenosis at the intradural/visualized segments. No aneurysm. LEFT INTERNAL CAROTID ARTERY: No acute findings. No significant stenosis at the intracranial/visualized segments. No aneurysm. LEFT ANTERIOR CEREBRAL ARTERY: Unremarkable. No occlusion or significant stenosis. No aneurysm. LEFT MIDDLE CEREBRAL ARTERY: Unremarkable. No occlusion or significant stenosis. No aneurysm. LEFT POSTERIOR CEREBRAL ARTERY: Unremarkable. No occlusion or significant stenosis. No aneurysm. LEFT VERTEBRAL ARTERY: Unremarkable as visualized. No significant stenosis at the intradural/visualized segments. No aneurysm. BASILAR ARTERY: Atherosclerotic calcifications of the carotid siphons and vertebrobasilar arteries. No significant stenosis. No aneurysm. OTHER VASCULATURE: No vascular malformation. No significant stenosis, thrombosis, aneurysm or dissection. HEAD: BRAIN AND EXTRA-AXIAL SPACES: Periventricular small vessel ischemic change. No midline shift or hydrocephalus. Diffuse parenchymal atrophy. Posterior fossa structures are unremarkable. Basal cisterns are patent. No acute intracranial hemorrhage, mass effect or edema. No evidence of acute cortical stroke. BONES/JOINTS: Unremarkable. No discrete lytic or blastic abnormalities. SINUSES: Unremarkable as visualized. Clear. MASTOID AIR CELLS: Visualized sinuses and mastoid air cells are clear. ORBITS: Visualized globes, extraocular muscles, optic nerves and retrobulbar fat appear unremarkable. CT/CTA Head W/WO Contrast IMPRESSION: 1. No significant stenosis, thrombosis, aneurysm or dissection. 2. No evidence of acute intracranial pathology. 3. AIDOC was utilized to assist in identifying pertinent positive findings. Electronically Signed: Eddie Weber MD at 23:48 EST ,
--- NOTE | 2023-05-05 20:29 | EDS_ITS ---
HPI <GOGO [place] - Last Filed: 05/05/23 21:08> History of Present Illness Chief Complaint: Headache Narrative Narrative: Presenting due to a headache that started Friday morning that awoke him from his sleep. He reports that the pain is intermittent but gradually worsens throughout the day, he reports that he gets random sharp shooting pains to the top left portion of his head. Denies a history of headaches or migraines. He denies any photophobia, visual changes, nausea, vomiting, and head injury. PFSH <GOGO [place] - Last Filed: 05/05/23 21:08> [facility] Medical History Abnormal cardiovascular stress test Atherosclerotic heart disease of [place] coronary artery without angina pectoris Cardiac murmur Diabetes Essential hypertension History of myocardial infarction of inferoposterior wall Hyperlipidemia Hypertension Premature atrial contraction Premature ventricular contraction Home Medications fenofibrate micronized 134 mg capsule 134 mg PO QHS cholesterol lowering 90 days ##90 07/14/17 [History Last Taken 07/13/18 22:00 134 mg] metformin 500 mg tablet,extended release 24 hr 1,000 mg PO BID blood sugar 30 days #120 tabs 06/15/18 [History Last Taken 07/13/18 17:00 1000 mg] losartan 100 mg tablet 100 mg PO QDAY bp 07/14/18 [History Last Taken 07/13/18 08:00 100 mg] aspirin 81 mg tablet,delayed release (Adult Aspirin Regimen) 81 mg PO DAILY 06/25/19 [History Last Taken Unknown] cholecalciferol (vitamin D3) 75 mcg (3,000 unit) tablet 3,000 unit PO DAILY 06/25/19 [History Last Taken Unknown] amlodipine 2.5 mg tablet 2.5 mg PO DAILY 06/22/20 [History Last Taken Unknown] mecobalamin (vitamin B12) 1,000 mcg chewable tablet 1,000 mcg PO Q OTHER DAY 06/27/21 [History Last Taken Unknown] metoprolol tartrate 50 mg tablet 25 mg PO BID blood pressure 90 days #90 tabs 06/27/21 [History Last Taken Unknown] tamsulosin 0.4 mg capsule 0.4 mg PO DAILY 06/27/21 [History Last Taken Unknown] simvastatin 20 mg tablet 40 mg PO QHS cholesterol lowering 90 days #180 tabs 07/26/22 [History Last Taken Unknown] multivitamin (Daily Multi-Vitamin tablet) 1 tab PO DAILY PRN 09/03/22 [History Last Taken Unknown] carbamazepine 200 mg tablet 200 mg PO BID #20 tabs 05/06/23 [Rx Last Taken Unknown] hydrocodone-acetaminophen 5-325mg 5mg-325mg 1 tab PO Q6H PRN PRN Pain 3 days #10 TABLETS 05/06/23 [Rx Last Taken Unknown] Allergy/AdvReac Type Severity Reaction Status Date / Time ALLIE Inhibitors AdvReac Intermediate Cough Verified 05/05/23 19:03 Family History Father , age 73 Myocardial infarction COPD (chronic obstructive pulmonary disease) Brother CAD (coronary artery disease) Hx CABG Myocardial infarction mid 40's Surgical History History of cholecystectomy History of left heart catheterization S/P CABG x 5 Social History Smoking Status: Former smoker how long ago did patient quit smokin years ago alcohol intake: never substance use type: does not use caffeine: Yes Type: coffee Number of servings: 1 ROS <GOGO [place] - Last Filed: 05/05/23 21:08> ROS ED Constitutional Constitutional ED: Denies chills or fever(s) Eyes Eyes: Denies blurry vision or change in vision Cardiovascular Cardiovascular: Denies chest pain Respiratory/Chest Respiratory/Chest: Denies cough or dyspnea Gastrointestinal Gastrointestinal: Denies abdominal pain, nausea or vomiting Musculoskeletal Musculoskeletal: Denies arthralgias or myalgias Integumentary Denies rash Neurologic Neurologic: Reports headache(s); Denies confusion, paresthesias or weakness EXAM <GOGO [place] - Last Filed: 05/05/23 21:08> Physical Exam Const Vital Signs: 05/05/23 19:03 Temperature 97.4 F L Temperature Source Temporal Pulse Rate 62 Respiratory Rate 18 Blood Pressure 151/68 H Blood Pressure Mean 95 Pulse Ox 99 Oxygen Delivery Method Room Air Positive well nourished, well developed and no apparent distress General Appearance ED: well developed HEENT Reports normocephalic and head/scalp atraumatic Mouth ED: Yes moist mucous membranes normal Eyes PERRL and EOMs intact bilaterally Neck full ROM and supple Chest Wall inspection of chest normal Resp normal respiratory effort and clear to auscultation bilaterally Cardio regular rate and regular rhythm GI soft to palpation, non-tender, non-distended and no masses Back/Spine normal ROM and normal to inspection Extremity normal to inspection and full ROM Neuro oriented x3, CN's II-XII intact bilaterally, moves all extremities, no focal motor deficits and no sensory deficits noted Sensorium / Orientation: awake and alert Psych mental status grossly normal and thought process normal Skin no rashes or lesions noted and no wounds <Dr. Edson Martinez MD - Last Filed: 05/06/23 00:04> Physical Exam Const Vital Signs: 05/05/23 19:03 Temperature 97.4 F L Temperature Source Temporal Pulse Rate 62 Respiratory Rate 18 Blood Pressure 151/68 H Blood Pressure Mean 95 Pulse Ox 99 Oxygen Delivery Method Room Air MDM <GOGO [place] - Last Filed: 05/05/23 21:08> [facility] Narrative Medical decision making narrative: Patient presenting due to a headache that started on Friday. His pain seems to be localized to the left parietal region. During examination patient got a random shock like pain to that area of his head which made him jump several times. He denies any personal or familial history of brain aneurysm. CTA and CT of the head will be obtained. Labs will be obtained including ESR as symptoms are concerning for trigeminal neuralgia. Workup is pending. Lab Data Labs: Laboratory Results - last 24 hr 05/05/23 21:37 WBC 8.7 RBC 4.62 Hgb 14.4 Hct 42.5 MCV 92.0 MCH 31.2 MCHC 33.9 RDW Std Deviation 43.6 RDW Coeff of Jamila 13.0 Plt Count 235 MPV 9.0 Immature Gran % (Auto) 0.300 Neut % (Auto) 62.8 Lymph % (Auto) 24.7 [place] % (Auto) 9.5 Eos % (Auto) 2.0 Baso % (Auto) 0.7 Absolute Neuts (auto) 5.5 Absolute Lymphs (auto) 2.14 Nucleated RBC % 0 ESR 9 Sodium 138 Potassium 4.3 Chloride 107 Carbon Dioxide 26.0 Anion Gap 5 BUN 20 H Creatinine 1.25 Estim Creat Clear Calc 61.03 Est GFR (MDRD) Af Amer 72 Est GFR (MDRD) Non-Af 60 BUN/Creatinine Ratio 16.0 Glucose 121 H Calcium 9.1 Radiography Diagnostic Testing: Clinical Impression(s) from Imaging Studies Head CTA 05/05/23 20:25 IMPRESSION: 1. No significant stenosis, thrombosis, aneurysm or dissection. 2. No evidence of acute intracranial pathology. 3. AIDOC was utilized to assist in identifying pertinent positive findings. Electronically Signed: Eddie Weber MD at 23:48 EST , <Dr. Edson Martinez MD - Last Filed: 05/06/23 00:04> [facility] Narrative Medical decision making narrative: Patient presenting due to a headache that started on Friday. His pain seems to be localized to the left parietal region. During examination patient got a random shock like pain to that area of his head which made him jump several times. He denies any personal or familial history of brain aneurysm. CTA and CT of the head will be obtained. Labs will be obtained including ESR as symptoms are concerning for trigeminal neuralgia. Workup is pending. Patient CBC is normal. Patient's electrolytes show no marked abnormalities. Glucose is minimally elevated. Patient's ESR is normal at 9. My independent interpretation of the CT shows no acute process. Final reading of his CT and CTA shows no acute process. Patient was given Tegretol here. It is not made a significant impact in the pain. But he feels fine in between these episodes. I still see no rash on his scalp. I believe this is like try to mental neuralgia. We will start him on Tegretol at 200 twice a day. He was warned that this can make him sleepy. I will write for some hydrocodone just for intermittent pain and to help him sleep. I explained that he needs to follow-up with his doctor as his dose of Tegretol will likely need to be increased to manage his pain. They may end up changing him to another medicine such as gabapentin if it is not working. If he has worsening pain, rash, fevers, vomiting, neurologic symptoms he should return. Lab Data Attestation: I reviewed the patient's lab results. Labs: Laboratory Results - last 24 hr 05/05/23 21:37 WBC 8.7 RBC 4.62 Hgb 14.4 Hct 42.5 MCV 92.0 MCH 31.2 MCHC 33.9 RDW Std Deviation 43.6 RDW Coeff of Jamila 13.0 Plt Count 235 MPV 9.0 Immature Gran % (Auto) 0.300 Neut % (Auto) 62.8 Lymph % (Auto) 24.7 [place] % (Auto) 9.5 Eos % (Auto) 2.0 Baso % (Auto) 0.7 Absolute Neuts (auto) 5.5 Absolute Lymphs (auto) 2.14 Nucleated RBC % 0 ESR 9 Sodium 138 Potassium 4.3 Chloride 107 Carbon Dioxide 26.0 Anion Gap 5 BUN 20 H Creatinine 1.25 Estim Creat Clear Calc 61.03 Est GFR (MDRD) Af Amer 72 Est GFR (MDRD) Non-Af 60 BUN/Creatinine Ratio 16.0 Glucose 121 H Calcium 9.1 Radiography Diagnostic Testing: Clinical Impression(s) from Imaging Studies Head CTA 05/05/23 20:25 IMPRESSION: 1. No significant stenosis, thrombosis, aneurysm or dissection. 2. No evidence of acute intracranial pathology. 3. AIDOC was utilized to assist in identifying pertinent positive findings. Electronically Signed: Eddie Weber MD at 23:48 EST , Treatment and Re-Evaluation Narrative: I have personally performed a face to face assessment of the patient and have reviewed the LÓPEZ Note. I performed a substantive portion of the visit including all aspects of the following. My hagan findings include: History: Patient is complaining of a left-sided headache. He states he normally does not get headaches. These started on Friday. He states he gets shock type pains across the top of his head to the forehead. These only occur on the left. They are sometimes caused by to touching the head. But if he applies gentle pressure to the scalp and just holds it they seem to be better. In between these episodes of shooting pain, he states his head does not hurt. It is just the electric shock feeling that he gets. There is been no trauma. There is no neurologic deficit. He does not feel systemically ill. No temporal pain. He has no numbness tingling weakness discoordination speech or vision changes. He states other than that 1 area of his scalp he feels perfectly fine. Only blood thinner is aspirin. Exam: She is sitting calmly on the edge of the bed. He is in no acute distress. But intermittently he will kind of move quickly when he feels the pain. I touch that area of the scalp and it caused a bit of a shock feeling for him. But I cannot reproduce it by directly tapping on occipital nerve or supraorbital nerves. There is no rash redness or vesicles that I can see. No swelling. There is a small abrasion behind the left ear but it does not look like it is any way involved with this and there is no pain there. There is no facial weakness. No ptosis. No limitation of range of motion. No sinus tenderness. No temporal artery tenderness. No neck pain or pain with motion. Heart is regular. Lungs are clear. Abdomen is mildly obese but not tender. Extremities show no rashes. Patient has normal gait balance speech. His NIH is 0. Medical Decision Making: Symptoms are very consistent with a trigeminal neuralgia type pain. But he does not have a history of this. He has a mildly complex medical history and is 77 years old. For this reason we will do a CT and CTA. We will check blood work including ESR. Clinically this does not act like temporal arteritis. Discharge Plan Triage Chief Complaint: Headache ED Midlevel Provider: Sindy Taylor ED Provider: Edson Martinez Dx/Rx/DC Orders Clinical Impression: Trigeminal neuralgia pain Instructions: ED Trigeminal Neuralgia Prescriptions: New carbamazepine 200 mg tablet 200 mg PO BID Qty: 20 0RF hydrocodone-acetaminophen [hydrocodone-acetaminophen] 5-325 mg tablet 1 tab PO Q6H PRN PRN (Reason: Pain) 3 Days Qty: 10 0RF No Action fenofibrate micronized 134 mg capsule 134 mg PO QHS 90 Days Qty: 90 Patient Comments: metformin 500 mg tablet extended release 24 hr 1,000 mg PO BID 30 Days Qty: 120 simvastatin 20 mg tablet 40 mg PO QHS 90 Days Qty: 180 Patient Comments: cholecalciferol (vitamin D3) 3,000 unit tablet 3,000 unit tablet 3,000 unit PO DAILY aspirin [Adult Aspirin Regimen] 81 mg tablet,delayed release (DR/EC) 81 mg PO DAILY mecobalamin (vitamin B12) 1,000 mcg tablet,chewable 1,000 mcg PO Q OTHER DAY amlodipine 2.5 mg tablet 2.5 mg PO DAILY tamsulosin 0.4 mg capsule 0.4 mg PO DAILY metoprolol tartrate 50 mg tablet 25 mg PO BID 90 Days Qty: 90 Patient Comments: multivitamin [Daily Multi-Vitamin] Tablet 1 tab PO DAILY PRN losartan 100 MG tablet 100 mg PO QDAY Primary Care Provider: Alley Yan Referrals: Alley Yan, [facility] [Primary Care Provider] - As soon as possible Disposition Disposition: Home, Self Care
[2023-05-05] MEDS: carBAMazepine 200 MG Tablet PO (21:43)
[2023-05-05 21:46] LABS: Absolute Lymphocyte Count 2.14 X10^3/uL (0.83-4.51); Absolute Neutrophil Count 5.5 X10^3/uL (2.0-7.7); Basophil# 0.06 X10^3/uL; Basophil% 0.7 % (0-1); Eosinophil# 0.17 X10^3/uL; Hematocrit 42.5 % (40-54); Hemoglobin 14.4 g/dL (13.0-16.5); Lymphocyte # 2.14 X10^3/ul (0.83-4.51); Lymphocyte % 24.7 % (19-41); Mean Corp Hgb Conc 33.9 g/dL (32-36); Mean Corpuscular Hgb 31.2 pg (27.0-32.0); Monocyte# 0.82 X10^3/uL; Monocyte% 9.5 % (0-10); NRBC Flagged by Analyzer 0 % (0-5); Neutrophil # 5.45 X10^3/uL (2.7-7.7); Neutrophil % 62.8 % (47-70); Platelet Count 235 K/mm3 (150-450); RBC Distribution Width SD 43.6 fl (35.1-43.9); Red Blood Count 4.62 M/mm3 (4.6-6.2); White Blood Count 8.7 K/mm3 (4.4-11.0)
[2023-05-05 22:02] LABS: Erythrocyte Sedimentation Rate 9 mm/hr (0-20)
[2023-05-05 22:10] LABS: Anion Gap 5 (5-15); BUN 20 mg/dL (7-18); Calcium,Total 9.1 mg/dL (8.5-10.1); Chloride 107 mmol/L (98-107); Creatinine, Serum 1.25 mg/dL (0.70-1.30); EST Glomerular Filtration Rate 60 mL/min (>60); Est Glom Filt Rate - Afr Amer 72 mL/min (>60); Estimated Creatinine Clearance 61.03 ml/min; Glucose 121 mg/dL (74-106); Potassium 4.3 mmol/L (3.5-5.1); Sodium Level 138 mmol/L (136-145)
[2023-05-06 00:15] VITALS: PULSE 64; RESP 18; O2SAT 97
== END 2023-05-06 00:42 | disposition home or self-care (01) ==
PROVIDERS: Physician Assistant; Emergency Provider Emergency Medicine; PCP Nurse Practitioner Family; Visit Provider Emergency Medicine
DX: G50.0 Trigeminal neuralgia (principal); E11.65 Type 2 diabetes mellitus with hyperglycemia; E78.5 Hyperlipidemia, unspecified; I10 Essential (primary) hypertension; I25.10 Atherosclerotic heart disease of native coronary artery without angina pectoris; Z79.82 Long term (current) use of aspirin; Z79.84 Long term (current) use of oral hypoglycemic drugs; Z87.891 Personal history of nicotine dependence; Z95.1 Presence of aortocoronary bypass graft
CPT/HCPCS: 70496; 80048; 85025; 85652; 99283; J7050; A4216

== ENCOUNTER → 2023-10-31 | Outpatient (CLI) | payer OTHER, SELFPAY | END | disposition home or self-care (01) | PROVIDERS: PCP Nurse Practitioner Family; Referring Provider Dermatology; Visit Provider Dermatology | DX: L12.0 Bullous pemphigoid (principal); R21 Rash and other nonspecific skin eruption; L29.9 Pruritus, unspecified | CPT/HCPCS: 36415 ==

== ENCOUNTER → 2025-03-21 | Outpatient (CLI) | payer OTHER, SELFPAY ==
[2025-03-21 12:46] LABS: PSA,Total - Annual Screen 0.16 ng/mL (0.02-4.00)
== END | disposition home or self-care (01) ==
LOC: LAB 11:09
PROVIDERS: PCP Nurse Practitioner Family; Referring Provider Urology; Visit Provider Urology
DX: Z12.5 Encounter for screening for malignant neoplasm of prostate (principal)
CPT/HCPCS: 36415; 84153; G0103